=== PATIENT | female | born 1965 | race Caucasian/White ===

== ENCOUNTER 2024-12-29 22:12 | Outpatient (CLI) | payer OTHER, SELFPAY ==
--- OUTSIDE RECORDS SUMMARY | 2024-12-29 22:52 | XMS_ITS | Encounter Summary ---
Author Organization [facility] Address Formerly [facility] [place] [address] Care Team Providers Care Claims Clerk Name Role Phone Bianca Mejia MD Primary Care Provider [phone] Reason for Visit * Reason Comments Cardiac Arrest Encounter Details Date Type Department Care Team (Late st Contact Info) Description 12/29/2024 10:52 PM CDT - 12/30/2024 4:53 AM CDT Emergency [facility] Emergency Dept [address] [place] [id number] [phone] Leland Grullon MD [facility] [address] [place] [address] Cardiac arrest (H); Atrial fibrillation with RVR (H); Hyperkalemia; Lactic acidosis Discharge Disposition: Another Health Care Institution with Planned Hospital IP Readmission Social History Tobacco Use Types Packs/Day Years Used Date Smoking Tobacco: Every Day Cigarettes Smokeless Tobacco: Never Alcohol Use Standard Drinks/Week Comments Yes 0 (1 standard drink = 0.6 oz pur e alcohol) Socially Adolescent Education Answer Date Record ed Getting School Help Needed Not on file 03/27 Food Insecurity Answer Date Recorded Within the past 12 months, d id you worry that your food would run out before you got money to buy more? No 12/31/2024 Within the past 12 months, d id the food you bought just not last and you didn t have money to get more? No 12/31/2024 Housing Stability Answer Date Recorded Do you have housing? (Housin g is defined as stable permanent housing and does not include staying outside in a car, in a tent, in an abandoned building, in an overnight senior living, or couch-surfing.) Yes 12/31/2024 Are you worried about losing your housing? No 12/31/2024 Financial Resource Strain Answer Date R ecorded Within the past 12 months, h ave you or your family members you live with been unable to get utilities (heat, electricity) when it was really needed? No 12/31/2024 Transportation Needs Answer Date Record ed Within the past 12 months, h as lack of transportation kept you from medical appointments, getting your medicines, non-medical meetings or appointments, work, or from getting things that you need? No 12/31/2024 Interpersonal Safety Answer Date Record ed Do you feel physically and e motionally safe where you currently live? Yes 12/30/2024 Within the past 12 months, h ave you been hit, slapped, kicked or otherwise physically hurt by someone? No 12/30/2024 Within the past 12 months, h ave you been humiliated or emotionally abused in other ways by your partner or ex-partner? No 12/30/2024 Comments No Sex and Gender Information Value Date Recorded Sex Assigned at Not on file Legal Sex Female 2:48 PM CDT Gender Identity Not on file Sexual Orientation Not on file documented as of this encounter Last Filed Vital Signs Vital Sign Reading Time Taken Comments Blood Pressure 99/76 12/30/2024 4:15 AM CDT Pulse 72 12/30/2024 4:19 AM CDT Temperature 36.4 C (97.5 F) 12/29/2024 11:06 PM CDT Respiratory Rate 16 12/29/2024 11:0 4 PM CDT Oxygen Saturation 96% 12/30/2024 4:19 AM CDT Inhaled Oxygen Concentration - - Weight 90.6 kg (199 lb 11.8 oz) 025 11:03 PM CDT Height - - Body Mass Index 31.28 02/24/2022 6:29 AM CDT documented in this encounter Medications at Time of Discharge acetaminophen (TYLENOL) 325 MG tabletIndications:S /P lumbar fusion Take 2 tablets (650 mg) by mouth every 4 hours as needed for other (mild pain) 100 tablet 02/25/2022 atorvastatin (LIPITOR) 10 MG tablet Take 10 mg by mouth daily calcium carbonate-vitamin D (OS-SAMMIE WITH D) 500-200 MG-UNIT tabletIndications:S /P lumbar fusion Take 1 tablet by mouth 3 times daily (before meals) 270 tablet 02/26/2022 gabapentin (NEURONTIN) 800 MG tablet Take 800 mg by mouth 2 times daily. metFORMIN (GLUCOPHAGE XR) 500 MG 24 hr tablet Take 1,000 mg by mouth 2 times daily (with meals). nortriptyline (PAMELOR) 25 MG capsule Take 25 mg by mouth At Bedtime rivaroxaban ANTICOAGULANT (XARELTO) 20 MG TABS tabletIndications:A trial fibrillation, unspecified type (H) Take 1 tablet (20 mg) by mouth daily (with dinner) 02/27/2022 Vitamin D3 (CHOLECALCIFEROL) 25 mcg (1000 units) tabletIndications:S /P lumbar fusion Take 1 tablet (25 mcg) by mouth 2 times daily 180 tablet 02/25/2022 documented as of this encounter ED Notes * Leland Grullon MD - 12/29/2024 11:08 PM CDT Emergency Department Note History of Present Illness Chief Complaint Cardiac Arrest HPI Juliet Cox is a 59 year old female, anticoagulated on Xarelto for atrial fibrillation, with history of hypertension and type 2 diabetes who presents via EMS for cardiac arrest. Patient complained of right shoulder pain tonight and later had a sudden collapse in her garage. Daughter felt no pulseand performed CPR until police and fire department arrived. When fire department arrived to the scene, AED placed and 5 shocks were delivered. EMS states when they arrived, ROSC achieved, and pt was waking up. Upon ER arrival, patient is alert and talking. She denies chest pain, but notes mild SOB.She believes she is always in A-Fib. Independent Historian EMS as detailed above. Daughter later arrived and provided hx as well. She states pt had right-sided chest/shoulder pain before syncopal episode. Review of External Notes Reviewed cardiology note from April 2022. Paroxysmal a-fib at that time. Past Medical History Medical History and Problem List Hypertension Type 2 diabetes with polyneuropathy Mixed hyperlipidemia Arthritis Atrial fibrillation Antiplatelet or antithrombotic long-term use Tobacco use disorder Medications Xarelto Metformin Pamelor Gabapentin Jardiance Metoprolol succinate Atorvastatin Ferrous sulfate Levothyroxine Surgical History Cervical discectomy Laparoscopic gastric sleeve Optical tracking system fusion spine posterior lumbar three+ levels Physical Exam Patient Vitals for the past 24 hrs: BP Temp Temp src Pulse Resp SpO2 Weight 12/30/24406 -- -- -- 71 -- 99 % -- 12/30/24405 -- -- -- 71 -- 98 % -- 12/30/24404 -- -- -- 71 -- 99 % -- 12/30/24403 -- -- -- 73 -- 94 % -- 12/30/24402 -- -- -- 70 -- 97 % -- 12/30/24401 -- -- -- 72 -- 96 % -- 12/30/24400 -- -- -- 72 -- 98 % -- 12/30/24399 107/70 -- -- 73 -- 98 % -- 12/30/24335 -- -- -- 72 -- 99 % -- 12/30/24330 96/67 -- -- 73 -- 94 % -- 12/30/24314 111/68 -- -- 73 -- 97 % -- 12/30/240 104/75 -- -- 74 -- 94 % -- 12/30/24247 116/71 -- -- 73 -- 94 % -- 12/30/24246 -- -- -- 71 -- 94 % -- 12/30/24245 -- -- -- 73 -- 96 % -- 12/30/24244 -- -- -- 73 -- 94 % -- 12/30/24242 -- -- -- -- -- 96 % -- 12/30/24241 -- -- -- -- -- 96 % -- 12/30/24240 -- -- -- -- -- 95 % -- 12/30/24231 -- -- -- 76 -- 94 % -- 12/30/24230 -- -- -- 73 -- 95 % -- 12/30/24229 -- -- -- 75 -- 96 % -- 12/30/24228 -- -- -- 69 -- 96 % -- 12/30/24227 -- -- -- 73 -- 95 % -- 12/30/24204 -- -- -- 72 -- 97 % -- 12/30/24203 -- -- -- 69 -- 97 % -- 12/30/24202 -- -- -- 70 -- 96 % -- 12/30/24201 -- -- -- 109 -- 94 % -- 12/30/24199 -- -- -- 107 -- -- -- 12/30/24158 -- -- -- 110 -- 99 % -- 12/30/24157 -- -- -- -- -- 100 % -- 12/30/24156 111/85 -- -- 110 -- -- -- 12/30/24121 (!) 124/93 -- -- 112 -- 100 % -- 12/30/24111 -- -- -- 116 -- 100 % -- 12/30/24110 -- -- -- 113 -- 100 % -- 12/30/24109 (!) 121/103 -- -- 115 -- 100 % -- 12/30/24108 -- -- -- 110 -- 100 % -- 12/30/24107 -- -- -- 113 -- 100 % -- 12/30/24106 -- -- -- 112 -- 100 % -- 12/30/24105 -- -- -- 113 -- 100 % -- 12/30/24104 125/85 -- -- 109 -- 100 % -- 12/30/2457 -- -- -- 113 -- 100 % -- 12/30/2456 -- -- -- 112 -- 100 % -- 12/30/2455 -- -- -- 112 -- 100 % -- 12/30/2454 (!) 115/92 -- -- 115 -- 96 % -- 12/30/2451 -- -- -- 114 -- -- -- 12/30/2450 -- -- -- 112 -- 97 % -- 12/30/2449 (!) 114/96 -- -- 115 -- 99 % -- 12/30/2445 -- -- -- 114 -- -- -- 12/30/2444 110/84 -- -- 113 -- 100 % -- 12/30/2442 -- -- -- 113 -- 100 % -- 12/30/2441 -- -- -- 110 -- 100 % -- 12/30/2440 -- -- -- 107 -- 100 % -- 12/30/2439 108/78 -- -- 114 -- -- -- 12/30/2436 -- -- -- 117 -- 100 % -- 12/30/2435 -- -- -- 113 -- 100 % -- 12/30/2434 107/69 -- -- 114 -- 100 % -- 12/30/2432 -- -- -- 116 -- 100 % -- 12/30/2431 -- -- -- 117 -- 98 % -- 12/30/2430 -- -- -- 113 -- 100 % -- 12/30/2429 109/84 -- -- 118 -- -- -- 12/30/2427 -- -- -- 117 -- -- -- 12/30/2426 -- -- -- 109 -- 100 % -- 12/30/2425 -- -- -- 106 -- 100 % -- 12/30/2424 113/74 -- -- 105 -- 100 % -- 12/30/2423 -- -- -- 107 -- 99 % -- 12/30/2422 -- -- -- 109 -- 100 % -- 12/30/2421 -- -- -- 106 -- 100 % -- 12/30/2420 -- -- -- 105 -- 99 % -- 12/30/2419 101/77 -- -- 105 -- 100 % -- 12/30/2418 -- -- -- 113 -- 99 % -- 12/30/2417 -- -- -- 118 -- 100 % -- 12/30/2416 -- -- -- 111 -- 99 % -- 12/30/2415 -- -- -- 109 -- 99 % -- 12/30/2414 97/86 -- -- 112 -- -- -- 12/30/2413 -- -- -- -- -- 99 % -- 12/30/2412 -- -- -- 102 -- 99 % -- 12/30/2411 -- -- -- 113 -- 99 % -- 12/30/2410 -- -- -- (!) 124 -- 99 % -- 12/30/249 94/80 -- -- 117 -- 99 % -- 12/30/246 -- -- -- 110 -- 99 % -- 12/30/245 -- -- -- 115 -- 99 % -- 12/30/24 0005 118/81 -- -- 111 -- 99 % -- 12/30/24 0003 -- -- -- 113 -- 100 % -- 12/30/24 0002 -- -- -- 120 -- 99 % -- 12/30/24 0001 -- -- -- 113 -- 98 % -- 12/30/24 0000 110/76 -- -- 116 -- 98 % -- 12/29/242346 -- -- -- 113 -- 99 % -- 12/29/242344 91/69 -- -- 115 -- 99 % -- 12/29/242341 -- -- -- 113 -- 100 % -- 12/29/242340 -- -- -- 118 -- 100 % -- 12/29/242339 91/ -- -- 120 -- -- -- 12/29/242338 -- -- -- 117 -- 97 % -- 12/29/242337 -- -- -- 112 -- 100 % -- 12/29/242336 -- -- -- 115 -- 92 % -- 12/29/242335 -- -- -- 117 -- 98 % -- 12/29/242334 (!) -- -- 114 -- 98 % -- 12/29/242331 -- -- -- 114 -- 97 % -- 12/29/242330 -- -- -- 117 -- 97 % -- 12/29/242329 -- -- 115 -- 98 % -- 12/29/242328 -- -- -- 114 -- 98 % -- 12/29/242327 -- -- -- 115 -- 99 % -- 12/29/242325 -- -- -- 117 -- 97 % -- 12/29/242324 -- -- 118 -- 98 % -- 12/29/242322 -- -- -- (!) 121 -- 99 % -- 12/29/242321 -- -- -- 120 -- 99 % -- 12/29/242319 91/ -- -- (!) 121 -- 98 % -- 12/29/242318 -- -- -- 116 -- 99 % -- 12/29/242317 -- -- -- (!) 123 -- 99 % -- 12/29/242316 -- -- -- (!) 125 -- 97 % -- 12/29/242315 -- -- -- (!) 124 -- 97 % -- 12/29/242314 -- -- (!) 128 -- -- -- 12/29/242313 -- -- -- (!) 137 -- 98 % -- 12/29/242312 -- -- -- (!) 130 -- 98 % -- 12/29/242311 -- -- -- (!) 128 -- 97 % -- 12/29/242310 108/58 -- -- (!) 141 -- 98 % -- 12/29/242307 -- -- -- (!) 131 -- 98 % -- 12/29/242306 -- -- -- (!) 125 -- 97 % -- 12/29/242305 -- 97.5 ??F (36.4 ??C) Oral (!) 147 -- 97 % -- 12/29/242304 (!) 81/45 -- -- (!) 144 -- 97 % -- 12/29/242303 (!) 88/54 -- -- (!) 146 16 97 % -- 12/29/242302 (!) 8854 -- -- (!) 128 -- -- 90.6 kg (199 lb 11.8 oz) 12/29/242301 -- -- -- (!) 140 -- -- -- 12/29/242300 -- -- -- (!) 147 -- -- -- 12/29/242299 -- -- -- 120 -- -- -- 12/29/242258 -- -- -- (!) 135 -- -- -- 12/29/242256 -- -- -- 90 -- 98 % -- Physical Exam Nursing note and vitals reviewed. HENT: Mouth/Throat: Moist mucous membranes. Eyes: EOMI, nonicteric sclera Cardiovascular:tachycardic, irregularly irregular rhythm, no murmur Pulmonary/Chest: Effort normal and breath sounds normal. No respiratory distress. No wheezes. No rales. Pain to palpation of chest/sternum. Abdominal: Soft. Nontender, nondistended, no guarding or rigidity. Musculoskeletal: Normal range of motion. Neurological: Alert. Oriented. Equal production material handler strength. Moves all extremities spontaneously. Skin: Skin is warm and dry. No rash noted. IO left tibia. Appears in place. Diagnostics Lab Results Labs Ordered and Resulted from Time of ED Arrival to Time of ED Departure COMPREHENSIVE METABOLIC PANEL - Abnormal Result Value Sodium 138 Potassium 6.0 (*) Carbon Dioxide (CO2) 20 (*) Anion Gap 14 Urea Nitrogen 20.4 Creatinine 0.98 (*) GFR Estimate 66 Calcium 8.5 (*) Chloride 104 Glucose 234 (*) Alkaline Phosphatase 93 AST 396 (*) ALT 399 (*) Protein Total 6.0 (*) Albumin 3.8 Bilirubin Total 0.3 CBC WITH PLATELETS AND DIFFERENTIAL - Abnormal WBC Count 22.0 (*) RBC Count 4.47 Hemoglobin 14.0 Hematocrit 43.3 MCV 97 MCH 31.3 MCHC 32.3 RDW 14.1 Platelet Count 293 % Neutrophils 72 % Lymphocytes 18 % Monocytes 6 % Eosinophils 1 % Basophils 1 % Immature Granulocytes 3 NRBCs per 100 WBC 0 Absolute Neutrophils 15.9 (*) Absolute Lymphocytes 4.0 Absolute Monocytes 1.3 Absolute Eosinophils 0.1 Absolute Basophils 0.2 Absolute Immature Granulocytes 0.6 (*) Absolute NRBCs 0.0 GLUCOSE BY METER - Abnormal GLUCOSE BY METER POCT 67 (*) TROPONIN T, HIGH SENSITIVITY - Abnormal Troponin T, High Sensitivity 71 (*) ISTAT GASES LACTATE VENOUS POCT - Abnormal Lactic Acid POCT 3.6 (*) Bicarbonate Venous POCT 11 (*) O2 Sat, Venous POCT 39 (*) pCO2 Venous POCT 27 (*) pH Venous POCT 7.21 (*) pO2 Venous POCT 27 ISTAT BASIC CHEM ICA HEMATOCRIT POCT - Abnormal Chloride POCT 116 (*) Potassium POCT 3.0 (*) Sodium POCT 147 (*) UREA NITROGEN POCT 12 Calcium, Ionized Whole Blood POCT 3.5 (*) Glucose Whole Blood POCT 161 (*) Anion Gap POCT 21.0 (*) Hemoglobin POCT 9.5 (*) Hematocrit POCT 28 (*) Creatinine POCT 0.5 TOTAL CO2 POCT 14 POTASSIUM - Abnormal Potassium 5.9 (*) LACTIC ACID WHOLE BLOOD - Abnormal Lactic Acid 2.8 (*) TROPONIN T, HIGH SENSITIVITY - Abnormal Troponin T, High Sensitivity 120 (*) GLUCOSE BY METER - Abnormal GLUCOSE BY METER POCT 298 (*) IONIZED CALCIUM - Normal Calcium Ionized Whole Blood 4.5 POTASSIUM - Normal Potassium 4.4 GLUCOSE MONITOR NURSING POCT GLUCOSE MONITOR NURSING POCT Imaging CT Chest Pulmonary Embolism w Contrast Final Result IMPRESSION: 1. No pulmonary embolism or pneumonia. 2. Multiple anterior bilateral rib fractures and midsternal fracture, most certainly related to resuscitative efforts. 3. Trace bilateral pneumothoraces. 4. Diffuse pulmonary edema, likely cardiogenic. 5. Scattered right middle lobe pulmonary nodules measuring up to 5 mm. Per Fleischner Society 2017 guideline, a one-year follow-up chest CT could be considered if patient is at increased risk for lung cancer. Without lung cancer risk factor, no follow-up is necessary. Echocardiogram Limited Final Result EKG ECG results from 12/29/24 EKG 12 lead Value Systolic Blood Pressure Diastolic Blood Pressure Ventricular Rate 113 Atrial Rate 226 CA Interval QRS Duration 94 QT 390 QTc 534 P [place] R AXIS 57 T [place] 83 Interpretation ECG Atrial flutter with 2:1 A-V conduction Nonspecific ST abnormality Prolonged QT Abnormal ECG When compared with ECG of 29-Dec-2024 22:53, (unconfirmed) QRS axis Shifted right ST less depressed in Lateral leads Interpreted by Dr. Grullon at 2253 EKG 12 lead Value Systolic Blood Pressure Diastolic Blood Pressure Ventricular Rate 144 Atrial Rate 315 CA Interval QRS Duration 90 QT 322 QTc 498 P [place] R AXIS -79 T [place] 117 Interpretation ECG Atrial flutter with variable A-V block Left axis deviation Anterior infarct , age undetermined Abnormal ECG No previous ECGs available Interpreted by Dr. Grullon at 2345 Independent Interpretation I independently reviewed the CT chest PE w/ contrast. I see no evidence of pulmonary embolism. Multiple rib fractures noted. ED Course Medications Administered Medications norepinephrine (LEVOPHED) 4 mg in NS 250 mL PERIPHERAL infusion (0 mcg/kg/min ?? 90.6 kg Intravenous Stopped 12/30/24216) amiodarone (NEXTERONE) 1.8 mg/mL in dextrose 5% 200 mL ADULT STANDARD infusion (1 mg/min Intravenous $New Bag 12/29/242323) amiodarone (NEXTERONE) 1.8 mg/mL in dextrose 5% 200 mL ADULT STANDARD infusion (has no administration in time range) glucose gel 15-30 g (has no administration in time range) Or dextrose 50 % injection 25-50 mL (has no administration in time range) Or glucagon injection 1 mg (has no administration in time range) dextrose 10% BOLUS 300 mL (300 mLs Intravenous $New Bag 12/30/24154) amiodarone (NEXTERONE) bolus 150 mg (0 mg Intravenous Stopped 12/29/242328) calcium gluconate 1 g in 50 mL in sodium chloride intermittent infusion (1 g Intravenous $Given 12/30/24104) sodium bicarbonate 8.4 % injection 50 mEq (50 mEq Intravenous $Given 12/30/24107) dextrose 50 % injection 25 g (25 g Intravenous $Given 12/30/24155) insulin regular 1 unit/mL injection 9 Units (9 Units Intravenous $Given 6/28/25 0156) sodium chloride 0.9 % bag for CT scan flush (96 mLs Intravenous $Given 12/30/24 0143) iopamidol (ISOVUE-370) solution 500 mL (78 mLs Intravenous $Given 12/30/24 0136) Procedures Procedures Central Line Placement Procedure: Central Venous Catheter Insertion Indication: Vasopressor administration and Vascular access Consent: Verbal from Patient Risk Discussed: incorrect placement, failure to place and bleeding or infection Cornelius Protocol: Cornelius protocol was followed and time out conducted just prior to starting procedure, confirming patient identity, site/side, procedure, patient position, and availability of correct equipment and implants. Anesthesia/Sedation: Lidocaine - 1% Procedure Detail: Central line bundle elements were complete including preparatory hand leansing, donning full barrier precautions, use of a full body drape and chlorhxidine gluconate skin prep. The Right internal femoral vein was selected as the optimal location for patient???s condition. Ultrasound was utilized for guidance: A finder needle was used to enter the vein, through which a guidewire was inserted. The finder needle was then removed and the tract was dilated. A triple lumen central venous catheter was inserted over the guidewire without difficulty. The guidewire was removed and the catheter was sutured in place and covered with an appropriate dressing. Patient Status: The patient tolerated the procedure well: Yes. There were no complications. Discussion of Management Cardiology - Dr. Mcnamara Pinked Edge Sewing Machine Operator - Dr. Chen ED Course ED Course as of 12/30/24 0411 WedDec 29, 2024 2254 I obtained history and examined the patient as noted above. 9905 I performed central line placement. Sat Dec 30, [address] Chen, [place]'s food and beverage checker, regarding the patient. Additional Documentation None Medical Decision Making / Diagnosis [facility] Diagnoses: Lactic acid elevated due to cardiac arrest. At this time there are no signs of sepsis or septic shock MIPS CT for PE was ordered because the patient is high risk for pulmonary embolism. FRED Cox is a 59 year old female who presents status post cardiac arrest. Patient had witnessed arrest and immediate bystander CPR. Had 5 shocks by AED. When EMS arrived, ROSC and been achieved and rhythm was A-fib with RVR. On arrival, patient denying chest pain or headache. EKG x2 without evidence of ischemia. Patient anticoagulated on Xarelto. troponin mildly elevated as anticipated afteran arrest, but not significantly so. Noted to be hyperkalemic and treated with meds as above. Improved on recheck. CTPE negative for PE, tamponade. Small pneumos noted and multiple rib fractures. No chest tube needed. Pt largely asymptomatic. No ischemia noted on EKGs. Arrest does not appear to be 2/2 NH at this time. Discussed with on-call cardiology, Dr. Mcnamara, who agrees, and does not recommend activating bed laborer. She did recommend obtaining a stat echo and starting amiodarone which was done. Stat echo reassuring without wall motion abnormality or other abnormality reassuring against NH.Suspect primary arrhythmic event. Pt converted back to sinus rhythm while in ED. Will continue amiofor now given concerns for arrhythmia as the cause of cardiac arrest. Considered aspirin and heparin gtt for NSTEMI, but given lower concern for ischemic cause of arrest, will defer. Pt was briefly on norepi following ROSC, but this was weaned off. We had some difficulty with IV access on arrival and obtaining labs, so pt has a right femoral central line placed for access. Discussed with pt/family and answered all questions. Pt transferred in stable condition. All questions answered. Critical care time: 70 minutes excluding procedures. Disposition The patient was transferred to [facility] ICU. Diagnosis ICD-10-CM 1. Cardiac arrest (H) I46.9 2. Atrial fibrillation with RVR (H) I48.91 3. Hyperkalemia E87.5 4. Lactic acidosis E87.20 Scribe Disclosure: Rhea Strauss, dio serving as a scribe at 11:08 PM on 12/29/2024 to document services personally performed by Leland Grullon MD based on my observations and the provider's statements to me. Leland Grullon MD 12/30/24 0419 * Geri Salamanca RN - 12/29/2024 10:53 PM CDT Pt BIBA from home d/t cardiac arrest. Per EMS, pt collapsed in the garage and had witnessed arrest by family. About 20 min CPR and 5 vfib shocks given by fire before EMS arrival. ROSC was obtained upon EMS arrival. Upon arrival to ED, pt awake and talking, A&Ox4. Pt in afib RVR rate between 120-140s. Hx diabetes, afib. VSS except hypotensive and tachy. ABCS intact. Triage Assessment (Adult) Row Name 12/29/24 3743 Triage Assessment Airway WDL WDL Respiratory WDL Respiratory WDL WDL Skin Circulation/Temperature WDL Skin Circulation/Temperature WDL WDL Cardiac WDL Cardiac WDL WDL Peripheral/Neurovascular WDL Peripheral Neurovascular WDL WDL Cognitive/Neuro/Behavioral WDL Cognitive/Neuro/Behavioral WDL WDL documented in this encounter Plan of Treatment Not on file documented as of this encounter Procedures Procedure Name Priority Date/Time Associated Diagnosis Comments GLUCOSE BY METER STAT 12/30/2024 4:12 AM CDT GLUCOSE BY METER STAT 12/30/2024 2:20 AM CDT TROPONIN T, HIGH SENSITIVITY STAT 12/30/2024 2:17 AM CDT POTASSIUM STAT 12/30/2024 2:[address] CHEST PULMONARY EMBOLISM W CONTRAST STAT 12/30/2024 1:58 AM CDT POTASSIUM STAT 12/30/2024 1:16 AM CDT LACTIC ACID WHOLE BLOOD STAT 12/30/2024 1:16 AM CDT IONIZED CALCIUM STAT 12/30/2024 1:16 AM CDT ECHO LIMITED STAT 12/30/2024 12:28 AM CDT TROPONIN T, HIGH SENSITIVITY STAT 12/30/2024 12:19 AM CDT COMPREHENSIVE METABOLIC PANEL STAT 12/30/2024 12:19 AM CDT EKG 12-LEAD, TRACING ONLY STAT 12/29/2024 11:40 PM CDT EXTRA GREEN TOP (LITHIUM HEPARIN) ON ICE STAT 12/29/2024 11:04 PM CDT EXTRA HEPARINIZED SYRINGE STAT 12/29/2024 11:04 PM CDT EXTRA TUBE STAT 12/29/2024 11:04 PM CDT EXTRA RED TOP TUBE STAT 12/29/2024 11 :04 PM CDT EXTRA BLUE TOP TUBE STAT 12/29/2024 1 1:04 PM CDT CBC WITH PLATELETS AND DIFFERENTIAL STAT 12/29/2024 11:04 PM CDT CBC WITH PLATELETS & DIFFERENTIAL STAT 12/29/2024 11:04 PM CDT ISTAT BASIC CHEM ICA HEMATOCRIT POCT STAT 12/29/2024 11:01 PM CDT ISTAT GASES LACTATE VENOUS POCT STAT 12/29/2024 11:01 PM CDT GLUCOSE BY METER STAT 12/29/2024 10:5 7 PM CDT EKG 12-LEAD, TRACING ONLY STAT 12/29/2024 10:53 PM CDT documented in this encounter Results * (ABNORMAL) Glucose by meter (12/30/2024 4:12 AM CDT) [facility] GLUCOSE BY METER POCT 232(H) 70 - 99 mg/dL 12/30/2024 4:18 AM CDT LABORATORY POC Blood, Capillary BLOOD SPECIMEN / Unknown 12/30/2024 4:12 AM CDT 12/30/2024 4:18 AM CDT Leland Grullon MD LAB - BEAKER POCT Final R esult LABORATORY POC [facility] [address] Lab (1st floor, no room number) [address] [place] [address] * (ABNORMAL) Glucose by meter (12/30/2024 2:20 AM CDT) GLUCOSE BY METER POCT 298(H) 70 - 99 mg/dL 12/30/2024 2:27 AM CDT LABORATORY POC Blood, venous BLOOD SPECIMEN / Unknown 12/30/2024 2:20 AM CDT 12/30/2024 2:27 AM CDT Leland Grullon MD LAB - BEAKER POCT Final R esult LABORATORY POC [facility] [address] Lab (1st floor, no room number) [place] [id number] [place] [address] * Potassium (12/30/2024 2:17 AM CDT) Potassium 4.4 3.4 - 5.3 mmol/L 12/30/2024 3:12 AM CDT LABORATORY Blood BLOOD SPECIMEN / Unknown Venipuncture / Unknown 12/30/2024 2:17 AM CDT 12/30/2024 2:27 AM CDT Leland Grullon MD LAB - BLOOD ORDERABLES Fi nal Result LABORATORY [facility] [address] Lab (1st floor, no room number) [address] * (ABNORMAL) Troponin T, High Sensitivity (12/30/2024 2:17 AM CDT) Troponin T, High Sensitivity 120(HH) <=14 ng/L 12/30/2024 3:22 AM CDT LABORATORY Comment: Either a High Sensitivity Troponin T baseline (0 hours) value = 100 ng/L, or an increase in High Sensitivity Troponin T = 7 ng/L at 2 hours compared to 0 hours (2-0 hours), suggests myocardial injury, and urgent clinical attention is required. If the 2-0 hours increase is <7 ng/L, a High Sensitivity Troponin T result above gender-specific reference ranges warrants further evaluation. Recommendations for further evaluation include correlation with clinical decision-making tool (e.g., HEART), a 3rd High Sensitivity Troponin T test 2 hours after the 2nd (a 20% change from baseline would represent concern), admission for observation, close PCC/cardiology follow-up, or urgent outpatient provocative testing. Blood BLOOD SPECIMEN / Unknown Venipuncture / Unknown 12/30/2024 2:17 AM CDT 12/30/2024 2:27 AM CDT us Leland Grullon MD LAB - BLOOD ORDERABLES Fi nal Result [facility] [address] Lab (1st floor, no room number) [place] [address], [facility] * CT Chest Pulmonary Embolism w Contrast (12/30/2024 1:58 AM CDT) Anatomical Region Laterality Modality Chest, SUBRAD CT BODY, UMP CT CHEST Computed Tomography 12/30/2024 1:58 AM CDT Impressions 12/30/2024 2:37 AM CDT IMPRESSION: 1. No pulmonary embolism or pneumonia. 2. Multiple anterior bilateral rib fractures and midsternal fracture, most certainly related to resuscitative efforts. 3. Trace bilateral pneumothoraces. 4. Diffuse pulmonary edema, likely cardiogenic. 5. Scattered right middle lobe pulmonary nodules measuring up to 5 mm. Per Fleischner Society 2017 guideline, a one-year follow-up chest CT could be considered if patient is at increased risk for lung cancer. Without lung cancer risk factor, no follow-up is necessary. Narrative 12/30/2024 2:37 AM CDT EXAM: CT CHEST PULMONARY EMBOLISM W CONTRAST LOCATION: [facility] DATE: 12/30/2024 INDICATION: Cardiac arrest. COMPARISON: None. TECHNIQUE: CT chest pulmonary angiogram during arterial phase injection of IV contrast. Multiplanar reformats and MIP reconstructions were performed. Dose reduction techniques were used. CONTRAST: 78 mL Isovue 370 FINDINGS: ANGIOGRAM CHEST: Pulmonary arteries are normal caliber and negative for pulmonary emboli. Thoracic aorta is negative for aneurysm or dissection. No CT evidence of right heart strain. LUNGS AND PLEURA: Trace bilateral pneumothoraces present. A 5 mm right middle lobe nodule is seen on series 7 image 125. A couple 2 to 5 mm nodules in the right middle lobe on image 109. Extensive septal line thickening with hazy groundglass opacities throughout bilateral lung. Dependent atelectasis in the posterior right upper lobe and lower lobes. No confluent pneumonic consolidation or pleural effusion. MEDIASTINUM/AXILLAE: No lymphadenopathy. Heart size is normal without pericardial effusion. CORONARY ARTERY CALCIFICATION: Mild. UPPER ABDOMEN: No acute findings. 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 Adenomatous hypertrophy of bilateral adrenal glands. MUSCULOSKELETAL: Prominent anterior osteophyte in the lower thoracic spine. No suspicious osseous lesions. Multiple anterior bilateral rib fractures and nondisplaced sternal fracture noted, including right third, fourth, fifth, sixth, and seventh ribs, as well as the left anterior fourth, fifth and sixth ribs. Procedure Note Micha Isidro MD - 12/30/2024 EXAM: CT CHEST PULMONARY EMBOLISM W CONTRAST LOCATION: [facility] DATE: 12/30/2024 INDICATION: Cardiac arrest. COMPARISON: None. TECHNIQUE: CT chest pulmonary angiogram during arterial phase injection ofIV contrast. Multiplanar reformats and MIP reconstructions were performed.Dose reduction techniques were used. CONTRAST: 78 mL Isovue 370 FINDINGS: ANGIOGRAM CHEST: Pulmonary arteries are normal caliber and negative forpulmonary emboli. Thoracic aorta is negative for aneurysm or dissection.No CT evidence of right heart strain. LUNGS AND PLEURA: Trace bilateral pneumothoraces present. A 5 mm rightmiddle lobe nodule is seen on series 7 image 125. A couple 2 to 5 mmnodules in the right middle lobe on image 109. Extensive septal linethickening with hazy groundglass opacities throughout bilateral lung. Dependent atelectasis in the posterior rightupper lobe and lower lobes. No confluent pneumonic consolidation orpleural effusion. MEDIASTINUM/AXILLAE: No lymphadenopathy. Heart size is normal withoutpericardial effusion. CORONARY ARTERY CALCIFICATION: Mild. UPPER ABDOMEN: No acute findings. Postsurgical changes of prior gastricsleeve procedure. Adenomatous hypertrophy of bilateral adrenal glands. MUSCULOSKELETAL: Prominent anterior osteophyte in the lower thoracicspine. No suspicious osseous lesions. Multiple anterior bilateral ribfractures and nondisplaced sternal fracture noted, including right third,fourth, fifth, sixth, and seventh ribs, as well as the left anterior fourth, fifth and sixth ribs. IMPRESSION: 1. No pulmonary embolism or pneumonia. 2. Multiple anterior bilateral rib fractures and midsternal fracture,most certainly related to resuscitative efforts. 3. Trace bilateral pneumothoraces. 4. Diffuse pulmonary edema, likely cardiogenic. 5. Scattered right middle lobe pulmonary nodules measuring up to 5 mm.Per Fleischner Society 2017 guideline, a one-year follow-up chest CT couldbe considered if patient is at increased risk for lung cancer. Withoutlung cancer risk factor, no follow-up is necessary. Leland Grullon MD IMG CT ORDERABLES Final R esult * (ABNORMAL) Potassium (12/30/2024 1:16 AM CDT) [facility] Potassium 5.9(H) 3.4 - 5.3 mmol/L 12/30/2024 1:39 AM CDT LABORATORY Blood BLOOD SPECIMEN / Unknown Venipuncture / Unknown 12/30/2024 1:16 AM CDT 12/30/2024 1:19 AM CDT Leland Grullon MD LAB - BLOOD ORDERABLES Fi nal Result LABORATORY [facility] [address] [facility] Lab (1st floor, no room number) [place] [address], [facility] * Ionized Calcium (12/30/2024 1:16 AM CDT) Calcium Ionized Whole Blood 4.5 4.4 - 5.2 mg/dL 12/30/2024 1:21 AM CDT LABORATORY Blood BLOOD SPECIMEN / Unknown Venipuncture / Unknown 12/30/2024 1:16 AM CDT 12/30/2024 1:19 AM CDT Leland Grullno MD LAB - BLOOD ORDERABLES Fi nal Result Performing Organization Address City/[facility]/ZIP Co de Phone Number [facility] [address] [facility] Lab (1st floor, no room number) [place] [phone] [place] [address] * (ABNORMAL) Lactic acid whole blood (12/30/2024 1:16 AM CDT) Lactic Acid 2.8(H) 0.7 - 2.0 mmol/L 12/30/2024 1:21 AM CDT LABORATORY Blood BLOOD SPECIMEN / Unknown Venipuncture / Unknown 12/30/2024 1:16 AM CDT 12/30/2024 1:19 AM CDT Leland Grullon MD LAB - BLOOD ORDERABLES Fi nal Result Performing Organization Address [facility] Co de Phone Number [facility] Lab [address] [facility] Lab (1st floor, no room number) [place] [phone] * ECHO LIMITED (12/30/2024 12:28 AM CDT) Pathologist [facility] LVEF 60-65% CARDIOLOGY RESULTS Anatomical Region Laterality Modality Echocardiography 12/30/2024 12:1 5 AM CDT Narrative 12/30/2024 12:39 AM CDT [id number]^MAZIN^[place]^[facility] Echocardiography Laboratory [address] [place] [address] Name: JULIET COX : 1965 Study Date: 12/30/2024 12:15 AM Age: 59 yrs Gender: Female Patient Location: [facility] Reason For Study: Cardiac Arrest Ordering Physician: LELAND GRULLON Performed By: Kendra Manzano BSA: 2.0 m2 Height: 67 in Weight: 199 lb HR: 89 BP: 81/45 mmHg Procedure Limited Echocardiogram with two-dimensional, color and spectral Doppler. (Emergent exam, abbreviated study performed). Interpretation Summary No apical window at all Free text field The left ventricle is normal in structure, function and size. The visual ejection fraction is 60-65%. Grossly normal RV size and function. There is no pericardial effusion. The rhythm was sinus tachycardia. Limited views obtained. Limited views obtained. Left Ventricle The left ventricle is normal in structure, function and size. The visual ejection fraction is 60-65%. No regional wall motion abnormalities noted. Right Ventricle Grossly normal RV size and function. Atria Normal left atrial size. Right atrial size is normal. Mitral Valve The mitral valve is normal in structure and function. Tricuspid Valve The tricuspid valve is normal in structure and function. Aortic Valve The aortic valve is normal in structure and function. Pericardium There is no pericardial effusion. Rhythm The rhythm was sinus tachycardia. Report approved by: Ced Moeller MD on 12/30/2024 12:39 AM Procedure Note Ced Moeller MD - 12/30/2024 [id number]^MAZIN^[place]^[facility] Echocardiography Laboratory [address] [place] [id number] Name: JULIET COX : 1965 Study Date: 12/30/2024 12:15 AM Age: 59 yrs Gender: Female Patient Location: [facility] Reason For Study: Cardiac Arrest Ordering Physician: LELAND GRULLON Performed By: Kendra Manzano BSA: 2.0 m2 Height: 67 in Weight: 199 lb HR: 89 BP: 81/45 mmHg Procedure Limited Echocardiogram with two-dimensional, color and spectral Doppler. (Emergent exam, abbreviated study performed). Interpretation Summary No apical window at all Free text field The left ventricle is normal in structure, function and size. The visual ejection fraction is 60-65%. Grossly normal RV size and function. There is no pericardial effusion. The rhythm was sinus tachycardia. Limited views obtained. Limited views obtained. Left Ventricle The left ventricle is normal in structure, function and size. The visual ejection fraction is 60-65%. No regional wall motion abnormalitiesnoted. Right Ventricle Grossly normal RV size and function. Atria Normal left atrial size. Right atrial size is normal. Mitral Valve The mitral valve is normal in structure and function. Tricuspid Valve The tricuspid valve is normal in structure and function. Aortic Valve The aortic valve is normal in structure and function. Pericardium There is no pericardial effusion. Rhythm The rhythm was sinus tachycardia. Report approved by: Ced Moeller MD on 12/30/2024 12:39 AM us Leland Grullon MD CV ECHO ORDERABLES Edited Result - Final * (ABNORMAL) Troponin T, High Sensitivity (12/30/2024 12:19 AM CDT) [facility] Troponin T, High Sensitivity 71(H) <=14 ng/L 12/30/2024 12:42 AM CDT LABORATORY Comment: Either a High Sensitivity Troponin T baseline (0 hours) value = 100 ng/L, or an increase in High Sensitivity Troponin T = 7 ng/L at 2 hours compared to 0 hours (2-0 hours), suggests myocardial injury, and urgent clinical attention is required. If the 2-0 hours increase is <7 ng/L, a High Sensitivity Troponin T result above gender-specific reference ranges warrants further evaluation. Recommendations for further evaluation include correlation with clinical decision-making tool (e.g., HEART), a 3rd High Sensitivity Troponin T test 2 hours after the 2nd (a 20% change from baseline would represent concern), admission for observation, close PCC/cardiology follow-up, or urgent outpatient provocative testing. Blood BLOOD SPECIMEN / Unknown Venipuncture / Unknown 12/30/2024 12:19 AM CDT 12/30/2024 12:21 AM CDT us Leland Grullon MD LAB - BLOOD ORDERABLES Fi nal Result LABORATORY [facility] [address] [facility] Lab (1st floor, no room number) [place] [address], [facility] * (ABNORMAL) Comprehensive metabolic panel (12/30/2024 12:19 AM CDT) Sodium 138 135 - 145 mmol/L 12/30/2024 12:42 AM CDT LABORATORY Potassium 6.0(H) 3.4 - 5.3 mmol/L 12/30/2024 12:42 AM CDT LABORATORY Carbon Dioxide (CO2) 20(L) 22 - 29 mmol/L 12/30/2024 12:42 AM CDT LABORATORY Anion Gap 14 7 - 15 mmol/L 12/30/2024 12:42 AM CDT LABORATORY Urea Nitrogen 20.4 8.0 - 23.0 mg/dL 12/30/2024 12:42 AM CDT LABORATORY Creatinine 0.98(H) 0.51 - 0.95 mg/dL 12/30/2024 12:42 AM CDT LABORATORY GFR Estimate 66 >60 mL/min/1.7 3m2 12/30/2024 12:42 AM CDT [facility] LABORATORY Comment:eGFR calculated usin 2020 CKD-EPI equation. Calcium 8.5(L) 8.8 - 10.4 mg/dL 12/30/2024 12:42 AM CDT [facility] LABORATORY Chloride 104 98 - 107 mmol/L 12/30/2024 12:42 AM CDT [facility] LABORATORY Glucose 234(H) 70 - 99 mg/dL 12/30/2024 12:42 AM CDT [facility] LABORATORY Alkaline Phosphatase 93 40 - 150 U/L 12/30/2024 12:42 AM CDT [facility] LABORATORY AST 396(H) 0 - 45 U/L 12/30/2024 12:42 AM CDT [facility] LABORATORY ALT 399(H) 0 - 50 U/L 12/30/2024 12:42 AM CDT [facility] LABORATORY Protein Total 6.0(L) 6.4 - 8.3 g/dL 12/30/2024 12:42 AM CDT [facility] LABORATORY Albumin 3.8 3.5 - 5.2 g/dL 12/30/2024 12:42 AM CDT [facility] LABORATORY Bilirubin Total 0.3 <=1.2 mg/dL 12/30/2024 12:42 AM CDT RH LABORATORY Blood BLOOD SPECIMEN / Unknown Venipuncture / Unknown 12/30/2024 12:19 AM CDT 12/30/2024 12:21 AM CDT us Leland Grullon MD LAB - BLOOD ORDERABLES Fi nal Result LABORATORY [facility] [address] Lab (1st floor, no room number) [place] [address] * EKG 12 lead (12/29/2024 11:40 PM CDT) Systolic Blood Pressure mmHg RADIOLOGY RESULTS Diastolic Blood Pressure mmHg RADIOLOGY RESULTS Ventricular Rate 113 BPM RAD IOLOGY RESULTS Atrial Rate 226 BPM RADIOLOG Y RESULTS CA Interval ms RADIOLOG Y RESULTS QRS Duration 94 ms RADIOLO GY RESULTS QT 390 ms RADIOLOGY RESULTS QTc 534 ms RADIOLOGY RESULTS P [place] degrees RADIOLOGY RESULTS R AXIS 57 degrees RADIOLOGY RESULTS T [place] 83 degrees RADIOLOGY RESULTS Interpretation ECG Atrial flutter with 2:1 A-V conduction Nonspecific ST abnormality Prolonged QT Abnormal ECG When compared with ECG of 27-Keo-2025 22:53, (unconfirmed) QRS axis Shifted right ST less depressed in Lateral leads Unconfirmed report - interpretation of this ECG is computer generated - see medical record for final interpretation Confirmed by - EMERGENCY ROOM, PHYSICIAN ([id number]), website/blog editor Dennis Billingsley ([id number]) on 01/01/2025 7:47:35 AM RADIOLOGY RESULTS 12/29/2024 11:4 0 PM CDT 01/01/2025 7:47 AM CDT Leland Grullon MD ECG ORDERABLES Edited Re sult - Final RADIOLOGY RESULTS * Extra Green Top ([place] Heparin) ON ICE (12/29/2024 11:04 PM CDT) Hold Specimen [facility] 12/30/2024 1:31 AM CDT [facility] LABORATORY Blood BLOOD SPECIMEN / Unknown Venipuncture / Unknown 12/29/2024 11:04 PM CDT 12/30/2024 12:21 AM CDT Leland Grullon MD LAB - BLOOD ORDERABLES Fi nal Result [facility] Lab [address] Lab (1st floor, no room number) [place] [address] * Extra Heparinized Syringe (12/29/2024 11:04 PM CDT) Hold Specimen [facility] 12/30/2024 1:31 AM CDT [facility] LABORATORY Blood, venous BLOOD SPECIMEN / Unknown Venipuncture / Unknown 12/29/2024 11:04 PM CDT 12/30/2024 12:21 AM CDT us Leland Grullon MD LAB - BLOOD ORDERABLES Fi nal Result [facility] [address] Lab (1st floor, no room number) [place] [phone] [place] [address] * Extra Red Top Tube (12/29/2024 11:04 PM CDT) Hold Specimen [facility] 12/30/2024 1:31 AM CDT RH LABORATORY Blood BLOOD SPECIMEN / Unknown Venipuncture / Unknown 12/29/2024 11:04 PM CDT 12/30/2024 12:21 AM CDT Leland Grullon MD LAB - BLOOD ORDERABLES Fi nal Result LABORATORY [facility] Lab [address] Lab (1st floor, no room number) [place] [phone] [place] [address] * Extra Blue Top Tube (12/29/2024 11:04 PM CDT) Hold Specimen [facility] 12/30/2024 12:31 AM CDT RH LABORATORY Blood BLOOD SPECIMEN / Unknown Venipuncture / Unknown 12/29/2024 11:04 PM CDT 12/29/2024 11:23 PM CDT Leland Grullon MD LAB - BLOOD ORDERABLES Fi nal Result [facility] [address] Lab (1st floor, no room number) [place] [phone] [place] [address] * (ABNORMAL) CBC with platelets and differential (12/29/2024 11:04 PM CDT) WBC Count 22.0(H) 4.0 - 11.0 10e3/uL 12/29/2024 11:26 PM CDT [facility] LABORATORY RBC Count 4.47 3.80 - 5.20 10e6/uL 12/29/2024 11:26 PM CDT [facility] LABORATORY Hemoglobin 14.0 11.7 - 15.7 g/dL 12/29/2024 11:26 PM CDT [facility] LABORATORY Hematocrit 43.3 35.0 - 47.0 % 12/29/2024 11:26 PM CDT [facility] LABORATORY MCV 97 78 - 100 fL 12/29/2024 11:26 PM CDT [facility] LABORATORY MCH 31.3 26.5 - 33.0 pg 12/29/2024 11:26 PM CDT [facility] LABORATORY MCHC 32.3 31.5 - 36.5 g/dL 12/29/2024 11:26 PM CDT RH LABORATORY RDW 14.1 10.0 - 15.0 % 12/29/2024 11:26 PM CDT [facility] LABORATORY Platelet Count 293 150 - 450 10e3/uL 12/29/2024 11:26 PM CDT [facility] LABORATORY % Neutrophils 72 % 12/29/2024 11:26 PM CDT [facility] LABORAT[facility] % Lymphocytes 18 % 12/29/2024 11:26 PM CDT [facility] LABORATORY % Monocytes 6 % 12/29/2024 11:26 PM CDT [facility] LABORATORY % Eosinophils 1 % 12/29/2024 11:26 PM CDT RH LABORATORY % Basophils 1 % 12/29/2024 11:26 PM CDT RH LABORATORY % Immature Granulocytes 3 % 12/29/2024 11:26 PM CDT RH LABORATORY NRBCs per 100 WBC 0 <1 /100 025 11:26 PM CDT RH LABORATORY Absolute Neutrophils 15.9(H) 1.6 - 8.3 10e3/uL 12/29/2024 11:26 PM CDT [facility] LABORATORY Absolute Lymphocytes 4.0 0.8 - 5.3 10e3/uL 12/29/2024 11:26 PM CDT [facility] LABORATORY Absolute Monocytes 1.3 0.0 - 1.3 10e3/uL 12/29/2024 11:26 PM CDT RH LABORATORY Absolute Eosinophils 0.1 0.0 - 0.7 10e3/uL 12/29/2024 11:26 PM CDT RH LABORATORY Absolute Basophils 0.2 0.0 - 0.2 10e3/uL 12/29/2024 11:26 PM CDT RH LABORATORY Absolute Immature Granulocytes 0.6(H) <=0.4 10e3/uL 12/29/2024 11:26 PM CDT RH LABORATORY Absolute NRBCs 0.0 10e3/uL 12/29/2024 11:26 PM CDT RH LABORATORY Blood BLOOD SPECIMEN / Unknown Venipuncture / Unknown 12/29/2024 11:04 PM CDT 12/29/2024 11:23 PM CDT us Leland Grullon MD LAB - BLOOD ORDERABLES Fi nal Result RH LABORATORY [facility] [address] Lab (1st floor, no room number) [place] [address], [facility] * (ABNORMAL) iStat Basic Chem ICA Hematocrit, POCT (12/29/2024 11:01 PM CDT) Chloride POCT 116(H) 98-107 mmol/L mmol/L 12/29/2024 11:08 PM CDT RH LABORATORY POC Potassium POCT 3.0(L) 3.4 - 5.3 mmol/L 12/29/2024 11:08 PM CDT RH LABORATORY POC Sodium POCT 147(H) 135 - 145 mmol/L 12/29/2024 11:08 PM CDT RH LABORATORY POC UREA NITROGEN POCT 12 8 - 23 mg/dL 12/29/2024 11:08 PM CDT RH LABORATORY POC Calcium, Ionized Whole Blood POCT 3.5(L) 4.4 - 5.2 mg/dL 12/29/2024 11:08 PM CDT RH LABORATORY POC Glucose Whole Blood POCT 161(H) 70 - 99 mg/dL 12/29/2024 11:08 PM CDT RH LABORATORY POC Anion Gap POCT 21.0(H) 7.0-15.0 mmol/L mmol/L 12/29/2024 11:08 PM CDT RH LABORATORY POC Hemoglobin POCT 9.5(L) 11.7 - 15.7 g/dL 12/29/2024 11:08 PM CDT RH LABORATORY POC Hematocrit POCT 28(L) 35-47 % % 11:08 PM CDT RH LABORATORY POC Creatinine POCT 0.5 0.5 - 1.0 mg/dL 12/29/2024 11:08 PM CDT RH LABORATORY POC TOTAL CO2 POCT 14 mmol/L 12/29/2024 11:08 PM CDT RH LABORATORY POC Blood, venous BLOOD SPECIMEN / Unknown 12/29/2024 11:01 PM CDT 12/29/2024 11:08 PM CDT Narrative [facility] LABORATORY POC - 12/29/2024 11:08 PM CDT Reference intervals for this test were updated on 09/11/2024 to standardize reference intervals for creatinine measured by different instruments. There may be differences in the flagging of prior results with similar values performed with this method. Those prior results can be interpreted in the context of the updated reference intervals. Leland Grullon MD LAB - BEAKER POCT Final R esult RH LABORATORY [facility] Lab [address] Lab (1st floor, no room number) [place] [address] * (ABNORMAL) iStat Gases (lactate) venous, POCT (12/29/2024 11:01 PM CDT) Lactic Acid POCT 3.6(H) 0.7 - 2.0 mmol/L 12/29/2024 11:07 PM CDT RH LABORATORY POC Bicarbonate Venous POCT 11(L) 21 - 28 mmol/L 12/29/2024 11:07 PM CDT RH LABORATORY POC O2 Sat, Venous POCT 39(L) 70 - 75 % 12/29/2024 11:07 PM CDT RH LABORATORY POC pCO2 Venous POCT 27(L) 40 - 50 mm Hg 12/29/2024 11:07 PM CDT RH LABORATORY POC pH Venous POCT 7.21(L) 7.32 - 7.43 12/29/2024 11:07 PM CDT RH LABORATORY POC pO2 Venous POCT 27 25 - 47 mm Hg 12/29/2024 11:07 PM CDT RH LABORATORY POC Blood, venous BLOOD SPECIMEN / Unknown 12/29/2024 11:01 PM CDT 12/29/2024 11:07 PM CDT Leland Grullon MD LAB - BEAKER POCT Final R esult RH LABORATORY [facility] Lab [address] Lab (1st floor, no room number) [place] [phone] * (ABNORMAL) Glucose by meter (12/29/2024 10:57 PM CDT) GLUCOSE BY METER POCT 67(L) 70 - 99 mg/dL 12/29/2024 11:04 PM CDT LABORATORY POC Blood, Capillary BLOOD SPECIMEN / Unknown 12/29/2024 10:57 PM CDT 12/29/2024 11:04 PM CDT us Provider Unknown LAB - BEAKER POCT Final Result LABORATORY POC [facility] [address] Lab (1st floor, no room number) [place] [phone] * EKG 12 lead (12/29/2024 10:53 PM CDT) Systolic Blood Pressure mmHg RADIOLOGY RESULTS Diastolic Blood Pressure mmHg RADIOLOGY RESULTS Ventricular Rate 144 BPM RAD IOLOGY RESULTS Atrial Rate 315 BPM RADIOLOG Y RESULTS CA Interval ms RADIOLOG Y RESULTS QRS Duration 90 ms RADIOLO GY RESULTS QT 322 ms RADIOLOGY RESULTS QTc 498 ms RADIOLOGY RESULTS P [place] degrees RADIOLOGY RESULTS R AXIS -79 degrees RADIOLOGY RESULTS T [place] 117 degrees RADIOLOGY RESULTS Interpretation ECG Atrial flutter with variable A-V block Left axis deviation Anterior infarct , age undetermined Abnormal ECG No previous ECGs available Unconfirmed report - interpretation of this ECG is computer generated - see medical record for final interpretation Confirmed by - EMERGENCY ROOM, PHYSICIAN ([id number]), website/blog editor Dennis Billingsley ([id number]) on 01/01/2025 7:48:15 AM RADIOLOGY RESULTS 12/29/2024 10:5 3 PM CDT 01/01/2025 7:48 AM CDT us Leland Grullon MD ECG ORDERABLES Edited Re sult - Final RADIOLOGY RESULTS documented in this encounter Visit Diagnoses Diagnosis Cardiac arrest (H) Cardiac arrest Atrial fibrillation with RVR (H) Atrial fibrillation Hyperkalemia Hyperpotassemia Lactic acidosis Acidosis documented in this encounter Administered Medications Inactive Administered Medications - up to 3 most recent administrations Medication Order MAR Action Action Date Dose Rate Site amiodarone (NEXTERONE) 1.8 mg/mL in dextrose 5% 200 mL ADULT STANDARD infusion 1 mg/min (33.3333 mL/hr, rounded to 33.3 mL/hr), Intravenous, CONTINUOUS, Starting on Wed12/29/24 at 2315, After 24 hours of infusion, call provider for further orders (if provider not already contacted). Hold for systolic blood pressure less than 90 or heart rate less than 60 beats per minute. FOR Telemetry patients ONLY. Run for 6 hours. The use of an in-line 0.22 micron filter is required for PERIPHERAL or MIDLINE administration to reduce the incidence of phlebitis. $New Bag 12/30/2024 4:15 AM CDT 1 mg/min 33.3 mL/hr $New Bag 12/29/2024 11:24 PM CDT 1 mg/min 33.3 mL/hr amiodarone (NEXTERONE) 1.8 mg/mL in dextrose 5% 200 mL ADULT STANDARD infusion 0.5 mg/min (16.6667 mL/hr, rounded to 16.7 mL/hr), Intravenous, CONTINUOUS, Starting on Wed12/30/24 at 0515, After 24 hours of infusion, call provider for further orders (if provider not already contacted). Hold for systolic blood pressure less than 90 or heart rate less than 60 beats per minute. FOR Telemetry patients ONLY. The use of an in-line 0.22 micron filter is required for PERIPHERAL or MIDLINE administration to reduce the incidence of phlebitis. amiodarone (NEXTERONE) bolus 150 mg Intravenous, 150 mg, ONCE, Administer over 10 Minutes, On Wed12/29/24 at 2315, For 1 dose, Give over 10 minutes then initiate amiodarone infusion. If patient becomes hypotensive (SBP less than 90), give bolus over 20-30 minutes. FOR Telemetry patients ONLY The use of an in-line 0.22 micron filter is required for PERIPHERAL or MIDLINE administration to reduce the incidence of phlebitis. $New Bag 12/29/2024 11:17 PM CDT 150 mg calcium gluconate 1 g in 50 mL in sodium chloride intermittent infusion 1 g, Intravenous, Administer over 60 Minutes, ONCE, On 12/30/24 at 0105, For 1 dose, Do not infuse in the same IV line as phosphate-containing solutions. $Given 12/30/2024 1:05 AM CDT 1 g dextrose 10% BOLUS 300 mL 300 mL, Intravenous, Administer over 4 Hours, at 75 mL/hr, ONCE, On 12/30/24 at 0105, For 1 dose, For prevention of hypoglycemia due to insulin treatment for hyperkalemia. Infuse over 4 hours. Perform POCT Blood Glucose after 2 hours. Notify provider IF blood glucose is greater than 250 mg/dL or less than 100 mg/dL. Discontinue infusion after 2 hours if Blood Glucose is greater than 250 mg/dL and notify provider. $New Bag 12/30/2024 1:55 AM CDT 300 mLs 75 mL/hr dextrose 50 % injection 25 g 25 g, Intravenous, ONCE, Administer over 1-5 Minutes, On 12/30/24 at 0105, For 1 dose, Give with insulin. DO NOT give dextrose if blood glucose is greater than 250 mg/dL. If blood glucose is greater than 250 mg/dL, monitor BG and give dextrose if level drops below 100 mg/dL. For Moderate Hyperkalemia Monitor POCT glucose Q 30 minutes X4 then Q1 hour X4 then consult with provider. Potassium check 2 hours following treatment. Notify provider if potassium is outside normal range. $Given 12/30/2024 1:56 AM CDT 25 g dextrose 50 % injection 25-50 mL 25-50 mL, Intravenous, EVERY 15 MIN PRN, low blood sugar, Administer over 1-5 Minutes, Starting on 12/30/24 at 0100, Use if have IV access, BG less than 70 mg/dL and meet dose criteria below: Dose if conscious and alert (or disorientated) and NPO = 25 mL Dose if unconscious / not alert = 50 mL Give first dose for initial blood glucose less than 70 mg/dL. If blood glucose at 15 minute recheck is less than or equal to 80 mg/dL continue to administer carbohydrate treatment every 15 minutes, as needed, based on blood glucose and assessment parameters until blood glucose level is above 80 mg/dL x 2 consecutive 15 minute checks. glucagon injection 1 mg 1 mg, Subcutaneous, EVERY 15 MIN PRN, low blood sugar, May repeat x 1 only, Starting on 12/30/24 at 0100, May give SQ or IM. ONLY use glucagon IF patient has NO IV access AND is UNABLE to swallow AND blood glucose is LESS than or EQUAL to 50 mg/dL. glucose gel 15-30 g 15-30 g, Oral, EVERY 15 MIN PRN, low blood sugar, Starting on 12/30/24 at 0100, Give first dose for initial blood glucose less than 70 mg/dL per the dosing instructions below. If blood glucose at 15 minute rechecks is still less than or equal to 80 mg/dL, continue to administer doses per blood glucose parameters every 15 minutes, as needed, until blood glucose level is at or above 80 mg/dL x 2 consecutive 15 minute checks. Dosing Instructions: ~If patient is conscious and able to swallow and NO enteral tube For initial BG 51-69mg/dL OR 15 minute recheck BG 51- 80 mg/dL - give 15 g For BG less than or equal to 50 mg/dL - give 30 g ~ If Enteral tube For initial BG 51-69mg/dL OR 15 minute recheck BG 51- 80 mg/dL - give apple juice 120 mL (4 oz or 15 g of CHO) via enteral tube For BG less than or equal to 50 mg/dL - Give apple juice 240 mL (8 oz or 30 g of CHO) via enteral tube ~Oral gel is preferable for conscious and able to swallow patient. ~IF gel unavailable or patient refuses may provide apple juice per Enteral tube dosing instructions. Document juice on I and O flowsheet. insulin regular 1 unit/mL injection 9 Units 9 Units, Intravenous, ONCE, On 12/30/24 at 0105, For 1 dose, Give with DEXTROSE. For Moderate Hyperkalemia Monitor POCT glucose Q 30 minutes X4 then Q1 hour X4 then consult with provider. Potassium check 2 hours following treatment. Notify provider if potassium is outside normal range. $Given 12/30/2024 1:56 AM CDT 9 Units iopamidol (ISOVUE-370) solution 500 mL 500 mL, Intravenous, ONCE, On 12/30/24 at 0140, For 1 dose $Given 12/30/2024 1:36 AM CDT 78 mLs norepinephrine (LEVOPHED) 4 mg in NS 250 mL PERIPHERAL infusion 0.01-0.2 mcg/kg/min 90.6 kg (3.3975-67.95 mL/hr, rounded to 3.4-68 mL/hr), Intravenous, CONTINUOUS, Starting on Wed12/29/24 at 2310, Starting dose: 0.03 mcg/kg/min Adjustment increase/decrease: 0.01 to 0.05 mcg/kg/min Adjust every: 2 min Goal: MAP greater than 65mmHg Notify prescriber: if higher doses are required to achieve blood pressure goals. Confirm the patient has 2 IV sites, Assess the peripheral IV site, catheter tip, and surrounding tissue, including the venous pathway for signs and symptoms of extravasation every hour using the phlebitis scale and document. For rates higher than 0.2 mcg/kg/min recommend central line placement. Discontinue this PERIPHERAL order once patient has a central line., Initial Set-up verified by: VERENICE Glez RN Rate/Dose Change 12/30/2024 2:03 AM CDT 0.01 mcg/kg/min 3.4 mL/hr Rate/Dose Change 12/30/2024 1:10 AM CDT 0.03 mcg/kg/min 10 .2 mL/hr Rate/Dose Change 12/29/2024 11:23 PM CDT 0.04 mcg/kg/min 1 3.6 mL/hr sodium bicarbonate 8.4 % injection 50 mEq 50 mEq, Intravenous, ONCE, On 12/30/24 at 0105, For 1 dose, Central line recommended. $Given 12/30/2024 1:08 AM CDT 50 mEq sodium chloride 0.9 % bag for CT scan flush Intravenous, 100 mL, ONCE, On 12/30/24 at 0140, For 1 dose, This entry is for use by Radiology to intermittently used as a flush in patients receiving a CT scan. $Given 12/30/2024 1:43 AM CDT 96 mLs documented in this encounter Active and Recently Administered Medications Times are shown in CDT. Scheduled Medication Order 12/28/2024 12/29/2024 12/30/2024 amiodarone (NEXTERONE) bolus 150 mg (COMPLETED) Intravenous, 150 mg, ONCE, Administer over 10 Minutes, On Wed12/29/24 at 2315, For 1 dose, Give over 10 minutes then initiate amiodarone infusion. If patient becomes hypotensive (SBP less than 90), give bolus over 20-30 minutes. FOR Telemetry patients ONLY The use of an in-line 0.22 micron filter is required for PERIPHERAL or MIDLINE administration to reduce the incidence of phlebitis. 2317 ($New Bag - Provider: Geri Salamanca RN)2329 (Stopped - Provider: Geri Salamanca RN) calcium gluconate 1 g in 50 mL in sodium chloride intermittent infusion (COMPLETED) 1 g, Intravenous, Administer over 60 Minutes, ONCE, On 12/30/24 at 0105, For 1 dose, Do not infuse in the same IV line as phosphate-containing solutions. 0105 ($Given - Provider: Geri Salamanca, RN) dextrose 10% BOLUS 300 mL (COMPLETED) 300 mL, Intravenous, Administer over 4 Hours, at 75 mL/hr, ONCE, On 12/30/24 at 0105, For 1 dose, For prevention of hypoglycemia due to insulin treatment for hyperkalemia. Infuse over 4 hours. Perform POCT Blood Glucose after 2 hours. Notify provider IF blood glucose is greater than 250 mg/dL or less than 100 mg/dL. Discontinue infusion after 2 hours if Blood Glucose is greater than 250 mg/dL and notify provider. 0155 ($New Bag - Provider: Geri Salamanca RN)0417 (ED/Periop/Clinic Infusing on Admission/transfer - Provider: Geri Salamanca RN) dextrose 50 % injection 25 g (COMPLETED) 25 g, Intravenous, ONCE, Administer over 1-5 Minutes, On 12/30/24 at 0105, For 1 dose, Give with insulin. DO NOT give dextrose if blood glucose is greater than 250 mg/dL. If blood glucose is greater than 250 mg/dL, monitor BG and give dextrose if level drops below 100 mg/dL. For Moderate Hyperkalemia Monitor POCT glucose Q 30 minutes X4 then Q1 hour X4 then consult with provider. Potassium check 2 hours following treatment. Notify provider if potassium is outside normal range. 0156 ($Given - Provider: Geri Salamanca RN) insulin regular 1 unit/mL injection 9 Units (COMPLETED) 9 Units, Intravenous, ONCE, On 12/30/24 at 0105, For 1 dose, Give with DEXTROSE. For Moderate Hyperkalemia Monitor POCT glucose Q 30 minutes X4 then Q1 hour X4 then consult with provider. Potassium check 2 hours following treatment. Notify provider if potassium is outside normal range. 0156 ($Given - Provider: Geri Salamanca RN) iopamidol (ISOVUE-370) solution 500 mL (COMPLETED) 500 mL, Intravenous, ONCE, On 12/30/24 at 0140, For 1 dose 0136 ($Given - Provider: TAYE Kaufman) sodium bicarbonate 8.4 % injection 50 mEq (COMPLETED) 50 mEq, Intravenous, ONCE, On 12/30/24 at 0105, For 1 dose, Central line recommended. 0108 ($Given - Provider: Geri Salamanca RN) sodium chloride 0.9 % bag for CT scan flush (COMPLETED) Intravenous, 100 mL, ONCE, On 12/30/24 at 0140, For 1 dose, This entry is for use by Radiology to intermittently used as a flush in patients receiving a CT scan. 0143 ($Given - Provider: TAYE Kaufman) Continuous Medication Order 12/28/2024 12/29/2024 12/30/2024 amiodarone (NEXTERONE) 1.8 mg/mL in dextrose 5% 200 mL ADULT STANDARD infusion 1 mg/min (33.3333 mL/hr, rounded to 33.3 mL/hr), Intravenous, CONTINUOUS, Starting on Wed12/29/24 at 2315, After 24 hours of infusion, call provider for further orders (if provider not already contacted). Hold for systolic blood pressure less than 90 or heart rate less than 60 beats per minute. FOR Telemetry patients ONLY. Run for 6 hours. The use of an in-line 0.22 micron filter is required for PERIPHERAL or MIDLINE administration to reduce the incidence of phlebitis. 2324 ($New Bag - Provider: Geri Salamanca RN) 0414 (Stopped - Provider: Geri Salamanca RN)0415 ($New Bag - Provider: Geri Salamanca RN)0417 (ED/Periop/Clinic Infusing on Admission/transfer - Provider: Geri Salamanca RN) amiodarone (NEXTERONE) 1.8 mg/mL in dextrose 5% 200 mL ADULT STANDARD infusion 0.5 mg/min (16.6667 mL/hr, rounded to 16.7 mL/hr), Intravenous, CONTINUOUS, Starting on 12/30/24 at 0515, After 24 hours of infusion, call provider for further orders (if provider not already contacted). Hold for systolic blood pressure less than 90 or heart rate less than 60 beats per minute. FOR Telemetry patients ONLY. The use of an in-line 0.22 micron filter is required for PERIPHERAL or MIDLINE administration to reduce the incidence of phlebitis. 0413 (Canceled Entry - Provider: Orders Generic Provider - Comment: Automatically canceled at discontinue of medication order)0515 (Canceled Entry - Provider: Orders Generic Provider - Comment: Automatically canceled at discontinue of medication order) norepinephrine (LEVOPHED) 4 mg in NS 250 mL PERIPHERAL infusion 0.01-0.2 mcg/kg/min 90.6 kg (3.3975-67.95 mL/hr, rounded to 3.4-68 mL/hr), Intravenous, CONTINUOUS, Starting on Wed12/29/24 at 2310, Starting dose: 0.03 mcg/kg/min Adjustment increase/decrease: 0.01 to 0.05 mcg/kg/min Adjust every: 2 min Goal: MAP greater than 65mmHg Notify prescriber: if higher doses are required to achieve blood pressure goals. Confirm the patient has 2 IV sites, Assess the peripheral IV site, catheter tip, and surrounding tissue, including the venous pathway for signs and symptoms of extravasation every hour using the phlebitis scale and document. For rates higher than 0.2 mcg/kg/min recommend central line placement. Discontinue this PERIPHERAL order once patient has a central line., Initial Set-up verified by: VERENICE Glez RN 1613 ($New Bag - Provider: Geri Salamanca RN)2309 (Rate/Dose Change - Provider: Geri Salamanca RN)2323 (Rate/Dose Change - Provider: Geri Salamanca RN) 0110 (Rate/Dose Change - Provider: Geri Salamanca RN)0203 (Rate/Dose Change - Provider: Geri Salamanca RN)0217 (Stopped - Provider: Geri Salamanca RN) PRN Medication Order 12/28/2024 12/29/2024 12/30/2024 dextrose 50 % injection 25-50 mL(Linked Group 1) 25-50 mL, Intravenous, EVERY 15 MIN PRN, low blood sugar, Administer over 1-5 Minutes, Starting on 12/30/25 at 0100, Use if have IV access, BG less than 70 mg/dL and meet dose criteria below: Dose if conscious and alert (or disorientated) and NPO = 25 mL Dose if unconscious / not alert = 50 mL Give first dose for initial blood glucose less than 70 mg/dL. If blood glucose at 15 minute recheck is less than or equal to 80 mg/dL continue to administer carbohydrate treatment every 15 minutes, as needed, based on blood glucose and assessment parameters until blood glucose level is above 80 mg/dL x 2 consecutive 15 minute checks. glucagon injection 1 mg(Linked Group 1) 1 mg, Subcutaneous, EVERY 15 MIN PRN, low blood sugar, May repeat x 1 only, Starting on 12/30/24 at 0100, May give SQ or IM. ONLY use glucagon IF patient has NO IV access AND is UNABLE to swallow AND blood glucose is LESS than or EQUAL to 50 mg/dL. glucose gel 15-30 g(Linked Group 1) 15-30 g, Oral, EVERY 15 MIN PRN, low blood sugar, Starting on 12/30/24 at 0100, Give first dose for initial blood glucose less than 70 mg/dL per the dosing instructions below. If blood glucose at 15 minute rechecks is still less than or equal to 80 mg/dL, continue to administer doses per blood glucose parameters every 15 minutes, as needed, until blood glucose level is at or above 80 mg/dL x 2 consecutive 15 minute checks. Dosing Instructions: ~If patient is conscious and able to swallow and NO enteral tube For initial BG 51-69mg/dL OR 15 minute recheck BG 51- 80 mg/dL - give 15 g For BG less than or equal to 50 mg/dL - give 30 g ~ If Enteral tube For initial BG 51-69mg/dL OR 15 minute recheck BG 51- 80 mg/dL - give apple juice 120 mL (4 oz or 15 g of CHO) via enteral tube For BG less than or equal to 50 mg/dL - Give apple juice 240 mL (8 oz or 30 g of CHO) via enteral tube ~Oral gel is preferable for conscious and able to swallow patient. ~IF gel unavailable or patient refuses may provide apple juice per Enteral tube dosing instructions. Document juice on I and O flowsheet. Linked Groups Order Group 1: glucose gel 15-30 gJump to med 15-30 g, Oral, EVERY 15 MIN PRN, low blood sugar, Starting on 12/30/24 at 0100, Give first dose for initial blood glucose less than 70 mg/dL per the dosing instructions below. If blood glucose at 15 minute rechecks is still less than or equal to 80 mg/dL, continue to administer doses per blood glucose parameters every 15 minutes, as needed, until blood glucose level is at or above 80 mg/dL x 2 consecutive 15 minute checks. Dosing Instructions: ~If patient is conscious and able to swallow and NO enteral tube For initial BG 51-69mg/dL OR 15 minute recheck BG 51- 80 mg/dL - give 15 g For BG less than or equal to 50 mg/dL - give 30 g ~ If Enteral tube For initial BG 51-69mg/dL OR 15 minute recheck BG 51- 80 mg/dL - give apple juice 120 mL (4 oz or 15 g of CHO) via enteral tube For BG less than or equal to 50 mg/dL - Give apple juice 240 mL (8 oz or 30 g of CHO) via enteral tube ~Oral gel is preferable for conscious and able to swallow patient. ~IF gel unavailable or patient refuses may provide apple juice per Enteral tube dosing instructions. Document juice on I and O flowsheet. Or dextrose 50 % injection 25-50 mLJump to med 25-50 mL, Intravenous, EVERY 15 MIN PRN, low blood sugar, Administer over 1-5 Minutes, Starting on 12/30/24 at 0100, Use if have IV access, BG less than 70 mg/dL and meet dose criteria below: Dose if conscious and alert (or disorientated) and NPO = 25 mL Dose if unconscious / not alert = 50 mL Give first dose for initial blood glucose less than 70 mg/dL. If blood glucose at 15 minute recheck is less than or equal to 80 mg/dL continue to administer carbohydrate treatment every 15 minutes, as needed, based on blood glucose and assessment parameters until blood glucose level is above 80 mg/dL x 2 consecutive 15 minute checks. Or glucagon injection 1 mgJump to med 1 mg, Subcutaneous, EVERY 15 MIN PRN, low blood sugar, May repeat x 1 only, Starting on 12/30/24 at 0100, May give SQ or IM. ONLY use glucagon IF patient has NO IV access AND is UNABLE to swallow AND blood glucose is LESS than or EQUAL to 50 mg/dL. documented in this encounter Care Teams Claims Clerk Relationship Specialty Start [place] [id number] [place] [address] PCP - General Family Medicine 02/18/22 documented as of this encounter
--- OUTSIDE RECORDS SUMMARY | 2024-12-30 05:29 | XMS_ITS | Encounter Summary ---
Author Organization [place] Address [facility] [place] [address] Care Team Providers Care Audit Associate Name Role Phone Bianca Mejia MD Primary Care Provider [phone] Reason for Visit * Auth/Cert Specialty Diagnoses / Procedures Referred By Sukh t Referred To Contact Intensive Care Diagnoses Post-cardiac arrest Ashly Chen MD [address] [address] Phone: tel: fax: [facility] ICU West [address] [place] [phone] Phone: tel: fax: Referral ID Status Reason Start Date Expiration Date Visits Re quested Visits Authorized [id number] 1 1 Encounter Details Date Type Department Care Team (Late st Contact Info) Description 12/30/2024 5:29 AM CDT - Present Hospital Encounter [facility] ICU West [address] [place] [phone] Ashly Chen MD [address] [address] Heri Baugh MD [address] [place] [address] Bhavik VILLEGAS MD [address] [place] [address] Elias Denis MD [address] [facility] [place] [address] Cardiac arrest (H) (Primary Dx); NSTEMI (non-ST elevated myocardial infarction) (H) Social History Tobacco Use Types Packs/Day Years [...] Answer Date Recorded Do you have housing? (Arturo g is defined as stable permanent housing and does not include staying outside in a car, in a tent, in an abandoned building, in an overnight fci, or couch-surfing.) Yes 12/31/2024 Are you worried [...] Sign Reading Time Taken Comments Blood Pressure 144/66 01/02/2025 12:50 AM CDT Pulse 61 01/02/2025 12:50 AM CDT Temperature 37.1 C (98.7 F) 01/02/2025 12:00 AM CDT Respiratory Rate 13 01/02/2025 12:50 AM CDT Oxygen Saturation 94% 01/02/2025 12:50 AM CDT Inhaled Oxygen Concentration - - Weight 92.8 kg (204 lb 8 oz) 12/31/2024 6:57 AM CDT Height 170.2 cm (5' 7) 12/31/2024 4:00 AM CDT Body Mass Index 32.03 12/31/2024 4:00 AM CDT documented in this encounter Progress Notes * Amaya Layton RT - 01/01/2025 6:16 PM CDT RT progress note 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 Will complete this evening. RT Chevy * Elias Denis MD - 01/01/2025 2:44 PM CDT [facility] Medicine Progress Note - Hospitalist Service Date of Admission: 12/30/2024 Assessment & Plan 59-year-old female with a history of tobacco use, atrial fibrillation on long- term anticoagulation,type 2 diabetes with peripheral neuropathy admitted to ICU earlier this morning following N000H cardiac arrest with bystander CPR and ROSC after defibrillation x 5. Was brought to the hospital admitted to the ICU for post arrest shock which has resolved. VT/VF arrest with non-STEMI: Status post bystander CPR and defibrillation x 5. Neurologically intact post ROSC. Plan for coronary angiogram tomorrow. Appreciate cardiology input. Non-ST elevation DE in the setting of cardiac arrest; echo reported EF 50 to 55%, no significant valvular heart disease. Currently on heparin drip. Continue aspirin, statin, metoprolol. Cardiology planning for angiogram tomorrow. PAF with RVR: Overnight required amiodarone drip, transition to oral this morning by cardiology. Also on beta-nikki and titrating. Monitor vitals closely. PROGRESS DEVELOPER DOAC on hold as patient on heparin drip for above medical issues. Type 2 diabetes with neuropathy: Holding home metformin. A1c 6.08 July 2024. Insulin sliding scale and hypoglycemia protocol. Leukocytosis, transaminitis: Likely stress demargination and shock liver respectively. Both trending down. Monitor closely Hypothyroidism: TSH normal. PROGRESS DEVELOPER Synthroid History of lumbar fusion. PROGRESS DEVELOPER Neurontin History of laparoscopic sleeve gastrectomy History of marijuana use: U tox ordered. Update: cor angios today showing CAD. LAD; recommendations pending further review with cards/EP cards Reviewed with pt dtr and friend of family CONCLUSIONS: COR ANGIO Single-vessel obstructive coronary artery disease involving diffuse disease of the proximal to mid LAD (chronic). Moderate nonobstructive disease elsewhere. Mildly elevated left-sided filling pressures. No aortic valve stenosis Diet: Advance Diet as Tolerated: Clear Liquid Diet DVT Prophylaxis: Garg Catheter: PRESENT, indication: Surgical procedure Lines: None Cardiac Monitoring: ACTIVE order. Indication: Post- PCI/Angiogram (24 hours) Code Status: Full Code Clinically Significant Risk Factors # Hypomagnesemia: Lowest Mg = 1.5 mg/dL in last 2 days, will replace as needed # Hypoalbuminemia: Lowest albumin = 3.2 g/dL at 01/01/2025 4:24 AM, will monitor as appropriate # Coagulation Defect: INR = 1.22 (Ref range: 0.85 - 1.15) and/or PTT = 179 Seconds (Ref range: 22 -38 Seconds), will monitor for bleeding # Obesity: Estimated body mass index is 32.03 kg/m?? as calculated from the following: Height as of this encounter: 1.702 m (5' 7). Weight as of this encounter: 92.8 kg (204 lb 8 oz)., PRESENT ON ADMISSION Social Drivers of Health Tobacco Use: High Risk (11/08/2024) Received from [employer] [facility] Patient History Smoking Tobacco Use: Every Day Smokeless Tobacco Use: Never Disposition Plan Medically Ready for Discharge: Anticipated in 2-4 Days Elias Denis MD Hospitalist Service [facility] Securely message with Rek[employer] (more info) Text page via [employer] Paging/Directory Interval History {Pertinent overnight events no new issues angios earlier today dtr and family friend here Physical Exam Vital Signs: Temp: 98.1 ??F (36.7 ??C) Temp src: Oral BP: 115/65 Pulse: 61 Resp: 21 SpO2: 93 % O2 Device: Nasal cannula Oxygen Delivery: 2 LPM Weight: 204 lbs 8 oz Speech fluent comfortable Medical Decision Making 25 MINUTES SPENT BY ME on the date of service doing chart review, history, exam, documentation & further activities per the note. Data * Tuan Bustillo PA-C - 01/01/2025 8:50 AM CDT Images from the original note were not included. [facility] [address] [place] [address] [address] [place] [address] [email or web address] OFFICE: [phone] CARDIOLOGY FOLLOW-UP NOTE Impression and Plan ASSESSMENT Cardiac arrest, NSTEMI Syncopal episode requiring CPR with shockable rhythm AF with RVR on admission converted to NSR briefly on amiodarone, now reverted and rate controlled Echo with EF 50 to 55%, ECG with no significant ischemic changes, Angiogram today with LAD lesion positive by FFR but unlikely cause of cardiac arrest, no intervention performed Paroxysmal atrial fibrillation/atrial flutter On Xarelto as an outpatient Initially in A-fib on arrival converted briefly with amiodarone, now rate controlled in A-fib and asymptomatic Dyslipidemia LDL 68 on atorvastatin 10 Other active problems: Tobacco abuse Marijuana abuse DM2 PLAN Cardiac MRI for further evaluation of cardiac arrest, EP consult for ICD given shockable rhythm Can resume xarelto instead of heparin ggt Continue amiodarone 200 mg daily and metoprolol 25 mg every 8 hours Follow up: TBD Primary Radio Repair Teacher: None Subjective 59-year-old female with history of tobacco use, atrial fibrillation on anticoagulation, DM2, peripheral neuropathy who was admitted for cardiac arrest with bystander CPR and ROSC after defibrillationx 5, admitted to the ICU for postarrest shock. Feeling well today without any cardiac complaints. Does not report feeling any symptoms while in A-fib and historically has not felt atrial fibrillation. Currently denies any chest pain, shortness ofbreath, palpitations, lightheadedness, dizziness, edema. Cardiac Diagnostics Telemetry (personally reviewed): Atrial fibrillation, ventricular rates 60s to 70s ECG, 12/30/2024: Sinus rhythm with first-degree AV block, left axis deviation, PACs Echocardiogram (results reviewed): TTE, 12/30/2024 1. Normal left ventricular size and systolic performance. The visually estimated ejection fraction is 50-55%. 2. No significant valvular heart disease is identified on this study. 3. Normal right ventricular size with low normal right ventricular systolic performance. Cardiac Cath (results reviewed): 01/01/2025 CONCLUSIONS: Single-vessel obstructive coronary artery disease involving diffuse disease of the proximal to mid LAD (chronic). Moderate nonobstructive disease elsewhere. Mildly elevated left-sided filling pressures. No aortic valve stenosis. RECOMMENDATIONS: Usual postprocedure cares, please see orders. Etiology of cardiopulmonary arrest is unclear, unlikely to be related to chronic coronary artery disease. PCI of the LAD is an option if symptomatic. Aggressive risk factor modification for secondary prevention. Physical Examination BP 118/65 (BP Location: Left arm) Pulse 72 Temp 98.1 ??F (36.7 ??C) (Oral) Resp 20 Ht 1.702m (5' 7) Wt 92.8 kg (204 lb 8 oz) SpO2 93% BMI 32.03 kg/m?? Intake/Output Summary (Last 24 hours) at 01/01/2025 0851 Last data filed at 01/01/2025 0835 Gross per 24 hour Intake 1271.5 ml Output 1200 ml Net 71.5 ml General: Well appearing, in no acute distress. Resting comfortably in hospital bed Skin: No clubbing, no cyanosis. Eyes: Extra ocular movements intact Neck: No JVD Lungs: Clear to auscultation bilaterally Heart: Irregular rhythm, regular rate, PMI not displaced, S1, S2 normal, no S3, no S4, no heaves, no rub and no murmur. Abdomen: Soft, nontender, bowel sounds normal. Extremities: No pitting edema. Grade 2/4 distal pulses bilaterally. Neuro: Oriented to person, place and time, alert, cooperative, gait coordinated. Imaging CT PE, 12/29/2024 IMPRESSION: 1. No pulmonary embolism or pneumonia. [...] cancer risk factor, no follow-up is necessary. Lab Results Lab Results Component Value Date BUN 17.4 12/31/2024 NA 139 12/31/2024 CO2 26 12/31/2024 Lab Results Component Value Date WBC 12.5 (H) 12/31/2024 HGB 10.7 (L) 12/31/2024 HCT 32.9 (L) 12/31/2024 MCV 95 12/31/2024 PLT 199 12/31/2024 Lab Results Component Value Date TSH 2.44 12/30/2024 INR 1.22 (H) 12/30/2024 Current Inpatient Scheduled Medications Scheduled Meds: Current Facility-Administered Medications Medication Dose Route Frequency Provider Last Rate Last Admin amiodarone (PACERONE) tablet 200 mg 200 mg Oral BID Laura Brian MD 200 mg at 01/01/25 0822 aspirin (ASA) tablet 325 mg 325 mg Oral Once Laura Brian MD Or aspirin (ASA) chewable tablet 243 mg 243 mg Oral Once Laura Brian MD aspirin EC tablet 81 mg 81 mg Oral Daily Bhavik VILLEGAS MD 81 mg at 01/01/25 08 atorvastatin (LIPITOR) tablet 10 mg 10 mg Oral Daily Ashly Chen MD 10 mg at 01/01/25 0830 gabapentin (NEURONTIN) capsule 800 mg 800 mg Oral BID Ashly Chen MD 800 mg at 01/01/25 0822 insulin aspart (NovoLOG) injection (RAPID ACTING) 1-7 Units Subcutaneous TID AC Bhavik VILLEGAS MD 1 Units at 12/31/241643 insulin aspart (NovoLOG) injection (RAPID ACTING) 1-5 Units Subcutaneous At Bedtime Bhavik VILLEGAS MD 1Units at 12/31/242024 levothyroxine (SYNTHROID/LEVOTHROID) tablet 50 mcg 50 mcg Oral QAM AC Heri Baugh MD 50 mcg at 01/01/25 08 magnesium sulfate 2 g in 50 mL sterile water intermittent infusion 2 g Intravenous Once Bhavik VILLEGAS MD 50 mL/hr at 01/01/25 08 2 g at 01/01/25 08 metoprolol tartrate (LOPRESSOR) tablet 25 mg 25 mg Oral Q8H Laura Brian MD 25 mg at 01/01/25 08 nortriptyline (PAMELOR) capsule 25 mg 25 mg Oral At Bedtime Ashly Chen MD 25 mg at 12/31/242026 sodium phosphate 9 mmol in sodium chloride 0.9 % 250 mL intermittent infusion 9 mmol Intravenous Once Bhavik VILLEGAS MD Continuous Infusions: Current Facility-Administered Medications Medication Dose Route Frequency Provider Last Rate Last Admin heparin 25,000 units in 0.45% NaCl 250 mL ANTICOAGULANT infusion 0-5,000 Units/hr Intravenous Continuous Ashly Chen MD 13 mL/hr at 01/01/25 0800 1,300 Units/hr at 01/01/25 0800 Patient is already receiving anticoagulation with heparin, enoxaparin (LOVENOX), warfarin (COUMADIN) or other anticoagulant medication Does not apply Continuous PRAshly Stiles MD Medications Prior to Admission Prior to Admission medications Medication Sig Start Date End Date Taking? Authorizing Provider acetaminophen (TYLENOL) 325 MG tablet Take 2 tablets (650 mg) by mouth every 4 hours as needed for other (mild pain) 02/25/22 Yes Joaquin Padilla PA-C atorvastatin (LIPITOR) 10 MG tablet Take 10 mg by mouth daily Yes Reported, Patient calcium carbonate-vitamin D (OS-SAMMIE WITH D) 500-200 MG-UNIT tablet Take 1 tablet by mouth 3 times daily (before meals) 02/26/22 Yes Joaquin Padilla PA-C gabapentin (NEURONTIN) 800 MG tablet Take 800 mg by mouth 2 times daily. Yes Reported, Patient levothyroxine (SYNTHROID/LEVOTHROID) 50 MCG tablet Take 50 mcg by mouth every morning (before breakfast). Yes Unknown, Entered By History metFORMIN (GLUCOPHAGE XR) 500 MG 24 hr tablet Take 1,000 mg by mouth 2 times daily (with meals). Yes Reported, Patient metoprolol succinate ER (TOPROL XL) 50 MG 24 hr tablet Take 50 mg by mouth daily. Yes Unknown, Entered By History nortriptyline (PAMELOR) 25 MG capsule Take 25 mg by mouth At Bedtime Yes Reported, Patient rivaroxaban ANTICOAGULANT (XARELTO) 20 MG TABS tablet Take 1 tablet (20 mg) by mouth daily (with dinner) 02/27/22 Yes Tuan Jackson MD triamcinolone (KENALOG) 0.1 % external cream Apply topically 2 times daily as needed. Yes Unknown, Entered By History Vitamin D3 (CHOLECALCIFEROL) 25 mcg (1000 units) tablet Take 1 tablet (25 mcg) by mouth 2 times daily 02/25/22 Yes Joaquin Padilla PA-C Daniel L. KARAN Bustillo Cosigned by Brandon Jacques MD at 01/01/2025 3:21 PM CDT Associated attestation - Brandon Jacques MD - 01/01/2025 3:21 PM CDT Physician Attestation I evaluated Juliet Cox as part of a shared ACETYLENE GAS COMPRESSOR/PA visit. I personally reviewed the vital signs, medications, labs, and imaging. I personally provided a substantive portion of care for this patient and I approve the care plan aswritten by the BERENICE. I was involved with Medical Decision Making including: Please see A&P for additional details of medical decision making. Angiogram today revealed 70% stenosis of the LAD that was positive by FFR analysis. Not likely cause of cardiac arrest so will treat medically for now. Will consult EP for consideration of secondary prevention ICD Cardiac MRI to evaluate for other causes of dysrhythmia. Discussed with Dr. Madison Jacques MD Date of Service: 01/01/25 * Laura Brian MD - 12/31/2024 11:57 AM CDT Images from the original note were not included. HEART CARE CONSULTATON NOTE Assessment/Recommendations Assessment: 1. Cardiac arrest: Rhythm strips from events were not available for review. Per reports she suffered a sudden syncopal event requiring CPR and then did have a shockable rhythm. [facility] neurologic and respiratory status stable. Started on amiodarone with eventual conversion to sinus rhythm. Discussed case with interventional. Recommend proceeding with coronary angiogram. Due to stability plan is to proceed with the angiogram on Wednesday. 2. Non-STEMI: Elevated troponin in the setting of cardiac arrest overnight with no significant findings on echocardiogram or EKG. Troponins mildly elevated and stable. Currently downtrending. Will recommend proceeding with coronary angiogram for further evaluation. 3. Atrial fibrillation/atrial flutter: Paroxysmal on Xarelto as outpatient for anticoagulation. Patient reports she does not usually feel the atrial fibrillation episodes. Presented with AF with RVR converted with amiodarone. Overnight went back into atrial flutter with mildly elevated ventricular r esponse. 4. Tobacco abuse 5. Marijuana abuse 6. Dyslipidemia on statin therapy 7. Diabetes mellitus type 2 8. Family history of heart disease Plan: 1. N.p.o. past midnight tonight for coronary angiography with possible intervention tomorrow 2. Continue heparin drip. Post angiogram can stop heparin drip and resume Xarelto 3. Stop amiodarone drip and start on amiodarone 200 mg twice daily 4. Increase metoprolol dosing to 25 mg every 8 hours and can uptitrate for better heart rate control Clinically Significant Risk Factors # Hypokalemia: Lowest K = 3 mmol/L in last 2 days, will replace as needed # Hyperkalemia: Highest K = 6 mmol/L in last 2 days, will monitor as appropriate # Hypernatremia: Highest Na = 147 mmol/L in last 2 days, will monitor as appropriate # Hyperchloremia: Highest Cl = 116 mmol/L in last 2 days, will monitor as appropriate # Hypocalcemia: Lowest Ca = 8.5 mg/dL in last 2 days, will monitor and replace as appropriate # Hypomagnesemia: Lowest Mg = 1.5 mg/dL in last 2 days, will replace as needed # Hypoalbuminemia: Lowest albumin = 3.4 g/dL at 12/31/2024 3:56 AM, will monitor as appropriate # Coagulation Defect: INR = 1.22 (Ref range: 0.85 - 1.15) and/or PTT = 47 Seconds (Ref range: 22 - 38 Seconds), will monitor for bleeding # Obesity: Estimated body mass index is 32.03 kg/m?? as calculated from the following: Height as of this encounter: 1.702 m (5' 7). Weight as of this encounter: 92.8 kg (204 lb 8 oz). , PRESENT ON ADMISSION History of Present Illness/Subjective Patient converted back into atrial flutter with mildly elevated ventricular response overnight. Otherwise patient feeling well. She denies palpitation, breathing difficulty or chest discomfort today. Echocardiogram 12/30/2024 1. Normal left ventricular size and systolic performance. The visually estimated ejection fraction is 50-55%. 2. No significant valvular heart disease is identified on this study. 3. Normal right ventricular size with low normal right ventricular systolic performance. Physical Examination Review of Systems VITALS: BP 124/89 Pulse (!) 122 Temp 98.5 ??F (36.9 ??C) (Oral) Resp 20 Ht 1.702 m (5' 7) Wt 92.8 kg (204 lb 8 oz) SpO2 99% BMI 32.03 kg/m?? BMI: Body mass index is 32.03 kg/m??. Wt Readings from Last 3 Encounters: 12/31/24 92.8 kg (204 lb 8 oz) 12/29/24 90.6 kg (199 lb 11.8 oz) 02/24/22 91.2 kg (201 lb) Intake/Output Summary (Last 24 hours) at 12/31/2024 1158 Last data filed at 12/31/2024 0934 Gross per 24 hour Intake 978.88 ml Output 1275 ml Net -296.12 ml General Appearance: no distress, normal body habitus ENT/Mouth: membranes moist, no oral lesions or bleeding gums. EYES: no scleral icterus, normal conjunctivae Neck: no carotid bruits or thyromegaly Chest/Lungs: lungs are clear to auscultation Cardiovascular: Regular. Normal first and second heart sounds with no murmur no edema bilaterally Extremities: no cyanosis or clubbing Skin: no xanthelasma, warm. Neurologic: normal manager training bilateral, no tremors Psychiatric: alert and oriented x3, calm Review Of Systems Skin: negative Eyes: negative Ears/Nose/Throat: negative Respiratory: No shortness of breath, dyspnea on exertion, cough, or hemoptysis Cardiovascular: negative Gastrointestinal: negative Genitourinary: negative Musculoskeletal: negative Neurologic: negative Psychiatric: negative Hematologic/Lymphatic/Immunologic: negative Endocrine: negative Lab Results Chemistry/lipid CBC Cardiac Enzymes/BNP/TSH/INR No results for input(s): CHOL, HDL, LDL, TRIG, CHOLHDLRATIO in the last 01893 hours. No results for input(s): LDL in the last 96289 hours. Recent Labs Lab Test 12/31/24 0819 12/31/248 12/31/24355 NA -- -- 139 POTASSIUM -- -- 4.0 CHLORIDE -- -- 101 CO2 -- -- 26 GLC 142* < > 149* BUN -- -- 17.4 CR -- -- 0.65 GFRESTIMATED -- -- >90 SAMMIE -- -- 8.8 < > = values in this interval not displayed. Recent Labs Lab Test 12/31/24 0356 12/30/2415 12/30/24 0019 CR 0.65 0.80 0.98* No results for input(s): A1C in the last 77436 hours. Recent Labs Lab Test 12/31/24355 WBC 12.5* HGB 10.7* HCT 32.9* MCV 95 PLT 199 Recent Labs Lab Test 12/31/24 0356 12/30/24 0833 12/30/24614 HGB 10.7* 10.9* 11.5* No results for input(s): TROPONINI in the last 52537 hours. No results for input(s): BNP, NTBNPI, NTBNP in the last 97064 hours. Recent Labs Lab Test 12/30/24614 TSH 2.44 Recent Labs Lab Test 12/30/24614 INR 1.22* Medical History Surgical History Family History Social History Past Medical History: Diagnosis Date Antiplatelet or antithrombotic long-term use xarelto Arrhythmia Hx of A fib Arthritis Diabetes (H) Hypertension Past Surgical History: Procedure Laterality Date BACK SURGERY 2007 Cervical discectomy LAPAROSCOPIC GASTRIC SLEEVE OPTICAL TRACKING SYSTEM FUSION SPINE POSTERIOR LUMBAR THREE+ LEVELS N/A 02/24/2022 Procedure: L2-L5 transforaminal lumbar interbody fusion. Posterior fusion L2 to L5. Application of intervertebral biomechanical device for interbody fusion L2- L5. Posterior instrumentation using a bilateral pedicle screw and jose construct spanning from L2 through L5. Central laminectomy L2-L5. Local autograft and bone graft preschool assistant principal with Magnifuse and demineralized bone fiber.; Surgeon: Siva Wilson No family history on file. Social History Socioeconomic History Marital status: Single Spouse name: Not on file Number of children: Not on file Years of education: Not on file Highest education level: Not on file Occupational History Not on file Tobacco Use Smoking status: Every Day Current packs/day: 0.25 Types: Cigarettes Smokeless tobacco: Never Substance and Sexual Activity Alcohol use: Yes Comment: Socially Drug use: Not Currently Sexual activity: Not on file Other Topics Concern Not on file Social History Narrative Not on file Social Drivers of Health Financial Resource Strain: Low Risk (07/28/2024) Received from [facility] Financial Resource Strain Difficulty of Paying Living Expenses: 3 Difficulty of Paying Living Expenses: Not on file Food Insecurity: No Food Insecurity (07/28/2024) Received from [employer] [facility] Food Insecurity Do you worry your food will run out before you are able to buy more?: 1 Transportation Needs: No Transportation Needs (07/28/2024) Received from [facility] Transportation Needs Does lack of transportation keep you from medical appointments?: 1 Does lack of transportation keep you from work, meetings or getting things that you need?: 1 Physical Activity: Not on file Stress: Not on file Social Connections: Socially Integrated (07/28/2024) Received from [facility] Social Connections Do you often feel lonely or isolated from those around you?: 0 Interpersonal Safety: Low Risk (12/30/2024) Interpersonal Safety Do you feel physically and emotionally safe where you currently live?: Yes Within the past 12 months, have you been hit, slapped, kicked or otherwise physically hurt by someone?: No Within the past 12 months, have you been humiliated or emotionally abused in other ways by your partner or ex-partner?: No Housing Stability: Low Risk (07/28/2024) Received from [employer] [facility] Housing Stability What is your housing situation today?: 1 Medications Allergies No current outpatient medications on file. No Known Allergies Laura Brian MD * Bhavik VILLEGAS MD - 12/31/2024 10:53 AM CDT [facility] Medicine Progress Note - Hospitalist Service Date of Admission: 12/30/2024 Assessment & Plan 59-year-old female with a history of tobacco use, atrial fibrillation on long- term anticoagulation,type 2 diabetes with peripheral neuropathy admitted to ICU earlier this morning following N000H cardiac arrest with bystander CPR and ROSC after defibrillation x 5. Was brought to the hospital admitted to the ICU for post arrest shock which has resolved. VT/VF arrest with non-STEMI: Status post bystander CPR and defibrillation x 5. Neurologically intact post ROSC. Plan for coronary angiogram tomorrow. Appreciate cardiology input. Non-ST elevation DE in the setting of cardiac arrest; echo reported EF 50 to 55%, no significant valvular heart disease. Currently on heparin drip. Continue aspirin, statin, metoprolol. Cardiology planning for angiogram tomorrow. PAF with RVR: Overnight required amiodarone drip, transition to oral this morning by cardiology. Also on beta-nikki and titrating. Monitor vitals closely. PROGRESS DEVELOPER DOAC on hold as patient on heparin drip for above medical issues. Type 2 diabetes with neuropathy: Holding home metformin. A1c 6.08 July 2024. Insulin sliding scale and hypoglycemia protocol. Leukocytosis, transaminitis: Likely stress demargination and shock liver respectively. Both trending down. Monitor closely Hypothyroidism: TSH normal. PROGRESS DEVELOPER Synthroid History of lumbar fusion. PROGRESS DEVELOPER Neurontin History of laparoscopic sleeve gastrectomy History of marijuana use: U tox ordered. Diet: Moderate Consistent Carb (60 g CHO per Meal) Diet DVT Prophylaxis: On heparin drip for other medical reason Garg Catheter: PRESENT, indication: ICU only: hourly urine output needed for patient care Lines: PRESENT CVC Triple Lumen Right Femoral-Site Assessment: WDL Cardiac Monitoring: ACTIVE order. Indication: Tachyarrhythmias, acute (48 hours) Code Status: Full Code Clinically Significant Risk Factors # Hypokalemia: Lowest K = 3 mmol/L in last 2 days, will replace as needed # Hyperkalemia: Highest K = 6 mmol/L in last 2 days, will monitor as appropriate # Hypernatremia: Highest Na = 147 mmol/L in last 2 days, will monitor as appropriate # Hyperchloremia: Highest Cl = 116 mmol/L in last 2 days, will monitor as appropriate # Hypocalcemia: Lowest Ca = 8.5 mg/dL in last 2 days, will monitor and replace as appropriate # Hypomagnesemia: Lowest Mg = 1.5 mg/dL in last 2 days, will replace as needed # Hypoalbuminemia: Lowest albumin = 3.4 g/dL at 12/31/2024 3:56 AM, will monitor as appropriate # Coagulation Defect: INR = 1.22 (Ref range: 0.85 - 1.15) and/or PTT = 64 Seconds (Ref range: 22 - 38 Seconds), will monitor for bleeding # Obesity: Estimated body mass index is 32.03 kg/m?? as calculated from the following: Height as of this encounter: 1.702 m (5' 7). Weight as of this encounter: 92.8 kg (204 lb 8 oz)., PRESENT ON ADMISSION Social Drivers of Health Tobacco Use: High Risk (11/08/2024) Received from [employer] [facility] Patient History Smoking Tobacco Use: Every Day Smokeless Tobacco Use: Never Disposition Plan Medically Ready for Discharge: Anticipated in 2-4 Days Bhavik VILLEGAS MD Hospitalist Service [facility] Securely message with [employer] (more info) Text page via [employer] Paging/Directory Interval History Patient is new to me. Patient seen and examined. Notes, labs, imaging report personally reviewed. Patient lying in the bed, looks comfortable. Patient denied feeling dizzy, lightheaded, short of breath or chest pain. Denied abdomen pain, nausea, vomiting. Patient declined me to call any family members. Discussed with nursing staffs. Physical Exam Vital Signs: Temp: 98.5 ??F (36.9 ??C) Temp src: Oral BP: 124/89 Pulse: (!) 122 Resp: 20 SpO2: 99 %O2 Device: Nasal cannula Oxygen Delivery: 1 LPM Weight: 204 lbs 8 oz General: Not in obvious distress. HEENT: Normocephalic, supple neck Chest: Clear to auscultation bilateral anteriorly, no wheezing Heart: S1S2 normal, irregular Abdomen: Soft. Nontender Extremities: + BLE swelling Neuro: alert and awake, follows simple commands appropriately, moves all extremity Medical Decision Making Data I have personally reviewed the following data over the past 24 hrs: 12.5 (H) \ 10.7 (L) / 199 139 101 17.4 / 142 (H) 4.0 26 0.65 \ ALT: 188 (H) AST: 110 (H) AP: 73 TBILI: 0.3 ALB: 3.4 (L) TOT PROTEIN: 5.8 (L) LIPASE: N/A Trop: 105 (HH) BNP: N/A TSH: N/A T4: N/A A1C: N/A Procal: N/A CRP: N/A Lactic Acid: 1.4 INR: N/A PTT: 47 (H) D-dimer: N/A Fibrinogen: N/A Imaging results reviewed over the past 24 hrs: Recent Results (from the past 24 hours) Echocardiogram Complete Narrative [id number]^YOGI^LAURA^ [place] [address] Name: JULIET COX : 1965 Study Date: 12/30/2024 11:29 AM Age: 59 yrs Gender: Female Patient Location: [facility] Reason For Study: Abn EKG Ordering Physician: Laura Brian MD Referring Physician: LAYLA RETANA Performed By: MADISON^^^^ BSA: 2.0 m2 Height: 66 in Weight: 197 lb HR: 76 Procedure Echocardiogram with two-dimensional, color and spectral Doppler. Definity ([facility] [place] #[id number]) given intravenously. Interpretation Summary 1. Normal left ventricular size and systolic performance. The visually estimated ejection fraction is 50-55%. 2. No significant valvular heart disease is identified on this study. 3. Normal right ventricular size with low normal right ventricular systolic performance. Left ventricle: Normal left ventricular size and systolic performance. The visually estimated ejection fraction is 50-55%. There is normal regional wall motion. Left ventricular wall thickness is normal. Assessment of LV Diastolic Function: The cumulative findings suggest normal diastolic filling [The septal e' velocity is < 7 cm/s & lateral e' velocity is < 10 cm/s. The average E/e' is < 14. The TR velocity cannot be determined due to insufficient tricuspid insufficiency signal. Left atrial volume index is less than 34 mL/m?]. Right ventricle: Normal right ventricular size with low normal right ventricular systolic performance. Left atrium: The left atrium is of normal size. Right atrium: The right atrium is of normal size. IVC: The IVC is borderline dilated. Aortic valve: The aortic valve is comprised of three cusps. No significant aortic stenosis or aortic insufficiency is detected on this study. Mitral valve: The mitral valve appears morphologically normal. There is trace mitral insufficiency. Tricuspid valve: The tricuspid valve is grossly morphologically normal. There is trace tricuspid insufficiency. Pulmonic valve: The pulmonic valve is grossly morphologically normal. Thoracic aorta: The aortic root and proximal ascending aorta are of normal dimension. Pericardium: There is no significant pericardial effusion. MMode/2D Measurements & Calculations IVSd: 1.1 cm LVIDd: 4.4 cm LVIDs: 2.5 cm LVPWd: 1.1 cm FS: 43.6 % LV mass(C)d: 166.3 grams LV mass(C)dI: 83.7 grams/m2 Ao root diam: 2.3 cm LA dimension: 3.2 cm asc Aorta Diam: 2.9 cm LA/Ao: 1.4 LVOT diam: 1.9 cm LVOT area: 2.9 cm2 Ao root diam index Ht(cm/m): 1.3 Ao root diam index BSA (cm/m2): 1.1 Asc Ao diam index BSA (cm/m2): 1.5 Asc Ao diam index Ht(cm/m): 1.7 EF Biplane: 51.3 % LA Volume Indexed (AL/bp): 29.8 ml/m2 RV Base: 4.5 cm RWT: 0.50 TAPSE: 1.7 cm Time Measurements MM HR: 70.0 BPM Doppler Measurements & Calculations MV E max edd: 59.1 cm/sec MV A max edd: 84.4 cm/sec MV E/A: 0.70 MV max P.8 mmHg MV mean P.7 mmHg MV V2 VTI: 21.4 cm MVA(VTI): 3.2 cm2 MV dec slope: 322.9 cm/sec2 MV dec time: 0.18 sec Ao V2 max: 141.4 cm/sec Ao max P.0 mmHg Ao V2 mean: 100.7 cm/sec Ao mean P.6 mmHg Ao V2 VTI: 28.7 cm MARIFER(I,D): 2.4 cm2 MARIFER(V,D): 2.6 cm2 LV V1 max P.6 mmHg LV V1 max: 128.1 cm/sec LV V1 VTI: 23.5 cm SV(LVOT): 68.1 ml SI(LVOT): 34.2 ml/m2 PA acc time: 0.06 sec AV Edd Ratio (DI): 0.91 MARIFER Index (cm2/m2): 1.2 E/E': 8.6 E/E' av.5 Lateral E/e': 6.3 Medial E/e': 8.6 Peak E' Edd: 6.9 cm/sec RV S Edd: 9.7 cm/sec Report approved by: Epi Pickett MD on 12/30/2024 12:[address] Head w/o Contrast Narrative EXAM: CT HEAD W/O CONTRAST LOCATION: [facility] DATE: 12/30/2024 INDICATION: post cardiac arrest, syncope, neuro changes COMPARISON: None. TECHNIQUE: Routine CT Head without IV contrast. Multiplanar reformats. Dose reduction techniques were used. FINDINGS: INTRACRANIAL CONTENTS: No intracranial hemorrhage, extraaxial collection, or mass effect. No CT evidence of acute infarct. Normal parenchymal attenuation. Normal ventricles and sulci. There is intracranial atherosclerosis. VISUALIZED ORBITS/SINUSES/MASTOIDS: No intraorbital abnormality. No paranasal sinus mucosal disease. No middle ear or mastoid effusion. BONES/SOFT TISSUES: No acute abnormality. Impression IMPRESSION: No acute intracranial process. MR Brain w/o Contrast Narrative EXAM: MR BRAIN W/O CONTRAST LOCATION: [facility] DATE: 12/30/2024 INDICATION: poor recall after cardiac arrest, eval for stroke COMPARISON: 12/30/2024. TECHNIQUE: Routine multiplanar multisequence head MRI without intravenous contrast. FINDINGS: INTRACRANIAL CONTENTS: No acute or subacute infarct. No mass, acute hemorrhage, or extra-axial fluid collections. Scattered nonspecific T2/FLAIR hyperintensities within the cerebral white matter mostconsistent with minimal chronic microvascular ischemic change. Normal ventricles and sulci for age. Normal position of the cerebellar tonsils. SELLA: No abnormality accounting for technique. OSSEOUS STRUCTURES/SOFT TISSUES: Normal marrow signal. The major intracranial vascular flow voids are maintained. ORBITS: No abnormality accounting for technique. SINUSES/MASTOIDS: No paranasal sinus mucosal disease. Scattered fluid/membrane thickening in the left mastoid air cells. No apparent mass in the posterior nasopharynx or skull base. Impression IMPRESSION: 1. No acute intracranial abnormality. * Mitchel Hollins MD - 12/31/2024 10:36 AM CDT [facility] Neurology [place] Juliet Cox Age: [age] year old Date of : 1965 Assessment and Plan: Memory loss after cardiac arrest, improving Notes indicate the patient fell on the garage floor, if there was some head trauma she likely has some amnesia just from that. She is showing significant improvement today compared to yesterday on myexam. MRI shows no evidence of stroke or any brain contusion, and that is reassuring. I expect her to recover fully. If she continues to have memory issues after discharge she can be referred for formal neuropsych testing. Okay to continue anticoagulation A-fib from my perspective. No further workup to recommend here in the hospital, I will sign off. Chief Complaint/HPI: This patient is a 59-year-old woman seen for neurologic evaluation today. Medical history significant for tobacco/marijuana use, paroxysmal atrial fibrillation on Xarelto for anticoagulation, diabetes mellitus type 2, hypothyroidism, family history of premature coronary artery disease in the late evening of December 29 she was in her garage, talking to her daughter when she suddenly collapsed. Her daughter felt no pulse and performed CPR until medics could take over. AED was placed on the patient and she received 5 shocks in total. Perfusing rhythm was restored and she was waking up when the paramedics were there. She was alert and talking in the emergency room ([facility]). She was transferred here to [facility] for further management. Here, some short- term memory issues were noted and neurology consultation was requested. I did see the patient yesterday and noted some short-term recall difficulties (1 out of 3). Today she is doing significantly better but perhaps not quite back to [facility]. She denies having any memory problems prior to this recent cardiac event. Past Medical History: has a past medical history of Antiplatelet or antithrombotic long-term use, Arrhythmia, Arthritis, Diabetes (H), and Hypertension. Past Surgical History: has a past surgical history that includes back surgery (2006); Laparoscopic gastric sleeve; and Optical tracking system fusion spine posterior lumbar three+ levels (N/A, 02/24/2022). Social History: Social History Tobacco Use Smoking status: Every Day Current packs/day: 0.25 Types: Cigarettes Smokeless tobacco: Never Substance Use Topics Alcohol use: Yes Comment: Socially Family History: No family history on file. Allergies: No Known Allergies Medications: Current Facility-Administered Medications: acetaminophen (TYLENOL) tablet 650 mg, 650 mg, Oral, Q4H PRN, Ashly Chen MD amiodarone (PACERONE) tablet 200 mg, 200 mg, Oral, BID, Laura Brian MD, 200 mg at 12/31/24 0841 atorvastatin (LIPITOR) tablet 10 mg, 10 mg, Oral, Daily, Ashly Chen MD, 10 mg at 12/31/24 0840 bisacodyl (DULCOLAX) suppository 10 mg, 10 mg, Rectal, Daily PRN, Ashly Chen MD glucose gel 15-30 g, 15-30 g, Oral, Q15 Min PRN OR dextrose 50 % injection 25-50 mL, 25-50 mL, Intravenous, Q15 Min PRN OR glucagon injection 1 mg, 1 mg, Subcutaneous, Q15 Min PRN, Bhavik VILLEGAS MD glucose gel 15-30 g, 15-30 g, Oral, Q15 Min PRN OR dextrose 50 % injection 25-50 mL, 25-50 mL, Intravenous, Q15 Min PRN OR glucagon injection 1 mg, 1 mg, Subcutaneous, Q15 Min PRN, Ashly Chen MD gabapentin (NEURONTIN) capsule 800 mg, 800 mg, Oral, BID, Ashly Chen MD, 800 mg at 12/31/24 0840 heparin 25,000 units in 0.45% NaCl 250 mL ANTICOAGULANT infusion, 0-5,000 Units/hr, Intravenous, Continuous, Ashly Chen MD, Last Rate: 7 mL/hr at 12/31/24 0658, 700 Units/hr at 12/31/24 0658 HYDROmorphone (DILAUDID) half-tab 1 mg, 1 mg, Oral, Q4H PRN, 1 mg at 12/31/24 0841 OR HYDROmorphone (DILAUDID) tablet 2 mg, 2 mg, Oral, Q4H PRN, Ashly Chen MD HYDROmorphone (PF) (DILAUDID) injection 0.3 mg, 0.3 mg, Intravenous, Q3H PRN, Ashly Chen MD insulin aspart (NovoLOG) injection (RAPID ACTING), 1-7 Units, Subcutaneous, TID AC, Bhavik VILLEGAS MD, 1 Units at 12/31/24 0840 insulin aspart (NovoLOG) injection (RAPID ACTING), 1-5 Units, Subcutaneous, At Bedtime, Bhavik VILLEGAS MD levothyroxine (SYNTHROID/LEVOTHROID) tablet 50 mcg, 50 mcg, Oral, QAM , Heri Baugh MD, 50 mcg at 12/31/24 0655 methocarbamol (ROBAXIN) tablet 750 mg, 750 mg, Oral, Q6H PRN, Ashly Chen MD, 750 mg at 12/31/24 0401 metoprolol tartrate (LOPRESSOR) tablet 25 mg, 25 mg, Oral, Q8H, Laura Brian MD naloxone (NARCAN) injection 0.2 mg, 0.2 mg, Intravenous, Q2 Min PRN OR naloxone (NARCAN) injection 0.4 mg, 0.4 mg, Intravenous, Q2 Min PRN OR naloxone (NARCAN) injection 0.2 mg, 0.2 mg, Intramuscular, Q2 Min PRN OR naloxone (NARCAN) injection 0.4 mg, 0.4 mg, Intramuscular, Q2 Min PRN, Ashly Chen MD nortriptyline (PAMELOR) capsule 25 mg, 25 mg, Oral, At Bedtime, Ashly Chen MD, 25 mg at 12/30/24 2220 ondansetron (ZOFRAN ODT) ODT tab 4 mg, 4 mg, Oral, Q6H PRN OR ondansetron (ZOFRAN) injection 4 mg, 4 mg, Intravenous, Q6H PRN, Ashly Chen MD Patient is already receiving anticoagulation with heparin, enoxaparin (LOVENOX), warfarin (COUMADIN) or other anticoagulant medication, , Does not apply, Continuous PRN, Ashly Chen MD polyethylene glycol (MIRALAX) Packet 17 g, 17 g, Oral, Daily PRN, Ashly Chen MD prochlorperazine (COMPAZINE) injection 10 mg, 10 mg, Intravenous, Q6H PRN OR prochlorperazine (COMPAZINE) tablet 10 mg, 10 mg, Oral, Q6H PRN, Ashly Chen MD senna-docusate (SENOKOT-S/PERICOLACE) 8.6-50 MG per tablet 1 tablet, 1 tablet, Oral, BID PRN ORsenna-docusate (SENOKOT-S/PERICOLACE) 8.6-50 MG per tablet 2 tablet, 2 tablet, Oral, BID PRN, Ashly Chen MD triamcinolone (KENALOG) 0.1 % cream, , Topical, BID PRN, Heri Baugh MD Physical Exam: Vitals: BP 124/89 Pulse (!) 122 Temp 98.5 ??F (36.9 ??C) (Oral) Resp 20 Ht 1.702 m (5' 7) Wt 92.8 kg (204 lb 8 oz) SpO2 99% BMI 32.03 kg/m?? BMI= Body mass index is 32.03 kg/m??. Patient is alert and in no acute distress. Neck was supple, no carotid bruits, thyromegaly, lymphadenopathy or JVD noted. Neurological Exam: Mental status: Patient is awake and alert. Speech is clear and fluent She could not name the hospital but knows we are in [place] She can calculate quarters in $1.75 She can name the restaurant kitchen and service manager She does fine on simple and complex naming She can spell world backwards with a little extra time and effort Recall is 3 out of 3 at about 4 minutes today. CN II: PERRLA. CN III, IV, : EOMI. CN VII: Face is symmetric. CN VII: Hearing is normal to conversation CN IX, X: Phonation is normal. CN XI: Head turning and shoulder shrug are intact CN XII: Tongue is midline Motor: Muscle bulk and tone are normal. No pronator drift. Strength is 5/5 bilaterally. No fasciculations noted. Sensory: Light touch, pinprick, and vibration sense are intact bilaterally. Coordination: Rapid alternating movements and fine finger movements are intact. There is no dysmetria on kasoin-gt-lpxg testing. Gait: gait testing is deferred for safety due to ongoing medical issues Mitchel Hollins MD More than 60 minutes spent reviewing records and results, evaluating patient, discussing with pt and on documentation * Mitchel Hollins MD - 12/30/2024 2:24 PM CDT Neurology: Consult requested for memory loss after cardiac arrest yesterday She is quite awake and alert, conversing normally. Has trouble remembering [facility], but she lives in [place] and may not be familiar with the area. She knows we are in [place] Does fine on naming and repeating Can name Trump but not Falcon Can calculate nickels in $1 Spells world backwards without difficulty Recall 1/3 at about 4 minutes With cues she gets the other 2 items. Still couldn't remember [facility] Dol[facility]. CT head reviewed, looks good to me. Will try to get MRI of brain to see if any ischemia. She has some hardware in right eyebrow but shebelieves she has had an MRI with that in place. Full consult to follow. * Juana You RT - 12/30/2024 11:06 AM CDT [facility] Treatment Plan Patient Score: 7 Patient Acuity: 4 Clinical Indication for Therapy: atelectasis and unable to deep breath Therapy Ordered: EZPAP QID Assessment Summary: Pt admitted post cardiac arrest, shock x5. PE study negative. CXR shows trace bilateral pneumotharaces present, lung nodules, and RUL and RLL atelectasis with pleural effusion. Ptevals to BID per [facility] protocol, but due to current atelectasis diagnosis, pt will begin on QID treatments until resolved. BS are clear diminished. Shallow RR. Removed from O2 and placed on RA. RT will continue to manage. Juana You RRT 12/30/2024 * Heri Baugh MD - 12/30/2024 9:06 AM CDT Daily Progress Note Assessment/Plan: 59-year-old female with a history of tobacco use, atrial fibrillation on long- term anticoagulation,type 2 diabetes with peripheral neuropathy admitted to ICU earlier this morning following N000H cardiac arrest with bystander CPR and ROSC after defibrillation x 5. Was brought to the hospital admitted to the ICU for post arrest shock which has resolved. VT/VF arrest with non-STEMI: Status post bystander CPR and defibrillation x 5. Neurologically intact post ROSC. Cardiology following, coronary angiogram likely later today or tomorrow. Hypotension resolved, has not been on pressors. Is on amiodarone drip. Troponins mildly elevated and stable. Paroxysmal atrial fibrillation: Has been in normal sinus rhythm, was started on heparin, holding home DOAC. Also holding metoprolol for now. Type 2 diabetes with neuropathy: Holding home metformin, diabetic protocol ordered. A1c 6.4 July2024 Leukocytosis, transaminitis: Likely stress demargination and shock liver respectively. Will trend. Hypothyroidism: Continue home Synthroid, check TSH History of lumbar fusion History of laparoscopic sleeve gastrectomy History of marijuana use: U tox ordered. Short-term memory loss: This was reported today, likely secondary to last night's event. Neurology consulted and head CT ordered. Clinically Significant Risk Factors Present on Admission # Hypokalemia: Lowest K = 3 mmol/L in last 2 days, will replace as needed # Hyperkalemia: Highest K = 6 mmol/L in last 2 days, will monitor as appropriate # Hypernatremia: Highest Na = 147 mmol/L in last 2 days, will monitor as appropriate # Hyperchloremia: Highest Cl = 116 mmol/L in last 2 days, will monitor as appropriate # Hypocalcemia: Lowest Ca = 8.5 mg/dL in last 2 days, will monitor and replace as appropriate # Hypomagnesemia: Lowest Mg = 1.6 mg/dL in last 2 days, will replace as needed # Drug Induced Coagulation Defect: home medication list includes an anticoagulant medication # Anemia: based on hgb <11 Code status:Full Code Barriers to Discharge: VT/VF arrest, further cardiac workup Disposition: Anticipate discharge in 2 to 3 days Subjective: Chart extensively reviewed. Juliet reports she feels tired this morning but no other new complaints.Has some short-term memory issues which appear new. No further chest pain or shortness of breath. She apparently had chest pain preceding this episode and the episode was witnessed by another person who performed the CPR. Current Medications Reviewed via EHR List Objective: Vital signs in last 24 hours: @VSRANGESHE@ .prog Weight: @THISENCWEIGHTS(1)@ Weight change: Body mass index is 30.92 kg/m??. Intake/Output last 3 shifts: I/O last 3 completed shifts: In: 9.74 [I.V.:9.74] Out: - Intake/Output this shift: I/O this shift: In: 1050 [P.O.:50; IV Piggyback:1000] Out: - Physical Exam: General: No apparent distress, pleasant conversant, tired. CV: Regular rhythm Lungs: Clear to auscultation Abdomen: Soft, nontender Imaging: Personally Reviewed. CT Chest Pulmonary Embolism w Contrast Result Date: 12/30/2024 EXAM: CT CHEST PULMONARY EMBOLISM W CONTRAST LOCATION: [facility] DATE: 12/30/2024 INDICATION: Cardiac arrest. [...] 125. A couple 2 to 5 mm no dules in the right middle lobe on image 109. Extensive septal line thickening with hazy groundglassopacities throughout bilateral lung. Dependent atelectasis in the posterior right upper lobe and lower lobes. No confluent pneumonic consolidation or pleural effusion. MEDIASTINUM/AXILLAE: No lymphadenopathy. Heart size is normal without pericardial effusion. CORONARY ARTERY CALCIFICATION: Mild. UPPER ABDOMEN: No acute findings. 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 Adenomatous hypertrophy of bilateral adrenal glands. MUSCULOSKELETAL: Prominent anterior osteophyte in the lowerthoracic spine. No suspicious osseous lesions. Multiple anterior bilateral rib fractures and nondisplaced sternal fracture noted, including right third, fourth, fifth, sixth, and seventh ribs, as well as the left anterior fourth, fifth and sixth ribs. IMPRESSION: 1. No pulmonary embolism or pneumonia. 2. Multiple anterior bilateral rib fractures andmidsternal fracture, most certainly related to resuscitative efforts. 3. Trace bilateral pneumothoraces. 4. Diffuse pulmonary edema, likely cardiogenic. 5. Scattered right middle lobe pulmonary nodules measuring up to 5 mm. Per Fleischner Society 2017 guideline, a one-year follow- up chest CT could be considered if patient is at increased risk for lung cancer. Without lung cancer risk factor, no follow-up is necessary. Echocardiogram Limited Result Date: 12/30/2024 [id number]^HAAPAPURO^LAYLA^RAY [facility] Echocardiography Laboratory [address] [place] [address] Name: JULIET COX : 1965 Study Date: 12/30/2024 12:15 AM Age: 59 yrs Gender: Female Patient Location: [facility] Reason For Study: Cardiac Arrest Ordering Physician: LAYLA RETANA Performed By: Kendra Manzano BSA: 2.0 m2 [...] Ced Moeller MD on 12/30/2024 12:39 AM Lab Results: Personally Reviewed. Fingerstick Blood Glucose: @FWNRANG21CVT(POCGLUFGR:10)@ Last Hbg A1C: No results found for: HGBA1C Lab Results Component Value Date INR 1.22 (H) 12/30/2024 PROTIME 15.6 (H) 12/30/2024 Recent Results (from the past 24 hours) EKG 12 lead Collection Time: 12/29/24 10:53 PM Result Value Ref Range Systolic Blood Pressure mmHg Diastolic Blood Pressure mmHg Ventricular Rate 144 BPM Atrial Rate 315 BPM [place] Interval ms QRS Duration 90 ms QT 322 ms QTc 498 ms P Tyler degrees R AXIS -79 degrees T Tyler 117 degrees Interpretation ECG Atrial flutter with variable A-V block Left axis deviation Anterior infarct , age undetermined Abnormal ECG No previous ECGs available Glucose by meter Collection Time: 12/29/24 10:57 PM Result Value Ref Range GLUCOSE BY METER POCT 67 (L) 70 - 99 mg/dL iStat Gases (lactate) venous, POCT Collection Time: 12/29/24 11:01 PM Result Value Ref Range Lactic Acid POCT 3.6 (H) 0.7 - 2.0 mmol/L Bicarbonate Venous POCT 11 (L) 21 - 28 mmol/L O2 Sat, Venous POCT 39 (L) 70 - 75 % pCO2 Venous POCT 27 (L) 40 - 50 mm Hg pH Venous POCT 7.21 (L) 7.32 - 7.43 pO2 Venous POCT 27 25 - 47 mm Hg iStat Basic Chem ICA Hematocrit, POCT Collection Time: 12/29/24 11:01 PM Result Value Ref Range Chloride POCT 116 (H) 98-107 mmol/L mmol/L Potassium POCT 3.0 (L) 3.4 - 5.3 mmol/L Sodium POCT 147 (H) 135 - 145 mmol/L UREA NITROGEN POCT 12 8 - 23 mg/dL Calcium, Ionized Whole Blood POCT 3.5 (L) 4.4 - 5.2 mg/dL Glucose Whole Blood POCT 161 (H) 70 - 99 mg/dL Anion Gap POCT 21.0 (H) 7.0-15.0 mmol/L mmol/L Hemoglobin POCT 9.5 (L) 11.7 - 15.7 g/dL Hematocrit POCT 28 (L) 35-47 % % Creatinine POCT 0.5 0.5 - 1.0 mg/dL TOTAL CO2 POCT 14 mmol/L CBC with platelets and differential Collection Time: 12/29/24 11:04 PM Result Value Ref Range WBC Count 22.0 (H) 4.0 - 11.0 10e3/uL RBC Count 4.47 3.80 - 5.20 10e6/uL Hemoglobin 14.0 11.7 - 15.7 g/dL Hematocrit 43.3 35.0 - 47.0 % MCV 97 78 - 100 fL MCH 31.3 26.5 - 33.0 pg MCHC 32.3 31.5 - 36.5 g/dL RDW 14.1 10.0 - 15.0 % Platelet Count 293 150 - 450 10e3/uL % Neutrophils 72 % % Lymphocytes 18 % % Monocytes 6 % % Eosinophils 1 % % Basophils 1 % % Immature Granulocytes 3 % NRBCs per 100 WBC 0 <1 /100 Absolute Neutrophils 15.9 (H) 1.6 - 8.3 10e3/uL Absolute Lymphocytes 4.0 0.8 - 5.3 10e3/uL Absolute Monocytes 1.3 0.0 - 1.3 10e3/uL Absolute Eosinophils 0.1 0.0 - 0.7 10e3/uL Absolute Basophils 0.2 0.0 - 0.2 10e3/uL Absolute Immature Granulocytes 0.6 (H) <=0.4 10e3/uL Absolute NRBCs 0.0 10e3/uL Extra Blue Top Tube Collection Time: 12/29/24 11:04 PM Result Value Ref Range Hold Specimen JIC Extra Red Top Tube Collection Time: 12/29/24 11:04 PM Result Value Ref Range Hold Specimen JIC Extra Heparinized Syringe Collection Time: 12/29/24 11:04 PM Result Value Ref Range Hold Specimen JIC Extra Green Top (Bertram Heparin) ON ICE Collection Time: 12/29/24 11:04 PM Result Value Ref Range Hold Specimen JIC EKG 12 lead Collection Time: 12/29/24 11:40 PM Result Value Ref Range Systolic Blood Pressure mmHg Diastolic Blood Pressure mmHg Ventricular Rate 113 BPM Atrial Rate 226 BPM [place] Interval ms QRS Duration 94 ms QT 390 ms QTc 534 ms P Tyler degrees R AXIS 57 degrees T Tyler 83 degrees Interpretation ECG Atrial flutter with 2:1 A-V conduction Nonspecific ST abnormality Prolonged QT Abnormal ECG When compared with ECG of 29-Dec-2024 22:53, (unconfirmed) QRS axis Shifted right ST less depressed in Lateral leads Comprehensive metabolic panel Collection Time: 12/30/24 12:19 AM Result Value Ref Range Sodium 138 135 - 145 mmol/L Potassium 6.0 (H) 3.4 - 5.3 mmol/L Carbon Dioxide (CO2) 20 (L) 22 - 29 mmol/L Anion Gap 14 7 - 15 mmol/L Urea Nitrogen 20.4 8.0 - 23.0 mg/dL Creatinine 0.98 (H) 0.51 - 0.95 mg/dL GFR Estimate 66 >60 mL/min/1.73m2 Calcium 8.5 (L) 8.8 - 10.4 mg/dL Chloride 104 98 - 107 mmol/L Glucose 234 (H) 70 - 99 mg/dL Alkaline Phosphatase 93 40 - 150 U/L AST 396 (H) 0 - 45 U/L ALT 399 (H) 0 - 50 U/L Protein Total 6.0 (L) 6.4 - 8.3 g/dL Albumin 3.8 3.5 - 5.2 g/dL Bilirubin Total 0.3 <=1.2 mg/dL Troponin T, High Sensitivity Collection Time: 12/30/24 12:19 AM Result Value Ref Range Troponin T, High Sensitivity 71 (H) <=14 ng/L Echocardiogram Limited Collection Time: 12/30/24 12:28 AM Result Value Ref Range LVEF 60-65% Ionized Calcium Collection Time: 12/30/24 1:16 AM Result Value Ref Range Calcium Ionized Whole Blood 4.5 4.4 - 5.2 mg/dL Potassium Collection Time: 12/30/24 1:16 AM Result Value Ref Range Potassium 5.9 (H) 3.4 - 5.3 mmol/L Lactic acid whole blood Collection Time: 12/30/24 1:16 AM Result Value Ref Range Lactic Acid 2.8 (H) 0.7 - 2.0 mmol/L Potassium Collection Time: 12/30/24 2:17 AM Result Value Ref Range Potassium 4.4 3.4 - 5.3 mmol/L Troponin T, High Sensitivity Collection Time: 12/30/24 2:17 AM Result Value Ref Range Troponin T, High Sensitivity 120 (HH) <=14 ng/L Glucose by meter Collection Time: 12/30/24 2:20 AM Result Value Ref Range GLUCOSE BY METER POCT 298 (H) 70 - 99 mg/dL Glucose by meter Collection Time: 12/30/24 4:12 AM Result Value Ref Range GLUCOSE BY METER POCT 232 (H) 70 - 99 mg/dL ECG 12-Lead with MUSE - [facility] Collection Time: 12/30/24 6:00 AM Result Value Ref Range Systolic Blood Pressure mmHg Diastolic Blood Pressure mmHg Ventricular Rate 76 BPM Atrial Rate 76 BPM [place] Interval 224 ms QRS Duration 102 ms QT 422 ms QTc 474 ms P Tyler 58 degrees R AXIS -45 degrees T Tyler 25 degrees Interpretation ECG Sinus rhythm with 1st degree A-V block with Premature supraventricular complexes Possible Left atrial enlargement Left axis deviation Cannot rule out Anterior infarct , age undetermined Abnormal ECG When compared with ECG of 29-Dec-2024 23:40, Significant changes have occurred CBC with platelets Collection Time: 12/30/24 6:15 AM Result Value Ref Range WBC Count 16.9 (H) 4.0 - 11.0 10e3/uL RBC Count 3.67 (L) 3.80 - 5.20 10e6/uL Hemoglobin 11.5 (L) 11.7 - 15.7 g/dL Hematocrit 34.7 (L) 35.0 - 47.0 % MCV 95 78 - 100 fL MCH 31.3 26.5 - 33.0 pg MCHC 33.1 31.5 - 36.5 g/dL RDW 14.3 10.0 - 15.0 % Platelet Count 245 150 - 450 10e3/uL Blood gas venous Collection Time: 12/30/24 6:15 AM Result Value Ref Range pH Venous 7.37 7.32 - 7.43 pCO2 Venous 50 40 - 50 mm Hg pO2 Venous 32 25 - 47 mm Hg Bicarbonate Venous 29 (H) 21 - 28 mmol/L Base Excess/Deficit Venous 2.5 -3.0 - 3.0 mmol/L FIO2 37 Oxyhemoglobin Venous 56 (L) 70 - 75 % O2 Sat, Venous 57.8 (L) 70.0 - 75.0 % Comprehensive metabolic panel Collection Time: 12/30/24 6:15 AM Result Value Ref Range Sodium 140 135 - 145 mmol/L Potassium 4.6 3.4 - 5.3 mmol/L Carbon Dioxide (CO2) 26 22 - 29 mmol/L Anion Gap 11 7 - 15 mmol/L Urea Nitrogen 23.2 (H) 8.0 - 23.0 mg/dL Creatinine 0.80 0.51 - 0.95 mg/dL GFR Estimate 84 >60 mL/min/1.73m2 Calcium 8.8 8.8 - 10.4 mg/dL Chloride 103 98 - 107 mmol/L Glucose 215 (H) 70 - 99 mg/dL Alkaline Phosphatase 83 40 - 150 U/L AST 361 (H) 0 - 45 U/L ALT 322 (H) 0 - 50 U/L Protein Total 5.9 (L) 6.4 - 8.3 g/dL Albumin 3.5 3.5 - 5.2 g/dL Bilirubin Total 0.2 <=1.2 mg/dL Magnesium Collection Time: 12/30/24 6:15 AM Result Value Ref Range Magnesium 1.6 (L) 1.7 - 2.3 mg/dL Phosphorus Collection Time: 12/30/24 6:15 AM Result Value Ref Range Phosphorus 3.9 2.5 - 4.5 mg/dL Ionized Calcium Collection Time: 12/30/24 6:15 AM Result Value Ref Range Calcium Ionized Whole Blood 4.5 4.4 - 5.2 mg/dL Lactic acid whole blood Collection Time: 12/30/24 6:15 AM Result Value Ref Range Lactic Acid 2.2 (H) 0.7 - 2.0 mmol/L INR Collection Time: 12/30/24 6:15 AM Result Value Ref Range INR 1.22 (H) 0.85 - 1.15 PT 15.6 (H) 11.8 - 14.8 Seconds Troponin T, High Sensitivity Collection Time: 12/30/24 6:15 AM Result Value Ref Range Troponin T, High Sensitivity 143 (HH) <=14 ng/L Glucose by meter Collection Time: 12/30/24 6:16 AM Result Value Ref Range GLUCOSE BY METER POCT 210 (H) 70 - 99 mg/dL Influenza A/B, RSV and SARS-CoV2 PCR (COVID-19) Nasopharyngeal Collection Time: 12/30/24 6:35 AM Specimen: Nasopharyngeal; Swab Result Value Ref Range Influenza A PCR Negative Negative Influenza B PCR Negative Negative RSV PCR Negative Negative SARS CoV2 PCR Negative Negative CBC with platelets Collection Time: 12/30/24 8:33 AM Result Value Ref Range WBC Count 15.3 (H) 4.0 - 11.0 10e3/uL RBC Count 3.46 (L) 3.80 - 5.20 10e6/uL Hemoglobin 10.9 (L) 11.7 - 15.7 g/dL Hematocrit 32.9 (L) 35.0 - 47.0 % MCV 95 78 - 100 fL MCH 31.5 26.5 - 33.0 pg MCHC 33.1 31.5 - 36.5 g/dL RDW 14.5 10.0 - 15.0 % Platelet Count 228 150 - 450 10e3/uL Medically Ready for Discharge: Anticipated in 2-4 Days Advanced Care Planning Medical Decision Making 50 MINUTES SPENT BY ME on the date of service doing chart review, history, exam, documentation & further activities per the note. Juvencio Baugh MD Date: 12/30/2024 Time: 9:06 AM [facility] Family Medicine * Edna Isaacs RN - 12/30/2024 7:55 AM CDT Pt arrived from [facility] at approx 0530 in stable condition. Amio gtt continued and decreased to 0.5 mg/min. Pt has remained in SR with occas PAC's, HR 70's. BP soft, given 1 L LR with improvement. Pt denies chest pressure or SOB but c/o lower sternal pain likely from CPR as pt has multiple rib fractures and sternal fx. Med w/ dilaudid 1mg po. Pt arrived on O2 at 6L per mask, changed to NC and down to 2.5 LPM with stable O2 sats. LS clear diminished but has few crackles in R base. documented in this encounter H&P Notes * Ashly Chen MD - 12/30/2024 5:58 AM CDT Critical Care Medicine Consult 12/30/2024 Name: Juliet Cox : 1965 PCP: Bianca Mejia ASSESSMENT/PLAN: 59 year old woman with history of tobacco use disorder, atrial fibrillation on long-term anticoagulation, T2DM w/ peripheral neuropathy, admitted on 12/30/2024 following an OOH cardiac arrest w/ bystander CPR & ROSC after discontinue defibrillation x5. Initial indication for ICU was post-arrest shock, which has since resolved. Neuro/Psych: #. Acute pain post-arrest. #. Peripheral neuropathy. #. Possible cervicalgia based on the description of her RUE symptoms. Continue nortriptyline and gabapentin As needed Tylenol, PO and IV Dilaudid available Pulmonary: #. Acute hypoxic respiratory insufficiency in setting of cardiac arrest, resolved (supplemental oxygen turned off in the ICU). #. Tobacco use disorder, ongoing. Discussed importance of cessation in light of her cardiac arrest. Goal SpO2 >/= 90%, wean down supplemental oxygen & avoid hyperoxia Will need education on tobacco cessation & available resources prior to discharge; declined nicotine replacement for now Cardiovascular: #. OOH VT/VF arrest w/ bystander CPR & shock x5, neurologically intact post-ROSC. #. Shock, possibly stunned myocardium post arrest, resolved. #. Atrial fibrillation, chronic -- in NSR on arrival to [facility]. #. HLD, continued on PROGRESS DEVELOPER atorvastatin. Goal MAP >/= 65 and SBP >/= 90 No indications for vasopressors at this time No clinical e/o decompensated HF, reassuring TTE from [facility] -- bolus PRN for hypotension/JARON/LA elevation Will finish off the amiodarone drip, continue digoxin Hold PROGRESS DEVELOPER metoprolol for now Hold PROGRESS DEVELOPER Xarelto & start heparin gtt Discussed w/ on-call master fisher -- patient will be seen today for an angiogram Infectious: no acute issues or suspicion of an untreated infectious process. Low threshold for empiric CAP coverage if she develops clinically suggestive symptoms. Renal: baseline Cr ~0.7. #. JARON, presumably pre-renal process in setting of her cardiac arrest. #. Hyperkalemia at [place], resolved w/ shifting protocols. #. Elevated lactic acid, likely result of her cardiac arrest & associated tissue hypoperfusion,possibly decreased clearance d/t shock liver. Strict I/O monitoring, avoid toxins as able Electrolyte replacement protocols in place Trend lactic acid GI: #. Elevated transaminases, nonobstructive pattern. Most consistent with shock liver. Will need to trend. Heme: #. Leukocytosis, presumably reactive. No recent symptoms to suggest any infectious process. #. Mild normocytic anemia. Endo: well-controlled T2DM. Will hold PROGRESS DEVELOPER metformin while IP, started low- intensity aspart ISS. Access/Lines/Tubes: femoral CVC, garg Prophylaxis: #. Stress ulcer: not indicated #. Diet: NPO at this time #. VTE: on rivaroxaban at baseline CODE: FULL Billing: This patient is critically ill: No. Total dedicated care time today 80 min, excluding procedures. Patient will be followed by the Hospitalist group as she no longer requires vasopressors -- discussed w/ Dr. Granados. Patient will be seen today by a hospitalist. Ashly Chen MD Pulmonary and Critical Care Clinically Significant Risk Factors Present on Admission # Hypokalemia: Lowest K = 3 mmol/L in last 2 days, will replace as needed # Hyperkalemia: Highest K = 6 mmol/L in last 2 days, will monitor as appropriate # Hypernatremia: Highest Na = 147 mmol/L in last 2 days, will monitor as appropriate # Hyperchloremia: Highest Cl = 116 mmol/L in last 2 days, will monitor as appropriate # Hypocalcemia: Lowest Ca = 8.5 mg/dL in last 2 days, will monitor and replace as appropriate # Drug Induced Coagulation Defect: home medication list includes an anticoagulant medication HISTORY OF PRESENTING ILLNESS: Juliet Cox is a 59 year old woman with history of tobacco use disorder, T2DM, peripheral neuropathy, atrial fibrillation on long-term anticoagulation, admitted on 12/30/2024 following an [id number] VT/VF cardiac arrest with neurologically intact ROSC. Patient has been in her usual state of health when she suddenly fell in her garage in front of her friend. When she did not get up, her friend turned her over and noticed the patient was not breathing -- friend started CPR and called 911. Reportedly, this person did CPR for approximately 20 minutes prior to arrival of the firefighters whoto call resuscitation. Patient received 5 shocks and the team was able to achieve ROSC as EMS arrived on the scene. She was taken to [facility] ED where she was found to be completely neurologically intact but hypotensive and in A-fib with RVR. Patient was started on norepinephrine and amiodarone drips, had a CTA of the chest that ruled out PE, and her hyperkalemia was corrected. Per ED conversation with on-call master fisher, there was not felt to be an indication for an emergent angiogram. Patient had a delayed transfer to [facility] ICU due to transport and availability. On arrival to the ICU patient is on amiodarone and no longer on norepinephrine (drip was stopped around 2 AM). She reports the following concerns: movement- provoked pain across her upper abdomen attributed to CPR & pain in her right shoulder associated with numbness and tingling in the forearm and first 3 digits of her hand. This pain has been present for several weeks, and she describes it as intermittently sharp, not burning, present at rest and with activity. It was initially confined only to the shoulder, primarily posterior, with more recent progression to include numbness and tingling along the posterior of her forearm and in the palm and first 3 digits of her right hand (radial nerve distribution). She denies any chest pain (outside upper abdominal/lower chest pain that she associates with her CPR), chest pressure or tightness, shortness of breath, nausea, abdominal pain, or headache. She is a current every day smoker (0.3-0.5 PPD) and has been smoking for at least 40 years. Her family history is notable for DE in her father in his 50s; he from complications ofheart failure. She takes atorvastatin & is on metformin for her T2DM, which is well-controlled w/ an A1c of 6.4% at the end of Jul 2024. REVIEW OF SYSTEMS: 12-point ROS was negative with exceptions as detailed in the HPI. MEDICAL HISTORY: has a past medical history of Antiplatelet or antithrombotic long-term use, Arrhythmia, Arthritis, Diabetes (H), and Hypertension. She has no past medical history of Chronic infection, Complication of anesthesia, History of blood transfusion, Malignant hyperthermia, or Sleep apnea. SURGICAL HISTORY: has a past surgical history that includes back surgery (2006); Laparoscopic gastric sleeve; and Optical tracking system fusion spine posterior lumbar three+ levels (N/A, 02/24/2022). SOCIAL HISTORY: reports that she has been smoking cigarettes. She has never used smokeless tobacco.She reports current alcohol use. She reports that she does not currently use drugs. FAMILY HISTORY: family history is not on file. MEDICATIONS: personally reviewed, including EMR/Care Everywhere. Pertinent information noted & updated. ALLERGIES: No Known Allergies PHYSICAL EXAM: Temp: [97.5 ??F (36.4 ??C)-98.2 ??F (36.8 ??C)] 98.2 ??F (36.8 ??C) Pulse: [69-147] 74 Resp: [16-21] 21 BP: (81-125)/(45-103) 97/49 SpO2: [92 %-100 %] 100 % Resp: 21 Physical Exam: General: older woman lying in bed, NAD HEENT: PERRL, MMM CV: RRR, no M/R/G; extremities well perfused Pulm: equal b/l breath sounds, no wheezing, no rhonchi, no crackles, no cough Abd: soft, ND, NT, quiet bowel sounds Msk: warm to touch, no peripheral edema Derm: no acute lesions/rashes on limited exam Neuro: AOx3; moves extremities w/o gross focal deficit Psych: calm & pleasant LABS: I personally reviewed all available & pertinent laboratory studies w/in the EMR. IMAGING/STUDIES: I personally reviewed all available & pertinent imaging studies w/in the EMR. This report was prepared using speech recognition software. Any typographical errors are unintentional. Please, contact me directly for any clarifications of my report. documented in this encounter Consult Notes * Laura Brian MD - 12/30/2024 12:28 PM CDTAssociated Order(s): CARDIOLOGY IP CONSULT Images from the original note were not included. HEART CARE CONSULTATON NOTE Assessment/Recommendations Assessment: 1. Cardiac arrest: Rhythm strips from events were not available for review. Per reports she suffered a sudden syncopal event requiring CPR and then did have a shockable rhythm. [facility] stable. Started on amiodarone with eventual conversion to sinus rhythm. Discussed case with interventional. Recommend proceeding with coronary angiogram. Atthis time given stability will plan on potentially doing this tomorrow. 2. Non-STEMI: Elevated troponin in the setting of cardiac arrest overnight with no significant findings on echocardiogram or EKG. Troponins mildly elevated and stable. Currently downtrending. Will recommend proceeding with coronary angiogram for further evaluation. 3. Atrial fibrillation: Paroxysmal on Xarelto as outpatient for anticoagulation. Patient reports she does not usually feel the atrial fibrillation episodes. 4. Memory issues: Likely secondary to cardiac arrest overnight. Noted to have some short-term memory loss today. Cannot find any head imaging and will proceed with a CT head as well as neurologic evaluation. 5. Tobacco abuse 6. Marijuana abuse 7. Dyslipidemia on statin therapy 8. Diabetes mellitus type 2 9. Family history of heart disease Plan: 1. Evidence of neurologic deficit with memory issues postarrest. Recommend CT head and neurology evaluation 2. Start on p.o. amiodarone and will stop the amiodarone drip 3. Aspirin 81 mg daily and statin therapy 4. Will start on low-dose beta-nkiki 5. Smoking cessation counseling 6. Discussed case with interventional this morning. Given stability we will continue with medical management at this time and potentially plan on angiogram tomorrow. 7. Continue holding Xarelto, heparin drip Clinically Significant Risk Factors Present on Admission # Hypokalemia: Lowest K = 3 mmol/L in last 2 days, will replace as needed # Hyperkalemia: Highest K = 6 mmol/L in last 2 days, will monitor as appropriate # Hypernatremia: Highest Na = 147 mmol/L in last 2 days, will monitor as appropriate # Hyperchloremia: Highest Cl = 116 mmol/L in last 2 days, will monitor as appropriate # Hypocalcemia: Lowest Ca = 8.5 mg/dL in last 2 days, will monitor and replace as appropriate # Hypomagnesemia: Lowest Mg = 1.6 mg/dL in last 2 days, will replace as needed # Drug Induced Coagulation Defect: home medication list includes an anticoagulant medication # Anemia: based on hgb <11 History of Present Illness/Subjective HPI: Juliet Cox is a 59 year old female with tobacco/marijuana use, paroxysmal atrial fibrillation on Xarelto for anticoagulation, diabetes mellitus type 2, hypothyroidism, family history of premature coronary artery disease who was brought into [facility] after [id number] cardiac arrest. Strips are not available to me for review. Per the chart she suddenly fell in her garage in front of her friend. Her friend turned her over and found her not to be breathing so started CPR andcalled 911. When EMS arrived she received 5 shocks. She was brought to the ED where she was neurologically intact but hypotensive in atrial fibrillation with rapid ventricular response. No respiratory distress and did not require intubation. No complaints of chest discomfort. She was started on amiodarone drip and converted to sinus rhythm overnight. Currently reports feeling well without breathing difficulty or chest pain. She is having some issues with short-term memory. Currently smokes halfa pack a day for 40 years. Father had DE in his 50s. EKG shows sinus rhythm with first-degree AV block and APCs at 76 bpm with possible anterior infarct. Limited outside echocardiogram indicated no significant wall motion abnormalities and preserved LVEF without pericardial effusion. Physical Examination Review of Systems VITALS: BP 106/59 Pulse 71 Temp 98.4 ??F (36.9 ??C) (Oral) Resp (!) 38 Wt 89.5 kg (197 lb 6.4 oz) SpO2 96% BMI 30.92 kg/m?? BMI: Body mass index is 30.92 kg/m??. Wt Readings from Last 3 Encounters: 12/30/24 89.5 kg (197 lb 6.4 oz) 12/29/24 90.6 kg (199 lb 11.8 oz) 02/24/22 91.2 kg (201 lb) Intake/Output Summary (Last 24 hours) at 12/30/2024 1228 Last data filed at 12/30/2024 1000 Gross per 24 hour Intake 1140.59 ml Output 70 ml Net 1070.59 ml General Appearance: no distress, normal body habitus ENT/Mouth: membranes moist, no oral lesions or bleeding gums. EYES: no scleral icterus, normal conjunctivae Neck: no carotid bruits or thyromegaly Chest/Lungs: lungs are clear to auscultation Cardiovascular: Regular. Normal first and second heart sounds with no murmur no edema bilaterally Extremities: no cyanosis or clubbing Skin: no xanthelasma, warm. Neurologic: normal manager training bilateral, no tremors Psychiatric: alert and oriented x3, calm Review Of Systems Skin: negative Eyes: negative Ears/Nose/Throat: negative Respiratory: No shortness of breath, dyspnea on exertion, cough, or hemoptysis Cardiovascular: negative Gastrointestinal: negative Genitourinary: negative Musculoskeletal: negative Neurologic: negative Psychiatric: negative Hematologic/Lymphatic/Immunologic: negative Endocrine: negative Lab Results Chemistry/lipid CBC Cardiac Enzymes/BNP/TSH/INR No results for input(s): CHOL, HDL, LDL, TRIG, CHOLHDLRATIO in the last 68069 hours. No results for input(s): LDL in the last 24470 hours. Recent Labs Lab Test 12/30/24 0947 12/30/24 0616 12/30/24 0615 NA -- -- 140 POTASSIUM -- -- 4.6 CHLORIDE -- -- 103 CO2 -- -- 26 GLC 150* < > 215* BUN -- -- 23.2* CR -- -- 0.80 GFRESTIMATED -- -- 84 SAMMIE -- -- 8.8 < > = values in this interval not displayed. Recent Labs Lab Test 12/30/24 0615 12/30/24 0019 12/29/24 2301 CR 0.80 0.98* 0.5 No results for input(s): A1C in the last 82225 hours. Recent Labs Lab Test 12/30/24 0833 WBC 15.3* HGB 10.9* HCT 32.9* MCV 95 PLT 228 Recent Labs Lab Test 12/30/24 0833 12/30/24 0615 12/29/24 2304 HGB 10.9* 11.5* 14.0 No results for input(s): TROPONINI in the last 16519 hours. No results for input(s): BNP, NTBNPI, NTBNP in the last 42788 hours. Recent Labs Lab Test 12/30/24 0615 TSH 2.44 Recent Labs Lab Test 12/30/24 0615 INR 1.22* Medical History Surgical History Family History Social History Past Medical History: Diagnosis Date Antiplatelet or antithrombotic long-term use xarelto Arrhythmia Hx of A fib Arthritis Diabetes (H) Hypertension Past Surgical History: Procedure Laterality Date BACK SURGERY 2007 Cervical discectomy LAPAROSCOPIC GASTRIC SLEEVE OPTICAL TRACKING SYSTEM FUSION SPINE POSTERIOR LUMBAR THREE+ LEVELS N/A 02/24/2022 Procedure: L2-L5 transforaminal lumbar interbody fusion. Posterior fusion L2 to L5. Application of intervertebral biomechanical device for interbody fusion L2- L5. Posterior instrumentation using a bilateral pedicle screw and jose construct spanning from L2 through L5. Central laminectomy L2-L5. Local autograft and bone graft preschool assistant principal with Magnifuse and demineralized bone fiber.; Surgeon: Siva Wilson No family history on file. Social History Socioeconomic History Marital status: Single Spouse name: Not on file Number of children: Not on file Years of education: Not on file Highest education level: Not on file Occupational History Not on file Tobacco Use Smoking status: Every Day Current packs/day: 0.25 Types: Cigarettes Smokeless tobacco: Never Substance and Sexual Activity Alcohol use: Yes Comment: Socially Drug use: Not Currently Sexual activity: Not on file Other Topics Concern Not on file Social History Narrative Not on file Social Drivers of Health Financial Resource Strain: Low Risk (07/28/2024) Received from [employer] [facility] Financial Resource Strain Difficulty of Paying Living Expenses: 3 Difficulty of Paying Living Expenses: Not on file Food Insecurity: No Food Insecurity (07/28/2024) Received from [employer] [facility] Food Insecurity Do you worry your food will run out before you are able to buy more?: 1 Transportation Needs: No Transportation Needs (07/28/2024) Received from [employer] [facility] Transportation Needs Does lack of transportation keep you from medical appointments?: 1 Does lack of transportation keep you from work, meetings or getting things that you need?: 1 Physical Activity: Not on file Stress: Not on file Social Connections: Socially Integrated (07/28/2024) Received from [employer] [facility] Social Connections Do you often feel lonely or isolated from those around you?: 0 Interpersonal Safety: Not on file Housing Stability: Low Risk (07/28/2024) [facility] Housing Stability What is your housing situation today?: 1 Medications Allergies No current outpatient medications on file. 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 On room air with SpO2 94%+. Cardiology consulted EP cards. MRI checklist completed, patient to have Cardiac MRI tomorrow, 01/02. Heparin gtt discontinued after hoisting laborer. TR band removed, no hematoma felt. Up in chair for dinner. Patient continues to have intermittent chest pain r/t ribs. Telemetry reads Sinus Rhythm with First Degree AV Block, PAC's. [place] Events - This Shift: 0944 heparin gtt held, then discontinued after hoisting laborer. Cardiac MRI to be done tomorrow, 01/02. (Checklist completed and sent) RN Managed Protocols Ordered: Yes Protocols:Potassium, Magnesium, and Phosphorus PRN'S: Protocols Status: Reviewed with Oncoming RN Barriers to Discharge / Downgrade: EP master fisher consulted for ICD placement. Per EP Card note, Dual chamber ICD this admission, tentatively Wednesday 01/03 pending hoisting laborer availability Point of Contact Update: YES-OR-NO: Yes If No, reason: Name: Phone Number: Summary of Conversation: Problem: Adult Inpatient Plan of Care Goal: Optimal Comfort and Wellbeing Outcome: Progressing Intervention: Monitor Pain and Promote Comfort Recent Flowsheet Documentation Taken 01/01/2025 0800 by Angelica Robert RN Pain Management Interventions: declines Intervention: Provide Person-Centered Care Recent Flowsheet Documentation Taken 01/01/2025 1600 by Angelica Robert RN Trust Relationship/Rapport: care explained choices provided questions answered reassurance provided questions encouraged thoughts/feelings acknowledged Taken 01/01/2025 1200 by Angelica Robert RN Trust Relationship/Rapport: care explained choices provided questions answered reassurance provided questions encouraged thoughts/feelings acknowledged Taken 01/01/2025 0800 by Angelica Robert RN Trust Relationship/Rapport: care explained choices provided questions answered reassurance provided questions encouraged thoughts/feelings acknowledged * Pre-Procedure - Shady Wallace MD - 01/01/2025 8:36 AM CDT GENERAL PRE-PROCEDURE: Procedure: Coronary angiogram with possible PCI Date/Time: 01/01/2025 8:36 AM Written consent obtained?: Yes Risks and benefits: Risks, benefits and alternatives were discussed Consent given by: Patient Patient states understanding of procedure being performed: Yes Patient's understanding of procedure matches consent: Yes Procedure consent matches procedure scheduled: Yes Expected level of sedation: Moderate Appropriately NPO: Yes ASA Class: 4 (recent cardiac arrest, NSTEMI, dyslipidemia, family hx of CAD, PAF; on NOAC, DM Type II, Class I obesity; BMI 32.03kg/m2, tobacco use disorder, marijuana use) Mallampati : Grade 2- soft palate, base of uvula, tonsillar pillars, and portion of posterior pharyngeal wall visible Lungs: Lungs clear with good breath sounds bilaterally Heart: Normal heart sounds and rate History & Physical reviewed: History and physical reviewed and updates made (see comment) H&P Comments: Clinically Significant Risk Factors Present on Admission Cardiovascular : recent cardiac arrest, NSTEMI, dyslipidemia, family hx of CAD, PAF; on NOAC, DM Type II, Class I obesity; BMI 32.03kg/m2, tobacco use disorder, marijuana use Fluid & Electrolyte Disorders : Not present on admission Gastroenterology : Not present on admission Hematology/Oncology : Not present on admission Nephrology : Not present on admission Neurology : Not present on admission Pulmonology : Tobacco use disorder Systemic : Hx of marijuana use, Class I obesity; BMI 32.03kg/m2 Statement of review: I have reviewed the lab findings, diagnostic data, medications, and the plan for sedation * Plan of Care - Lucrecia Whelan RN - 01/01/2025 6:39 AM CDT Goal Outcome Evaluation: Plan of Care Reviewed With: patient Overall Patient Progress: improvingOverall Patient Progress: improving Outcome Evaluation: Awaiting cardiac catheterization, slept well. [facility] RN Progress Note: [id number] [place]er Events - This Shift: Continues on Heparin drip, aPTT subtherapeutic at 0300, bolus and rate increased to 1300 units/hr. Called SWAT for second IV to be started. Unable to place with US, awaiting call back from Vascular Access Nurse. RN Managed Protocols Ordered: Yes Protocols:Potassium, Magnesium, and Phosphorus Protocols Status: Endorsed to Oncoming RN Needs phosphorus and magnesium replacements, pending IV placement. Barriers to Discharge / Downgrade: Awaiting cardiac catheterization. * Plan of Care - Alida Nieto RN - 12/31/2024 10:37 PM CDT Goal Outcome Evaluation: Plan of Care Reviewed With: patient Overall Patient Progress: improvingOverall Patient Progress: improving Outcome Evaluation: Alert and oriented x 4, internittent sternal pain improved with Tylenol. Patient was in Atrial Flutter all shift with improved rate on Metoprolol and Amiodarone. Converted to Sinus Rhythm with a 1st degree AVB and PAC's at the end of the shift. Blood pressure within normal limits. Needing O2 per nasal cannula when sleeping. Wrists and bilateral groin clipped, CHG bath given, linens, slippers and gown changed and new monitor patches applied. Patient watched Angiography/Angioplasty video and received Angio/DE folder. Informed patient of NPO status planned for after midnight. * Plan of Care - Mague Grimaldo RN - 12/31/2024 1:40 PM CDT Goal Outcome Evaluation: Plan of Care Reviewed With: patient, child Overall Patient Progress: improvingOverall Patient Progress: improving Outcome Evaluation: Better control heart rate with scheduled amio and metorpolol. [facility] - [employer] Progress Note: Al[place]er Events - This Shift: Patient downgraded to tele this morning. Femoral venous line out. A flutter 90s- 110s, PO amio and metoprolol. NPO tonight for angios tomorrow. PRN po dilaudid for sternal pain from compressions. Forgetful and difficulty with new learning recall, intermittent mild confusion. Garg with adequate urine output. RN Managed Protocols Ordered: Yes Protocols:Potassium, Magnesium, and Phosphorus PRN'S:iCal Protocols Status: Reviewed with Oncoming RN Point of Contact Update: YES-OR-NO: Yes If No, reason: Name:Mallory, at bedside Phone Number: Summary of Conversation: As above. * Plan of Care - Latasha Castaneda RN - 12/31/2024 5:42 AM CDT Goal Outcome Evaluation: Plan of Care Reviewed With: patient, child Overall Patient Progress: no changeOverall Patient Progress: no change Outcome Evaluation: Flipped into AFib/AF around 2145 with rates 100-110s. Around 0330 HR in the 120s. notified and extra dose of PO metoprolol ordered. [facility] - [employer] Progress Note: Pertinent Assessments: Please refer to flowsheet rows for full assessment VSS. Afebrile. Maintained O2 sats on 1L NC. LS clear. Endorsed chest pain from compressions. PRN PODilaudid and Robaxin given. A&O x3. Patient knew that she was in the hospital, but could not state the name of the hospital or the city. [place], moved all extremities. Adequate UO. Al[place]er Events - This Shift: Flipped into AFib/AF around 2145 with rates 100-110s. Around 0330 HR in the 120s. notified and extra dose of PO metoprolol ordered. HR improved to 100s-110s. RN Managed Protocols Ordered: Yes Protocols:Potassium, Magnesium, Phosphorus, and Heparin Protocols Status: Reviewed with Oncoming RN Barriers to Discharge / Downgrade: Femoral CVC * Plan of Care - Dat Castaneda RN - 12/30/2024 5:04 PM CDTSummary: SHIFT [id number] Goal Outcome Evaluation: Plan of Care Reviewed With: patient, parent, child, family Overall Patient Progress: improvingOverall Patient Progress: improving Outcome Evaluation: Pt is alert and oriented x4 and can be forgetful. Denies CP or any kind of painduring this shift. [facility] - [employer] Progress Note: Pertinent Assessments: Please refer to flowsheet rows for full assessment Pt is alert and oriented x3, forgetful. Denies CP, and calls appropriately. Following commands. Garg intact, with minimal UOP, pt has been NPO which might have contributed to the low UOP. Assist of 1 to chair. [place] Events - This Shift: -Seen by Cardiology; new order received for Echo and CT of head. EF 50-55% and CT unremarkable. -Seen by Neuro; MRI order. -Per card note, possible angiogram tomorrow. -Heparin gtt at 550 units; PTT recheck at 2029. -Amio gtt at 0.5mg RN Managed Protocols Ordered: Yes Protocols:Potassium, Magnesium, Phosphorus, and Heparin PRN'S:N/A Protocols Status: Reviewed with Oncoming RN Barriers to Discharge / Downgrade: Close monitoring s/p cardiac arrest. Requiring heparin gtt and amio gtt Point of Contact Update: YES-OR-NO: Yes If No, reason: Name:Juliet/Antonia Phone Number: Summary of Conversation: POC Problem: Adult Inpatient Plan of Care Goal: Patient-Specific Goal (Individualized) Description: You can add care plan individualizations to a care plan. Examples of Individualizationmight be: Parent requests to be called daily at 9am for status, I have a hard time hearing out of my right ear, or Do not touch me to wake me up as it startles me. Outcome: Progressing Problem: Adult Inpatient Plan of Care Goal: Absence of Hospital-Acquired Illness or Injury Intervention: Prevent Skin Injury Recent Flowsheet Documentation Taken 12/30/2024 1200 by Dat Castaneda RN Body Position: position changed independently Taken 12/30/2024 0800 by Dat Castaneda RN Body Position: position changed independently Problem: Adult Inpatient Plan of Care Goal: Optimal Comfort and Wellbeing Outcome: Progressing Intervention: Provide Person-Centered Care Recent Flowsheet Documentation Taken 12/30/2024 1600 by Dat Castaneda RN Trust Relationship/Rapport: care explained choices provided questions answered reassurance provided Taken 12/30/2024 1200 by Dat Castaneda RN Trust Relationship/Rapport: care explained choices provided questions answered reassurance provided Taken 12/30/2024 0800 by Dat Castaneda RN Trust Relationship/Rapport: care explained choices provided questions answered reassurance provided * Pharmacy-Admission Medication History - Aaron Miller RPH - 12/30/2024 8:13 AM CDT Pharmacist Admission Medication History Admission medication history is complete. The information provided in this note is only as accurateas the sources available at the time of the update. Information Source(s): Patient via in-person Pertinent Information: Patient was unsure of metoprolol's strength and thought it was 25 mg. However, fill history from the past year suggest she has been taking 50 mg daily. Changes made to PROGRESS DEVELOPER medication list: Added: levothyroxine, triamcinolone cream Deleted: digoxin, empagliflozin, gabapentin 400 mg HS, methocarbamol, oxycodone, senna-docusate Changed: metformin 500 mg daily to 1000 mg BID w/ meals, metoprolol 25 mg to 50 mg daily Allergies reviewed with patient and updates made in EHR: yes Medication History Completed By: Aaron Miller RPH 12/30/2024 8:13 AM PROGRESS DEVELOPER Med List Medication Sig Last Dose/Taking acetaminophen (TYLENOL) 325 MG tablet Take 2 tablets (650 mg) by mouth every 4 hours as needed for other (mild pain) 12/29/2024 Morning atorvastatin (LIPITOR) 10 MG tablet Take 10 mg by mouth daily 12/29/2024 Morning calcium carbonate-vitamin D (OS-SAMMIE WITH D) 500-200 MG-UNIT tablet Take 1 tablet by mouth 3 times daily (before meals) 12/29/2024 Morning gabapentin (NEURONTIN) 800 MG tablet Take 800 mg by mouth 2 times daily. 12/29/2024 Morning levothyroxine (SYNTHROID/LEVOTHROID) 50 MCG tablet Take 50 mcg by mouth every morning (before breakfast). 12/29/2024 Morning metFORMIN (GLUCOPHAGE XR) 500 MG 24 hr tablet Take 1,000 mg by mouth 2 times daily (with meals). 12/29/2024 Morning metoprolol succinate ER (TOPROL XL) 50 MG 24 hr tablet Take 50 mg by mouth daily. 12/29/2024 Morning nortriptyline (PAMELOR) 25 MG capsule Take 25 mg by mouth At Bedtime 12/28/2024 Evening rivaroxaban ANTICOAGULANT (XARELTO) 20 MG TABS tablet Take 1 tablet (20 mg) by mouth daily (with dinner) 12/28/2024 Evening triamcinolone (KENALOG) 0.1 % external cream Apply topically 2 times daily as needed. 12/29/2024 Morning Vitamin D3 (CHOLECALCIFEROL) 25 mcg (1000 units) tablet Take 1 tablet (25 mcg) by mouth 2 times daily 12/29/2024 Morning documented in this encounter Plan of Treatment Pending Results Name Type Priority Associated Diagnoses Date /Time THC Confirmation Quantitative Urine Lab Routine 12/30/2024 10 :35 AM CDT Scheduled Orders Name Type Priority Associated Diagnoses Order Schedule EzPAP Respiratory Care Routine 4X Daily until discontinued starting 12/30/2024 THC Confirmation Quantitative Urine Lab Routine Routine for 1 Occurrences starting 12/30/2024 until 12/30/2024 RCAT re-assessment (for RT use only) Respiratory Care Routine Weekly until discontinued starting 01/06/2025 Phosphorus Lab Routine AM Draw for 1 Occurrences starting 01/02/2025 until 01/02/2025 Magnesium Lab Routine AM Draw for 1 Occurrences starting 01/02/2025 until 01/02/2025 Oxygen: Nasal cannula Respiratory Care Routine Continuous RT until discontinued starting 01/01/2025 Oxygen: Nasal cannula Respiratory Care Routine Continuous RT until discontinued starting 01/01/2025 MR Cardiac WO & W Contrast Imaging Routine One time imaging for 1 Occurrences starting 01/01/2025 until 01/01/2025 Basic metabolic panel Lab Routine AM Draw for 3 Occurrences starting 01/02/2025 until 01/04/2025 CBC with platelets Lab Routine AM Ana w for 3 Occurrences starting 01/02/2025 until 01/04/2025 documented as of this encounter Procedures * The patient is currently admitted. The information in this section might not be complete until the patient is discharged. Procedure Name Priority Date/Time Associated Diagnosis Comments GLUCOSE BY METER Routine 01/01/2025 8:42 PM CDT GLUCOSE BY METER Routine 01/01/2025 5:34 PM CDT GLUCOSE BY METER Routine 01/01/2025 12:0 0 PM CDT CV LEFT HEART CATH Routine 01/01/2025 11 :19 AM CDT Cardiac arrest (H) NSTEMI (non-ST elevated myocardial infarction) (H) CV INSTANTANEOUS WAVE-FREE RATIO Routine 01/01/2025 11:19 AM CDT Cardiac arrest (H) NSTEMI (non-ST elevated myocardial infarction) (H) CV CORONARY ANGIOGRAM Routine 01/01/2025 11:19 AM CDT Cardiac arrest (H) NSTEMI (non-ST elevated myocardial infarction) (H) TYPE AND SCREEN, ADULT STAT 9:15 AM CDT PARTIAL THROMBOPLASTIN TIME Timed 01/01/2025 9:15 AM CDT ABO/RH TYPE AND SCREEN STAT 9:15 AM CDT GLUCOSE BY METER Routine 01/01/2025 8:02 AM CDT POTASSIUM Routine 01/01/2025 4:24 AM CDT PHOSPHORUS Routine 01/01/2025 4:24 AM CDT MAGNESIUM Add-On 01/01/2025 4:24 AM CDT HEPATIC FUNCTION PANEL Routine 4:24 AM CDT EXTRA TUBE Routine 01/01/2025 1:56 AM CDT EXTRA GREEN TOP (LITHIUM HEPARIN) TUBE Routine 01/01/2025 1:56 AM CDT PARTIAL THROMBOPLASTIN TIME Timed 01/01/2025 1:36 AM CDT GLUCOSE BY METER Routine 12/31/2024 8:24 PM CDT PARTIAL THROMBOPLASTIN TIME Timed 12/31/2024 5:59 PM CDT GLUCOSE BY METER Routine 12/31/2024 4:43 PM CDT GLUCOSE BY METER Routine 12/31/2024 11:5 4 AM CDT PARTIAL THROMBOPLASTIN TIME Timed 12/31/2024 10:39 AM CDT MAGNESIUM Timed 12/31/2024 10:39 AM CDT GLUCOSE BY METER Routine 12/31/2024 8:19 AM CDT GLUCOSE BY METER Routine 12/31/2024 3:58 AM CDT PHOSPHORUS Add-On 12/31/2024 3:56 AM CDT PARTIAL THROMBOPLASTIN TIME Timed 12/31/2024 3:56 AM CDT MAGNESIUM Routine 12/31/2024 3:56 AM CDT COMPREHENSIVE METABOLIC PANEL Routine 12/31/2024 3:56 AM CDT CBC WITH PLATELETS Routine 12/31/2024 3: 56 AM CDT GLUCOSE BY METER Routine 12/31/2024 12:1 1 AM CDT LACTIC ACID WHOLE BLOOD Timed 12/31/19 9:48 PM CDT PARTIAL THROMBOPLASTIN TIME Timed 12/30/2024 9:36 PM CDT GLUCOSE BY METER Routine 12/30/2024 9:28 PM CDT MR BRAIN W/O CONTRAST Routine 12/30/2024 9:05 PM CDT LACTIC ACID WHOLE BLOOD Timed 12/31/19 6:55 PM CDT GLUCOSE BY METER Routine 12/30/2024 4:15 PM CDT LACTIC ACID WHOLE BLOOD Timed 12/31/19 2:26 PM CDT GLUCOSE BY METER Routine 12/30/2024 1:[address] HEAD W/O CONTRAST Routine 12/30/2024 12:18 PM CDT TROPONIN T, HIGH SENSITIVITY Timed 12/30/2024 12:06 PM CDT PARTIAL THROMBOPLASTIN TIME Timed 12/30/2024 12:06 PM CDT ECHO COMPLETE WITH CONTRAST Routine 12/30/2024 12:04 PM CDT URINE CREATININE FOR DRUG SCREEN PANEL Routine 12/30/2024 10:35 AM CDT URINE DRUG SCREEN Routine 12/30/2024 10: 35 AM CDT TROPONIN T, HIGH SENSITIVITY Routine 12/30/2024 10:35 AM CDT URINE DRUG SCREEN PANEL Routine 12/31/19 10:35 AM CDT LACTIC ACID WHOLE BLOOD Timed 12/31/19 9:59 AM CDT GLUCOSE BY METER Routine 12/30/2024 9:47 AM CDT CBC WITH PLATELETS STAT 12/30/2024 8: 33 AM CDT INFLUENZA A/B, RSV AND SARS-COV2 PCR Routine 12/30/2024 6:35 AM CDT GLUCOSE BY METER Routine 12/30/2024 6:16 AM CDT TROPONIN T, HIGH SENSITIVITY STAT 12/30/2024 6:15 AM CDT TSH WITH FREE T4 REFLEX Add-On 12/31/19 6:15 AM CDT INR STAT 12/30/2024 6:15 AM CDT PHOSPHORUS STAT 12/30/2024 6:15 AM CDT MAGNESIUM STAT 12/30/2024 6:15 AM CDT LACTIC ACID WHOLE BLOOD STAT 12/31/19 6:15 AM CDT COMPREHENSIVE METABOLIC PANEL STAT 12/30/2024 6:15 AM CDT IONIZED CALCIUM STAT 12/30/2024 6:15 AM CDT BLOOD GAS VENOUS STAT 12/30/2024 6:15 AM CDT CBC WITH PLATELETS STAT 12/30/2024 6: 15 AM CDT ECG 12-LEAD WITH MUSE SJN,SJO,WWH STAT 12/30/2024 6:00 AM CDT documented in this encounter Results * (ABNORMAL) Glucose by meter (01/01/2025 8:42 PM CDT) GLUCOSE BY METER POCT 134(H) 70 - 99 mg/dL 01/01/2025 8:[address] [facility] POCT RESULTS Blood, Capillary BLOOD SPECIMEN / Unknown 01/01/2025 8:42 PM CDT 01/01/2025 8:48 PM CDT Elias DOTSON - BEAKER POCT Final Result Performing Organization Address City/[facility]/ZIP Co de Phone Number [facility] POCT RESULTS [address] [place] [address] * Glucose by meter (01/01/2025 5:34 PM CDT) GLUCOSE BY METER POCT 87 70 - 99 mg/dL 01/01/2025 5:[address] [facility] POCT RESULTS Blood, Capillary BLOOD SPECIMEN / Unknown 01/01/2025 5:34 PM CDT 01/01/2025 5:40 PM CDT Elias DOTSON - JOYCE POCT Final Result Performing Organization Address [facility] Co de Phone Number [facility] POCT RESULTS [address] [place] [address] * (ABNORMAL) Glucose by meter (01/01/2025 12:00 PM CDT) GLUCOSE BY METER POCT 108(H) 70 - 99 mg/dL 01/01/2025 12:[address] [facility] POCT RESULTS Blood, Capillary BLOOD SPECIMEN / Unknown 01/01/2025 12:00 PM CDT 01/01/2025 12:07 PM CDT us [facility]as [facility] PO[facility] Final Result Performing Organization Address City/[facility]/ZIP Co de Phone Number [facility] POCT RESULTS [address] [place] [address] * CV CORONARY ANGIOGRAM, CV INSTANTANEOUS WAVE-FREE RATIO, CV LEFT HEART CATH (01/01/2025 11:19 AM CDT) Anatomical Region Laterality Modality Other Narrative 01/01/2025 2:36 PM CDT CARDIAC CATHETERIZATION AND INTERVENTION REPORT PATIENT NAME: Juliet Cox : 1965 PROCEDURE DATE: January 01, 2025 CONCLUSIONS: Single-vessel obstructive coronary artery disease involving diffuse disease of the proximal to mid LAD (chronic). Moderate nonobstructive disease elsewhere. Mildly elevated left-sided filling pressures. No aortic valve stenosis. RECOMMENDATIONS: Usual postprocedure cares, please see orders. Etiology of cardiopulmonary arrest is unclear, unlikely to be related to chronic coronary artery disease. PCI of the LAD is an option if symptomatic. Aggressive risk factor modification for secondary prevention. PROCEDURE PERFORMED: Selective right and left coronary angiography Left heart catheterization iFR of the left anterior descending artery, left circumflex, and right coronary artery PRE-OP DIAGNOSIS: Cardiopulmonary arrest POST-OP DIAGNOSIS: Cardiopulmonary arrest PROCEDURALISTS: Shady Wallace MD DIAGNOSTIC PROCEDURAL DETAILS: Signed, informed consent was obtained. The patient was placed on the table and prepped and draped in the usual fashion. Time out and site verification performed. Access: Right radial artery Catheters: JL 3.5, JR4 Hemostasis: TR band PROCEDURAL MEDICATIONS: Conscious sedation - midazolam and fentanyl, please see procedure log for dosing. Local anesthesia - 1% lidocaine Procedural anticoagulation - 75 units/kg of heparin CONTRAST VOLUME: 85 mL Visipaque BLOOD LOSS: minimal FLUIDS: None SPECIMENS: None COMPLICATIONS: None FINDINGS: Left Heart Catheterization LVEDP 21 mmHg No significant gradient across the aortic valve Coronary Angiography: LEFT MAIN: Normal caliber vessel that bifurcates into left anterior descending and left circumflex arteries. The left main has mild luminal irregularities. LEFT ANTERIOR DESCENDING: Normal caliber vessel that gives rise to a medium size diagonal branch and multiple septal perforators. The LAD wraps around the apex distally. The proximal to mid LAD has diffuse 60-70% stenosis followed by mild disease distally. iFR of the LAD was 0.84. LEFT CIRCUMFLEX: Nondominant vessel that gives rise to a large OM1 branch, a medium OM 2 branch, terminates into a small vessel distally. The proximal to mid left circumflex has 60% calcific stenosis followed by mild disease of the left circumflex and its branches distally. iFR of the left circumflex was 0.99. RIGHT CORONARY ARTERY: Vessel that gives rise to the right posterior descending artery and posterolateral system. The proximal right coronary artery has mild disease followed by diffuse 60% stenosis in the midportion. Distally the right coronary artery and its branches have mild disease. iFR of the right coronary artery was 0.96. INTERVENTIONAL DETAILS: Lesion # 1 : 60 to 70% diffuse stenosis of the proximal to mid LAD Lesion # 2 : 60% stenosis of the proximal Lcx Left coronary artery was engaged using a JL 3.5 diagnostic catheter that provide adequate coaptation and support. The LAD and left circumflex lesions were traversed with an Omni wire and iFR was performed per standard protocol. Lesion # 3 : 60% stenosis of the mid right coronary artery The right coronary was engaged using a JR4 diagnostic catheter that provide adequate coaptation support. The right coronary artery lesion was traversed with a Omni wire and iFR was performed per standard protocol. Please do not hesitate to contact me if you have any questions or concerns. I was present for the procedure in its entirety. Moderate conscious sedation at level 3-4 with fentanyl and midazolam was administered, and I spent continuous face to face time with the patient which encompassed the duration of the procedure. Please refer to the sedation flow sheet for additional information. I have reviewed and agree with the documentation provided in the RN sedation flow sheet as outlined. I concluded sedation and recovery was monitored by the trained independent observer. I attest that I have ordered all medications administered, equipment used, and tests performed during the procedure. Shady Wallace MD Interventional Cardiology Cath Procedure details No Complications - Patient tolerated procedure well The attending technical trainer was present and supervised all critical aspects the procedure. Kimberley Douglass [facility] CV CARDIAC CATH ORDER [place] Final Result * Adult Type and Screen (01/01/2025 9:15 AM CDT) ABO/RH(D) O POS 01/01/2025 7:25 AM CDT [facility] BLOOD BANK Antibody Screen Negative Negative 01/01/2025 7:25 AM CDT [facility] BLOOD BANK SPECIMEN EXPIRATION DATE 01/04/2025 11:59:00 PM CDT 01/01/2025 7:25 AM CDT [facility] BLOOD B[facility] Blood BLOOD SPECIMEN / Unknown Venipuncture / Unknown 01/01/2025 9:15 AM CDT 01/01/2025 9:20 AM CDT us Laura Brian MD LAB - BLOOD BANK TEST ORDER F inal Result Performing Organization Address [facility]/ZIP Co de Phone Number [facility] BLOOD BANK [address] [place], [place] [address] * (ABNORMAL) Partial thromboplastin time (01/01/2025 9:15 AM CDT) aPTT 179(HH) 22 - 38 Seconds 01/01/2025 9:41 AM CDT [facility] Blood BLOOD SPECIMEN / Unknown Venipuncture / Unknown 01/01/2025 9:15 AM CDT 01/01/2025 9:20 AM CDT us Bhavik VILLEGAS MD LAB - BLOOD ORDERABLES Final Res ult Performing Organization Address [facility] Co de Phone Number [facility] [address] [place] [address], [facility] * (ABNORMAL) Glucose by meter (01/01/2025 8:02 AM CDT) GLUCOSE BY METER POCT 110(H) 70 - 99 mg/dL 01/01/2025 8:[address] [facility] POCT RESULTS Blood, Capillary BLOOD SPECIMEN / Unknown 01/01/2025 8:02 AM CDT 01/01/2025 8:11 AM CDT us Elias Denis MD LAB - BEAKER POCT Final Result Performing Organization Address City/[facility]/ZIP Co de Phone Number [facility] POCT RESULTS [address] [place] [address] * Magnesium (01/01/2025 4:24 AM CDT) Magnesium 1.8 1.7 - 2.3 mg/dL 01/01/2025 5:53 AM CDT [facility] Blood STRUCTURE OF LEFT UPPER LIMB / Unknown Venipuncture / Unknown 01/01/2025 4:24 AM CDT 01/01/2025 4:42 AM CDT Bhavik VILLEGAS MD LAB - BLOOD ORDERABLES Final Res ult Performing Organization Address [facility] Co de Phone Number N LABORATORY [facility] [address] [place] [address], [facility] * (ABNORMAL) Hepatic panel (01/01/2025 4:24 AM CDT) Protein Total 5.9(L) 6.4 - 8.3 g/dL 01/01/2025 5:04 AM CDT [facility] Albumin 3.2(L) 3.5 - 5.2 g/dL 01/01/2025 5:04 AM CDT [facility] Bilirubin Total 0.5 <=1.2 mg/dL 01/01/2025 5:04 AM CDT [facility] Alkaline Phosphatase 65 40 - 150 U/L 01/01/2025 5:04 AM CDT [facility] AST 46(H) 0 - 45 U/L 01/01/2025 5:04 AM CDT [facility] ALT 118(H) 0 - 50 U/L 01/01/2025 5:04 AM CDT [facility] Bilirubin Direct 0.17 0.00 - 0.30 mg/dL 01/01/2025 5:04 AM CDT N [facility]ORY Comment:As of 24, refer ence ranges and trending lines may vary depending on the testing location. Blood STRUCTURE OF LEFT UPPER LIMB / Unknown Venipuncture / Unknown 01/01/2025 4:24 AM CDT 01/01/2025 4:42 AM CDT us Bhavik VILLEGAS MD LAB - BLOOD ORDERABLES Final Res ult Performing Organization Address City/[facility]/ZIP Co de Phone Number N LABORATORY [facility] [address] [place] [address], [facility] * Phosphorus (01/01/2025 4:24 AM CDT) Phosphorus 2.6 2.5 - 4.5 mg/dL 01/01/2025 5:04 AM CDT [facility] Blood STRUCTURE OF LEFT UPPER LIMB / Unknown Venipuncture / Unknown 01/01/2025 4:24 AM CDT 01/01/2025 4:42 AM CDT Heri Baugh MD LAB - BLOOD ORDERABLES F inal Result Performing Organization Address [facility] Co de Phone Number [facility] [address] [place] [address], [facility] * Potassium (01/01/2025 4:24 AM CDT) Potassium 4.3 3.4 - 5.3 mmol/L 01/01/2025 5:04 AM CDT [facility] Blood STRUCTURE OF LEFT UPPER LIMB / Unknown Venipuncture / Unknown 01/01/2025 4:24 AM CDT 01/01/2025 4:42 AM CDT Heri Baugh MD LAB - BLOOD ORDERABLES F inal Result Performing Organization Address [facility] de Phone Number [facility] [address] [place] [address], [facility] * Extra Green Top (Bertram Heparin) Tube (01/01/2025 1:56 AM CDT) Hold Specimen JIC 01/01/2025 3:03 AM CDT [facility] Blood STRUCTURE OF LEFT UPPER LIMB / Unknown Venipuncture / Unknown 01/01/2025 1:56 AM CDT 01/01/2025 1:56 AM CDT Bhavik VILLEGAS MD LAB - BLOOD ORDERABLES Final Res ult Performing Organization Address [facility] de Phone Number [facility] [address] [place] [address], [facility] * (ABNORMAL) Partial thromboplastin time (01/01/2025 1:36 AM CDT) aPTT 39(H) 22 - 38 Seconds 01/01/2025 2:09 AM CDT [facility] Blood STRUCTURE OF LEFT UPPER LIMB / Unknown Venipuncture / Unknown 01/01/2025 1:36 AM CDT 01/01/2025 1:53 AM CDT us Bhavik VILLEGAS MD LAB - BLOOD ORDERABLES Final Res ult Performing Organization Address City/[facility]/ZIP Co de Phone Number [facility] [address] [place] [address], [facility] * (ABNORMAL) Glucose by meter (12/31/2024 8:24 PM CDT) GLUCOSE BY METER POCT 210(H) 70 - 99 mg/dL 12/31/2024 8:[address] [facility] POCT RESULTS Blood, Capillary BLOOD SPECIMEN / Unknown 12/31/2024 8:24 PM CDT 12/31/2024 8:32 PM CDT us Bhavik VILLEGAS MD LAB - BEAKER POCT Final Result Performing Organization Address [facility] de Phone Number [facility] POCT RESULTS [address] [place] [address] * (ABNORMAL) Partial thromboplastin time (12/31/2024 5:59 PM CDT) aPTT 50(H) 22 - 38 Seconds 12/31/2024 6:38 PM CDT [facility] Blood STRUCTURE OF LEFT UPPER LIMB / Unknown Venipuncture / Unknown 12/31/2024 5:59 PM CDT 12/31/2024 6:25 PM CDT us Bhavik VILLEGAS MD LAB - BLOOD ORDERABLES Final Res ult Performing Organization Address [facility]/ZIP Co de Phone Number [facility] [address] [place] [address], [facility] * (ABNORMAL) Glucose by meter (12/31/2024 4:43 PM CDT) GLUCOSE BY METER POCT 151(H) 70 - 99 mg/dL 12/31/2024 4:[address] [facility] POCT RESULTS Blood, Capillary BLOOD SPECIMEN / Unknown 12/31/2024 4:43 PM CDT 12/31/2024 4:51 PM CDT Bhavik BENÍTEZ POCT Final Result Performing Organization Address City/[facility]/ZIP Co de Phone Number [facility] POCT RESULTS [address] [place] [address] * (ABNORMAL) Glucose by meter (12/31/2024 11:54 AM CDT) GLUCOSE BY METER POCT 127(H) 70 - 99 mg/dL 12/31/2024 12:[address] [facility] POCT RESULTS Blood, Capillary BLOOD SPECIMEN / Unknown 12/31/2024 11:54 AM CDT 12/31/2024 12:01 PM CDT Bhavik BENÍTEZ POCT Final Result Performing Organization Address [facility] Co de Phone Number [facility] POCT RESULTS [address] [place] [address] * (ABNORMAL) Magnesium (12/31/2024 10:39 AM CDT) Magnesium 2.5(H) 1.7 - 2.3 mg/dL 12/31/2024 10:55 AM CDT [facility] Blood VENOUS LINE / Unknown Venipuncture / Unknown 12/31/2024 10:39 AM CDT 12/31/2024 10:43 AM CDT Heri Baugh MD LAB - BLOOD ORDERABLES F inal Result Performing Organization Address City/[facility]/ZIP Co de Phone Number [facility] [address] [place] [address], [facility] * (ABNORMAL) Partial thromboplastin time (12/31/2024 10:39 AM CDT) aPTT 47(H) 22 - 38 Seconds 12/31/2024 10:57 AM CDT [facility] Blood VENOUS LINE / Unknown Venipuncture / Unknown 12/31/2024 10:39 AM CDT 12/31/2024 10:43 AM CDT Heri Baugh MD LAB - BLOOD ORDERABLES F inal Result [facility] [address] [place] [address], [place] * (ABNORMAL) Glucose by meter (12/31/2024 8:19 AM CDT) GLUCOSE BY METER POCT 142(H) 70 - 99 mg/dL 12/31/2024 8:[address] [facility] POCT RESULTS Blood, Capillary BLOOD SPECIMEN / Unknown 12/31/2024 8:19 AM CDT 12/31/2024 8:27 AM CDT Bhavik VILLEGAS MD LAB - BEAKER POCT Final Result Performing Organization Address [facility] Co de Phone Number [facility] POCT RESULTS [address] [place] [address] * (ABNORMAL) Glucose by meter (12/31/2024 3:58 AM CDT) GLUCOSE BY METER POCT 142(H) 70 - 99 mg/dL 12/31/2024 4:[address] [facility] POCT RESULTS Blood, venous BLOOD SPECIMEN / Unknown 12/31/2024 3:58 AM CDT 12/31/2024 4:05 AM CDT us Heri Baugh MD LAB - BEAKER POCT Final Result Performing Organization Address City/[facility]/ZIP Co de Phone Number [facility] POCT RESULTS [address] [place] [address] * Phosphorus (12/31/2024 3:56 AM CDT) Phosphorus 2.8 2.5 - 4.5 mg/dL 12/31/2024 5:03 AM CDT N LABORATORY Blood VENOUS LINE / Unknown Venipuncture / Unknown 12/31/2024 3:56 AM CDT 12/31/2024 4:02 AM CDT Heri Baugh MD LAB - BLOOD ORDERABLES F inal Result Performing Organization Address [facility] Co de Phone Number [facility] [address] [place] [address], [facility] * (ABNORMAL) Magnesium (12/31/2024 3:56 AM CDT) Pathologist [facility] Magnesium 1.5(L) 1.7 - 2.3 mg/dL 12/31/2024 4:25 AM CDT [facility] Blood VENOUS LINE / Unknown Venipuncture / Unknown 12/31/2024 3:56 AM CDT 12/31/2024 4:02 AM CDT Ashly Chen MD LAB - BLOOD ORDERABLES Fi nal Result Performing Organization Address [facility] de Phone Number [facility] [address] * (ABNORMAL) CBC with platelets (12/31/2024 3:56 AM CDT) Pathologist [facility] WBC Count 12.5(H) 4.0 - 11.0 10e3/uL 12/31/2024 4:11 AM CDT N LABORATORY RBC Count 3.47(L) 3.80 - 5.20 10e6/uL 12/31/2024 4:11 AM CDT N LABORATORY Hemoglobin 10.7(L) 11.7 - 15.7 g/dL 12/31/2024 4:11 AM CDT N LAB[facility]ORY Hematocrit 32.9(L) 35.0 - 47.0 % 12/31/2024 4:11 AM CDT N [facility] MCV 95 78 - 100 fL 12/31/2024 4:11 AM CDT [facility] MCH 30.8 26.5 - 33.0 pg 12/31/2024 4:11 AM CDT [facility] MCHC 32.5 31.5 - 36.5 g/dL 12/31/2024 4:11 AM CDT [facility] RDW 14.5 10.0 - 15.0 % 12/31/2024 4:11 AM CDT [facility] Platelet Count 199 150 - 450 10e3/uL 12/31/2024 4:11 AM CDT [facility] Blood VENOUS LINE / Unknown Venipuncture / Unknown 12/31/2024 3:56 AM CDT 12/31/2024 4:02 AM CDT Ashly Chen MD LAB - BLOOD ORDERABLES Fi nal Result Performing Organization Address [facility] Co de Phone Number [facility] [address] * (ABNORMAL) Partial thromboplastin time (12/31/2024 3:56 AM CDT) aPTT 64(H) 22 - 38 Seconds 12/31/2024 4:17 AM CDT [facility] Blood VENOUS LINE / Unknown Venipuncture / Unknown 12/31/2024 3:56 AM CDT 12/31/2024 4:02 AM CDT Heri Baugh MD LAB - BLOOD ORDERABLES F inal Result [facility] [address] * (ABNORMAL) Comprehensive metabolic panel (12/31/2024 3:56 AM CDT) Sodium 139 135 - 145 mmol/L 12/31/2024 4:25 AM CDT [facility] Potassium 4.0 3.4 - 5.3 mmol/L 12/31/2024 4:25 AM CDT [facility] Carbon Dioxide (CO2) 26 22 - 29 mmol/L 12/31/2024 4:25 AM T [facility] Anion Gap 12 7 - 15 mmol/L 12/31/2024 4:25 AM T [facility] Urea Nitrogen 17.4 8.0 - 23.0 mg/dL 12/31/2024 4:25 AM T [facility] Creatinine 0.65 0.51 - 0.95 mg/dL 12/31/2024 4:25 AM CDT [facility] GFR Estimate >90 >60 mL/min/1.7 3m2 12/31/2024 4:25 AM T [facility] Comment:eGFR calculated us2020 CKD-EPI equation. Calcium 8.8 8.8 - 10.4 mg/dL 12/31/2024 4:25 AM T [facility] Chloride 101 98 - 107 mmol/L 12/31/2024 4:25 AM T [facility] Glucose 149(H) 70 - 99 mg/dL 12/31/2024 4:25 AM [facility] Alkaline Phosphatase 73 40 - 150 U/L 12/31/2024 4:25 AM T [facility] AST 110(H) 0 - 45 U/L 12/31/2024 4:25 AM T [facility] ALT 188(H) 0 - 50 U/L 12/31/2024 4:25 AM [facility] Protein Total 5.8(L) 6.4 - 8.3 g/dL 12/31/2024 4:25 AM [facility] Albumin 3.4(L) 3.5 - 5.2 g/dL 12/31/2024 4:25 AM T [facility] Bilirubin Total 0.3 <=1.2 mg/dL 12/31/2024 4:25 AM [facility] Blood VENOUS LINE / Unknown Venipuncture / Unknown 12/31/2024 3:56 AM CDT 12/31/2024 4:02 AM T us Heri Baugh MD LAB - BLOOD ORDERABLES F inal Result [facility] [address] [place] [address], [facility] * (ABNORMAL) Glucose by meter (12/31/2024 12:11 AM CDT) GLUCOSE BY METER POCT 126(H) 70 - 99 mg/dL 12/31/2024 12:[address] [facility] POCT RESULTS Blood, Capillary BLOOD SPECIMEN / Unknown 12/31/2024 12:11 AM CDT 12/31/2024 12:19 AM CDT us Heri Baugh MD LAB - BEAKER POCT Final Result Performing Organization Address City/[facility]/ZIP Co de Phone Number [facility] POCT RESULTS [address] [place] [address] * Lactic acid whole blood (12/30/2024 9:48 PM CDT) Lactic Acid 1.4 0.7 - 2.0 mmol/L 12/30/2024 9:58 PM CDT [facility] Blood VENOUS LINE / Unknown Venipuncture / Unknown 12/30/2024 9:48 PM CDT 12/30/2024 9:52 PM CDT Ashly Chen MD LAB - BLOOD ORDERABLES Fi nal Result Performing Organization Address City/[facility] Co de Phone Number [facility] [address] [place] [address], [facility] * (ABNORMAL) Partial thromboplastin time (12/30/2024 9:36 PM CDT) aPTT 41(H) 22 - 38 Seconds 12/30/2024 9:55 PM CDT [facility] Blood VENOUS LINE / Unknown Venipuncture / Unknown 12/30/2024 9:36 PM CDT 12/30/2024 9:39 PM CDT Heri Baugh MD LAB - BLOOD ORDERABLES F inal Result Performing Organization Address City/[facility]/ZIP Co de Phone Number [facility] [address] [place] [address], [facility] * (ABNORMAL) Glucose by meter (12/30/2024 9:28 PM CDT) GLUCOSE BY METER POCT 135(H) 70 - 99 mg/dL 12/30/2024 9:[address] [facility] POCT RESULTS Blood, Capillary BLOOD SPECIMEN / Unknown 12/30/2024 9:28 PM CDT 12/30/2024 9:35 PM CDT Heri Baugh MD LAB - BEAKER POCT Final Result [facility] POCT RESULTS [address] [place] [address] * MR Brain w/o Contrast (12/30/2024 9:05 PM CDT) Anatomical Region Laterality Modality Head, SUBRAD MR NEURO, UMP MR NEURO, RAD MR Magnetic Resonance 12/30/2024 9:05 PM CDT Impressions 12/30/2024 9:17 PM CDT IMPRESSION: 1. No acute intracranial abnormality. Narrative 12/30/2024 9:17 PM CDT EXAM: MR BRAIN W/O CONTRAST LOCATION: [facility] DATE: 12/30/2024 INDICATION: poor recall after cardiac arrest, eval for stroke COMPARISON: 12/30/2024. TECHNIQUE: Routine multiplanar multisequence head MRI without intravenous contrast. FINDINGS: INTRACRANIAL CONTENTS: No acute or subacute infarct. No mass, acute hemorrhage, or extra-axial fluid collections. Scattered nonspecific T2/FLAIR hyperintensities within the cerebral white matter most consistent with minimal chronic microvascular ischemic change. Normal ventricles and sulci for age. Normal position of the cerebellar tonsils. SELLA: No abnormality accounting for technique. OSSEOUS STRUCTURES/SOFT TISSUES: Normal marrow signal. The major intracranial vascular flow voids are maintained. ORBITS: No abnormality accounting for technique. SINUSES/MASTOIDS: No paranasal sinus mucosal disease. Scattered fluid/membrane thickening in the left mastoid air cells. No apparent mass in the posterior nasopharynx or skull base. Procedure Note Tara Lr MD - 12/30/2024 EXAM: MR BRAIN W/O CONTRAST LOCATION: [facility] DATE: 12/30/2024 INDICATION: poor recall after cardiac arrest, eval for stroke COMPARISON: 12/30/2024. TECHNIQUE: Routine multiplanar multisequence head MRI without intravenouscontrast. FINDINGS: INTRACRANIAL CONTENTS: No acute or subacute infarct. No mass, acutehemorrhage, or extra-axial fluid collections. Scattered nonspecificT2/FLAIR hyperintensities within the cerebral white matter most consistentwith minimal chronic microvascular ischemic change. Normal ventricles and sulci for age. Normal position of thecerebellar tonsils. SELLA: No abnormality accounting for technique. OSSEOUS STRUCTURES/SOFT TISSUES: Normal marrow signal. The majorintracranial vascular flow voids are maintained. ORBITS: No abnormality accounting for technique. SINUSES/MASTOIDS: No paranasal sinus mucosal disease. Scatteredfluid/membrane thickening in the left mastoid air cells. No apparent massin the posterior nasopharynx or skull base. IMPRESSION: 1. No acute intracranial abnormality. Mitchel Hollins MD IMG MRI ORDERABLES Final Resul t * (ABNORMAL) Lactic acid whole blood (12/30/2024 6:55 PM CDT) Lactic Acid 2.5(H) 0.7 - 2.0 mmol/L 12/30/2024 7:01 PM CDT [facility] Blood CATHETER / Unknown VAD(CVC, PICC ) / Unknown 12/30/2024 6:55 PM CDT 12/30/2024 7:00 PM CDT Ashly Chen MD LAB - BLOOD ORDERABLES Fi nal Result [facility] [address] [place] [address], [facility] * (ABNORMAL) Glucose by meter (12/30/2024 4:15 PM CDT) GLUCOSE BY METER POCT 105(H) 70 - 99 mg/dL 12/30/2024 4:[address] [facility] POCT RESULTS Blood, Capillary BLOOD SPECIMEN / Unknown 12/30/2024 4:15 PM CDT 12/30/2024 4:22 PM CDT Heri Baugh MD LAB - BEAKER POCT Final Result Performing Organization Address City/[facility]/ZIP Co de Phone Number [facility] POCT RESULTS [address] [place] [address] * Lactic acid whole blood (12/30/2024 2:26 PM CDT) Lactic Acid 1.2 0.7 - 2.0 mmol/L 12/30/2024 2:33 PM CDT [facility] Blood CATHETER / Unknown VAD(CVC, PICC ) / Unknown 12/30/2024 2:26 PM CDT 12/30/2024 2:29 PM CDT Ashly Chen MD LAB - BLOOD ORDERABLES Fi nal Result Performing Organization Address [facility]/ZIP Co de Phone Number [facility] [address] [place] [address], [facility] * (ABNORMAL) Glucose by meter (12/30/2024 1:03 PM CDT) GLUCOSE BY METER POCT 103(H) 70 - 99 mg/dL 12/30/2024 1:[address] [facility] POCT RESULTS Blood, Capillary BLOOD SPECIMEN / Unknown 12/30/2024 1:03 PM CDT 12/30/2024 1:10 PM CDT Heri Baugh MD LAB - BEAKER POCT Final Result Performing Organization Address City/[facility]/ZIP Co de Phone Number [facility] POCT RESULTS [address] [place] [address] * CT Head w/o Contrast (12/30/2024 12:18 PM CDT) Anatomical Region Laterality Modality Head, SUBRAD CT NEURO, SUBRA D CT NEURO, UMP CT NEURO, RAD CT Computed Tomography 12/30/2024 12:1 8 PM CDT Impressions 12/30/2024 4:46 PM CDT IMPRESSION: No acute intracranial process. Narrative 12/30/2024 4:46 PM CDT EXAM: CT HEAD W/O CONTRAST LOCATION: [facility] DATE: 12/30/2024 INDICATION: post cardiac arrest, syncope, neuro changes COMPARISON: None. TECHNIQUE: Routine CT Head without IV contrast. Multiplanar reformats. Dose reduction techniques were used. FINDINGS: INTRACRANIAL CONTENTS: No intracranial hemorrhage, extraaxial collection, or mass effect. No CT evidence of acute infarct. Normal parenchymal attenuation. Normal ventricles and sulci. There is intracranial atherosclerosis. VISUALIZED ORBITS/SINUSES/MASTOIDS: No intraorbital abnormality. No paranasal sinus mucosal disease. No middle ear or mastoid effusion. BONES/SOFT TISSUES: No acute abnormality. Procedure Note Pasquale Suárez MD - 12/30/2024 EXAM: CT HEAD W/O CONTRAST LOCATION: [facility] DATE: 12/30/2024 INDICATION: post cardiac arrest, syncope, neuro changes COMPARISON: None. TECHNIQUE: Routine CT Head without IV contrast. Multiplanar reformats.Dose reduction techniques were used. FINDINGS: INTRACRANIAL CONTENTS: No intracranial hemorrhage, extraaxial collection,or mass effect. No CT evidence of acute infarct. Normal parenchymalattenuation. Normal ventricles and sulci. There is intracranialatherosclerosis. VISUALIZED ORBITS/SINUSES/MASTOIDS: No intraorbital abnormality. Noparanasal sinus mucosal disease. No middle ear or mastoid effusion. BONES/SOFT TISSUES: No acute abnormality. IMPRESSION: No acute intracranial process. Laura Brian MD IM CT ORDERABLES Final Resul t * (ABNORMAL) Troponin T, High Sensitivity (12/30/2024 12:06 PM CDT) Troponin T, High Sensitivity 105(HH) <=14 ng/L 12/30/2024 12:35 PM CDT N [facility] Comment: Either a High Sensitivity Troponin [...] follow-up, or urgent outpatient provocative testing. Blood CATHETER / Unknown VAD(CVC, PICC ) / Unknown 12/30/2024 12:06 PM CDT 12/30/2024 12:11 PM CDT Laura Brian MD LAB - BLOOD ORDERABLES Final Result Performing Organization Address [facility] Co de Phone Number [facility] [address] [place] [address] * (ABNORMAL) Partial thromboplastin time (12/30/2024 12:06 PM CDT) aPTT >240(HH) 22 - 38 Seconds 12/30/2024 1:23 PM CDT [facility] Blood CATHETER / Unknown VAD(CVC, PICC ) / Unknown 12/30/2024 12:06 PM CDT 12/30/2024 12:11 PM CDT Ashly Chen MD LAB - BLOOD ORDERABLES Fi nal Result Performing Organization Address [facility] Co de Phone Number [facility] [address] [place] [address] * ECHO COMPLETE WITH CONTRAST (12/30/2024 12:04 PM CDT) Anatomical Region Laterality Modality Ultrasound 12/30/2024 11:2 9 AM CDT Narrative 12/30/2024 12:39 PM CDT [id number]^YOGI^LAURA^ [place] [address] Name: JULIET COX : 1965 Study Date: 12/30/2024 11:29 AM Age: 59 yrs Gender: Female Patient Location: [facility] Reason For Study: Abn EKG Ordering Physician: Laura Brian MD Referring Physician: LAYLA RETANA Performed By: AD^^^^ BSA: 2.0 m2 Height: 66 in Weight: 197 lb HR: 76 Procedure Echocardiogram with two-dimensional, color and spectral Doppler. Definity ([facility] #[id number]) given intravenously. Interpretation Summary 1. Normal left ventricular size and systolic performance. The visually estimated ejection fraction is 50-55%. 2. No significant valvular heart disease is identified on this study. 3. Normal right ventricular size with low normal right ventricular systolic performance. Left ventricle: Normal left ventricular size and systolic performance. The visually estimated ejection fraction is 50-55%. There is normal regional wall motion. Left ventricular wall thickness is normal. Assessment of LV Diastolic Function: The cumulative findings suggest normal diastolic filling [The septal e' velocity is < 7 cm/s & lateral e' velocity is < 10 cm/s. The average E/e' is < 14. The TR velocity cannot be determined due to insufficient tricuspid insufficiency signal. Left atrial volume index is less than 34 mL/m ]. Right ventricle: Normal right ventricular size with low normal right ventricular systolic performance. Left atrium: The left atrium is of normal size. Right atrium: The right atrium is of normal size. IVC: The IVC is borderline dilated. Aortic valve: The aortic valve is comprised of three cusps. No significant aortic stenosis or aortic insufficiency is detected on this study. Mitral valve: The mitral valve appears morphologically normal. There is trace mitral insufficiency. Tricuspid valve: The tricuspid valve is grossly morphologically normal. There is trace tricuspid insufficiency. Pulmonic valve: The pulmonic valve is grossly morphologically normal. Thoracic aorta: The aortic root and proximal ascending aorta are of normal dimension. Pericardium: There is no significant pericardial effusion. MMode/2D Measurements & Calculations IVSd: 1.1 cm LVIDd: 4.4 cm LVIDs: 2.5 cm LVPWd: 1.1 cm FS: 43.6 % LV mass(C)d: 166.3 grams LV mass(C)dI: 83.7 grams/m2 Ao root diam: 2.3 cm LA dimension: 3.2 cm asc Aorta Diam: 2.9 cm LA/Ao: 1.4 LVOT diam: 1.9 cm LVOT area: 2.9 cm2 Ao root diam index Ht(cm/m): 1.3 Ao root diam index BSA (cm/m2): 1.1 Asc Ao diam index BSA (cm/m2): 1.5 Asc Ao diam index Ht(cm/m): 1.7 EF Biplane: 51.3 % LA Volume Indexed (AL/bp): 29.8 ml/m2 RV Base: 4.5 cm RWT: 0.50 TAPSE: 1.7 cm Time Measurements MM HR: 70.0 BPM Doppler Measurements & Calculations MV E max edd: 59.1 cm/sec MV A max edd: 84.4 cm/sec MV E/A: 0.70 MV max P.8 mmHg MV mean P.7 mmHg MV V2 VTI: 21.4 cm MVA(VTI): 3.2 cm2 MV dec slope: 322.9 cm/sec2 MV dec time: 0.18 sec Ao V2 max: 141.4 cm/sec Ao max P.0 mmHg Ao V2 mean: 100.7 cm/sec Ao mean P.6 mmHg Ao V2 VTI: 28.7 cm MARIFER(I,D): 2.4 cm2 MARIFER(V,D): 2.6 cm2 LV V1 max P.6 mmHg LV V1 max: 128.1 cm/sec LV V1 VTI: 23.5 cm SV(LVOT): 68.1 ml SI(LVOT): 34.2 ml/m2 PA acc time: 0.06 sec AV Edd Ratio (DI): 0.91 MARIFER Index (cm2/m2): 1.2 E/E': 8.6 E/E' av.5 Lateral E/e': 6.3 Medial E/e': 8.6 Peak E' Edd: 6.9 cm/sec RV S Edd: 9.7 cm/sec Report approved by: Epi Pickett MD on 12/30/2024 12:39 PM Procedure Note Reed Pickett MD - 12/30/2024 [id number]^YOGI^LAURA^ [place] [address] Name: JULIET COX : 1965 Study Date: 12/30/2024 11:29 AM Age: 59 yrs Gender: Female Patient Location: [facility] Reason For Study: Abn EKG Ordering Physician: Laura Brian MD Referring Physician: LAYLA RETANA Performed By: AD^^^^ BSA: 2.0 m2 Height: 66 in Weight: 197 lb HR: 76 Procedure Echocardiogram with two-dimensional, color and spectral Doppler. [facility] #[id number]) given intravenously. Interpretation Summary 1. Normal left ventricular size and systolic performance. The visually estimated ejection fraction is 50-55%. 2. No significant valvular heart disease is identified on this study. 3. Normal right ventricular size with low normal right ventricularsystolic performance. Left ventricle: Normal left ventricular size and systolic performance. The visuallyestimated ejection fraction is 50-55%. There is normal regional wall motion. Left ventricular wall thickness is normal. Assessment of LV Diastolic Function: The cumulative findings suggestnormal diastolic filling [The septal e' velocity is < 7 cm/s & lateral e'velocity is < 10 cm/s. The average E/e' is < 14. The TR velocity cannot be determineddue to insufficient tricuspid insufficiency signal. Left atrial volume indexis less than 34 mL/m ]. Right ventricle: Normal right ventricular size with low normal right ventricular systolic performance. Left atrium: The left atrium is of normal size. Right atrium: The right atrium is of normal size. IVC: The IVC is borderline dilated. Aortic valve: The aortic valve is comprised of three cusps. No significant aorticstenosis or aortic insufficiency is detected on this study. Mitral valve: The mitral valve appears morphologically normal. There is trace mitral insufficiency. Tricuspid valve: The tricuspid valve is grossly morphologically normal. There is trace tricuspid insufficiency. Pulmonic valve: The pulmonic valve is grossly morphologically normal. Thoracic aorta: The aortic root and proximal ascending aorta are of normal dimension. Pericardium: There is no significant pericardial effusion. MMode/2D Measurements & Calculations IVSd: 1.1 cm LVIDd: 4.4 cm LVIDs: 2.5 cm LVPWd: 1.1 cm FS: 43.6 % LV mass(C)d: 166.3 grams LV mass(C)dI: 83.7 grams/m2 Ao root diam: 2.3 cm LA dimension: 3.2 cm asc Aorta Diam: 2.9 cm LA/Ao: 1.4 LVOT diam: 1.9 cm LVOT area: 2.9 cm2 Ao root diam index Ht(cm/m): 1.3 Ao root diam index BSA (cm/m2): 1.1 Asc Ao diam index BSA (cm/m2): 1.5 Asc Ao diam index Ht(cm/m): 1.7 EF Biplane: 51.3 % LA Volume Indexed (AL/bp): 29.8 ml/m2 RV Base: 4.5 cm RWT: 0.50 TAPSE: 1.7 cm Time Measurements MM HR: 70.0 BPM Doppler Measurements & Calculations MV E max edd: 59.1 cm/sec MV A max edd: 84.4 cm/sec MV E/A: 0.70 MV max P.8 mmHg MV mean P.7 mmHg MV V2 VTI: 21.4 cm MVA(VTI): 3.2 cm2 MV dec slope: 322.9 cm/sec2 MV dec time: 0.18 sec Ao V2 max: 141.4 cm/sec Ao max P.0 mmHg Ao V2 mean: 100.7 cm/sec Ao mean P.6 mmHg Ao V2 VTI: 28.7 cm MARIFER(I,D): 2.4 cm2 MARIFER(V,D): 2.6 cm2 LV V1 max P.6 mmHg LV V1 max: 128.1 cm/sec LV V1 VTI: 23.5 cm SV(LVOT): 68.1 ml SI(LVOT): 34.2 ml/m2 PA acc time: 0.06 sec AV Edd Ratio (DI): 0.91 MARIFER Index (cm2/m2): 1.2 E/E': 8.6 E/E' av.5 Lateral E/e': 6.3 Medial E/e': 8.6 Peak E' Edd: 6.9 cm/sec RV S Edd: 9.7 cm/sec Report approved by: Epi Pickett MD on 12/30/2024 12:39 PM us Laura Brian MD CV ECHO ORDERABLES Edited Res ult - Final * Urine Creatinine for Drug Screen Panel (12/30/2024 10:35 AM CDT) Creatinine Urine for Drug Screen 138 mg/dL 12/30/2024 12:33 PM [facility] Comment:The reference range has not been established for creatinine in random urines. The results should be integrated into the clinical context for interpretation. Urine URINE SPECIMEN OBTAINED VIA INDWELLING URINARY CATHETER / Unknown Non-blood Collection / Unknown 12/30/2024 10:35 AM CDT 12/30/2024 11:05 AM CDT Laura Brian MD LAB - URINE ORDERABLES Final Result [facility] [address] * (ABNORMAL) Urine Drug Screen Panel (12/30/2024 10:35 AM CDT) Amphetamines Urine Screen Negative Screen Negative 12/30/2024 11:05 AM [facility] Comment:Cutoff for a negativ e amphetamine is less than 500 ng/mL. Barbituates Urine Screen Negative Screen Negative 12/30/2024 11:05 AM [facility] Comment:Cutoff for a negativ e barbiturate is less than 200 ng/mL. Benzodiazepine Urine Screen Negative Screen Negative 12/30/2024 11:05 AM [facility] Comment:Cutoff for a negativ e benzodiazepine is less than 100 ng/mL. Cannabinoids Urine Screen Positive(A) Screen Negative 12/30/2024 11:05 AM [facility] Comment: Cutoff for a positive cannabinoid is 50 ng/mL or greater. This is an unconfirmed screening result to be used for medical purposes only. Cocaine Urine Screen Negative Screen Negative 12/30/2024 11:05 AM [facility] Comment:Cutoff for a negativ e cocaine is less than 300 ng/mL. Fentanyl Qual Urine Screen Negative Screen Negative 12/30/2024 11:05 AM [facility] Comment:Cutoff for negative fentanyl is less than 5 ng/mL. Opiates Urine Screen Negative Screen Negative 12/30/2024 11:05 AM [facility] Comment:Cutoff for a negativ e opiate is less than 300 ng/mL. PCP Urine Screen Negative Screen Negative 12/30/2024 11:05 AM CDT [facility] Comment:Cutoff for a negativ e PCP is less than 25 ng/mL. Urine URINE SPECIMEN OBTAINED VIA INDWELLING URINARY CATHETER / Unknown Non-blood Collection / Unknown 12/30/2024 10:35 AM CDT 12/30/2024 10:41 AM CDT us Laura Brian MD LAB - URINE ORDERABLES Final Result Performing Organization Address [facility] Co de Phone Number [facility] [address] [place] [address], [facility] * (ABNORMAL) Troponin T, High Sensitivity (12/30/2024 10:35 AM CDT) [facility] Troponin T, High Sensitivity 110(HH) <=14 ng/L 12/30/2024 11:00 AM CDT [facility] Comment: Either a High Sensitivity Troponin [...] follow-up, or urgent outpatient provocative testing. Blood CATHETER / Unknown VAD(CVC, PICC ) / Unknown 12/30/2024 10:35 AM CDT 12/30/2024 10:41 AM CDT us Laura Brian MD LAB - BLOOD ORDERABLES Final Result Performing Organization Address City/[facility]/ZIP Co de Phone Number [facility] [address] [place] [address], [place] * Lactic acid whole blood (12/30/2024 9:59 AM CDT) Lactic Acid 1.3 0.7 - 2.0 mmol/L 12/30/2024 10:04 AM CDT N LABORATORY Blood CATHETER / Unknown VAD(CVC, PICC ) / Unknown 12/30/2024 9:59 AM CDT 12/30/2024 10:02 AM CDT Ashly Chen MD LAB - BLOOD ORDERABLES Fi nal Result Performing Organization Address City/[facility]/ZIP Co de Phone Number [facility] [address] [place] [address], [facility] * (ABNORMAL) Glucose by meter (12/30/2024 9:47 AM CDT) [facility] GLUCOSE BY METER POCT 150(H) 70 - 99 mg/dL 12/30/2024 9:[address] [facility] POCT RESULTS Blood, Capillary BLOOD SPECIMEN / Unknown 12/30/2024 9:47 AM CDT 12/30/2024 9:56 AM CDT us Heri Baugh MD LAB - BEAKER POCT Final Result Performing Organization Address [facility] Co de Phone Number [facility] POCT RESULTS [address] [place] [address] * (ABNORMAL) CBC with platelets (12/30/2024 8:33 AM CDT) WBC Count 15.3(H) 4.0 - 11.0 10e3/uL 12/30/2024 8:53 AM CDT [facility] RBC Count 3.46(L) 3.80 - 5.20 10e6/uL 12/30/2024 8:53 AM CDT N [facility] Hemoglobin 10.9(L) 11.7 - 15.7 g/dL 12/30/2024 8:53 AM CDT [facility] Hematocrit 32.9(L) 35.0 - 47.0 % 12/30/2024 8:53 AM CDT N [facility] MCV 95 78 - 100 fL 12/30/2024 8:53 AM CDT [facility] MCH 31.5 26.5 - 33.0 pg 12/30/2024 8:53 AM CDT [facility] MCHC 33.1 31.5 - 36.5 g/dL 12/30/2024 8:53 AM CDT [facility] RDW 14.5 10.0 - 15.0 % 12/30/2024 8:53 AM CDT [facility] Platelet Count 228 150 - 450 10e3/uL 12/30/2024 8:53 AM CDT [facility] Blood BLOOD SPECIMEN / Unknown Venipuncture / Unknown 12/30/2024 8:33 AM CDT 12/30/2024 8:39 AM CDT Ashly Chen MD LAB - BLOOD ORDERABLES nal Result [facility] [address] * Influenza A/B, RSV and SARS-CoV2 PCR (COVID-19) Nasopharyngeal (12/30/2024 6:35 AM CDT) [facility] Influenza A PCR Negative Negative 12/30/2024 7:27 AM CDT [facility] Influenza B PCR Negative Negative 12/30/2024 7:27 AM CDT [facility] RSV PCR Negative Negative 12/30/2024 7:27 AM CDT [facility] SARS CoV2 PCR Negative Negative 12/30/2024 7:27 AM CDT [facility] Comment:NEGATIVE: SARS-CoV-2 (COVID-19) RNA not detected, presumed negative. Swab NASOPHARYNGEAL STRUCTURE / Unknown Non-blood Collection / Unknown 12/30/2024 6:35 AM CDT 12/30/2024 6:40 AM CDT Narrative [facility] - 12/30/2024 7:27 AM CDT Testing was performed using the Xpert Xpress CoV2/Flu/RSV Assay on the [employer] GeneXpert Instrument. This test should be ordered for the detection of SARS- CoV2, influenza, and RSV viruses in individuals with signs and symptoms of respiratory tract infection. This test is for in vitro diagnostic use under the [place] FDA for laboratories certified under CLIA to perform high or moderate complexity testing. This test has been [place] FDA cleared. A negative result does not rule out the presence of PCR inhibitors in the specimen or target RNA in concentration below the limit of detection for the assay. If only one viral target is positive but coinfection with multiple targets is suspected, the sample should be re-tested with another FDA cleared, approved, or authorized test, if coninfection would change clinical management. This test was validated by the [facility]. These laboratories are certified under the Clinical Laboratory Improvement Amendments of 1988 (CLIA-88) as qualified to perfom high complexity laboratory testing. Ashly Chen MD LAB - MICRO GENERAL ORDER ESTEPHANIA Final Result Performing Organization Address City/[facility] Co de Phone Number [facility] [address] * (ABNORMAL) Glucose by meter (12/30/2024 6:16 AM CDT) GLUCOSE BY METER POCT 210(H) 70 - 99 mg/dL 12/30/2024 6:[address] [facility] POCT RESULTS Blood, venous BLOOD SPECIMEN / Unknown 12/30/2024 6:16 AM CDT 12/30/2024 6:33 AM CDT Ashly Chen MD LAB - BEAKER POCT Final R esult Performing Organization Address City/[facility] Co de Phone Number [facility] POCT RESULTS [address] [place] [address] * TSH with free T4 reflex (12/30/2024 6:15 AM CDT) TSH 2.44 0.30 - 4.20 uIU/mL 12/30/2024 12:26 PM CDT [facility] Blood VENOUS LINE / Unknown Venipuncture / Unknown 12/30/2024 6:15 AM CDT 12/30/2024 6:21 AM CDT Heri Baugh MD LAB - BLOOD ORDERABLES F inal Result Performing Organization Address [facility]/ZIP Co de Phone Number [facility] [address] * (ABNORMAL) Troponin T, High Sensitivity (12/30/2024 6:15 AM CDT) Troponin T, High Sensitivity 143(HH) <=14 ng/L 12/30/2024 6:48 AM CDT [facility] Comment: Either a High Sensitivity Troponin [...] follow-up, or urgent outpatient provocative testing. Blood VENOUS LINE / Unknown Venipuncture / Unknown 12/30/2024 6:15 AM CDT 12/30/2024 6:21 AM CDT Ashly Chen MD LAB - BLOOD ORDERABLES Fi nal Result Performing Organization Address [facility]/ZIP Co de Phone Number [facility] [address] * (ABNORMAL) INR (12/30/2024 6:15 AM CDT) INR 1.22(H) 0.85 - 1.15 12/30/2024 7:14 AM CDT [facility] PT 15.6(H) 11.8 - 14.8 Seconds 12/30/2024 7:14 AM CDT [facility] Blood VENOUS LINE / Unknown Venipuncture / Unknown 12/30/2024 6:15 AM CDT 12/30/2024 6:21 AM CDT Ashly Chen MD LAB - BLOOD ORDERABLES Fi nal Result Performing Organization Address City/[facility] Co de Phone Number [facility] [address] * (ABNORMAL) Lactic acid whole blood (12/30/2024 6:15 AM CDT) Lactic Acid 2.2(H) 0.7 - 2.0 mmol/L 12/30/2024 6:23 AM CDT [facility] Blood, venous VENOUS LINE / Unknown Venipuncture / Unknown 12/30/2024 6:15 AM CDT 12/30/2024 6:21 AM CDT Ashly Chen MD LAB - BLOOD ORDERABLES Fi nal Result Performing Organization Address [facility] Co de Phone Number [facility] [address] * Ionized Calcium (12/30/2024 6:15 AM CDT) Calcium Ionized Whole Blood 4.5 4.4 - 5.2 mg/dL 12/30/2024 6:23 AM CDT [facility] Blood, venous VENOUS LINE / Unknown Venipuncture / Unknown 12/30/2024 6:15 AM CDT 12/30/2024 6:21 AM CDT Ashly Chen MD LAB - BLOOD ORDERABLES Fi nal Result Performing Organization Address City/[facility] Co de Phone Number [facility] [address] * Phosphorus (12/30/2024 6:15 AM CDT) Phosphorus 3.9 2.5 - 4.5 mg/dL 12/30/2024 6:47 AM CDT [facility] Blood VENOUS LINE / Unknown Venipuncture / Unknown 12/30/2024 6:15 AM CDT 12/30/2024 6:21 AM CDT Ashly Chen MD LAB - BLOOD ORDERABLES Fi nal Result Performing Organization Address [facility] Co de Phone Number [facility] [address] * (ABNORMAL) Magnesium (12/30/2024 6:15 AM CDT) Magnesium 1.6(L) 1.7 - 2.3 mg/dL 12/30/2024 6:47 AM CDT N [facility] Blood VENOUS LINE / Unknown Venipuncture / Unknown 12/30/2024 6:15 AM CDT 12/30/2024 6:21 AM CDT Ashly Chen MD LAB - BLOOD ORDERABLES Fi nal Result Performing Organization Address [facility] de Phone Number [facility] [address] * (ABNORMAL) Comprehensive metabolic panel (12/30/2024 6:15 AM CDT) Sodium 140 135 - 145 mmol/L 12/30/2024 6:47 AM CDT [facility] Potassium 4.6 3.4 - 5.3 mmol/L 12/30/2024 6:47 AM CDT [facility] Carbon Dioxide (CO2) 26 22 - 29 mmol/L 12/30/2024 6:47 AM CDT [facility] Anion Gap 11 7 - 15 mmol/L 12/30/2024 6:47 AM CDT [facility] Urea Nitrogen 23.2(H) 8.0 - 23.0 mg/dL 12/30/2024 6:47 AM CDT [facility] Creatinine 0.80 0.51 - 0.95 mg/dL 12/30/2024 6:47 AM CDT [facility] GFR Estimate 84 >60 mL/min/1.7 3m2 12/30/2024 6:47 AM CDT [facility] Comment:eGFR calculated usin g 1 CKD-EPI equation. Calcium 8.8 8.8 - 10.4 mg/dL 12/30/2024 6:47 AM CDT [facility] Chloride 103 98 - 107 mmol/L 12/30/2024 6:47 AM CDT [facility] Glucose 215(H) 70 - 99 mg/dL 12/30/2024 6:47 AM CDT [facility] Alkaline Phosphatase 83 40 - 150 U/L 12/30/2024 6:47 AM CDT [facility] AST 361(H) 0 - 45 U/L 12/30/2024 6:47 AM CDT [facility] ALT 322(H) 0 - 50 U/L 12/30/2024 6:47 AM CDT [facility] Protein Total 5.9(L) 6.4 - 8.3 g/dL 12/30/2024 6:47 AM CDT [facility] Albumin 3.5 3.5 - 5.2 g/dL 12/30/2024 6:47 AM CDT [facility] Bilirubin Total 0.2 <=1.2 mg/dL 12/30/2024 6:47 AM CDT [facility] Blood VENOUS LINE / Unknown Venipuncture / Unknown 12/30/2024 6:15 AM CDT 12/30/2024 6:21 AM CDT Ashly Chen MD LAB - BLOOD ORDERABLES Fi nal Result N LABOR[facility] [address] [place] [id number], [facility] * (ABNORMAL) Blood gas venous (12/30/2024 6:15 AM CDT) pH Venous 7.37 7.32 - 7.43 12/30/2024 6:26 AM CDT N [facility] pCO2 Venous 50 40 - 50 mm Hg 12/30/2024 6:26 AM CDT N [facility] pO2 Venous 32 25 - 47 mm Hg 12/30/2024 6:26 AM CDT N [facility] Bicarbonate Venous 29(H) 21 - 28 mmol/L 12/30/2024 6:26 AM CDT [facility] Base Excess/Deficit Venous 2.5 -3.0 - 3.0 mmol/L 12/30/2024 6:26 AM CDT [facility] FIO2 37 OLMAN 12/30/2024 6:26 AM CDT N LAB[facility]ORY Comment:4 L per NC Oxyhemoglobin Venous 56(L) 70 - 75 % 12/30/2024 6:26 AM CDT N [facility] O2 Sat, Venous 57.8(L) 70.0 - 75.0 % 12/30/2024 6:26 AM CDT N [facility] Blood, venous VENOUS LINE / Unknown Venipuncture / Unknown 12/30/2024 6:15 AM CDT 12/30/2024 6:21 [facility] 12/30/[facility]24 6:26 AM CDT In healthy individuals, oxyhemoglobin (O2Hb) and oxygen saturation (SO2) are approximately equal. In the presence of dyshemoglobins, oxyhemoglobin can be considerably lower than oxygen saturation. Ashly Chen MD LAB - BLOOD ORDERABLES [facility] Result N LABORATORY [facility] [address] [place] [address], [facility] * (ABNORMAL) CBC with platelets (12/30/2024 6:15 AM CDT) WBC Count 16.9(H) 4.0 - 11.0 10e3/uL 12/30/2024 6:36 AM CDT N [facility] RBC Count 3.67(L) 3.80 - 5.20 10e6/uL 12/30/2024 6:36 AM CDT N [facility] Hemoglobin 11.5(L) 11.7 - 15.7 g/dL 12/30/2024 6:36 AM CDT N [facility] Hematocrit 34.7(L) 35.0 - 47.0 % 12/30/2024 6:36 AM CDT N [facility] MCV 95 78 - 100 fL 12/30/2024 6:36 AM CDT N [facility] MCH 31.3 26.5 - 33.0 pg 12/30/2024 6:36 AM CDT [facility] MCHC 33.1 31.5 - 36.5 g/dL 12/30/2024 6:36 AM CDT [facility] RDW 14.3 10.0 - 15.0 % 12/30/2024 6:36 AM CDT [facility] Platelet Count 245 150 - 450 10e3/uL 12/30/2024 6:36 AM CDT [facility] Blood VENOUS LINE / Unknown Venipuncture / Unknown 12/30/2024 6:15 AM CDT 12/30/2024 6:21 AM CDT Ashly Chen MD LAB - BLOOD ORDERABLES Fi nal Result [facility] [address] * ECG 12-Lead with MUSE ??? [facility] (12/30/2024 6:00 AM CDT) Systolic Blood Pressure mmHg RADIOLOGY RESULTS Diastolic Blood Pressure mmHg RADIOLOGY RESULTS Ventricular Rate 76 BPM RAD IOLOGY RESULTS Atrial Rate 76 BPM RADIOLOG Y RESULTS [place] Interval 224 ms RADIOLOG Y RESULTS QRS Duration 102 ms RADIOLO GY RESULTS QT 422 ms RADIOLOGY RESULTS QTc 474 ms RADIOLOGY RESULTS P [place] 58 degrees RADIOLOGY RESULTS R AXIS -45 degrees RADIOLOGY RESULTS T [place] 25 degrees RADIOLOGY RESULTS Interpretation ECG Sinus rhythm with 1st degree A-V block with Premature supraventricular complexes Possible Left atrial enlargement Left axis deviation Cannot rule out Anterior infarct , age undetermined Abnormal ECG When compared with ECG of 29-Dec-2024 23:40, Significant changes have occurred Confirmed by DUDLEY PARKER, EPI LOC:[id number] ([id number]) on 12/30/2024 12:43:23 PM RADIOLOGY RESULTS 12/30/2024 6:00 AM CDT 12/30/2024 12:43 PM CDT Ashly Chen MD ECG ORDERABLES Edited Re tim - Final RADIOLOGY RESULTS documented in this encounter Visit Diagnoses Diagnosis Cardiac arrest (H)- Primary Cardiac arrest Cardiac arrest (H) Cardiac arrest NSTEMI (non-ST elevated myocardial infarction) (H) Acute myocardial infarction, subendocardial infarction, episode of care unspecified Cardiac arrest (H) Cardiac arrest NSTEMI (non-ST elevated myocardial infarction) (H) Acute myocardial infarction, subendocardial infarction, episode of care unspecified documented in this encounter Admitting Diagnoses Diagnosis Cardiac arrest (H) Cardiac arrest documented in this encounter Administered Medications Active Administered Medications - up to 3 most recent administrations Medication Order MAR Action Action Date Dose Rate Site acetaminophen (TYLENOL) tablet 650 mg 650 mg, Oral, EVERY 4 HOURS PRN, mild pain, headaches, Starting on 01/01/25 at 1152, May give first dose 4 hours after last scheduled dose of acetaminophen. Maximum acetaminophen dose from all sources = 75 mg/kg/day not to exceed 4 grams/day. amiodarone (PACERONE) tablet 200 mg 200 mg, Oral, 2 TIMES DAILY, First dose on 12/31/24 at 0900, Tablets can be crushed and given via enteral route. Avoid grapefruit juice during oral amiodarone treatment. $Given 01/01/2025 8:44 PM CDT 200 mg $Given 01/01/2025 8:22 AM CDT 200 mg $Given 12/31/2024 8:27 PM CDT 200 mg aspirin EC tablet 81 mg 81 mg, Oral, DAILY, First dose on 12/31/24 at 1130, DO NOT CRUSH. $Given 01/01/2025 8:22 AM CDT 81 mg $Given 12/31/2024 11:48 AM CDT 81 mg atorvastatin (LIPITOR) tablet 10 mg 10 mg, Oral, DAILY, First dose on 12/30/24 at 1000 $Given 01/01/2025 8:30 AM CDT 10 mg $Given 12/31/2024 8:40 AM CDT 10 mg $Given 12/30/2024 9:52 AM CDT 10 mg dextrose 50 % injection 25-50 mL 25-50 mL, Intravenous, EVERY 15 MIN PRN, low blood sugar, Administer over 1-5 Minutes, Starting on 12/30/24 at 0533, Use if have IV access, BG less [...] mg/dL x 2 consecutive 15 minute checks. dextrose 50 % injection 25-50 mL 25-50 mL, Intravenous, EVERY 15 MIN PRN, low blood sugar, Administer over 1-5 Minutes, Starting on 12/31/24 at 0708, Use if have IV access, BG less [...] mg/dL x 2 consecutive 15 minute checks. gabapentin (NEURONTIN) capsule 800 mg 800 mg, Oral, 2 TIMES DAILY, First dose on 12/30/24 at 1000 $Given 01/01/2025 8:43 PM CDT 800 mg $Given 01/01/2025 8:22 AM CDT 800 mg $Given 12/31/2024 8:27 PM CDT 800 mg glucagon injection 1 mg 1 mg, Subcutaneous, EVERY 15 MIN PRN, low blood sugar, May repeat x 1 only, Starting on 12/30/24 at 0533, May give SQ or IM. ONLY use glucagon IF patient has NO IV access AND is UNABLE to swallow AND blood glucose is LESS than or EQUAL to 50 mg/dL. glucagon injection 1 mg 1 mg, Subcutaneous, EVERY 15 MIN PRN, low blood sugar, May repeat x 1 only, Starting on 12/31/24 at 0708, May give SQ or IM. ONLY use glucagon IF patient has NO IV access AND is UNABLE to swallow AND blood glucose is LESS than or EQUAL to 50 mg/dL. glucose gel 15-30 g 15-30 g, Oral, EVERY 15 MIN PRN, low blood sugar, Starting on 12/30/24 at 0533, Give first dose for initial blood glucose [...] Document juice on I and O flowsheet. glucose gel 15-30 g 15-30 g, Oral, EVERY 15 MIN PRN, low blood sugar, Starting on 12/31/24 at 0708, Give first dose for initial blood glucose [...] Document juice on I and O flowsheet. HOLD: Metformin and metformin containing medications if patient received IV contrast with acute kidney injury or severe chronic kidney disease (stage IV or stage V; i.e., eGFR less than 30) Medication(s) to hold: Hold metformin and metformin containing medications: for patients with acute kidney injury or severe chronic kidney disease (stage IV or stage V; i.e., eGFR less than 30), Parameter for hold (doses,days,conditions) : Other (see admin instructions), Hours or days to hold med before/after procedure/surgery: Day of the procedure and for 48 hours after IV contrast given, HOLD, Starting on Wed01/01/25 at 1152, Until Discontinued, Hold metformin (GLUCOPHAGE, GLUMETZA, FORTAMET, RIOMET) and metformin containing medications: alogliptin/metformin (KAZANO), glipizide/metformin (METAGLIP), glyburide/metformin (GLUCOVANCE), rosiglitazone/metformin (AVANDAMET), dapagliflozin/metformin (XIGDUO XR), sitagliptin/metformin (JANUMET, JANUMET XR), linagliptin/metformin (JENTADUETO), repaglinide/metformin (PRANDIMET), saxagliptin/metformin (KOMBIGLYZE XR), canagliflozin/metformin (INVOKAMET), and pioglitazone/metformin (ACTOPLUS MET, ACTOPLUS MET XR) on day of the procedure and for 48 hours after IV contrast given. If patient was on one of these medications pre-procedure, continue to HOLD for 48 hours post-procedure. Hold: metformin and metformin containing medications on day of the procedure and for 48 hours after IV contrast given- Patients with acute kidney injury or severe chronic kidney disease (stage IV or stage V; i.e., eGFR less than 30) Medication(s) to hold: Hold metformin (GLUCOPHAGE, GLUMETZA, FORTAMET, RIOMET) and metformin containing medications: (KAZANO, METAGLIP, GLUCOVANCE, AVANDAMET, XIGDUO XR, JANUMET, JANUMET XR, JENTADUETO, PRANDIMET, KOMBIGLYZE XR, INVOKAMET, ACTOPLUS MET, ACTOPLUS MET XR), Parameter for hold (doses,days,conditions) : Other (see admin instructions), Hours or days to hold med before/after procedure/surgery: OTHER (for 48 hours post procedure), Surgery or Procedure Date: 01/01/2025, HOLD, Starting on Wed01/01/25 at 1152, Until Discontinued, Hold metformin (GLUCOPHAGE, GLUMETZA, FORTAMET, RIOMET) and metformin containing medications: alogliptin/metformin (KAZANO), glipizide/metformin (METAGLIP), glyburide/metformin (GLUCOVANCE), rosiglitazone/metformin (AVANDAMET), dapagliflozin/metformin (XIGDUO XR), sitagliptin/metformin (JANUMET, JANUMET XR), linagliptin/metformin (JENTADUETO), repaglinide/metformin (PRANDIMET), saxagliptin/metformin (KOMBIGLYZE XR), canagliflozin/metformin (INVOKAMET), and pioglitazone/metformin (ACTOPLUS MET, ACTOPLUS MET XR). For patients with acute kidney injury or severe chronic kidney disease (stage IV or stage V; i.e., eGFR less than 30) If patient was on one of these medications pre-procedure, continue to HOLD for 48 hours post-procedure if patient received IV contrast. hydrALAZINE (APRESOLINE) injection 10 mg 10 mg, Intravenous, ONCE PRN, high blood pressure, for 1 minute, Administer over 1 Minutes, Starting on 01/01/25 at 1152, For 1 dose, Give if systolic blood pressure is greater than 160 mmHg prior to sheath pull or within 3 hours after sheath pull. Discontinue after sheath pull. Hold for heart rate greater than 100 beats per minutes. HYDROmorphone (DILAUDID) half-tab 1 mg 1 mg, Oral, EVERY 4 HOURS PRN, moderate pain, Starting on 12/30/24 at 0542, Separate opioids 1 hour apart from any other sedative. Hold for RASS-2. Hold for confusion/somnolence. $Given 12/31/2024 8:41 AM CDT 1 mg $Given 12/30/2024 9:38 PM CDT 1 mg $Given 12/30/2024 7:13 AM CDT 1 mg HYDROmorphone (DILAUDID) tablet 2 mg 2 mg, Oral, EVERY 4 HOURS PRN, severe pain, Starting on 12/30/24 at 0542, Separate opioids 1 hour apart from any other sedative. Hold for RASS-2. Hold for confusion/somnolence. HYDROmorphone (PF) (DILAUDID) injection 0.3 mg 0.3 mg, Intravenous, EVERY 3 HOURS PRN, severe pain, For pain that is not controlled with oral medications., Starting on 12/30/24 at 0542, Try oral first. insulin aspart (NovoLOG) injection (RAPID ACTING) 1-7 Units, Subcutaneous, 3 TIMES DAILY BEFORE MEALS, First dose on 12/31/24 at 0730, Correction Scale - MEDIUM INSULIN RESISTANCE DOSING Do Not give Correction Insulin if Pre-Meal BG less than 140. For Pre-Meal BG 140 - 189 give 1 unit. For Pre-Meal BG 190 - 239 give 2 units. For Pre-Meal BG 240 - 289 give 3 units. For Pre-Meal BG 290 - 339 give 4 units. For Pre-Meal BG 340- 389 give 5 units. For Pre-Meal BG 390-439 give 6 units For Pre-Meal BG greater than or equal to 440 give 7 units. If patient is NOT eating a meal: Blood glucose should still be checked and correction (sliding scale) insulin to be administered within 30 minutes if order parameters are met. If patient is eating a meal: To be given with prandial insulin if ordered, and based on pre-meal blood glucose. Administering insulin within 5 minutes of the start of the meal is ideal. Administer insulin no more than 30 minutes after the start of the meal, unless directed otherwise by provider. Notify provider if glucose greater than or equal to 350 mg/dL after administration of correction dose. $Given 12/31/2024 4:44 PM CDT 1 Units $Given 12/31/2024 8:40 AM CDT 1 Units insulin aspart (NovoLOG) injection (RAPID ACTING) 1-5 Units, Subcutaneous, AT BEDTIME, First dose on 12/31/24 at 2100, MEDIUM INSULIN RESISTANCE DOSING Do Not give Bedtime Correction Insulin if BG less than 200. For BG 200 - 249 give 1 units. For BG 250 - 299 give 2 units. For BG 300 - 349 give 3 units. For BG 350 -399 give 4 units. For BG greater than or equal to 400 give 5 units. Notify provider if glucose greater than or equal to 350 mg/dL after administration of correction dose. $Given 12/31/2024 8:25 PM CDT 1 Units levothyroxine (SYNTHROID/LEVOTHROID) tablet 50 mcg 50 mcg, Oral, EVERY MORNING BEFORE BREAKFAST, First dose on 12/30/24 at 1000, Separate oral administration of iron- or calcium-containing products and levothyroxine by at least 4 hours. $Given 01/01/2025 8:22 AM CDT 50 mcg $Given 12/31/2024 6:55 AM CDT 50 mcg $Given 12/30/2024 9:52 AM CDT 50 mcg lidocaine (LMX4) cream Topical, EVERY 1 HOUR PRN, other, with VAD insertion PRN, Starting on Wed01/01/25 at 1152, Apply at least 30 minutes prior to VAD insertion. In divided doses as needed for size of site for insertion. MAX Dose: 2.5g (1/2 of 5g tube) Reason: Pain Do NOT give if patient has a history of allergy to any local anesthetic or any cassandra product., Cardiac Pre-procedure lidocaine (LMX4) cream Topical, EVERY 1 HOUR PRN, pain, with VAD insertion, Starting on Wed01/01/25 at 1152, Apply at least 30 minutes prior to VAD insertion in divided doses as needed for size of site for insertion. MAX Dose: 2.5 g ( of 5 g tube) Do NOT give if patient has a history of allergy to any local anesthetic or any cassandra product. Do NOT use both lidocaine intradermal/subcutaneous injection and the lidocaine cream on the same site. lidocaine 1 % 0.1-1 mL 0.1-1 mL, Other, EVERY 1 HOUR PRN, mild pain with VAD insertion, Starting on Wed01/01/25 at 1152, MAX dose 1 mL subcutaneous OR intradermal along the side of the vein in divided doses as needed for VAD insertion. Do NOT give if patient has a history of allergy to any local anesthetic or any cassandra product. MAX dose 1 mL., Cardiac Pre-procedure lidocaine 1 % 0.1-1 mL 0.1-1 mL, Other, EVERY 1 HOUR PRN, mild pain with VAD insertion, Starting on Wed01/01/25 at 1152, MAX dose 1 mL subcutaneous OR intradermal along the side of the vein in divided doses as needed for VAD insertion. Do NOT give if patient has a history of allergy to any local anesthetic or any cassandra product. Do NOT use both lidocaine intradermal/subcutaneous injection and the lidocaine cream on the same site. methocarbamol (ROBAXIN) tablet 750 mg 750 mg, Oral, EVERY 6 HOURS PRN, muscle spasms, Starting on 12/30/24 at 0532 $Given 12/31/2024 4:01 AM CDT 750 mg metoprolol tartrate (LOPRESSOR) tablet 25 mg 25 mg, Oral, EVERY 8 HOURS, First dose (after last modification) on 12/31/24 at 1700, Tablets can be crushed and given via enteral route. Hold for SBP < 100 and or HR < 60 $Given 01/02/2025 12:50 AM CDT 25 mg $Given 01/01/2025 5:49 PM CDT 25 mg $Given 01/01/2025 8:22 AM CDT 25 mg midazolam (VERSED) injection 0.5 mg 0.5 mg, Intravenous, Administer over 2 Minutes, EVERY 5 MIN PRN, anxiety, or patient comfort with sheath removal., Starting on 01/01/25 at 1152, For 2 doses, May repeat once after 5 minutes if needed for anxiety or patient comfort with the FEMORAL sheath removal. Max total dose is 1 mg. This drug may cause significant respiratory depression. Monitor respiratory status and vital signs carefully for 1 hour after each dose. naloxone (NARCAN) injection 0.2 mg 0.2 mg, Intravenous, EVERY 2 MIN PRN, opioid reversal, Starting on 12/30/24 at 0552, Administer intravenous route when available and notify provider when administered. For unintended sedation or respiratory depression if all of the below criteria are met: ~ respiratory rate LESS than or EQUAL to 8. ~SaO2 less than 92% and or/end-tidal CO2 is greater than 50. ~ the patient is receiving an opioid, has unintended sedations assessed as RASS (-3), and is currently not on mechanical ventilation. RASS scale moderate (-3) is movement or eye opening to voice but no eye contact. Patient Monitoring Once the patient has demonstrated a response to the naloxone, continue to monitor respiratory rate, depth, oxygen saturation and end-tidal CO2 (if available) every 15 minutes x 2, then every 30 minutes x 2, then every 1 hour x 1 after each naloxone dose. Consider transfer to ICU if patient respiratory parameters have not improved after 4 naloxone doses. naloxone (NARCAN) injection 0.2 mg 0.2 mg, Intramuscular, EVERY 2 MIN PRN, opioid reversal, Starting on 12/30/24 at 0552, Administer intramuscular if an intravenous route is not available and notify provider when administered. For unintended sedation or respiratory depression if all of the below criteria are met: ~ respiratory rate LESS than or EQUAL to 8. ~SaO2 less than 92% and or/end-tidal CO2 is greater than 50. ~ the patient is receiving an opioid, has unintended sedations assessed as RASS (-3), and is currently not on mechanical ventilation. RASS scale moderate (-3) is movement or eye opening to voice but no eye contact. Patient Monitoring Once the patient has demonstrated a response to the naloxone, continue to monitor respiratory rate, depth, oxygen saturation and end-tidal CO2 (if available) every 15 minutes x 2, then every 30 minutes x 2, then every 1 hour x 1 after each naloxone dose. Consider transfer to ICU if patient respiratory parameters have not improved after 4 naloxone doses. naloxone (NARCAN) injection 0.4 mg 0.4 mg, Intravenous, EVERY 2 MIN PRN, opioid reversal, Starting on 12/30/24 at 0552, Administer intravenous route when available and notify provider when administered. For unintended sedation or respiratory depression if all of the below criteria are met: ~ respiratory rate LESS than or EQUAL to 8. ~ SaO2 less than 92% and or/end-tidal CO2 is greater than 50. ~ the patient is receiving an opioid, has unintended sedation assessed as RASS (-4) or (-5) and patient is currently not on mechanical ventilation. RASS scale (-4) is deep sedation with no response to voice but movement or eye opening to physical stimulation. RASS scale (-5) is unarousable. Patient Monitoring Once the patient has demonstrated a response to the naloxone, continue to monitor respiratory rate, depth, oxygen saturation and end-tidal CO2 (if available) every 15 minutes x 2, then every 30 minutes x 2, then every 1 hour x 1 after each naloxone dose. Consider transfer to ICU if patient respiratory parameters have not improved after 4 naloxone doses. naloxone (NARCAN) injection 0.4 mg 0.4 mg, Intramuscular, EVERY 2 MIN PRN, opioid reversal, Starting on 12/30/24 at 0552, Administer intramuscular if an intravenous route is not available and notify provider when administered. For unintended sedation or respiratory depression if all of the below criteria are met: ~ respiratory rate LESS than or EQUAL to 8. ~ SaO2 less than 92% and or/end-tidal CO2 is greater than 50. ~ the patient is receiving an opioid, has unintended sedation assessed as RASS (-4) or (-5) and patient is currently not on mechanical ventilation. RASS scale (-4) is deep sedation with no response to voice but movement or eye opening to physical stimulation. RASS scale (-5) is unarousable. Patient Monitoring Once the patient has demonstrated a response to the naloxone, continue to monitor respiratory rate, depth, oxygen saturation and end-tidal CO2 (if available) every 15 minutes x 2, then every 30 minutes x 2, then every 1 hour x 1 after each naloxone dose. Consider transfer to ICU if patient respiratory parameters have not improved after 4 naloxone doses. nortriptyline (PAMELOR) capsule 25 mg 25 mg, Oral, AT BEDTIME, First dose on 12/30/24 at 2100 $Given 01/01/2025 8:44 PM CDT 25 mg $Given 12/31/2024 8:27 PM CDT 25 mg $Given 12/30/2024 9:38 PM CDT 25 mg ondansetron (ZOFRAN ODT) ODT tab 4 mg 4 mg, Oral, EVERY 6 HOURS PRN, nausea/vomiting - 1st line, Starting on 12/30/24 at 0535, This is Step 1 of nausea and vomiting management. If nausea not resolved in 15 minutes, go to Step 2 prochlorperazine (COMPAZINE). With dry hands, peel back foil backing and gently remove tablet. Do not push oral disintegrating tablet through foil backing. Administer immediately on tongue and oral disintegrating tablet dissolves in seconds, then swallow with saliva. Liquid not required. ondansetron (ZOFRAN) injection 4 mg 4 mg, Intravenous, EVERY 6 HOURS PRN, nausea/vomiting - 1st line, Administer over 2-5 Minutes, Starting on 12/30/24 at 0535, Give IF patient unable to tolerate oral medication. This is Step 1 of nausea and vomiting management. If nausea not resolved in 15 minutes, go to Step 2 prochlorperazine (COMPAZINE). prochlorperazine (COMPAZINE) injection 10 mg 10 mg, Intravenous, EVERY 6 HOURS PRN, nausea/vomiting - 2nd line, Administer over 1-2 Minutes, Starting on 12/30/24 at 0535, IF patient unable to tolerate oral medication. This is Step 2 of nausea and vomiting management. Give if nausea not resolved 15 minutes after giving ondansetron (ZOFRAN). prochlorperazine (COMPAZINE) tablet 10 mg 10 mg, Oral, EVERY 6 HOURS PRN, nausea/vomiting - 2nd line, Starting on 12/30/24 at 0535, This is Step 2 of nausea and vomiting management. Give if nausea not resolved 15 minutes after giving ondansetron (ZOFRAN). rivaroxaban ANTICOAGULANT (XARELTO) tablet 20 mg 20 mg, Oral, DAILY WITH SUPPER, First dose on Wed01/01/25 at 1800, Indications: Afib-non valvularIndications:Afib-non valvular $Given 01/01/2025 6:19 PM CDT 20 mg senna-docusate (SENOKOT-S/PERICOLACE) 8.6-50 MG per tablet 1 tablet 1 tablet, Oral, 2 TIMES DAILY PRN, constipation, Starting on 12/30/24 at 0535, If no bowel movement in 24 hours, increase to 2 tablets PO. Hold for loose stools. This is the first step of a three step constipation treatment. Hold for loose stools. senna-docusate (SENOKOT-S/PERICOLACE) 8.6-50 MG per tablet 2 tablet 2 tablet, Oral, 2 TIMES DAILY PRN, constipation, Starting on 12/30/24 at 0535, Hold for loose stools. This is the first step of a three step constipation treatment. Hold for loose stools. sodium chloride (PF) 0.9% PF flush 3 mL 3 mL, Intracatheter, EVERY 8 HOURS, First dose on Wed01/01/25 at 1200, to lock peripheral IV dormant line., Cardiac Pre-procedure $Given 01/01/2025 8:43 PM CDT 3 mLs sodium chloride (PF) 0.9% PF flush 3 mL 3 mL, Intracatheter, EVERY 1 HOUR PRN, other, to lock peripheral IV dormant line, Starting on Wed01/01/25 at 1152, Cardiac Pre-procedure sodium chloride (PF) 0.9% PF flush 3 mL 3 mL, Intracatheter, EVERY 1 MIN PRN, line flush, Starting on Wed01/01/25 at 1152, for peripheral IV flush post IV meds, or to ensure patency, Cardiac Pre-procedure sodium chloride (PF) 0.9% PF flush 3 mL 3 mL, Intracatheter, EVERY 8 HOURS, First dose on Wed01/01/25 at 1200, to lock peripheral IV dormant line $Given 01/01/2025 8:43 PM CDT 3 mLs $Given 01/01/2025 1:31 PM CDT 3 mLs sodium chloride (PF) 0.9% PF flush 3 mL 3 mL, Intracatheter, EVERY 1 MIN PRN, line flush, other, to ensure patency or to lock dormant line, Starting on Wed01/01/25 at 1152 sodium chloride 0.9 % infusion at 150 mL/hr, Intravenous, CONTINUOUS, 150 mL/hr IV for 2 hours prior to cardiac hoisting laborer procedure, then decrease to 75 mL/hr to run throughout the procedure. Start at 0700 for inpatients. IF PATIENT IS RECEIVING RENAL DIALYSIS, RN to reduce rate of 0.9 % sodium chloride IV solution to 10 mL /hour (TKO) IV infusion to prevent fluid overload., Cardiac Pre-procedure, Starting on Wed01/01/25 at 1200, Until Discontinued sodium chloride 0.9 % infusion at 75 mL/hr, Intravenous, CONTINUOUS, Administer over 4 Hours, or until patient is ambulating. IF PATIENT WAS ADMITTED WITH HEART FAILURE, the RN should discuss primary cardiology team whether it is appropriate to reduce rate to10 mL/hour (TKO) in order to prevent fluid overload IF PATIENT IS RECEIVING RENAL DIALYSIS, RN to reduce rate of 0.9% sodium chloride IV solution to 10 mL /hour (TKO) to prevent fluid overload, Starting on Wed01/01/25 at 1200, Until Discontinued Inactive Administered Medications - up to 3 most recent administrations Medication Order MAR Action Action Date Dose Rate Site acetaminophen (TYLENOL) tablet 650 mg 650 mg, Oral, EVERY 6 HOURS PRN, other, headaches, fever, pain, Starting on Wed12/31/24 at 1103, Maximum acetaminophen dose from all sources = 75 mg/kg/day not to exceed 4 grams/day. $Given 12/31/2024 4:57 PM CDT 650 mg amiodarone (NEXTERONE) 1.8 mg/mL in dextrose 5% 200 mL ADULT STANDARD infusion 0.5 mg/min (16.6667 mL/hr, rounded to 16.7 mL/hr), Intravenous, CONTINUOUS, Starting on 12/30/24 at 0600, After 24 hours of infusion, call provider for further orders (if provider not already contacted). Hold for systolic blood pressure less than 90 or heart rate less than 60 beats per minute. FOR Telemetry patients ONLY. The use of an in-line 0.22 micron filter is required for PERIPHERAL or MIDLINE administration to reduce the incidence of phlebitis. Rate/Dose Verify 12/31/2024 6:58 AM CDT 0.5 mg/min 16.7 mL/hr Rate/Dose Verify 12/31/2024 4:06 AM CDT 0.5 mg/min 16.7 mL /hr Rate/Dose Verify 12/31/2024 2:35 AM CDT 0.5 mg/min 16.7 mL /hr aspirin (ASA) chewable tablet 243 mg 243 mg, Oral, ONCE, On 01/01/25 at 0900, For 1 dose, If patient received aspirin on the day of the procedure, give 3 81 mg tablets on the morning of the procedure to TOTAL 324 dose. Exceptions: IF patient is allergic to aspirin OR IF patient already received aspirin 325 mg today, Cardiac Pre-procedure $Given 01/01/2025 9:30 AM CDT 243 mg heparin - BOLUS DOSE from infusion 2,700 Units (rounded from 2,685 Units = 30 Units/kg 89.5 kg), Intravenous, ONCE, On 12/30/24 at 2230, For 1 dose, IV PUMP PROGRAMMING: Program continuous infusion first, then program bolus dose. Infuse over 5 minutes. For PTT value 41-54 Low Intensity Heparin Treatment- PTT monitoring Nurse to administer dose from existing infusion. If no infusion bag or syringe for this order is available, contact pharmacist to re-enter medication order. $Given 12/30/2024 10:13 PM CDT 2,700 Units heparin - BOLUS DOSE from infusion 2,800 Units (rounded from 2,784 Units = 30 Units/kg 92.8 kg), Intravenous, ONCE, On 12/31/24 at 1200, For 1 dose, IV PUMP PROGRAMMING: Program continuous infusion first, then program bolus dose. Infuse over 5 minutes. For PTT value 41-54 Low Intensity Heparin Treatment- PTT monitoring Nurse to administer dose from existing infusion. If no infusion bag or syringe for this order is available, contact pharmacist to re-enter medication order. $Given 12/31/2024 11:49 AM CDT 2,800 Units heparin - BOLUS DOSE from infusion 2,800 Units (rounded from 2,784 Units = 30 Units/kg 92.8 kg), Intravenous, ONCE, On 12/31/24 at 1930, For 1 dose, IV PUMP PROGRAMMING: Program continuous infusion first, then program bolus dose. Infuse over 5 minutes. For PTT value 41-54 Low Intensity Heparin Treatment- PTT monitoring Nurse to administer dose from existing infusion. If no infusion bag or syringe for this order is available, contact pharmacist to re-enter medication order. $Given 12/31/2024 7:25 PM CDT 2,800 Units heparin - BOLUS DOSE from infusion 5,550 Units (rounded from 5,568 Units = 60 Units/kg 92.8 kg), Intravenous, ONCE, On 01/01/25 at 0330, For 1 dose, IV PUMP PROGRAMMING: Program continuous infusion first, then program bolus dose. Infuse over 5 minutes. For PTT value LESS than 41 Low Intensity Heparin Treatment- PTT monitoring Nurse to administer dose from existing infusion. If no infusion bag or syringe for this order is available, contact pharmacist to re-enter medication order. $Given 01/01/2025 3:21 AM CDT 5,550 Units heparin 25,000 units in 0.45% NaCl 250 mL ANTICOAGULANT infusion 0-5,000 Units/hr (0-50 mL/hr), Intravenous, CONTINUOUS, Starting on 12/30/24 at 0700, --Nurse to use Heparin Infusion ADULT Dose Adjustments by RN order set after EVERY PTT result to place further orders (for bolus if needed, infusion adjustment if needed, and ordering next lab)- Starting Infusion Rate = 1,050 Units/hr (12 units/kg/hr). (Ordered: 12/30/2024) Low Intensity Heparin Treatment- PTT monitoring WITH Boluses GOAL: PTT = 55-80 seconds, IF HEPARIN INFUSION HELD FOR PROCEDURE: Restart heparin infusion at previous rate (no bolus needed). Nurse to place a one-time PTT lab order timed for 6 hours after heparin infusion was restarted., Heparin Therapy Type: Low Intensity Heparin Infusion - With Initial Bolus (aPTT 55-80), Initial Set-up verified by: VERENICE Daugherty Rate/Dose Verify 01/01/2025 8:00 AM CDT 1,300 Units/hr 13 mL/hr Rate/Dose Verify 01/01/2025 5:15 AM CDT 1,300 Units/hr 13 mL/hr Rate/Dose Change 01/01/2025 3:21 AM CDT 1,300 Units/hr 13 mL/hr heparin ANTICOAGULANT loading dose for LOW INTENSITY TREATMENT * Give BEFORE starting heparin infusion 5,350 Units (rounded from 5,370 Units = 60 Units/kg 89.5 kg), Intravenous, ONCE, On 12/30/24 at 0700, For 1 dose, Infuse over 5 minutes. Low Intensity Heparin Treatment. Nurse to administer dose from existing infusion. If no infusion bag or syringe for this order is available, contact pharmacist to re-enter medication order. $Given 12/30/2024 7:59 AM CDT 5,350 Units insulin aspart (NovoLOG) injection (RAPID ACTING) 1-4 Units, Subcutaneous, EVERY 4 HOURS, First dose on 12/30/24 at 0600, Correction Scale - LOW INSULIN RESISTANCE DOSING Do Not give Correction Insulin if BG less than 140. For BG 140 - 239 give 1 unit. For BG 240 - 339 give 2 units. For BG 340 - 439 give 3 units For BG greater than or equal to 440 give 4 units Check blood glucose Q4H and administer based on blood glucose. Notify provider if glucose greater than or equal to 350 mg/dL after administration of correction dose. $Given 12/31/2024 4:01 AM CDT 1 Units $Given 12/30/2024 9:48 AM CDT 1 Units $Given 12/30/2024 6:23 AM CDT 1 Units lactated ringers BOLUS 1,000 mL Intravenous, 1,000 mL, ONCE, at 1,000 mL/hr, Administer over 1 Hours, On 12/30/24 at 0630, For 1 dose $New Bag 12/30/2024 6:32 AM CDT 1,000 mLs 1000 mL/hr magnesium sulfate 2 g in 50 mL sterile water intermittent infusion 2 g, Intravenous, Administer over 60 Minutes, at 50 mL/hr, ONCE, On 01/01/25 at 0630, For 1 dose, Magnesium level 1.6-2 mg/dL Administer 2 gm magnesium IV x 1 doses and recheck magnesium level the next AM. Ordered from the Magnesium replacement order set. $New Bag 01/01/2025 8:23 AM CDT 2 g 50 mL/hr magnesium sulfate 4 g in 50 mL sterile water intermittent infusion 4 g, Intravenous, Administer over 120 Minutes, at 25 mL/hr, ONCE, On 12/31/24 at 0430, For 1 dose, Magnesium level 1.1-1.5 mg/dL. Administer 4 gm magnesium IV x 1 dose and recheck magnesium level 2-4 hours AFTER the last dose is infused. Ordered from the Magnesium replacement order set. $New Bag 12/31/2024 5:45 AM CDT 4 g 25 mL/hr metoprolol succinate ER (TOPROL XL) 24 hr tablet 25 mg 25 mg, Oral, DAILY, First dose (after last modification) on 12/31/24 at 0900, DO NOT CRUSH. Tablet may be split in half along score line. $Given 12/31/2024 8:41 AM CDT 25 mg metoprolol tartrate (LOPRESSOR) half-tab 12.5 mg 12.5 mg, Oral, 2 TIMES DAILY, First dose on 12/30/24 at 1300, Tablets can be crushed and given via enteral route. $Given 12/31/2024 9:40 AM CDT 12.5 mg $Given 12/30/2024 9:33 PM CDT 12.5 mg $Given 12/30/2024 1:08 PM CDT 12.5 mg metoprolol tartrate (LOPRESSOR) tablet 25 mg 25 mg, Oral, ONCE, On 12/31/24 at 0400, For 1 dose, Tablets can be crushed and given via enteral route. $Given 12/31/2024 3:47 AM CDT 25 mg perflutren lipid microsphere (DEFINITY) injection SUSP 2 mL 2 mL, Intravenous, ONCE, On 12/30/24 at 1200, For 1 dose $Given 12/30/2024 11:50 AM CDT 2 mLs sodium chloride 0.9 % infusion at 75 mL/hr, Intravenous, CONTINUOUS, Infuse for 4 hours or until patient is ambulating. IF PATIENT WAS ADMITTED WITH HEART FAILURE, the RN should discuss primary cardiology team whether it is appropriate to reduce rate to10 mL/hour (TKO) in order to prevent fluid overload IF PATIENT IS RECEIVING RENAL DIALYSIS, RN to reduce rate of 0.9% sodium chloride IV solution to 10 mL /hour (TKO) to prevent fluid overload, Starting on Wed01/01/25 at 1200, Until Wed01/01/25 at 1559 Rate/Dose Verify 01/01/2025 2:00 PM CDT 75 mL/hr 75 mL/hr Rate/Dose Verify 01/01/2025 12:00 PM CDT 75 mL/hr 75 mL/ hr Rate/Dose Verify 01/01/2025 11:45 AM CDT 75 mL/hr 75 mL/ hr sodium phosphate 9 mmol in sodium chloride 0.9 % 250 mL intermittent infusion 9 mmol, Intravenous, ONCE, Administer over 4 Hours, On Wed01/01/25 at 0800, For 1 dose, Phosphorus level 2.5-2.7 mg/dL Recheck phosphorus level the morning after the infusion is completed. Ordered from the Phosphorus replacement order set. Each mmol of phosphate provides 1.33 mEq of Sodium. Multiply the patient's phosphate dose by 1.33 to determine the amount of sodium in this dose., Phosphorus Replacement: Phosphorus level 2.5-2.7 mg/dL, Recheck: Phosphorus level next AM $Given 01/01/2025 9:30 AM CDT 9 mmol documented in this encounter Active and Recently Administered Medications Times are shown in CDT. Scheduled Medication Order 12/31/2024 01/01/2025 01/02/2025 amiodarone (PACERONE) tablet 200 mg 200 mg, Oral, 2 TIMES DAILY, First dose on Wed12/31/24 at 0900, Tablets can be crushed and given via enteral route. Avoid grapefruit juice during oral amiodarone treatment. 0841 ($Given - Provider: Mague Grimaldo RN)2026 ($Given - Provider: Дмитрий Noel RN) 08 ($Given - Provider: Angelica Robert RN)2043 ($Given - Provider: Mark Junior RN) 0900 (Due)2100 (Due) aspirin (ASA) chewable tablet 243 mg (COMPLETED)(Linked Group 1) 243 mg, Oral, ONCE, On Wed01/01/25 at 0900, For 1 dose, If patient received aspirin on the day of the procedure, give 3 81 mg tablets on the morning of the procedure to TOTAL 324 dose. Exceptions: IF patient is allergic to aspirin OR IF patient already received aspirin 325 mg today, Cardiac Pre-procedure 0930 ($Given - Provider: Gail Bangura, VERENICE) aspirin EC tablet 81 mg 81 mg, Oral, DAILY, First dose on 12/31/24 at 1130, DO NOT CRUSH. 1148 ($Given - Provider: Mague Grimaldo, VERENICE) 0822 ($Given - Provider: Angelica Robert, VERENICE) 0900 (Due) atorvastatin (LIPITOR) tablet 10 mg 10 mg, Oral, DAILY, First dose on 12/30/24 at 1000 0840 ($Given - Provider: Mague Grimaldo, VERENICE) 0830 ($Given - Provider: Angelica Robert, VERENICE) 0900 (Due) gabapentin (NEURONTIN) capsule 800 mg 800 mg, Oral, 2 TIMES DAILY, First dose on 12/30/24 at 1000 0840 ($Given - Provider: Mague Grimaldo, VERENICE)2026 ($Given - Provider: Дмитрий Noel, VERENICE) 0822 ($Given - Provider: Angelica Robert, VERENICE)2042 ($Given - Provider: Mark Junior RN) 0900 (Due)2100 (Due) heparin - BOLUS DOSE from infusion (COMPLETED) 2,800 Units (rounded from 2,784 Units = 30 Units/kg 92.8 kg), Intravenous, ONCE, On 12/31/24 at 1200, For 1 dose, IV PUMP PROGRAMMING: Program continuous infusion first, then program bolus dose. Infuse over 5 minutes. For PTT value 41-54 Low Intensity Heparin Treatment- PTT monitoring Nurse to administer dose from existing infusion. If no infusion bag or syringe for this order is available, contact pharmacist to re-enter medication order. 1149 ($Given - Provider: Mague Grimaldo RN) heparin - BOLUS DOSE from infusion (COMPLETED) 2,800 Units (rounded from 2,784 Units = 30 Units/kg 92.8 kg), Intravenous, ONCE, On 12/31/24 at 1930, For 1 dose, IV PUMP PROGRAMMING: Program continuous infusion first, then program bolus dose. Infuse over 5 minutes. For PTT value 41-54 Low Intensity Heparin Treatment- PTT monitoring Nurse to administer dose from existing infusion. If no infusion bag or syringe for this order is available, contact pharmacist to re-enter medication order. 1925 ($Given - Provider: Alida Nieto, RN) heparin - BOLUS DOSE from infusion (COMPLETED) 5,550 Units (rounded from 5,568 Units = 60 Units/kg 92.8 kg), Intravenous, ONCE, On 01/01/25 at 0330, For 1 dose, IV PUMP PROGRAMMING: Program continuous infusion first, then program bolus dose. Infuse over 5 minutes. For PTT value LESS than 41 Low Intensity Heparin Treatment- PTT monitoring Nurse to administer dose from existing infusion. If no infusion bag or syringe for this order is available, contact pharmacist to re-enter medication order. 0321 ($Given - Provider: Lucrecia Whelan, VERENICE) insulin aspart (NovoLOG) injection (RAPID ACTING) (CANCELED) 1-4 Units, Subcutaneous, EVERY 4 HOURS, First dose on 12/30/24 at 0600, Correction Scale - LOW INSULIN RESISTANCE DOSING Do Not give Correction Insulin if BG less than 140. For BG 140 - 239 give 1 unit. For BG 240 - 339 give 2 units. For BG 340 - 439 give 3 units For BG greater than or equal to 440 give 4 units Check blood glucose Q4H and administer based on blood glucose. Notify provider if glucose greater than or equal to 350 mg/dL after administration of correction dose. 0022 (Not Given - Provider: Latasha Castaneda RN - Reason: Order parameters not met)0401 ($Given - Provider: Latasha Castaneda RN) insulin aspart (NovoLOG) injection (RAPID ACTING) 1-7 Units, Subcutaneous, 3 TIMES DAILY BEFORE MEALS, First dose on 12/31/24 at 0730, Correction Scale - MEDIUM INSULIN RESISTANCE DOSING Do Not give Correction Insulin if Pre-Meal BG less than 140. For Pre-Meal BG 140 - 189 give 1 unit. For Pre-Meal BG 190 - 239 give 2 units. For Pre-Meal BG 240 - 289 give 3 units. For Pre-Meal BG 290 - 339 give 4 units. For Pre-Meal BG 340- 389 give 5 units. For Pre-Meal BG 390-439 give 6 units For Pre-Meal BG greater than or equal to 440 give 7 units. If patient is NOT eating a meal: Blood glucose should still be checked and correction (sliding scale) insulin to be administered within 30 minutes if order parameters are met. If patient is eating a meal: To be given with prandial insulin if ordered, and based on pre-meal blood glucose. Administering insulin within 5 minutes of the start of the meal is ideal. Administer insulin no more than 30 minutes after the start of the meal, unless directed otherwise by provider. Notify provider if glucose greater than or equal to 350 mg/dL after administration of correction dose. 0840 ($Given - Provider: Mague Grimaldo RN)1156 (Not Given - Provider: Mague Grimaldo RN - Reason: Order parameters not met)1644 ($Given - Provider: Alida Nieto RN - Comment: BG 151) 0824 (Not Given - Provider: Angelica Robert RN - Reason: Order parameters not met - Comment: [phone] (Not Given - Provider: Angelica Robert RN - Reason: Order parameters not met - Comment: [phone] (Not Given - Provider: Angelica Robert RN - Reason: Order parameters not met - Comment: [phone] 0730 (Due)1130 (Due)1630 (Due) insulin aspart (NovoLOG) injection (RAPID ACTING) 1-5 Units, Subcutaneous, AT BEDTIME, First dose on 12/31/24 at 2100, MEDIUM INSULIN RESISTANCE DOSING Do Not give Bedtime Correction Insulin if BG less than 200. For BG 200 - 249 give 1 units. For BG 250 - 299 give 2 units. For BG 300 - 349 give 3 units. For BG 350 -399 give 4 units. For BG greater than or equal to 400 give 5 units. Notify provider if glucose greater than or equal to 350 mg/dL after administration of correction dose. 2024 ($Given - Provider: Дмитрий Noel RN) 2041 (Not Given - Provider: Mark Junior RN - Reason: Order parameters not met - Comment: BG 134) 2100 (Due) levothyroxine (SYNTHROID/LEVOTHROID) tablet 50 mcg 50 mcg, Oral, EVERY MORNING BEFORE BREAKFAST, First dose on 12/30/24 at 1000, Separate oral administration of iron- or calcium-containing products and levothyroxine by at least 4 hours. 0655 ($Given - Provider: Latasha Castaneda RN) 0822 ($Given - Provider: Angelica Robert RN) 0730 (Due) magnesium sulfate 2 g in 50 mL sterile water intermittent infusion (COMPLETED) 2 g, Intravenous, Administer over 60 Minutes, at 50 mL/hr, ONCE, On 01/01/25 at 0630, For 1 dose, Magnesium level 1.6-2 mg/dL Administer 2 gm magnesium IV x 1 doses and recheck magnesium level the next AM. Ordered from the Magnesium replacement order set. 0823 ($New Bag - Provider: Angelica Robret RN) magnesium sulfate 4 g in 50 mL sterile water intermittent infusion (COMPLETED) 4 g, Intravenous, Administer over 120 Minutes, at 25 mL/hr, ONCE, On 12/31/24 at 0430, For 1 dose, Magnesium level 1.1-1.5 mg/dL. Administer 4 gm magnesium IV x 1 dose and recheck magnesium level 2-4 hours AFTER the last dose is infused. Ordered from the Magnesium replacement order set. 0545 ($New Bag - Provider: Latasha Castaneda RN) metoprolol succinate ER (TOPROL XL) 24 hr tablet 25 mg (CANCELED) 25 mg, Oral, DAILY, First dose (after last modification) on 12/31/24 at 0900, DO NOT CRUSH. Tablet may be split in half along score line. 0756 (Unheld by provider - Provider: Laura Brian MD)0841 ($Given - Provider: Mague Grimaldo RN) metoprolol tartrate (LOPRESSOR) half-tab 12.5 mg (CANCELED) 12.5 mg, Oral, 2 TIMES DAILY, First dose on 12/30/24 at 1300, Tablets can be crushed and given via enteral route. 0940 ($Given - Provider: Mague Grimaldo, VERENICE) metoprolol tartrate (LOPRESSOR) tablet 25 mg (COMPLETED) 25 mg, Oral, ONCE, On 12/31/24 at 0400, For 1 dose, Tablets can be crushed and given via enteral route. 0347 ($Given - Provider: Latasha R Leonel, RN) metoprolol tartrate (LOPRESSOR) tablet 25 mg 25 mg, Oral, EVERY 8 HOURS, First dose (after last modification) on Wed12/31/24 at 1700, Tablets can be crushed and given via enteral route. Hold for SBP < 100 and or HR < 60 1650 ($Given - Provider: Alida Nieto, VERENICE) 0038 ($Given - Provider: Lucrecia Whelan, RN)0822 ($Given - Provider: Angelica Robert RN)1749 ($Given - Provider: Angelica Robert RN) 0050 ($Given - Provider: Mark Junior, VERENICE)0900 (Due)1700 (Due) nortriptyline (PAMELOR) capsule 25 mg 25 mg, Oral, AT BEDTIME, First dose on Wed12/30/24 at 2100 202 ($Given - Provider: Дмитрий Noel RN) 204 ($Given - Provider: Mark Junior, VERENICE) 2100 (Due) rivaroxaban ANTICOAGULANT (XARELTO) tablet 20 mg 20 mg, Oral, DAILY WITH SUPPER, First dose on Wed01/01/25 at 1800, Indications: Afib-non valvular 1819 ($Given - Provider: Angelica Robert RN) 1700 (Due) sodium chloride (PF) 0.9% PF flush 3 mL 3 mL, Intracatheter, EVERY 8 HOURS, First dose on Wed01/01/25 at 1200, to lock peripheral IV dormant line., Cardiac Pre-procedure 1154 (Not Given - Provider: Angelica Robert RN - Reason: IV Infusing)2042 ($Given - Provider: Mark Junior RN) 0400 (Due)1200 (Due)2000 (Due) sodium chloride (PF) 0.9% PF flush 3 mL 3 mL, Intracatheter, EVERY 8 HOURS, First dose on Wed01/01/25 at 1200, to lock peripheral IV dormant line 1331 ($Given - Provider: Angelica Robert RN)2042 ($Given - Provider: Mark Junior RN) 0400 (Due)1200 (Due)2000 (Due) sodium phosphate 9 mmol in sodium chloride 0.9 % 250 mL intermittent infusion (COMPLETED) 9 mmol, Intravenous, ONCE, Administer over 4 Hours, On 01/01/25 at 0800, For 1 dose, Phosphorus level 2.5-2.7 mg/dL Recheck phosphorus level the morning after the infusion is completed. Ordered from the Phosphorus replacement order set. Each mmol of phosphate provides 1.33 mEq of Sodium. Multiply the patient's phosphate dose by 1.33 to determine the amount of sodium in this dose., Phosphorus Replacement: Phosphorus level 2.5-2.7 mg/dL, Recheck: Phosphorus level next AM 0930 ($Given - Provider: Gail Bangura RN)1027 (Hold - Provider: Angelica Robert RN - Reason: Patient not available - Comment: went to hoisting laborer)1330 (Handoff - Provider: Angelica Robert RN - Comment: restarted) Continuous Medication Order 12/31/2024 01/01/2025 01/02/2025 amiodarone (NEXTERONE) 1.8 mg/mL in dextrose 5% 200 mL ADULT STANDARD infusion (CANCELED) 0.5 mg/min (16.6667 mL/hr, rounded to 16.7 mL/hr), Intravenous, CONTINUOUS, Starting on 12/30/24 at 0600, After 24 hours of infusion, call provider for further orders (if provider not already contacted). Hold for systolic blood pressure less than 90 or heart rate less than 60 beats per minute. FOR Telemetry patients ONLY. The use of an in-line 0.22 micron filter is required for PERIPHERAL or MIDLINE administration to reduce the incidence of phlebitis. 0028 (Rate/Dose Verify - Provider: Latasha Castaneda RN)0137 ($New Bag - Provider: Edna Krishnamurthy RN)0235 (Rate/Dose Verify - Provider: Latasha Castaneda RN)0406 (Rate/Dose Verify - Provider: Latasha Castaneda RN)0658 (Rate/Dose Verify - Provider: Latasha Castaneda RN)0842 (Infusion stopped per MD order - Provider: Mague Grimaldo RN) heparin 25,000 units in 0.45% NaCl 250 mL ANTICOAGULANT infusion (CANCELED) 0-5,000 Units/hr (0-50 mL/hr), Intravenous, CONTINUOUS, Starting on 12/30/24 at 0700, --Nurse to use Heparin Infusion ADULT Dose Adjustments by RN order set after EVERY PTT result to place further orders (for bolus if needed, infusion adjustment if needed, and ordering next lab)- Starting Infusion Rate = 1,050 Units/hr (12 units/kg/hr). (Ordered: 12/30/2024) Low Intensity Heparin Treatment- PTT monitoring WITH Boluses GOAL: PTT = 55-80 seconds, IF HEPARIN INFUSION HELD FOR PROCEDURE: Restart heparin infusion at previous rate (no bolus needed). Nurse to place a one-time PTT lab order timed for 6 hours after heparin infusion was restarted., Heparin Therapy Type: Low Intensity Heparin Infusion - With Initial Bolus (aPTT 55-80), Initial Set-up verified by: VERENICE Daugherty 0028 (Rate/Dose Verify - Provider: Latasha Castaneda RN)0235 (Rate/Dose Verify - Provider: Latasha Castaneda RN)0401 ($New Bag - Provider: Latasha Castaneda RN)0658 (Rate/Dose Verify - Provider: Latasha Castaneda RN)1155 (Rate/Dose Change - Provider: Mague Grimaldo RN - Comment: Per protocol increase by 150units/hr.)1723 (Rate/Dose Verify - Provider: Alida Nieto RN)1922 (Rate/Dose Change - Provider: Alida Nieto RN) 0032 ($New Bag - Provider: Lucrecia Whelan RN)0321 (Rate/Dose Change - Provider: Lucrecia Whelan, VERENICE)0515 (Rate/Dose Verify - Provider: Lucrecia Whelan RN)0800 (Rate/Dose Verify - Provider: Angelica Robert RN)0944 (Paused - Provider: Angelica Robert RN - Comment: txtpg Dr Denis about critical PTT of 179, ordered to hold until her cardiac procedure.) sodium chloride 0.9 % infusion at 150 mL/hr, Intravenous, CONTINUOUS, 150 mL/hr IV for 2 hours prior to cardiac hoisting laborer procedure, then decrease to 75 mL/hr to run throughout the procedure. Start at 0700 for inpatients. IF PATIENT IS RECEIVING RENAL DIALYSIS, RN to reduce rate of 0.9 % sodium chloride IV solution to 10 mL /hour (TKO) IV infusion to prevent fluid overload., Cardiac Pre-procedure, Starting on Wed01/01/25 at 1200, Until Discontinued 1154 (Canceled Entry - Provider: Angelica Robert RN) sodium chloride 0.9 % infusion () at 75 mL/hr, Intravenous, CONTINUOUS, Infuse for 4 hours or until patient is ambulating. IF PATIENT WAS ADMITTED WITH HEART FAILURE, the RN should discuss primary cardiology team whether it is appropriate to reduce rate to10 mL/hour (TKO) in order to prevent fluid overload IF PATIENT IS RECEIVING RENAL DIALYSIS, RN to reduce rate of 0.9% sodium chloride IV solution to 10 mL /hour (TKO) to prevent fluid overload, Starting on Wed01/01/25 at 1200, Until Wed01/01/25 at 1559 1145 (Rate/Dose Verify - Provider: Angelica Robert RN)1200 (Rate/Dose Verify - Provider: Angelica Robert RN)1400 (Rate/Dose Verify - Provider: Angelica Robert RN)1530 (Stopped - Provider: Angelica Robert RN) sodium chloride 0.9 % infusion at 75 mL/hr, Intravenous, CONTINUOUS, Administer over 4 Hours, or until patient is ambulating. IF PATIENT WAS ADMITTED WITH HEART FAILURE, the RN should discuss primary cardiology team whether it is appropriate to reduce rate to10 mL/hour (TKO) in order to prevent fluid overload IF PATIENT IS RECEIVING RENAL DIALYSIS, RN to reduce rate of 0.9% sodium chloride IV solution to 10 mL /hour (TKO) to prevent fluid overload, Starting on Wed01/01/25 at 1200, Until Discontinued 1242 (Not Given - Provider: Angelica Robert RN - Reason: Other - Comment: duplicate) PRN Medication Order 12/31/2024 01/01/2025 01/02/2025 acetaminophen (TYLENOL) tablet 650 mg (CANCELED) 650 mg, Oral, EVERY 6 HOURS PRN, other, headaches, fever, pain, Starting on Wed12/31/24 at 1103, Maximum acetaminophen dose from all sources = 75 mg/kg/day not to exceed 4 grams/day. 1657 ($Given - Provider: Alida Nieto RN) acetaminophen (TYLENOL) tablet 650 mg 650 mg, Oral, EVERY 4 HOURS PRN, mild pain, headaches, Starting on 01/01/25 at 1152, May give first dose 4 hours after last scheduled dose of acetaminophen. Maximum acetaminophen dose from all sources = 75 mg/kg/day not to exceed 4 grams/day. bisacodyl (DULCOLAX) suppository 10 mg 10 mg, Rectal, DAILY PRN, constipation, Starting on 12/30/24 at 0535, Hold for loose stools. This is the third step of a three step constipation treatment. Hold for loose stools. dextrose 50 % injection 25-50 mL(Linked Group 2) 25-50 mL, Intravenous, EVERY 15 MIN PRN, low blood sugar, Administer over 1-5 Minutes, Starting on 12/30/24 at 0533, Use if have IV access, BG less [...] mg/dL x 2 consecutive 15 minute checks. dextrose 50 % injection 25-50 mL(Linked Group 3) 25-50 mL, Intravenous, EVERY 15 MIN PRN, low blood sugar, Administer over 1-5 Minutes, Starting on 12/31/24 at 0708, Use if have IV access, BG less [...] mg/dL x 2 consecutive 15 minute checks. fentaNYL (PF) (SUBLIMAZE) injection (CANCELED) ONCE PRN, Administer over 3-5 Minutes, Starting on 01/01/25 at 1042, Cardiac Intra-procedure 1042 ($Given - Provider: Dinora Cardona RN)1057 ($Given - Provider: Dinora Cardona RN) glucagon injection 1 mg(Linked Group 2) 1 mg, Subcutaneous, EVERY 15 MIN PRN, low blood sugar, May repeat x 1 only, Starting on 12/30/24 at 0533, May give SQ or IM. ONLY use glucagon IF patient has NO IV access AND is UNABLE to swallow AND blood glucose is LESS than or EQUAL to 50 mg/dL. glucagon injection 1 mg(Linked Group 3) 1 mg, Subcutaneous, EVERY 15 MIN PRN, low blood sugar, May repeat x 1 only, Starting on 12/31/24 at 0708, May give SQ or IM. ONLY use glucagon IF patient has NO IV access AND is UNABLE to swallow AND blood glucose is LESS than or EQUAL to 50 mg/dL. glucose gel 15-30 g(Linked Group 2) 15-30 g, Oral, EVERY 15 MIN PRN, low blood sugar, Starting on 12/30/24 at 0533, Give first dose for initial blood glucose [...] Document juice on I and O flowsheet. glucose gel 15-30 g(Linked Group 3) 15-30 g, Oral, EVERY 15 MIN PRN, low blood sugar, Starting on 12/31/24 at 0708, Give first dose for initial blood glucose [...] Document juice on I and O flowsheet. heparin (porcine) injection (CANCELED) ONCE PRN, Starting on Wed01/01/25 at 1052, Cardiac Intra-procedure 1052 ($Given - Provider: Dinora Cardona RN)1056 ($Given - Provider: Dinora Cardona, VERENICE) HOLD: Metformin and metformin containing medications if patient received IV contrast with acute kidney injury or severe chronic kidney disease (stage IV or stage V; i.e., eGFR less than 30) Medication(s) to hold: Hold metformin and metformin containing medications: for patients with acute kidney injury or severe chronic kidney disease (stage IV or stage V; i.e., eGFR less than 30), Parameter for hold (doses,days,conditions) : Other (see admin instructions), Hours or days to hold med before/after procedure/surgery: Day of the procedure and for 48 hours after IV contrast given, HOLD, Starting on Wed01/01/25 at 1152, Until Discontinued, Hold metformin (GLUCOPHAGE, GLUMETZA, FORTAMET, RIOMET) and metformin containing medications: alogliptin/metformin (KAZANO), glipizide/metformin (METAGLIP), glyburide/metformin (GLUCOVANCE), rosiglitazone/metformin (AVANDAMET), dapagliflozin/metformin (XIGDUO XR), sitagliptin/metformin (JANUMET, JANUMET XR), linagliptin/metformin (JENTADUETO), repaglinide/metformin (PRANDIMET), saxagliptin/metformin (KOMBIGLYZE XR), canagliflozin/metformin (INVOKAMET), and pioglitazone/metformin (ACTOPLUS MET, ACTOPLUS MET XR) on day of the procedure and for 48 hours after IV contrast given. If patient was on one of these medications pre-procedure, continue to HOLD for 48 hours post-procedure. Hold: metformin and metformin containing medications on day of the procedure and for 48 hours after IV contrast given- Patients with acute kidney injury or severe chronic kidney disease (stage IV or stage V; i.e., eGFR less than 30) Medication(s) to hold: Hold metformin (GLUCOPHAGE, GLUMETZA, FORTAMET, RIOMET) and metformin containing medications: (KAZANO, METAGLIP, GLUCOVANCE, AVANDAMET, XIGDUO XR, JANUMET, JANUMET XR, JENTADUETO, PRANDIMET, KOMBIGLYZE XR, INVOKAMET, ACTOPLUS MET, ACTOPLUS MET XR), Parameter for hold (doses,days,conditions) : Other (see admin instructions), Hours or days to hold med before/after procedure/surgery: OTHER (for 48 hours post procedure), Surgery or Procedure Date: 01/01/2025, HOLD, Starting on Wed01/01/25 at 1152, Until Discontinued, Hold metformin (GLUCOPHAGE, GLUMETZA, FORTAMET, RIOMET) and metformin containing medications: alogliptin/metformin (KAZANO), glipizide/metformin (METAGLIP), glyburide/metformin (GLUCOVANCE), rosiglitazone/metformin (AVANDAMET), dapagliflozin/metformin (XIGDUO XR), sitagliptin/metformin (JANUMET, JANUMET XR), linagliptin/metformin (JENTADUETO), repaglinide/metformin (PRANDIMET), saxagliptin/metformin (KOMBIGLYZE XR), canagliflozin/metformin (INVOKAMET), and pioglitazone/metformin (ACTOPLUS MET, ACTOPLUS MET XR). For patients with acute kidney injury or severe chronic kidney disease (stage IV or stage V; i.e., eGFR less than 30) If patient was on one of these medications pre-procedure, continue to HOLD for 48 hours post-procedure if patient received IV contrast. hydrALAZINE (APRESOLINE) injection 10 mg 10 mg, Intravenous, ONCE PRN, high blood pressure, for 1 minute, Administer over 1 Minutes, Starting on 01/01/25 at 1152, For 1 dose, Give if systolic blood pressure is greater than 160 mmHg prior to sheath pull or within 3 hours after sheath pull. Discontinue after sheath pull. Hold for heart rate greater than 100 beats per minutes. HYDROmorphone (DILAUDID) half-tab 1 mg(Linked Group 4) 1 mg, Oral, EVERY 4 HOURS PRN, moderate pain, Starting on 12/30/24 at 0542, Separate opioids 1 hour apart from any other sedative. Hold for RASS-2. Hold for confusion/somnolence. 0841 ($Given - Provider: Mague Grimaldo RN) HYDROmorphone (DILAUDID) tablet 2 mg(Linked Group 4) 2 mg, Oral, EVERY 4 HOURS PRN, severe pain, Starting on 12/30/24 at 0542, Separate opioids 1 hour apart from any other sedative. Hold for RASS-2. Hold for confusion/somnolence. 0841 (See Alternative - Provider: Mague Grimaldo RN) HYDROmorphone (PF) (DILAUDID) injection 0.3 mg 0.3 mg, Intravenous, EVERY 3 HOURS PRN, severe pain, For pain that is not controlled with oral medications., Starting on 12/30/24 at 0542, Try oral first. iodixanol (VISIPAQUE 320) injection (CANCELED) ONCE PRN, Starting on Wed01/01/25 at 1119, Cardiac Intra-procedure 1119 ($Given - Provider: Shady Wallace MD) lidocaine (LMX4) cream Topical, EVERY 1 HOUR PRN, other, with VAD insertion PRN, Starting on Wed01/01/25 at 1152, Apply at least 30 minutes prior to VAD insertion. In divided doses as needed for size of site for insertion. MAX Dose: 2.5g (1/2 of 5g tube) Reason: Pain Do NOT give if patient has a history of allergy to any local anesthetic or any cassandra product., Cardiac Pre-procedure lidocaine (LMX4) cream Topical, EVERY 1 HOUR PRN, pain, with VAD insertion, Starting on Wed01/01/25 at 1152, Apply at least 30 minutes prior to VAD insertion in divided doses as needed for size of site for insertion. MAX Dose: 2.5 g ( of 5 g tube) Do NOT give if patient has a history of allergy to any local anesthetic or any cassandra product. Do NOT use both lidocaine intradermal/subcutaneous injection and the lidocaine cream on the same site. lidocaine 1 % 0.1-1 mL 0.1-1 mL, Other, EVERY 1 HOUR PRN, mild pain with VAD insertion, Starting on Wed01/01/25 at 1152, MAX dose 1 mL subcutaneous OR intradermal along the side of the vein in divided doses as needed for VAD insertion. Do NOT give if patient has a history of allergy to any local anesthetic or any cassandra product. MAX dose 1 mL., Cardiac Pre-procedure lidocaine 1 % 0.1-1 mL 0.1-1 mL, Other, EVERY 1 HOUR PRN, mild pain with VAD insertion, Starting on Wed01/01/25 at 1152, MAX dose 1 mL subcutaneous OR intradermal along the side of the vein in divided doses as needed for VAD insertion. Do NOT give if patient has a history of allergy to any local anesthetic or any cassandra product. Do NOT use both lidocaine intradermal/subcutaneous injection and the lidocaine cream on the same site. lidocaine 1 % (CANCELED) ONCE PRN, Starting on Wed01/01/25 at 1050, Cardiac Intra-procedure 1050 ($Given - Provider: Shady Wallace MD) methocarbamol (ROBAXIN) tablet 750 mg 750 mg, Oral, EVERY 6 HOURS PRN, muscle spasms, Starting on Wed12/30/24 at 0532 0401 ($Given - Provider: Latasha Castaneda RN) midazolam (VERSED) injection 0.5 mg 0.5 mg, Intravenous, Administer over 2 Minutes, EVERY 5 MIN PRN, anxiety, or patient comfort with sheath removal., Starting on Wed01/01/25 at 1152, For 2 doses, May repeat once after 5 minutes if needed for anxiety or patient comfort with the FEMORAL sheath removal. Max total dose is 1 mg. This drug may cause significant respiratory depression. Monitor respiratory status and vital signs carefully for 1 hour after each dose. midazolam (VERSED) injection (CANCELED) Administer over 2 Minutes, ONCE PRN, Starting on 01/01/25 at 1042, Cardiac Intra-procedure 1042 ($Given - Provider: Dinora Cardona RN)1058 ($Given - Provider: Dinora Cardona RN) naloxone (NARCAN) injection 0.2 mg(Linked Group 5) 0.2 mg, Intravenous, EVERY 2 MIN PRN, opioid reversal, Starting on 12/30/24 at 0552, Administer intravenous route when available and notify provider when administered. For unintended sedation or respiratory depression if all of the below criteria are met: ~ respiratory rate LESS than or EQUAL to 8. ~SaO2 less than 92% and or/end-tidal CO2 is greater than 50. ~ the patient is receiving an opioid, has unintended sedations assessed as RASS (-3), and is currently not on mechanical ventilation. RASS scale moderate (-3) is movement or eye opening to voice but no eye contact. Patient Monitoring Once the patient has demonstrated a response to the naloxone, continue to monitor respiratory rate, depth, oxygen saturation and end-tidal CO2 (if available) every 15 minutes x 2, then every 30 minutes x 2, then every 1 hour x 1 after each naloxone dose. Consider transfer to ICU if patient respiratory parameters have not improved after 4 naloxone doses. naloxone (NARCAN) injection 0.2 mg(Linked Group 5) 0.2 mg, Intramuscular, EVERY 2 MIN PRN, opioid reversal, Starting on 12/30/24 at 0552, Administer intramuscular if an intravenous route is not available and notify provider when administered. For unintended sedation or respiratory depression if all of the below criteria are met: ~ respiratory rate LESS than or EQUAL to 8. ~SaO2 less than 92% and or/end-tidal CO2 is greater than 50. ~ the patient is receiving an opioid, has unintended sedations assessed as RASS (-3), and is currently not on mechanical ventilation. RASS scale moderate (-3) is movement or eye opening to voice but no eye contact. Patient Monitoring Once the patient has demonstrated a response to the naloxone, continue to monitor respiratory rate, depth, oxygen saturation and end-tidal CO2 (if available) every 15 minutes x 2, then every 30 minutes x 2, then every 1 hour x 1 after each naloxone dose. Consider transfer to ICU if patient respiratory parameters have not improved after 4 naloxone doses. naloxone (NARCAN) injection 0.4 mg(Linked Group 5) 0.4 mg, Intravenous, EVERY 2 MIN PRN, opioid reversal, Starting on 12/30/24 at 0552, Administer intravenous route when available and notify provider when administered. For unintended sedation or respiratory depression if all of the below criteria are met: ~ respiratory rate LESS than or EQUAL to 8. ~ SaO2 less than 92% and or/end-tidal CO2 is greater than 50. ~ the patient is receiving an opioid, has unintended sedation assessed as RASS (-4) or (-5) and patient is currently not on mechanical ventilation. RASS scale (-4) is deep sedation with no response to voice but movement or eye opening to physical stimulation. RASS scale (-5) is unarousable. Patient Monitoring Once the patient has demonstrated a response to the naloxone, continue to monitor respiratory rate, depth, oxygen saturation and end-tidal CO2 (if available) every 15 minutes x 2, then every 30 minutes x 2, then every 1 hour x 1 after each naloxone dose. Consider transfer to ICU if patient respiratory parameters have not improved after 4 naloxone doses. naloxone (NARCAN) injection 0.4 mg(Linked Group 5) 0.4 mg, Intramuscular, EVERY 2 MIN PRN, opioid reversal, Starting on 12/30/24 at 0552, Administer intramuscular if an intravenous route is not available and notify provider when administered. For unintended sedation or respiratory depression if all of the below criteria are met: ~ respiratory rate LESS than or EQUAL to 8. ~ SaO2 less than 92% and or/end-tidal CO2 is greater than 50. ~ the patient is receiving an opioid, has unintended sedation assessed as RASS (-4) or (-5) and patient is currently not on mechanical ventilation. RASS scale (-4) is deep sedation with no response to voice but movement or eye opening to physical stimulation. RASS scale (-5) is unarousable. Patient Monitoring Once the patient has demonstrated a response to the naloxone, continue to monitor respiratory rate, depth, oxygen saturation and end-tidal CO2 (if available) every 15 minutes x 2, then every 30 minutes x 2, then every 1 hour x 1 after each naloxone dose. Consider transfer to ICU if patient respiratory parameters have not improved after 4 naloxone doses. nitroGLYcerin in D5W injection (CANCELED) ONCE PRN, Starting on 01/01/25 at 1052, Cardiac Intra-procedure 1052 ($Given - Provider: Shady Wallace MD) ondansetron (ZOFRAN ODT) ODT tab 4 mg(Linked Group 6) 4 mg, Oral, EVERY 6 HOURS PRN, nausea/vomiting - 1st line, Starting on 12/30/24 at 0535, This is Step 1 of nausea and vomiting management. If nausea not resolved in 15 minutes, go to Step 2 prochlorperazine (COMPAZINE). With dry hands, peel back foil backing and gently remove tablet. Do not push oral disintegrating tablet through foil backing. Administer immediately on tongue and oral disintegrating tablet dissolves in seconds, then swallow with saliva. Liquid not required. ondansetron (ZOFRAN) injection 4 mg(Linked Group 6) 4 mg, Intravenous, EVERY 6 HOURS PRN, nausea/vomiting - 1st line, Administer over 2-5 Minutes, Starting on 12/30/24 at 0535, Give IF patient unable to tolerate oral medication. This is Step 1 of nausea and vomiting management. If nausea not resolved in 15 minutes, go to Step 2 prochlorperazine (COMPAZINE). Patient is already receiving anticoagulation with heparin, enoxaparin (LOVENOX), warfarin (COUMADIN) or other anticoagulant medication CONTINUOUS PRN, Starting on 12/30/24 at 0535, Until Discontinued polyethylene glycol (MIRALAX) Packet 17 g 17 g, Oral, DAILY PRN, constipation, Starting on 12/30/24 at 0535, Give in 8oz of water, juice, or soda. Hold for loose stools. This is the second step of a three step constipation treatment. 1 Packet = 17 grams. Mix each gram with at least 1/2 ounce (15 mL) of water - 8 ounces for 17 g dose, 4 ounces for 8.5 g dose, 2 ounces for 4 g dose. Follow with the same volume of water. Hold for loose stools unless being administered as part of a bowel prep regimen or bowel clean out. prochlorperazine (COMPAZINE) injection 10 mg(Linked Group 7) 10 mg, Intravenous, EVERY 6 HOURS PRN, nausea/vomiting - 2nd line, Administer over 1-2 Minutes, Starting on 12/30/24 at 0535, IF patient unable to tolerate oral medication. This is Step 2 of nausea and vomiting management. Give if nausea not resolved 15 minutes after giving ondansetron (ZOFRAN). prochlorperazine (COMPAZINE) tablet 10 mg(Linked Group 7) 10 mg, Oral, EVERY 6 HOURS PRN, nausea/vomiting - 2nd line, Starting on 12/30/24 at 0535, This is Step 2 of nausea and vomiting management. Give if nausea not resolved 15 minutes after giving ondansetron (ZOFRAN). senna-docusate (SENOKOT-S/PERICOLACE) 8.6-50 MG per tablet 1 tablet(Linked Group 8) 1 tablet, Oral, 2 TIMES DAILY PRN, constipation, Starting on 12/30/24 at 0535, If no bowel movement in 24 hours, increase to 2 tablets PO. Hold for loose stools. This is the first step of a three step constipation treatment. Hold for loose stools. senna-docusate (SENOKOT-S/PERICOLACE) 8.6-50 MG per tablet 2 tablet(Linked Group 8) 2 tablet, Oral, 2 TIMES DAILY PRN, constipation, Starting on 12/30/24 at 0535, Hold for loose stools. This is the first step of a three step constipation treatment. Hold for loose stools. sodium chloride (PF) 0.9% PF flush 3 mL 3 mL, Intracatheter, EVERY 1 HOUR PRN, other, to lock peripheral IV dormant line, Starting on Wed01/01/25 at 1152, Cardiac Pre-procedure sodium chloride (PF) 0.9% PF flush 3 mL 3 mL, Intracatheter, EVERY 1 MIN PRN, line flush, Starting on 01/01/25 at 1152, for peripheral IV flush post IV meds, or to ensure patency, Cardiac Pre-procedure sodium chloride (PF) 0.9% PF flush 3 mL 3 mL, Intracatheter, EVERY 1 MIN PRN, line flush, other, to ensure patency or to lock dormant line, Starting on 01/01/25 at 1152 triamcinolone (KENALOG) 0.1 % cream Topical, 2 TIMES DAILY PRN, irritation, Starting on 12/30/24 at 0828, Apply to affected area Linked Groups Order Group 1: aspirin (ASA) tablet 325 mg (COMPLETED) 325 mg, Oral, ONCE, On Wed01/01/25 at 0900, For 1 dose, Give if patient did not already receive aspirin on the same day of the procedure. Exceptions IF patient is allergic to aspirin, Cardiac Pre-procedure Or aspirin (ASA) chewable tablet 243 mg (COMPLETED)Jump to med 243 mg, Oral, ONCE, On Wed01/01/25 at 0900, For 1 dose, If patient received aspirin on the day of the procedure, give 3 81 mg tablets on the morning of the procedure to TOTAL 324 dose. Exceptions: IF patient is allergic to aspirin OR IF patient already received aspirin 325 mg today, Cardiac Pre-procedure Group 2: glucose gel 15-30 gJump to med 15-30 g, Oral, EVERY 15 MIN PRN, low blood sugar, Starting on 12/30/24 at 0533, Give first dose for initial blood glucose [...] over 1-5 Minutes, Starting on 12/30/24 at 0533, Use if have IV access, BG less [...] x 1 only, Starting on 12/30/24 at 0533, May give SQ or IM. ONLY use glucagon IF patient has NO IV access AND is UNABLE to swallow AND blood glucose is LESS than or EQUAL to 50 mg/dL. Group 3: glucose gel 15-30 gJump to med 15-30 g, Oral, EVERY 15 MIN PRN, low blood sugar, Starting on 12/31/24 at 0708, Give first dose for initial blood glucose [...] sugar, Administer over 1-5 Minutes, Starting on 12/31/24 at 0708, Use if have IV access, BG less [...] May repeat x 1 only, Starting on 12/31/24 at 0708, May give SQ or IM. ONLY use glucagon IF patient has NO IV access AND is UNABLE to swallow AND blood glucose is LESS than or EQUAL to 50 mg/dL. Group 4: HYDROmorphone (DILAUDID) half-tab 1 mgJump to med 1 mg, Oral, EVERY 4 HOURS PRN, moderate pain, Starting on 12/30/24 at 0542, Separate opioids 1 hour apart from any other sedative. Hold for RASS-2. Hold for confusion/somnolence. Or HYDROmorphone (DILAUDID) tablet 2 mgJump to med 2 mg, Oral, EVERY 4 HOURS PRN, severe pain, Starting on 12/30/24 at 0542, Separate opioids 1 hour apart from any other sedative. Hold for RASS-2. Hold for confusion/somnolence. Group 5: naloxone (NARCAN) injection 0.2 mgJump to med 0.2 mg, Intravenous, EVERY 2 MIN PRN, opioid reversal, Starting on 12/30/24 at 0552, Administer intravenous route when available and notify provider when administered. For unintended sedation or respiratory depression if all of the below criteria are met: ~ respiratory rate LESS than or EQUAL to 8. ~SaO2 less than 92% and or/end-tidal CO2 is greater than 50. ~ the patient is receiving an opioid, has unintended sedations assessed as RASS (-3), and is currently not on mechanical ventilation. RASS scale moderate (-3) is movement or eye opening to voice but no eye contact. Patient Monitoring Once the patient has demonstrated a response to the naloxone, continue to monitor respiratory rate, depth, oxygen saturation and end-tidal CO2 (if available) every 15 minutes x 2, then every 30 minutes x 2, then every 1 hour x 1 after each naloxone dose. Consider transfer to ICU if patient respiratory parameters have not improved after 4 naloxone doses. Or naloxone (NARCAN) injection 0.4 mgJump to med 0.4 mg, Intravenous, EVERY 2 MIN PRN, opioid reversal, Starting on 12/30/24 at 0552, Administer intravenous route when available and notify provider when administered. For unintended sedation or respiratory depression if all of the below criteria are met: ~ respiratory rate LESS than or EQUAL to 8. ~ SaO2 less than 92% and or/end-tidal CO2 is greater than 50. ~ the patient is receiving an opioid, has unintended sedation assessed as RASS (-4) or (-5) and patient is currently not on mechanical ventilation. RASS scale (-4) is deep sedation with no response to voice but movement or eye opening to physical stimulation. RASS scale (-5) is unarousable. Patient Monitoring Once the patient has demonstrated a response to the naloxone, continue to monitor respiratory rate, depth, oxygen saturation and end-tidal CO2 (if available) every 15 minutes x 2, then every 30 minutes x 2, then every 1 hour x 1 after each naloxone dose. Consider transfer to ICU if patient respiratory parameters have not improved after 4 naloxone doses. Or naloxone (NARCAN) injection 0.2 mgJump to med 0.2 mg, Intramuscular, EVERY 2 MIN PRN, opioid reversal, Starting on 12/30/24 at 0552, Administer intramuscular if an intravenous route is not available and notify provider when administered. For unintended sedation or respiratory depression if all of the below criteria are met: ~ respiratory rate LESS than or EQUAL to 8. ~SaO2 less than 92% and or/end-tidal CO2 is greater than 50. ~ the patient is receiving an opioid, has unintended sedations assessed as RASS (-3), and is currently not on mechanical ventilation. RASS scale moderate (-3) is movement or eye opening to voice but no eye contact. Patient Monitoring Once the patient has demonstrated a response to the naloxone, continue to monitor respiratory rate, depth, oxygen saturation and end-tidal CO2 (if available) every 15 minutes x 2, then every 30 minutes x 2, then every 1 hour x 1 after each naloxone dose. Consider transfer to ICU if patient respiratory parameters have not improved after 4 naloxone doses. Or naloxone (NARCAN) injection 0.4 mgJump to med 0.4 mg, Intramuscular, EVERY 2 MIN PRN, opioid reversal, Starting on 12/30/24 at 0552, Administer intramuscular if an intravenous route is not available and notify provider when administered. For unintended sedation or respiratory depression if all of the below criteria are met: ~ respiratory rate LESS than or EQUAL to 8. ~ SaO2 less than 92% and or/end-tidal CO2 is greater than 50. ~ the patient is receiving an opioid, has unintended sedation assessed as RASS (-4) or (-5) and patient is currently not on mechanical ventilation. RASS scale (-4) is deep sedation with no response to voice but movement or eye opening to physical stimulation. RASS scale (-5) is unarousable. Patient Monitoring Once the patient has demonstrated a response to the naloxone, continue to monitor respiratory rate, depth, oxygen saturation and end-tidal CO2 (if available) every 15 minutes x 2, then every 30 minutes x 2, then every 1 hour x 1 after each naloxone dose. Consider transfer to ICU if patient respiratory parameters have not improved after 4 naloxone doses. Group 6: ondansetron (ZOFRAN ODT) ODT tab 4 mgJump to med 4 mg, Oral, EVERY 6 HOURS PRN, nausea/vomiting - 1st line, Starting on 12/30/24 at 0535, This is Step 1 of nausea and vomiting management. If nausea not resolved in 15 minutes, go to Step 2 prochlorperazine (COMPAZINE). With dry hands, peel back foil backing and gently remove tablet. Do not push oral disintegrating tablet through foil backing. Administer immediately on tongue and oral disintegrating tablet dissolves in seconds, then swallow with saliva. Liquid not required. Or ondansetron (ZOFRAN) injection 4 mgJump to med 4 mg, Intravenous, EVERY 6 HOURS PRN, nausea/vomiting - 1st line, Administer over 2-5 Minutes, Starting on 12/30/24 at 0535, Give IF patient unable to tolerate oral medication. This is Step 1 of nausea and vomiting management. If nausea not resolved in 15 minutes, go to Step 2 prochlorperazine (COMPAZINE). Group 7: prochlorperazine (COMPAZINE) injection 10 mgJump to med 10 mg, Intravenous, EVERY 6 HOURS PRN, nausea/vomiting - 2nd line, Administer over 1-2 Minutes, Starting on 12/30/24 at 0535, IF patient unable to tolerate oral medication. This is Step 2 of nausea and vomiting management. Give if nausea not resolved 15 minutes after giving ondansetron (ZOFRAN). Or prochlorperazine (COMPAZINE) tablet 10 mgJump to med 10 mg, Oral, EVERY 6 HOURS PRN, nausea/vomiting - 2nd line, Starting on 12/30/24 at 0535, This is Step 2 of nausea and vomiting management. Give if nausea not resolved 15 minutes after giving ondansetron (ZOFRAN). Group 8: senna-docusate (SENOKOT-S/PERICOLACE) 8.6-50 MG per tablet 1 tabletJump to med 1 tablet, Oral, 2 TIMES DAILY PRN, constipation, Starting on 12/30/24 at 0535, If no bowel movement in 24 hours, increase to 2 tablets PO. Hold for loose stools. This is the first step of a three step constipation treatment. Hold for loose stools. Or senna-docusate (SENOKOT-S/PERICOLACE) 8.6-50 MG per tablet 2 tabletJump to med 2 tablet, Oral, 2 TIMES DAILY PRN, constipation, Starting on 12/30/24 at 0535, Hold for loose stools. This is the first step of a three step constipation treatment. Hold for loose stools. documented in this encounter Additional Health Concerns Infection Onset Date Last Indicated Resolved Time Rule Out COVID-19 12/30/2024 12/30/2024 12/30/2024 7:27 AM CDT documented as of this encounter Care Teams Audit Associate Relationship Specialty Start Date End Date [place], [place] [address] [place] [address] PCP - General Family Medicine 02/18/22 documented as of this encounter
--- OUTSIDE RECORDS SUMMARY | 2025-01-01 10:30 | XMS_ITS | Encounter Summary ---
Author Organization [place] [facility] [place] [address] Care Team Providers Care Line Analyst Name Role Phone Bianca Mejia MD Primary Care Provider [phone] Reason for Visit * Auth/Cert Specialty Diagnoses / Procedures Referred By Sukh t Referred To Contact Intensive Care Diagnoses Post-cardiac arrest Ashly Chen MD [address] [address] Phone: tel: fax: [facility] [address] [place] [address] Phone: tel: fax: Referral ID Status Reason Start Date Expiration Date Visits Re quested Visits Authorized [id number] 1 1 Encounter Details Date Type Department Care Team (Late st Contact Info) Description 01/01/2025 10:30 AM CDT - 01/01/2025 12:30 PM CDT Surgery [facility] [address] [place] [id number] Shady Wallace MD [address] [id number] Coronary Angiogram Social History Tobacco Use Types Packs/Day Years [...] Date Recorded Do you have housing? (Arturo farias is defined as stable permanent housing and does not include staying outside in a car, in a tent, in an abandoned building, in an overnight correction, or couch-surfing.) Yes 12/31/2024 Are you worried [...] Sign Reading Time Taken Comments Blood Pressure 114/62 01/01/2025 12:30 PM CDT Pulse 61 01/01/2025 12:30 PM CDT Temperature 36.8 C (98.3 F) 01/01/2025 12:00 PM CDT Respiratory Rate 13 01/01/2025 12:30 PM CDT Oxygen Saturation 95% 01/01/2025 12:30 PM CDT Inhaled Oxygen Concentration - - Weight 92.8 kg (204 lb 8 oz) 12/31/2024 6:57 AM CDT Height 170.2 cm (5' 7) 12/31/2024 4:00 AM CDT Body Mass Index 32.03 12/31/2024 4:00 AM CDT documented in this encounter Progress Notes * Amaya Layton RT - 01/01/2025 6:16 PM CDT RT progress note Ezpap note completed earlier today due to patient being in labor utilization superintendent. Will complete this evening. Amaya Lopez. RT Kinjal * Elias Denis MD - 01/01/2025 2:44 PM CDT [facility] Medicine Progress Note - Hospitalist [...] angiogram tomorrow. Appreciate cardiology input. Non-ST elevation ME in the setting of cardiac arrest; echo reported EF 50 to 55%, no significant valvular heart disease. Currently on heparin drip. Continue aspirin, statin, metoprolol. Cardiology planning for angiogram tomorrow. PAF with RVR: Overnight required amiodarone drip, transition to oral this morning by cardiology. Also on beta-nikki and titrating. Monitor vitals closely. CERTIFIED PHYSICAL THERAPIST ASSISTANT DOAC on hold as patient on heparin drip for above medical issues. Type 2 diabetes with neuropathy: Holding home metformin. A1c 6.08 July 2024. Insulin sliding scale and hypoglycemia protocol. Leukocytosis, transaminitis: Likely stress demargination and shock liver respectively. Both trending down. Monitor closely Hypothyroidism: TSH normal. CERTIFIED PHYSICAL THERAPIST ASSISTANT Synthroid History of lumbar fusion. CERTIFIED PHYSICAL THERAPIST ASSISTANT Neurontin History of laparoscopic sleeve gastrectomy History [...] Tobacco Use: High Risk (11/08/2024) Received from [facility] [facility] Patient History Smoking Tobacco Use: Every Day Smokeless Tobacco Use: Never Disposition Plan Medically Ready for Discharge: Anticipated in 2-4 Days Elias Denis MD Hospitalist Service [facility] Securely message with Secure64 (more info) Text page via [employer] Paging/Directory Interval History {Pertinent overnight events no [...] from the original note were not included. [address] [place] [address] [email or web address] OFFICE: [phone] CARDIOLOGY FOLLOW-UP NOTE Impression and Plan ASSESSMENT [...] every 8 hours Follow up: TBD Primary Twister Operator: None Subjective 59-year-old female with history of tobacco use, atrial fibrillation on anticoagulation, DM2, peripheral neuropathy who was admitted for cardiac arrest with bystander CPR and ROSC after defibrillationx 5, admitted to the ICU for postarrest shock. Feeling well today without any cardiac complaints. Does not report feeling any symptoms while in [facility] and historically has not felt atrial fibrillation. [...] BID Laura Brian MD 200 mg at 01/01/25821 aspirin (ASA) tablet 325 mg 325 mg Oral Once Laura Brian MD Or aspirin (ASA) chewable tablet 243 mg 243 mg Oral Once Laura Brian MD aspirin EC tablet 81 mg 81 mg Oral Daily Bhavik VILLEGAS MD 81 mg at 01/01/25821 atorvastatin (LIPITOR) tablet 10 mg 10 mg Oral Daily Ashly Chen MD 10 mg at 01/01/25829 gabapentin (NEURONTIN) capsule 800 mg 800 mg Oral BID Ashly Chen MD 800 mg at 01/01/25821 insulin aspart (NovoLOG) injection (RAPID ACTING) 1-7 Units Subcutaneous TID AC Bhavik VILLEGAS MD 1 Units at 12/31/241643 insulin aspart (NovoLOG) injection (RAPID ACTING) 1-5 Units Subcutaneous At Bedtime Bhavik VILLEGAS MD 1Units at 12/31/242024 levothyroxine (SYNTHROID/LEVOTHROID) tablet 50 mcg 50 mcg Oral QAM AC Heri Baugh MD 50 mcg at 01/01/25821 magnesium sulfate 2 g in 50 mL sterile water intermittent infusion 2 g Intravenous Once Bhavik VILLEGAS MD 50 mL/hr at 01/01/25 0823 2 g at 01/01/25 0823 metoprolol tartrate (LOPRESSOR) tablet 25 mg 25 [...] other anticoagulant medication Does not apply Continuous PRN Ashly Chen MD Medications Prior to Admission Prior to [...] Juliet Cox as part of a shared DIGITAL COMPUTER SYSTEMS ANALYST/PA visit. I personally reviewed the vital signs, [...] have a shockable rhythm. On presentation to thehospital neurologic and respiratory status stable. Started on [...] clubbing Skin: no xanthelasma, warm. Neurologic: normal newspaper managing editor bilateral, no tremors Psychiatric: alert and oriented x3, calm Review Of Systems Skin: negative Eyes: negative Ears/Nose/Throat: negative Respiratory: No shortness of breath, dyspnea on exertion, cough, or hemoptysis Cardiovascular: negative Gastrointestinal: negative Genitourinary: negative Musculoskeletal: negative Neurologic: negative Psychiatric: negative Hematologic/Lymphatic/Immunologic: negative Endocrine: negative Lab Results Chemistry/lipid CBC Cardiac Enzymes/BNP/TSH/INR No results for input(s): CHOL, HDL, LDL, TRIG, CHOLHDLRATIO in the last 44700 hours. No results for input(s): LDL in the last 10217 hours. Recent Labs Lab Test 12/31/24 0819 12/31/24 0358 12/31/24355 NA -- -- 139 POTASSIUM -- -- 4.0 CHLORIDE -- -- 101 CO2 -- -- 26 GLC 142* < > 149* BUN -- -- 17.4 CR -- -- 0.65 GFRESTIMATED -- -- >90 SAMMIE -- -- 8.8 < > = values in this interval not displayed. Recent Labs Lab Test 12/31/24 0356 12/30/24 0615 12/30/24 0019 CR 0.65 0.80 0.98* No results for input(s): A1C in the last 24908 hours. Recent Labs Lab Test 12/31/24355 WBC 12.5* HGB 10.7* HCT 32.9* MCV 95 PLT 199 Recent Labs Lab Test 12/31/24 0356 12/30/24 0833 12/30/24614 HGB 10.7* 10.9* 11.5* No results for input(s): TROPONINI in the last 65604 hours. No results for input(s): BNP, NTBNPI, NTBNP in the last 94892 hours. Recent Labs Lab Test 12/30/24614 TSH [...] laminectomy L2-L5. Local autograft and bone graft credit reporting clerk with Magnifuse and demineralized bone fiber.; Surgeon: [...] Resource Strain: Low Risk (07/28/2024) Received from [facility] Financial Resource Strain Difficulty of Paying Living Expenses: 3 Difficulty of Paying Living Expenses: Not on file Food Insecurity: No Food Insecurity (07/28/2024) Received from [facility] Food Insecurity Do you worry your food will run out before you are able to buy more?: 1 Transportation Needs: No Transportation Needs (07/28/2024) Received from [facility] Transportation Needs Does lack of transportation keep you from medical appointments?: 1 Does lack of transportation keep you from work, meetings or getting things that you need?: 1 Physical Activity: Not on file Stress: Not on file Social Connections: Socially Integrated (07/28/2024) Received from [facility] Social Connections Do you often feel lonely [...] Housing Stability: Low Risk (07/28/2024) Received from [facility] Housing Stability What is your housing situation today?: 1 Medications Allergies No current outpatient medications on file. No Known Allergies Laura Brian MD * Bhavik VILLEGAS MD - 12/31/2024 10:53 AM CDT [facility] Medicine Progress Note - Hospitalist [...] angiogram tomorrow. Appreciate cardiology input. Non-ST elevation ME in the setting of cardiac arrest; echo reported EF 50 to 55%, no significant valvular heart disease. Currently on heparin drip. Continue aspirin, statin, metoprolol. Cardiology planning for angiogram tomorrow. PAF with RVR: Overnight required amiodarone drip, transition to oral this morning by cardiology. Also on beta-nikki and titrating. Monitor vitals closely. CERTIFIED PHYSICAL THERAPIST ASSISTANT DOAC on hold as patient on heparin drip for above medical issues. Type 2 diabetes with neuropathy: Holding home metformin. A1c 6.08 July 2024. Insulin sliding scale and hypoglycemia protocol. Leukocytosis, transaminitis: Likely stress demargination and shock liver respectively. Both trending down. Monitor closely Hypothyroidism: TSH normal. CERTIFIED PHYSICAL THERAPIST ASSISTANT Synthroid History of lumbar fusion. CERTIFIED PHYSICAL THERAPIST ASSISTANT Neurontin History of laparoscopic sleeve gastrectomy History [...] Tobacco Use: High Risk (11/08/2024) Received from [employer] [facility] Patient History Smoking Tobacco Use: Every Day Smokeless Tobacco Use: Never Disposition Plan Medically Ready for Discharge: Anticipated in 2-4 Days Bhavik VILLEGAS MD Hospitalist Service [facility] Securely message with Secure64 (more info) Text page via [facility] Paging/Directory Interval History Patient is new to [...] the past 24 hours) Echocardiogram Complete Narrative [id number]^YOGI^[place]URA^ [place] [address] Name: JULIET COX : 1965 Study Date: 12/30/2024 11:29 AM Age: 59 yrs Gender: Female Patient Location: [facility] Reason For Study: Abn EKG Ordering Physician: Laura Brian MD Referring Physician: LAYLA RETANA Performed By: AD^^^^ BSA: 2.0 m2 Height: 66 in Weight: 197 lb HR: 76 Procedure Echocardiogram with two-dimensional, color and spectral Doppler. Definity ([facility] #[id number]) given intravenously. Interpretation Summary 1. Normal left [...] Narrative EXAM: CT HEAD W/O CONTRAST LOCATION: [facility] DATE: 12/30/2024 INDICATION: post cardiac arrest, syncope, [...] Narrative EXAM: MR BRAIN W/O CONTRAST LOCATION: [facility] DATE: 12/30/2024 INDICATION: poor recall after cardiac [...] Hollins MD - 12/31/2024 10:36 AM CDT [facility] Neurology [place] Juliet Cox Age: [age] year old Date [...] alert and talking in the emergency room ([facility]). She was transferred here to [facility] for further management. Here, some short- term memory issues were noted and neurology consultation was requested. I did see the patient yesterday and noted some short-term recall difficulties (1 out of 3). Today she is doing significantly better but perhaps not quite back to b aseline. She denies having any memory problems prior [...] 50 mcg, 50 mcg, Oral, QAM , AmauriHeri MD, 50 mcg at 12/31/24 0655 methocarbamol [...] Bedtime, Ashly Chen MD, 25 mg at 12/30/242137 ondansetron (ZOFRAN ODT) ODT tab 4 mg, [...] the hospital but knows we are in [place] She can calculate quarters in $1.75 She can name the food service worker She does fine on simple and complex [...] are intact. There is no dysmetria on [id number]-ki-zlfl testing. Gait: gait testing is deferred for [...] remembering Maria Dolores's, but she lives in [place] and may not be familiar with the area. She knows we are in [place] Does fine on naming and repeating Can [...] CT CHEST PULMONARY EMBOLISM W CONTRAST LOCATION: [facility] DATE: 12/30/2024 INDICATION: Cardiac arrest. [...] is necessary. Echocardiogram Limited Result Date: 12/30/2024 [id number]^MAZIN^LAYLA^CYNTHIA [facility] Echocardiography Laboratory [address] [place] [id number] Name: JULIET COX : 1965 Study Date: 12/30/2024 12:15 AM Age: 59 yrs Gender: Female [facility] Reason For Study: Cardiac Arrest Ordering Physician: [...] Lab Results: Personally Reviewed. Fingerstick Blood Glucose: @[id number](POCGLUFGR:10)@ Last Hbg A1C: No results found for: HGBA1C Lab Results Component Value Date INR 1.22 (H) 12/30/2024 PROTIME 15.6 (H) 12/30/2024 Recent Results (from the past 24 hours) EKG 12 lead Collection Time: 12/29/24 10:53 PM Result Value Ref Range Systolic Blood Pressure mmHg Diastolic Blood Pressure mmHg Ventricular Rate 144 BPM Atrial Rate 315 BPM MS Interval ms QRS Duration 90 ms QT 322 ms QTc 498 ms P [place] degrees R AXIS -79 degrees T [place] 117 degrees Interpretation ECG Atrial flutter with [...] Range Hold Specimen JIC Extra Green Top ([place] Heparin) ON ICE Collection Time: 12/29/24 11:04 PM Result Value Ref Range Hold Specimen JIC EKG 12 lead Collection Time: 12/29/24 11:40 PM Result Value Ref Range Systolic Blood Pressure mmHg Diastolic Blood Pressure mmHg Ventricular Rate 113 BPM Atrial Rate 226 BPM MS Interval ms QRS Duration 94 ms QT 390 ms QTc 534 ms P [place] degrees R AXIS 57 degrees T [place] 83 degrees Interpretation ECG Atrial flutter with [...] Rate 76 BPM Atrial Rate 76 BPM MS Interval 224 ms QRS Duration 102 ms QT 422 ms QTc 474 ms P [place] 58 degrees R AXIS -45 degrees T [place] 25 degrees Interpretation ECG Sinus rhythm with [...] Baugh MD Date: 12/30/2024 Time: 9:06 AM [facility] * Edna Isaacs RN - 12/30/2024 7:55 AM CDT Pt arrived from [facility] at approx 0530 in stable condition. [...] Care Medicine Consult 12/30/2024 Name: Juliet Cox DOB: 1965 PCP: Bianca Mejia ASSESSMENT/PLAN: 59 year [...] chronic -- in NSR on arrival to [facility]. #. HLD, continued on CERTIFIED PHYSICAL THERAPIST ASSISTANT atorvastatin. Goal MAP >/= 65 and SBP >/= 90 No indications for vasopressors at this time No clinical e/o decompensated HF, reassuring TTE from [facility] -- bolus PRN for hypotension/JARON/LA elevation Will finish off the amiodarone drip, continue digoxin Hold CERTIFIED PHYSICAL THERAPIST ASSISTANT metoprolol for now Hold CERTIFIED PHYSICAL THERAPIST ASSISTANT Xarelto & start heparin gtt Discussed w/ on-call color control supervisor -- patient will be seen today for an angiogram Infectious: no acute issues or suspicion of an untreated infectious process. Low threshold for empiric CAP coverage if she develops clinically suggestive symptoms. Renal: baseline Cr ~0.7. #. JARON, presumably pre-renal process in setting of her cardiac arrest. #. Hyperkalemia at [facility], resolved w/ shifting protocols. #. Elevated lactic [...] normocytic anemia. Endo: well-controlled T2DM. Will hold CERTIFIED PHYSICAL THERAPIST ASSISTANT metformin while IP, started low- intensity aspart [...] long-term anticoagulation, admitted on 12/30/2024 following an [id number] VT/VF cardiac arrest with neurologically intact ROSC. [...] on the scene. She was taken to [facility] ED where she was found to be completely neurologically intact but hypotensive and in A-fib with RVR. Patient was started on norepinephrine and amiodarone drips, had a CTA of the chest that ruled out PE, and her hyperkalemia was corrected. Per ED conversation with on-call color control supervisor, there was not felt to be an indication for an emergent angiogram. Patient had a delayed transfer to [facility] ICU due to transport and availability. On [...] years. Her family history is notable for ME in her father in his 50s; he [...] have a shockable rhythm. [facility]. Started on [...] statin therapy 4. Will start on low-dose beta-nikki 5. Smoking cessation counseling 6. Discussed case [...] coronary artery disease who was brought into [facility] after [id number] cardiac arrest. Strips are not available to [...] a day for 40 years. Father had ME in his 50s. EKG shows sinus rhythm [...] clubbing Skin: no xanthelasma, warm. Neurologic: normal newspaper managing editor bilateral, no tremors Psychiatric: alert and oriented x3, calm Review Of Systems Skin: negative Eyes: negative Ears/Nose/Throat: negative Respiratory: No shortness of breath, dyspnea on exertion, cough, or hemoptysis Cardiovascular: negative Gastrointestinal: negative Genitourinary: negative Musculoskeletal: negative Neurologic: negative Psychiatric: negative Hematologic/Lymphatic/Immunologic: negative Endocrine: negative Lab Results Chemistry/lipid CBC Cardiac Enzymes/BNP/TSH/INR No results for input(s): CHOL, HDL, LDL, TRIG, CHOLHDLRATIO in the last 93680 hours. No results for input(s): LDL in the last 04319 hours. Recent Labs Lab Test 12/30/24 0947 [...] results for input(s): A1C in the last 91221 hours. Recent Labs Lab Test 12/30/24 0833 WBC 15.3* HGB 10.9* HCT 32.9* MCV 95 PLT 228 Recent Labs Lab Test 12/30/24 0833 12/30/24 0615 12/29/24 2304 HGB 10.9* 11.5* 14.0 No results for input(s): TROPONINI in the last 82112 hours. No results for input(s): BNP, NTBNPI, NTBNP in the last 77868 hours. Recent Labs Lab Test 12/30/24 0615 [...] laminectomy L2-L5. Local autograft and bone graft credit reporting clerk with Magnifuse and demineralized bone fiber.; Surgeon: [...] Resource Strain: Low Risk (07/28/2024) [facility] Resource Strain Difficulty of Paying Living Expenses: 3 Difficulty of Paying Living Expenses: Not on file Food Insecurity: No Food Insecurity (07/28/2024) [facility] Food Insecurity Do you worry your food will run out before you are able to buy more?: 1 Transportation Needs: No Transportation Needs (07/28/2024) Received from [facility] Transportation Needs Does lack of transportation keep you from medical appointments?: 1 Does lack of transportation keep you from work, meetings or getting things that you need?: 1 Physical Activity: Not on file Stress: Not on file Social Connections: Socially Integrated (07/28/2024) [facility] Social Connections Do you often feel lonely or isolated from those around you?: 0 Interpersonal Safety: Not on file Housing Stability: Low Risk (07/28/2024) Received from [facility] Housing Stability What is your housing situation today?: 1 Medications Allergies No current outpatient medications on file. No Known Allergies Laura Brian MD documented in this encounter Miscellaneous Notes * Plan of Care - Angelica Robert RN - 01/01/2025 6:55 PM CDT [facility] - MARINE PIPEFITTER Progress Note: Pertinent Assessments: Please refer to flowsheet rows for full assessment Patient went to labor utilization superintendent, and back on unit about 1135, no intervention done. On room air with SpO2 94%+. Cardiology consulted EP cards. MRI checklist completed, patient to have Cardiac MRI tomorrow, 01/02. Heparin gtt discontinued after labor utilization superintendent. TR band removed, no hematoma felt. Up in chair for dinner. Patient continues to have intermittent chest pain r/t ribs. Telemetry reads Sinus Rhythm with First Degree AV Block, PAC's. [place] Events - This Shift: 0944 heparin gtt held, then discontinued after labor utilization superintendent. Cardiac MRI to be done tomorrow, 01/02. (Checklist completed and sent) RN Managed Protocols Ordered: Yes Protocols:Potassium, Magnesium, and Phosphorus PRN'S: Protocols Status: Reviewed with Oncoming RN Barriers to Discharge / Downgrade: EP color control supervisor consulted for ICD placement. Per EP Card note, Dual chamber ICD this admission, tentatively Wednesday 01/03 pending labor utilization superintendent availability Point of Contact Update: YES-OR-NO: Yes [...] Outcome Evaluation: Awaiting cardiac catheterization, slept well. [facility] RN Progress Note: [id number] [place] Events - This Shift: Continues on [...] applied. Patient watched Angiography/Angioplasty video and received Angio/ME folder. Informed patient of NPO status planned for after midnight. * Plan of Care - Mague Grimaldo RN - 12/31/2024 1:40 PM CDT Goal Outcome Evaluation: Plan of Care Reviewed With: patient, child Overall Patient Progress: improvingOverall Patient Progress: improving Outcome Evaluation: Better control heart rate with scheduled amio and metorpolol. [facility] - MARINE PIPEFITTER Progress Note: [place] Events - This Shift: [...] change Outcome Evaluation: Flipped into AFib/AF around 2144 with rates 100-110s. Around 0330 HR in the 120s. notified and extra dose of PO metoprolol ordered. [facility] - MARINE PIPEFITTER Progress Note: Pertinent Assessments: Please refer to [...] - This Shift: Flipped into AFib/AF around 5 with rates 100-110s. Around 0330 HR in the 120s. MD notified and extra dose of PO metoprolol ordered. HR improved to 100s-110s. RN Managed Protocols Ordered: Yes Protocols:Potassium, Magnesium, Phosphorus, and Heparin Protocols Status: Reviewed with Oncoming RN Barriers to Discharge / Downgrade: Femoral CVC * Plan of Care - Dat Castaneda RN - 12/30/2024 5:04 PM CDTSummary: SHIFT [id number] Goal Outcome Evaluation: Plan of Care Reviewed With: patient, parent, child, family Overall Patient Progress: improvingOverall Patient Progress: improving Outcome Evaluation: Pt is alert and oriented x4 and can be forgetful. Denies CP or any kind of painduring this shift. [facility] - MARINE PIPEFITTER Progress Note: Pertinent Assessments: Please refer to [...] Flowsheet Documentation Taken 12/30/2024 1200 by Dat Castaneda, RN Body Position: position changed independently Taken 12/30/2024 0800 by Dat Castaneda, RN Body Position: position changed independently Problem: Adult Inpatient Plan of Care Goal: Optimal Comfort and Wellbeing Outcome: Progressing Intervention: Provide Person-Centered Care Recent Flowsheet Documentation Taken 12/30/2024 1600 by Dat Castaneda, RN Trust Relationship/Rapport: care explained choices provided [...] taking 50 mg daily. Changes made to CERTIFIED PHYSICAL THERAPIST ASSISTANT medication list: Added: levothyroxine, triamcinolone cream Deleted: digoxin, empagliflozin, gabapentin 400 mg HS, methocarbamol, oxycodone, senna-docusate Changed: metformin 500 mg daily to 1000 mg BID w/ meals, metoprolol 25 mg to 50 mg daily Allergies reviewed with patient and updates made in EHR: yes Medication History Completed By: Aaron Miller RPH 12/30/2024 8:13 AM CERTIFIED PHYSICAL THERAPIST ASSISTANT Med List Medication Sig Last Dose/Taking acetaminophen [...] - 99 mg/dL 01/01/2025 8:48 PM CDT [facility] POCT RESULTS Blood, Capillary BLOOD SPECIMEN / Unknown 01/01/2025 8:42 PM CDT 01/01/2025 8:48 PM CDT us Elias P [place] MD LAB - [facility] POCT Final Result Performing Organization Address [facility] Co de Phone Number [facility] POCT RESULTS [address] [place] [address] * Glucose by meter (01/01/2025 5:34 PM CDT) GLUCOSE BY METER POCT 87 70 - 99 mg/dL 01/01/2025 5:40 PM CDT [facility] POCT RESULTS Blood, Capillary BLOOD SPECIMEN / Unknown 01/01/2025 5:34 PM CDT 01/01/2025 5:40 PM CDT Elias Denis MD LAB - [facility] POCT Final Result Performing Organization Address [facility] de Phone Number [facility] POCT RESULTS [address] [place] [address] * (ABNORMAL) Glucose by meter (01/01/2025 12:00 PM CDT) GLUCOSE BY METER POCT 108(H) 70 - 99 mg/dL 01/01/2025 12:07 PM CDT [facility] POCT RESULTS Blood, Capillary BLOOD SPECIMEN / Unknown 01/01/2025 12:00 PM CDT 01/01/2025 12:07 PM CDT us Elias Denis MD LAB - [facility] POCT Final Result Performing Organization Address [facility] de Phone Number [facility] POCT RESULTS [address] [place] [address] * CV CORONARY ANGIOGRAM, CV INSTANTANEOUS WAVE-FREE [...] - Patient tolerated procedure well The attending welding machine operator electroslag was present and supervised all critical aspects the procedure. Kimberley Douglass [facility] CV CARDIAC CATH ORDER [place] Final Result * Adult Type and Screen (01/01/2025 9:15 AM CDT) ABO/RH(D) O POS 01/01/2025 7:25 AM CDT [facility] BLOOD BANK Antibody Screen Negative Negative 01/01/2025 7:25 AM CDT [facility] BLOOD BANK SPECIMEN EXPIRATION DATE 01/04/2025 11:59:00 PM CDT 01/01/2025 7:25 AM CDT [facility] BLOOD BANK Blood BLOOD SPECIMEN / Unknown Venipuncture / Unknown 01/01/2025 9:15 AM CDT 01/01/2025 9:20 AM CDT Laura Brian MD LAB - BLOOD BANK TEST ORDER F inal Result [facility] BLOOD BANK [address] [place] [address], [facility] * (ABNORMAL) Partial thromboplastin time (01/01/2025 9:15 AM CDT) aPTT 179(HH) 22 - 38 Seconds 01/01/2025 9:41 AM CDT [facility] LABORATORY Blood BLOOD SPECIMEN / Unknown Venipuncture / Unknown 01/01/2025 9:15 AM CDT 01/01/2025 9:20 AM CDT us Bhavik VILLEGAS MD LAB - BLOOD ORDERABLES Final Res ult Performing Organization Address City/[facility]/ZIP Co de Phone Number [facility] LABORATORY [facility] [address] [place] [address], [facility] * (ABNORMAL) Glucose by meter (01/01/2025 8:02 AM CDT) Pathologist [facility] GLUCOSE BY METER POCT 110(H) 70 - 99 mg/dL 01/01/2025 8:11 AM CDT [facility] POCT RESULTS Blood, Capillary BLOOD SPECIMEN / Unknown 01/01/2025 8:02 AM CDT 01/01/2025 8:11 AM CDT Elias Denis MD LAB - [facility] POCT Final Result Performing Organization Address [facility] Co de Phone Number [facility] POCT RESULTS [address] [place] [address] * Magnesium (01/01/2025 4:24 AM CDT) Pathologist [facility] Magnesium 1.8 1.7 - 2.3 mg/dL 01/01/2025 5:53 AM CDT [facility] LABORATORY Blood STRUCTURE OF LEFT UPPER LIMB / Unknown Venipuncture / Unknown 01/01/2025 4:24 AM CDT 01/01/2025 4:42 AM CDT us Bhavik VILLEGAS MD LAB - BLOOD ORDERABLES Final Res ult Performing Organization Address [facility] Co de Phone Number [facility] LABORATORY [facility] [address] [place] [address], [facility] * (ABNORMAL) Hepatic panel (01/01/2025 4:24 AM [...] - 0.30 mg/dL 01/01/2025 5:04 AM CDT [facility] Comment:As of 24, refer ence ranges and trending lines may vary depending on the testing location. Blood STRUCTURE OF LEFT UPPER LIMB / Unknown Venipuncture / Unknown 01/01/2025 4:24 AM CDT 01/01/2025 4:42 AM CDT Bhavik VILLEGAS MD LAB - BLOOD ORDERABLES Final Res ult Performing Organization Address [facility]/ZIP Co de Phone Number [facility] LABORATORY [facility] [address] [place] [address], [facility] * Phosphorus (01/01/2025 4:24 AM CDT) Phosphorus 2.6 2.5 - 4.5 mg/dL 01/01/2025 5:04 AM CDT N LABORATORY Blood STRUCTURE OF LEFT UPPER LIMB / Unknown Venipuncture / Unknown 01/01/2025 4:24 AM CDT 01/01/2025 4:42 AM CDT Heri Baugh MD LAB - BLOOD ORDERABLES F inal Result [facility] LABORATORY [facility] [address] [place], [place] [id number] [place] [address] * Potassium (01/01/2025 4:24 AM CDT) Potassium 4.3 3.4 - 5.3 mmol/L 01/01/2025 5:04 AM CDT [facility] LABOR[facility] Blood STRUCTURE OF LEFT UPPER LIMB / Unknown Venipuncture / Unknown 01/01/2025 4:24 AM CDT 01/01/2025 4:42 AM CDT us Heri Baugh MD LAB - BLOOD ORDERABLES F inal Result Performing Organization Address [facility] de Phone Number [facility] LABOR[facility] [address] * Extra Green Top ([place] Heparin) Tube (01/01/2025 1:56 AM CDT) Hold Specimen JIC 01/01/2025 3:03 AM CDT [facility] Blood STRUCTURE OF LEFT UPPER LIMB / Unknown Venipuncture / Unknown 01/01/2025 1:56 AM CDT 01/01/2025 1:56 AM CDT us Bhavik VILLEGAS MD LAB - BLOOD ORDERABLES Final Res ult Performing Organization Address [facility] de Phone Number [facility] LABOR[facility]ORY [facility] [address] * (ABNORMAL) Partial thromboplastin time (01/01/2025 1:36 AM CDT) aPTT 39(H) 22 - 38 Seconds 01/01/2025 2:09 AM CDT [facility] Blood STRUCTURE OF LEFT UPPER LIMB / Unknown Venipuncture / Unknown 01/01/2025 1:36 AM CDT 01/01/2025 1:53 AM CDT us Bhavik VILLEGAS MD LAB - BLOOD ORDERABLES Final Res ult Performing Organization Address [facility] Co de Phone Number [facility] LAB[facility] [address] [place] [address], [facility] * (ABNORMAL) Glucose by meter (12/31/2024 8:24 PM CDT) GLUCOSE BY METER POCT 210(H) 70 - 99 mg/dL 12/31/2024 8:32 PM CDT [facility] POCT RESULTS Blood, Capillary BLOOD SPECIMEN / Unknown 12/31/2024 8:24 PM CDT 12/31/2024 8:32 PM CDT us Bhavik BENÍTEZ POCT Final Result Performing Organization Address [facility] Co de Phone Number [facility] POCT RESULTS [address] [place] [address] * (ABNORMAL) Partial thromboplastin time (12/31/2024 5:59 PM CDT) aPTT 50(H) 22 - 38 Seconds 12/31/2024 6:38 PM CDT [facility] Blood STRUCTURE OF LEFT UPPER LIMB / Unknown Venipuncture / Unknown 12/31/2024 5:59 PM CDT 12/31/2024 6:25 PM CDT us Bhavik VILLEGAS MD LAB - BLOOD ORDERABLES Final Res ult Performing Organization Address [facility] Co de Phone Number [facility] LABORATORY [facility] [address] [place] [address], [facility] * (ABNORMAL) Glucose by meter (12/31/2024 4:43 PM CDT) GLUCOSE BY METER POCT 151(H) 70 - 99 mg/dL 12/31/2024 4:51 PM CDT [facility] POCT RESULTS Blood, Capillary BLOOD SPECIMEN / Unknown 12/31/2024 4:43 PM CDT 12/31/2024 4:51 PM CDT us Bhavik BENÍTEZ POCT Final Result Performing Organization Address [facility] Co de Phone Number [facility] POCT RESULTS [address] [place] [address] * (ABNORMAL) Glucose by meter (12/31/2024 11:54 AM CDT) GLUCOSE BY METER POCT 127(H) 70 - 99 mg/dL 12/31/2024 12:01 PM CDT [facility] POCT RESULTS Blood, Capillary BLOOD SPECIMEN / Unknown 12/31/2024 11:54 AM CDT 12/31/2024 12:01 PM CDT Bhavik VILLEGAS MD LAB - [facility] POCT Final Result Performing Organization Address [facility] de Phone Number [facility] POCT RESULTS [address] [place] [address] * (ABNORMAL) Magnesium (12/31/2024 10:39 AM CDT) Magnesium 2.5(H) 1.7 - 2.3 mg/dL 12/31/2024 10:55 AM CDT [facility] LAB[facility] Blood VENOUS LINE / Unknown Venipuncture / Unknown 12/31/2024 10:39 AM CDT 12/31/2024 10:43 AM CDT Heri Baugh MD LAB - BLOOD ORDERABLES F inal Result Performing Organization Address [facility] Co de Phone Number [facility] LABOR[facility] [address] [place] [address], [facility] * (ABNORMAL) Partial thromboplastin time (12/31/2024 10:39 AM CDT) aPTT 47(H) 22 - 38 Seconds 12/31/2024 10:57 AM CDT [facility] Blood VENOUS LINE / Unknown Venipuncture / Unknown 12/31/2024 10:39 AM CDT 12/31/2024 10:43 AM CDT Heri Baugh MD LAB - BLOOD ORDERABLES F inal Result [facility] [address] [place] [address], [facility] * (ABNORMAL) Glucose by meter (12/31/2024 8:19 AM CDT) GLUCOSE BY METER POCT 142(H) 70 - 99 mg/dL 12/31/2024 8:27 AM CDT [facility] POCT RESULTS Blood, Capillary BLOOD SPECIMEN / Unknown 12/31/2024 8:19 AM CDT 12/31/2024 8:27 AM CDT Bhavik VILLEGAS MD LAB - [facility] POCT Final Result Performing Organization Address [facility] Co de Phone Number [facility] POCT RESULTS [address] [place] [address] * (ABNORMAL) Glucose by meter (12/31/2024 3:58 AM CDT) GLUCOSE BY METER POCT 142(H) 70 - 99 mg/dL 12/31/2024 4:05 AM CDT [facility] POCT RESULTS Blood, venous BLOOD SPECIMEN / Unknown 12/31/2024 3:58 AM CDT 12/31/2024 4:05 AM CDT us Heri Baugh MD LAB - [facility] POCT Final Result Performing Organization Address [facility] de Phone Number [facility] POCT RESULTS [address] [place] [address] * Phosphorus (12/31/2024 3:56 AM CDT) Phosphorus 2.8 2.5 - 4.5 mg/dL 12/31/2024 5:03 AM CDT [facility] Blood VENOUS LINE / Unknown Venipuncture / Unknown 12/31/2024 3:56 AM CDT 12/31/2024 4:02 AM CDT us Heri Baugh MD LAB - BLOOD ORDERABLES F inal Result Performing Organization Address City/[facility]/ZIP Co de Phone Number N LABORATORY [facility] [address] [place] [address], [facility] * (ABNORMAL) Magnesium (12/31/2024 3:56 AM CDT) [facility] Magnesium 1.5(L) 1.7 - 2.3 mg/dL 12/31/2024 4:25 AM CDT [facility] Blood VENOUS LINE / Unknown Venipuncture / Unknown 12/31/2024 3:56 AM CDT 12/31/2024 4:02 AM CDT Ashly Chen MD LAB - BLOOD ORDERABLES nal Result N LABORATORY [facility] [address] * (ABNORMAL) CBC with platelets (12/31/2024 3:56 AM CDT) [facility] WBC Count 12.5(H) 4.0 - 11.0 10e3/uL 12/31/2024 4:11 AM CDT [facility] RBC Count 3.47(L) 3.80 - 5.20 10e6/uL 12/31/2024 4:11 AM CDT [facility] Hemoglobin 10.7(L) 11.7 - 15.7 g/dL 12/31/2024 4:11 AM CDT [facility] Hematocrit 32.9(L) 35.0 - 47.0 % 12/31/2024 4:11 AM CDT [facility] MCV 95 78 - 100 fL 12/31/2024 4:11 AM CDT [facility] MCH 30.8 26.5 - 33.0 pg 12/31/2024 4:11 AM CDT [facility] MCHC 32.5 31.5 - 36.5 g/dL 12/31/2024 4:11 AM CDT [facility] RDW 14.5 10.0 - 15.0 % 12/31/2024 4:11 AM CDT [facility] Platelet Count 199 150 - 450 10e3/uL 12/31/2024 4:11 AM CDT [facility] Blood VENOUS LINE / Unknown Venipuncture / Unknown 12/31/2024 3:56 AM CDT 12/31/2024 4:02 AM CDT Ashly Chen MD LAB - BLOOD ORDERABLES Fi nal Result Performing Organization Address [facility]/ZIP Co de Phone Number [facility] [address] [place] [address], [facility] * (ABNORMAL) Partial thromboplastin time (12/31/2024 3:56 AM CDT) aPTT 64(H) 22 - 38 Seconds 12/31/2024 4:17 AM CDT [facility] Blood VENOUS LINE / Unknown Venipuncture / Unknown 12/31/2024 3:56 AM CDT 12/31/2024 4:02 AM CDT Heri Baugh MD LAB - BLOOD ORDERABLES F inal Result Performing Organization Address [facility] Co de Phone Number [facility] [address] [place] [address], [facility] * (ABNORMAL) Comprehensive metabolic panel (12/31/2024 3:56 AM CDT) Sodium 139 135 - 145 mmol/L 12/31/2024 4:25 AM CDT [facility] Potassium 4.0 3.4 - 5.3 mmol/L 12/31/2024 4:25 AM CDT [facility] Carbon Dioxide (CO2) 26 22 - 29 mmol/L 12/31/2024 4:25 AM CDT [facility] Anion Gap 12 7 - 15 mmol/L 12/31/2024 4:25 AM CDT [facility] Urea Nitrogen 17.4 8.0 - 23.0 mg/dL 12/31/2024 4:25 AM CDT [facility] Creatinine 0.65 0.51 - 0.95 mg/dL 12/31/2024 4:25 AM CDT [facility] GFR Estimate >90 >60 mL/min/1.7 3m2 12/31/2024 4:25 AM CDT [facility] Comment:eGFR calculated us2020 CKD-EPI equation. Calcium 8.8 8.8 - 10.4 mg/dL 12/31/2024 4:25 AM CDT N LABORATORY Chloride 101 98 - 107 mmol/L 12/31/2024 4:25 AM CDT N LABORATORY Glucose 149(H) 70 - 99 mg/dL 12/31/2024 4:25 AM CDT N LABORATORY Alkaline Phosphatase 73 40 - 150 U/L 12/31/2024 4:25 AM CDT N LAB[facility] AST 110(H) 0 - 45 U/L 12/31/2024 4:25 AM CDT N LABOR[facility]ORY ALT 188(H) 0 - 50 U/L 12/31/2024 4:25 AM CDT N LABORATORY Protein Total 5.8(L) 6.4 - 8.3 g/dL 12/31/2024 4:25 AM CDT N LABORATORY Albumin 3.4(L) 3.5 - 5.2 g/dL 12/31/2024 4:25 AM CDT N LABOR[facility]ORY Bilirubin Total 0.3 <=1.2 mg/dL 12/31/2024 4:25 AM CDT N LABORATORY Blood VENOUS LINE / Unknown Venipuncture / Unknown 12/31/2024 3:56 AM CDT 12/31/2024 4:02 AM CDT Heri Baugh MD LAB - BLOOD ORDERABLES F inal Result N LABORATORY [facility] [address] [place] [address], [facility] * (ABNORMAL) Glucose by meter (12/31/2024 12:11 AM CDT) [facility] GLUCOSE BY METER POCT 126(H) 70 - 99 mg/dL 12/31/2024 12:19 AM CDT [facility] POCT RESULTS Blood, Capillary BLOOD SPECIMEN / Unknown 12/31/2024 12:11 AM CDT 12/31/2024 12:19 AM CDT Heri Baugh MD LAB - [facility] POCT Final Result Performing Organization Address [facility]/ZIP Co de Phone Number [facility] POCT RESULTS [address] [place] [address] * Lactic acid whole blood (12/30/2024 9:48 PM CDT) Lactic Acid 1.4 0.7 - 2.0 mmol/L 12/30/2024 9:58 PM CDT [facility] Blood VENOUS LINE / Unknown Venipuncture / Unknown 12/30/2024 9:48 PM CDT 12/30/2024 9:52 PM CDT Ashly Chen MD LAB - BLOOD ORDERABLES Fi nal Result Performing Organization Address [facility]/ZIP Co de Phone Number [facility]OR[facility] [address] [place], [place] [address] * (ABNORMAL) Partial thromboplastin time (12/30/2024 9:36 PM CDT) aPTT 41(H) 22 - 38 Seconds 12/30/2024 9:55 PM CDT [facility] Blood VENOUS LINE / Unknown Venipuncture / Unknown 12/30/2024 9:36 PM CDT 12/30/2024 9:39 PM CDT Heri Baugh MD LAB - BLOOD ORDERABLES F inal Result Performing Organization Address [facility]/ZIP Co de Phone Number [facility]OR[facility] [address] [place], [place] [address] * (ABNORMAL) Glucose by meter (12/30/2024 9:28 PM CDT) GLUCOSE BY METER POCT 135(H) 70 - 99 mg/dL 12/30/2024 9:35 PM CDT [facility] POCT RESULTS Blood, Capillary BLOOD SPECIMEN / Unknown 12/30/2024 9:28 PM CDT 12/30/2024 9:35 PM CDT Heri Baugh MD LAB - [facility] POCT Final Result [facility] POCT RESULTS [address] [place] [address] * MR Brain w/o Contrast (12/30/2024 9:05 PM CDT) Anatomical Region Laterality Modality Head, SUBRAD MR NEURO, UMP MR NEURO, RAD MR Magnetic Resonance 12/30/2024 9:05 PM CDT Impressions 12/30/2024 9:17 PM CDT IMPRESSION: 1. No acute intracranial abnormality. Narrative 12/30/2024 9:17 PM CDT EXAM: MR BRAIN W/O CONTRAST LOCATION: [facility] DATE: 12/30/2024 INDICATION: poor recall after cardiac [...] 12/30/2024 EXAM: MR BRAIN W/O CONTRAST LOCATION: [facility] DATE: 12/30/2024 INDICATION: poor recall after cardiac [...] - 2.0 mmol/L 12/30/2024 7:01 PM CDT [facility] Blood CATHETER / Unknown VAD(CVC, PICC ) / Unknown 12/30/2024 6:55 PM CDT 12/30/2024 7:00 PM CDT Ashly Chen MD LAB - BLOOD ORDERABLES Fi nal Result [facility] [address] [place] [address], [facility] * (ABNORMAL) Glucose by meter (12/30/2024 4:15 PM CDT) GLUCOSE BY METER POCT 105(H) 70 - 99 mg/dL 12/30/2024 4:22 PM CDT [facility] POCT RESULTS Blood, Capillary BLOOD SPECIMEN / Unknown 12/30/2024 4:15 PM CDT 12/30/2024 4:22 PM CDT Heri Baugh MD LAB - [facility] POCT Final Result [facility] POCT RESULTS [address] [place] [address] * Lactic acid whole blood (12/30/2024 2:26 PM CDT) Lactic Acid 1.2 0.7 - 2.0 mmol/L 12/30/2024 2:33 PM CDT [facility] Blood CATHETER / Unknown VAD(CVC, PICC ) / Unknown 12/30/2024 2:26 PM CDT 12/30/2024 2:29 PM CDT Ashly Chen MD LAB - BLOOD ORDERABLES Fi nal Result Performing Organization Address [facility] Co de Phone Number [facility] [address] [place], [place] [id number] [place] [address] * (ABNORMAL) Glucose by meter (12/30/2024 1:03 PM CDT) [facility] GLUCOSE BY METER POCT 103(H) 70 - 99 mg/dL 12/30/2024 1:10 PM CDT [facility] POCT RESULTS Blood, Capillary BLOOD SPECIMEN / Unknown 12/30/2024 1:03 PM CDT 12/30/2024 1:10 PM CDT Heri Baugh MD LAB - [facility] POCT Final Result Performing Organization Address [facility] de Phone Number [facility] POCT RESULTS [address] [place] [address] * CT Head w/o Contrast (12/30/2024 12:18 PM CDT) Anatomical Region Laterality Modality Head, SUBRAD CT NEURO, SUBRA D CT NEURO, UMP CT NEURO, RAD CT Computed Tomography 12/30/2024 12:1 8 PM CDT Impressions 12/30/2024 4:46 PM CDT IMPRESSION: No acute intracranial process. Narrative 12/30/2024 4:46 PM CDT EXAM: CT HEAD W/O CONTRAST LOCATION: [facility] DATE: 12/30/2024 INDICATION: post cardiac arrest, syncope, [...] 12/30/2024 EXAM: CT HEAD W/O CONTRAST LOCATION: [facility] DATE: 12/30/2024 INDICATION: post cardiac arrest, syncope, [...] BLOOD ORDERABLES Final Result Performing Organization Address [facility] de Phone Number [facility] [address] [place] [address] * (ABNORMAL) Partial thromboplastin time (12/30/2024 12:06 PM CDT) aPTT >240(HH) 22 - 38 Seconds 12/30/2024 1:23 PM CDT [facility] Blood CATHETER / Unknown VAD(CVC, PICC ) / Unknown 12/30/2024 12:06 PM CDT 12/30/2024 12:11 PM CDT Ashly Chen MD LAB - BLOOD ORDERABLES Fi nal Result Performing Organization Address [facility] de Phone Number [facility] [address] [place] [address] * ECHO COMPLETE WITH CONTRAST (12/30/2024 12:04 PM CDT) Anatomical Region Laterality Modality Ultrasound 12/30/2024 11:2 9 AM CDT Narrative 12/30/2024 12:39 PM CDT [id number]^YOGI^[place]UR[place]^ [place] [address] Name: JULIET COX : 1965 Study Date: 12/30/2024 11:29 AM Age: 59 yrs Gender: Female Patient Location: [facility] Reason For Study: Abn EKG Ordering Physician: Laura Brian MD Referring Physician: LAYLA RETANA Performed By: MADISON^^^^ BSA: 2.0 m2 Height: 66 in Weight: 197 lb HR: 76 Procedure Echocardiogram with two-dimensional, color and spectral Doppler. Definity ([facility] #[id number]) given intravenously. Interpretation Summary 1. Normal left [...] Procedure Note Reed Pickett MD - 12/30/2024 [id number]^YOGI^[place]^ [place] [address] Name: JULIET COX : 1965 Study Date: 12/30/2024 11:29 AM Age: 59 yrs Gender: Female Patient Location: [facility] Reason For Study: Abn EKG Ordering Physician: Laura Brian MD Referring Physician: LAYLA RETANA Performed By: MADISON^^^^ BSA: 2.0 m2 Height: 66 in Weight: 197 lb HR: 76 Procedure Echocardiogram with two-dimensional, color and spectral Doppler. Definity([facility] #[id number]) given intravenously. Interpretation Summary 1. Normal left [...] Epi Pickett MD on 12/30/2024 12:39 PM Laura Brian MD CV ECHO ORDERABLES Edited Res ult - Final * Urine Creatinine for Drug Screen Panel (12/30/2024 10:35 AM CDT) [facility] Creatinine Urine for Drug Screen 138 mg/dL 12/30/2024 12:33 PM CDT [facility] Comment:The reference range has not been established for creatinine in random urines. The results should be integrated into the clinical context for interpretation. Urine URINE SPECIMEN OBTAINED VIA INDWELLING URINARY CATHETER / Unknown Non-blood Collection / Unknown 12/30/2024 10:35 AM CDT 12/30/2024 11:05 AM CDT Laura Brian MD LAB - URINE ORDERABLES Final Result [facility] [address] [place] [address], [facility] * (ABNORMAL) Urine Drug Screen Panel (12/30/2024 10:35 AM CDT) [facility] Amphetamines Urine Screen Negative Screen Negative 12/30/2024 11:05 AM [facility] Comment:Cutoff for a negativ e amphetamine is less than 500 ng/mL. Barbituates Urine Screen Negative Screen Negative 12/30/2024 11:05 AM T [facility] Comment:Cutoff for a negativ e barbiturate is less than 200 ng/mL. Benzodiazepine Urine Screen Negative Screen Negative 12/30/2024 11:05 AM [facility] Comment:Cutoff for a negativ e benzodiazepine is less than 100 ng/mL. Cannabinoids Urine Screen Positive(A) Screen Negative 12/30/2024 11:05 AM [facility] Comment: Cutoff for a positive cannabinoid is 50 ng/mL or greater. This is an unconfirmed screening result to be used for medical purposes only. Cocaine Urine Screen Negative Screen Negative 12/30/2024 11:05 AM [facility] Comment:Cutoff for a negativ e cocaine is less than 300 ng/mL. Fentanyl Qual Urine Screen Negative Screen Negative 12/30/2024 11:05 AM [facility] Comment:Cutoff for negative fentanyl is less than 5 ng/mL. Opiates Urine Screen Negative Screen Negative 12/30/2024 11:05 AM [facility] Comment:Cutoff for a negativ e opiate is less than 300 ng/mL. PCP Urine Screen Negative Screen Negative 12/30/2024 11:05 AM [facility] Comment:Cutoff for a negativ e PCP is less than 25 ng/mL. Urine URINE SPECIMEN OBTAINED VIA INDWELLING URINARY CATHETER / Unknown Non-blood Collection / Unknown 12/30/2024 10:35 AM CDT 12/30/2024 10:41 AM CDT us Laura Brian MD LAB - URINE ORDERABLES Final Result [facility] [address] [id number] * (ABNORMAL) Troponin T, High Sensitivity (12/30/2024 10:35 AM CDT) Troponin T, High Sensitivity 110(HH) <=14 ng/L 12/30/2024 11:00 AM CDT [facility] Comment: Either a High Sensitivity Troponin [...] 10:35 AM CDT 12/30/2024 10:41 AM CDT Laura Brian MD LAB - BLOOD ORDERABLES Final Result Performing Organization Address [facility] Co de Phone Number [facility] [address] [place] [address], [facility] * Lactic acid whole blood (12/30/2024 9:59 AM CDT) [facility] Lactic Acid 1.3 0.7 - 2.0 mmol/L 12/30/2024 10:04 AM CDT [facility] Blood CATHETER / Unknown VAD(CVC, PICC ) / Unknown 12/30/2024 9:59 AM CDT 12/30/2024 10:02 AM CDT Ashly Chen MD LAB - BLOOD ORDERABLES Fi nal Result Performing Organization Address City/[facility]/ZIP Co de Phone Number [facility] [address] [place] [address], [facility] * (ABNORMAL) Glucose by meter (12/30/2024 9:47 AM CDT) GLUCOSE BY METER POCT 150(H) 70 - 99 mg/dL 12/30/2024 9:56 AM CDT [facility] POCT RESULTS Blood, Capillary BLOOD SPECIMEN / Unknown 12/30/2024 9:47 AM CDT 12/30/2024 9:56 AM CDT Heri Baugh MD LAB - BEAKER POCT Final Result Performing Organization Address [facility] Co de Phone Number [facility] POCT RESULTS [address] [place] [address] * (ABNORMAL) CBC with platelets (12/30/2024 8:33 AM CDT) WBC Count 15.3(H) 4.0 - 11.0 10e3/uL 12/30/2024 8:53 AM CDT [facility] RBC Count 3.46(L) 3.80 - 5.20 10e6/uL 12/30/2024 8:53 AM CDT [facility] Hemoglobin 10.9(L) 11.7 - 15.7 g/dL 12/30/2024 8:53 AM CDT [facility] Hematocrit 32.9(L) 35.0 - 47.0 % 12/30/2024 8:53 AM CDT [facility] MCV 95 78 - 100 fL 12/30/2024 8:53 AM CDT [facility] MCH 31.5 26.5 - 33.0 pg 12/30/2024 8:53 AM CDT [facility] MCHC 33.1 31.5 - 36.5 g/dL 12/30/2024 8:53 AM CDT [facility] RDW 14.5 10.0 - 15.0 % 12/30/2024 8:53 AM CDT [facility] Platelet Count 228 150 - 450 10e3/uL 12/30/2024 8:53 AM CDT [facility] Blood BLOOD SPECIMEN / Unknown Venipuncture / Unknown 12/30/2024 8:33 AM CDT 12/30/2024 8:39 AM CDT Ashly Chen MD LAB - BLOOD ORDERABLES Fi nal Result [facility] [address] [place] [address], [facility] * Influenza A/B, RSV and SARS-CoV2 PCR (COVID-19) Nasopharyngeal (12/30/2024 6:35 AM CDT) Pathologist [facility] Influenza A PCR Negative Negative 12/30/2024 7:27 AM CDT [facility] Influenza B PCR Negative Negative 12/30/2024 7:27 AM CDT [facility] RSV PCR Negative Negative 12/30/2024 7:27 AM CDT [facility] SARS CoV2 PCR Negative Negative 12/30/2024 7:27 AM CDT [facility] Comment:NEGATIVE: SARS-CoV-2 (COVID-19) RNA not detected, presumed negative. Swab NASOPHARYNGEAL STRUCTURE / Unknown Non-blood Collection / Unknown 12/30/2024 6:35 AM CDT 12/30/2024 6:40 AM CDT Narrative [facility] - 12/30/2024 7:27 AM CDT Testing was performed using the Xpert Xpress CoV2/Flu/RSV Assay on the [employer] GeneXpert Instrument. This test should be ordered [...] management. This test was validated by the [facility]. These laboratories are certified under the Clinical Laboratory Improvement Amendments of 1988 (CLIA-88) as qualified to perfom high complexity laboratory testing. Ashly Chen MD LAB - MICRO GENERAL ORDER ESTEPHANIA Final Result Performing Organization Address [facility] Co de Phone Number [facility] [address] * (ABNORMAL) Glucose by meter (12/30/2024 6:16 AM CDT) [facility] GLUCOSE BY METER POCT 210(H) 70 - 99 mg/dL 12/30/2024 6:33 AM CDT [facility] POCT RESULTS Blood, venous BLOOD SPECIMEN / Unknown 12/30/2024 6:16 AM CDT 12/30/2024 6:33 AM CDT Ashly Chen MD LAB - BEAKER POCT Final R esult Performing Organization Address [facility] de Phone Number [facility] POCT RESULTS [address] [place] [address] * TSH with free T4 reflex (12/30/2024 6:15 AM CDT) [facility] TSH 2.44 0.30 - 4.20 uIU/mL 12/30/2024 12:26 PM CDT [facility] Blood VENOUS LINE / Unknown Venipuncture / Unknown 12/30/2024 6:15 AM CDT 12/30/2024 6:21 AM CDT Heri Baugh MD LAB - BLOOD ORDERABLES F inal Result Performing Organization Address [facility] Co de Phone Number [facility] [address] * (ABNORMAL) Troponin T, High Sensitivity (12/30/2024 6:15 AM CDT) [facility] Troponin T, High Sensitivity 143(HH) <=14 ng/L 12/30/2024 6:48 AM CDT [facility] Comment: Either a High Sensitivity Troponin [...] ORDERABLES Fi nal Result Performing Organization Address [facility] Co de Phone Number [facility] [address] * (ABNORMAL) INR (12/30/2024 6:15 AM CDT) INR 1.22(H) 0.85 - 1.15 12/30/2024 7:14 AM CDT [facility] PT 15.6(H) 11.8 - 14.8 Seconds 12/30/2024 7:14 AM CDT [facility] Blood VENOUS LINE / Unknown Venipuncture / Unknown 12/30/2024 6:15 AM CDT 12/30/2024 6:21 AM CDT Ashly Chen MD LAB - BLOOD ORDERABLES Fi nal Result Performing Organization Address City/[facility] Co de Phone Number [facility] [address] * (ABNORMAL) Lactic acid whole blood (12/30/2024 6:15 AM CDT) Lactic Acid 2.2(H) 0.7 - 2.0 mmol/L 12/30/2024 6:23 AM CDT [facility] Blood, venous VENOUS LINE / Unknown Venipuncture / Unknown 12/30/2024 6:15 AM CDT 12/30/2024 6:21 AM CDT Ashly Chen MD LAB - BLOOD ORDERABLES Fi nal Result Performing Organization Address City/[facility]/ZIP Co de Phone Number [facility] [address] * Ionized Calcium (12/30/2024 6:15 AM CDT) Calcium Ionized Whole Blood 4.5 4.4 - 5.2 mg/dL 12/30/2024 6:23 AM CDT [facility] Blood, venous VENOUS LINE / Unknown Venipuncture / Unknown 12/30/2024 6:15 AM CDT 12/30/2024 6:21 AM CDT Ashly Chen MD LAB - BLOOD ORDERABLES Fi nal Result Performing Organization Address City/[facility]/ZIP Co de Phone Number [facility] [address] * Phosphorus (12/30/2024 6:15 AM CDT) Phosphorus 3.9 2.5 - 4.5 mg/dL 12/30/2024 6:47 AM CDT [facility] Blood VENOUS LINE / Unknown Venipuncture / Unknown 12/30/2024 6:15 AM CDT 12/30/2024 6:21 AM CDT Ashly Chen MD LAB - BLOOD ORDERABLES Fi nal Result [facility] [address] * (ABNORMAL) Magnesium (12/30/2024 6:15 AM CDT) Magnesium 1.6(L) 1.7 - 2.3 mg/dL 12/30/2024 6:47 AM [facility] Blood VENOUS LINE / Unknown Venipuncture / Unknown 12/30/2024 6:15 AM CDT 12/30/2024 6:21 AM CDT Ashly Chen MD LAB - BLOOD ORDERABLES nal Result [facility] [address] [place] [address], [facility] * (ABNORMAL) Comprehensive metabolic panel (12/30/2024 6:15 AM CDT) Pathologist [facility] Sodium 140 135 - 145 mmol/L 12/30/2024 6:47 AM [facility] Potassium 4.6 3.4 - 5.3 mmol/L 12/30/2024 6:47 AM [facility] Carbon Dioxide (CO2) 26 22 - 29 mmol/L 12/30/2024 6:47 AM [facility] Anion Gap 11 7 - 15 mmol/L 12/30/2024 6:47 AM [facility] Urea Nitrogen 23.2(H) 8.0 - 23.0 mg/dL 12/30/2024 6:47 AM [facility] Creatinine 0.80 0.51 - 0.95 mg/dL 12/30/2024 6:47 AM [facility] GFR Estimate 84 >60 mL/min/1.7 3m2 12/30/2024 6:47 AM [facility] Comment:eGFR calculated usin 2020 CKD-EPI equation. Calcium 8.8 8.8 - 10.4 mg/dL 12/30/2024 6:47 AM [facility] Chloride 103 98 - 107 mmol/L 12/30/2024 6:47 AM [facility] Glucose 215(H) 70 - 99 mg/dL 12/30/2024 6:47 AM [facility] Alkaline Phosphatase 83 40 - 150 U/L 12/30/2024 6:47 AM [facility] AST 361(H) 0 - 45 U/L 12/30/2024 6:47 AM CDT N LABORATORY ALT 322(H) 0 - 50 U/L [...] 6:15 AM CDT 12/30/2024 6:21 AM CDT us Ashly Chen MD LAB - BLOOD ORDERABLES Fi nal Result [facility] [address] * (ABNORMAL) Blood gas venous (12/30/2024 6:15 AM CDT) pH Venous 7.37 7.32 - 7.43 12/30/2024 6:26 AM T [facility] pCO2 Venous 50 40 - 50 mm Hg 12/30/2024 6:26 AM T N LABORATORY pO2 Venous 32 25 - 47 mm Hg 12/30/2024 6:26 AM T [facility] Bicarbonate Venous 29(H) 21 - 28 mmol/L 12/30/2024 6:26 AM T N LABORATORY Base Excess/Deficit Venous 2.5 -3.0 - 3.0 mmol/L 12/30/2024 6:26 AM CDT N LABORATORY FIO2 37 OLMAN 12/30/2024 6:26 AM T N LABORATORY Comment:4 L per NC Oxyhemoglobin Venous 56(L) 70 - 75 % 12/30/2024 6:26 AM T N LABORATORY O2 Sat, Venous 57.8(L) 70.0 - 75.0 % 12/30/2024 6:26 AM T [facility] Blood, venous VENOUS LINE / Unknown Venipuncture / Unknown 12/30/2024 6:15 AM CDT 12/30/2024 6:21 AM CDT [facility] - 12/30/2024 6:26 AM CDT In healthy individuals, oxyhemoglobin (O2Hb) and oxygen saturation (SO2) are approximately equal. In the presence of dyshemoglobins, oxyhemoglobin can be considerably lower than oxygen saturation. Ashly Chen MD LAB - BLOOD ORDERABLES nal Result [facility] [address] [place] [address], [facility] * (ABNORMAL) CBC with platelets (12/30/2024 6:15 [...] - 33.0 pg 12/30/2024 6:36 AM CDT N LABORATORY MCHC 33.1 31.5 - 36.5 g/dL 12/30/2024 6:36 AM CDT N LABORATORY RDW 14.3 10.0 - 15.0 % 12/30/2024 6:36 AM CDT N LABORATORY Platelet Count 245 150 - 450 10e3/uL 12/30/2024 6:36 AM CDT N LABORATORY Blood VENOUS LINE / Unknown Venipuncture / Unknown 12/30/2024 6:15 AM CDT 12/30/2024 6:21 AM CDT us Ashly Chen MD LAB - BLOOD ORDERABLES Fi nal Result [facility] [address] [place] [address], [facility] * ECG 12-Lead with MUSE ??? [facility] (12/30/2024 6:00 AM CDT) Systolic Blood Pressure mmHg RADIOLOGY RESULTS Diastolic Blood Pressure mmHg RADIOLOGY RESULTS Ventricular Rate 76 BPM RAD IOLOGY RESULTS Atrial Rate 76 BPM RADIOLOG Y RESULTS MS Interval 224 ms RADIOLOG Y RESULTS QRS Duration 102 ms RADIOLO GY RESULTS QT 422 ms RADIOLOGY RESULTS QTc 474 ms RADIOLOGY RESULTS P [place] 58 degrees RADIOLOGY RESULTS R AXIS -45 degrees RADIOLOGY RESULTS T [place] 25 degrees RADIOLOGY RESULTS Interpretation ECG Sinus rhythm with 1st degree A-V block with Premature supraventricular complexes Possible Left atrial enlargement Left axis deviation Cannot rule out Anterior infarct , age undetermined Abnormal ECG When compared with ECG of 29-Dec-2024 23:40, Significant changes have occurred Confirmed by DUDLEY PARKER, EPI LOC:[id number] ([id number]) on 12/30/2024 12:43:23 PM RADIOLOGY RESULTS 12/30/2024 6:00 AM CDT 12/30/2024 12:43 PM CDT Ashly Chen MD ECG ORDERABLES Edited Re sult - [...] IV for 2 hours prior to cardiac labor utilization superintendent procedure, then decrease to 75 mL/hr to [...] MAR Action Action Date Dose Rate Site fentaNYL (PF) (SUBLIMAZE) injection ONCE PRN, Administer over 3-5 Minutes, Starting on Wed01/01/25 at 1042, Cardiac Intra-procedure $Given 01/01/2025 10:57 AM CDT 25 mcg $Given 01/01/2025 10:42 AM CDT 25 mcg heparin (porcine) injection ONCE PRN, Starting on Wed01/01/25 at 1052, Cardiac Intra-procedure $Given 01/01/2025 10:56 AM CDT 2,000 Units $Given 01/01/2025 10:52 AM CDT 7,000 Units iodixanol (VISIPAQUE 320) injection ONCE PRN, Starting on Wed01/01/25 at 1119, Cardiac Intra-procedure $Given 01/01/2025 11:19 AM CDT 85 mLs lidocaine 1 % ONCE PRN, Starting on Wed01/01/25 at 1050, Cardiac Intra-procedure $Given 01/01/2025 10:50 AM CDT 5 mLs Right Wrist midazolam (VERSED) injection Administer over 2 Minutes, ONCE PRN, Starting on 01/01/25 at 1042, Cardiac Intra-procedure $Given 01/01/2025 10:58 AM CDT 0.5 mg $Given 01/01/2025 10:42 AM CDT 0.5 mg nitroGLYcerin in D5W injection ONCE PRN, Starting on Wed01/01/25 at 1052, Cardiac Intra-procedure $Given 01/01/2025 10:52 AM CDT 200 mcg documented in this encounter Active and Recently [...] RN)2026 ($Given - Provider: Дмитрий Noel RN) 0822 ($Given - Provider: Angelica Robert, VERENICE)2043 ($Given - Provider: Mark Junior RN) 0900 (Due)2100 (Due) aspirin (ASA) chewable tablet 243 mg (COMPLETED)(Linked Group 1) 243 mg, Oral, ONCE, On 01/01/25 at [...] NOT CRUSH. 1148 ($Given - Provider: Mague Grimaldo RN) 0822 ($Given - Provider: Angelica Robert, VERENICE) 0900 (Due) atorvastatin (LIPITOR) tablet 10 mg 10 mg, Oral, DAILY, First dose on 12/30/24 at 1000 0840 ($Given - Provider: Mague Grimaldo, VERENICE) 0830 ($Given - Provider: Angelica Robert, RN) 0900 (Due) gabapentin (NEURONTIN) capsule 800 mg 800 mg, Oral, 2 TIMES DAILY, First dose on 12/30/24 at 1000 0840 ($Given - Provider: Mague Grimaldo, RN)2026 ($Given - Provider: Дмитрий Noel, RN) 0822 ($Given - Provider: Angelica Robert, RN)2042 ($Given - Provider: Mark Junior, VERENICE) 0900 (Due)2100 (Due) heparin - BOLUS DOSE from infusion (COMPLETED) 2,800 Units (rounded from 2,784 Units = 30 Units/kg 92.8 kg), Intravenous, ONCE, On Wed12/31/24 at 1200, For 1 dose, IV PUMP [...] order. 1925 ($Given - Provider: Alida Nieto, VERENICE) heparin - BOLUS DOSE from infusion (COMPLETED) [...] medication order. 0321 ($Given - Provider: Lucrecia Whelan RN) insulin aspart (NovoLOG) injection (RAPID ACTING) (CANCELED) [...] set. 0823 ($New Bag - Provider: Angelica Robert RN) magnesium sulfate 4 g in 50 [...] set. 0545 ($New Bag - Provider: Latasha Castaneda, RN) metoprolol succinate ER (TOPROL XL) 24 [...] enteral route. 0347 ($Given - Provider: Latasha Castaneda, VERENICE) metoprolol tartrate (LOPRESSOR) tablet 25 mg 25 mg, Oral, EVERY 8 HOURS, First dose (after last modification) on Wed12/31/24 at 1700, Tablets can be crushed and given via enteral route. Hold for SBP < 100 and or HR < 60 1650 ($Given - Provider: Alida Nieto, VERENICE) 0038 ($Given - Provider: Lucrecia Whelan, VEERNICE)0822 ($Given - Provider: Angelica Robert, VERENICE)1749 ($Given - Provider: Angelica Robert, VERENICE) 0050 ($Given - Provider: Mark Junior RN)0900 (Due)1700 (Due) nortriptyline (PAMELOR) capsule 25 mg 25 mg, Oral, AT BEDTIME, First dose on Sat 25 at 2100 2026 ($Given - Provider: Дмитрий Noel, VERENICE) 204 ($Given - Provider: Mark Junior, VERENICE) 2099 (Due) rivaroxaban ANTICOAGULANT (XARELTO) tablet 20 mg [...] - Provider: Mark Junior RN) 0400 (Due)1200 (Due)1999 (Due) sodium phosphate 9 mmol in sodium [...] Patient not available - Comment: went to labor utilization superintendent)1330 (Handoff - Provider: Angelica Robert RN - [...] Lucrecia Whelan RN)0321 (Rate/Dose Change - Provider: Lucreica Whelan RN)0515 (Rate/Dose Verify - Provider: Lucrecia Whelan RN)0800 (Rate/Dose Verify - Provider: Angelica Robert RN)0944 (Paused - Provider: Angelica Robert RN - Comment: txtpg Dr Denis about critical PTT of 179, ordered to hold until her cardiac procedure.) sodium chloride 0.9 % infusion at 150 mL/hr, Intravenous, CONTINUOUS, 150 mL/hr IV for 2 hours prior to cardiac labor utilization superintendent procedure, then decrease to 75 mL/hr to [...] (TKO) to prevent fluid overload, Starting on 01/01/25 at 1200, Until Discontinued 1242 (Not Given - Provider: Angelica Robert RN - Reason: Other - Comment: duplicate) PRN Medication Order 12/31/2024 01/01/2025 01/02/2025 acetaminophen (TYLENOL) tablet 650 mg (CANCELED) 650 mg, Oral, EVERY 6 HOURS PRN, other, headaches, fever, pain, Starting on 12/31/24 at 1103, Maximum acetaminophen dose from all [...] Cardiac Intra-procedure 1042 ($Given - Provider: Dinora Cardona, RN)1057 ($Given - Provider: Dinora Cardona, RN) glucagon injection 1 mg(Linked Group 2) [...] Dinora Cardona RN)1056 ($Given - Provider: Dinora Cardona RN) HOLD: Metformin and metformin containing medications if [...] for confusion/somnolence. 0841 ($Given - Provider: Mague Grimaldo, VERENICE) HYDROmorphone (DILAUDID) tablet 2 mg(Linked Group 4) [...] 320) injection (CANCELED) ONCE PRN, Starting on 01/01/25 at 1119, Cardiac Intra-procedure 1119 ($Given - Provider: Shady Wallace MD) lidocaine (LMX4) cream Topical, EVERY 1 HOUR PRN, other, with VAD insertion PRN, Starting on 01/01/25 at 1152, Apply at least 30 minutes [...] PRN, pain, with VAD insertion, Starting on 01/01/25 at 1152, Apply at least 30 minutes [...] mild pain with VAD insertion, Starting on 01/01/25 at 1152, MAX dose 1 mL subcutaneous [...] muscle spasms, Starting on 12/30/24 at 0532 0401 ($Given - Provider: Latasha [...] over 2 Minutes, ONCE PRN, Starting on Wed01/01/25 at 1042, Cardiac Intra-procedure 1042 ($Given - Provider: Dinora Cardona, VERENICE)1058 ($Given - Provider: Dinora Cardona, VERENICE) naloxone (NARCAN) injection 0.2 mg(Linked Group 5) [...] dormant line, Starting on Wed01/01/25 at 1152 triamcinolone (KENALOG) 0.1 % cream Topical, 2 TIMES DAILY PRN, irritation, Starting on Wed12/30/24 at 0828, Apply to affected area Linked [...] documented as of this encounter Care Teams Line Analyst Relationship Specialty [place] [address] [place] [address] PCP - General Family Medicine 02/18/22 documented as of this encounter
--- OUTSIDE RECORDS SUMMARY | 2025-01-02 01:52 | XMS_ITS | Clinical Summary ---
Author Organization [facility] Address [address] [place] [address] Care Team Providers Care Fishing Line Winding Machine Operator Name Role Phone Subha Miguel MD Primary Care Provider [phone] Source Comments You are receiving this document as you are listed as the primary care provider,follow-up provider, or the patient has been referred to you for consultation.This is in compliance with the Medicare and[facility] EHR Incentive Program,which states Providers who transition their patient to another setting of careor provider of care or refers their patient to another provider of care shouldprovide summary care record for each transition of care or referral. [employer] Allergies No known active allergies Medications * This document contains information received from the source organization and may not represent a complete record from that organization. CHILDRENS MULTIVITAMIN/IRON (AKA POLY--CAROLYN WITH IRON) 15 MG chewable tablet Take 1 Tab by mouth daily. 8 Active cholecalciferol (VITAMIND3) 2000 UNITS tablet Take 2,000 Units by mouth daily. 8 Active ferrous sulfate 325 (65 Fe) MG tabletIndications :Iron deficiency (HRC) Take 1 Tablet by mouth daily with breakfast. 8 Active vitamin B-12 (AKA: CYANOCOBALAMIN) 1000 MCG tabletIndications :S/P laparoscopic sleeve gastrectomy Take 1 Tablet by mouth once a week. 90 Tablet 3 0 Active atorvastatin (LIPITOR) 10 MG tabletIndications :Controlled type 2 diabetes mellitus with diabetic polyneuropathy, with long-term current use of insulin (HRC) Take 1 Tablet by mouth daily. 90 Tablet 1 Active gabapentin (NEURONTIN) 800 MG tabletIndications :Polyneuropathy associated with underlying disease (HRC) 1/2 tablet in AM, 1 tablet at Noon and 1/2 at bedtime. 180 Tablet 1 Active nortriptyline (PAMELOR) 25 MG capsuleIndication s:Polyneuropathy associated with underlying disease (HRC) Take 1 Capsule by mouth every evening. 90 Capsule 1 Active metFORMIN XR (GLUCOPHAGE XR) 500 MG 24 hour release tabletIndications :Controlled type 2 diabetes mellitus with diabetic polyneuropathy, with long-term current use of insulin (HRC) TAKE 1 TABLET BY MOUTH DAILY WITH BREAKFAST 90 Tablet 1 Active metoprolol succinate (TOPROL XL) 25 MG 24 hour release tabletIndications :Atrial fibrillation with RVR (HRC) TAKE 1 TABLET BY MOUTH ONE TIME DAILY 90 Tablet 1 Active empagliflozin (JARDIANCE) 10 MG tabletIndications :Controlled type 2 diabetes mellitus with diabetic polyneuropathy, with long-term current use of insulin (HRC) TAKE 1 TABLET BY MOUTH ONE TIME DAILY 90 Tablet 1 Active XARELTO 20 MG tabletIndications :Atrial fibrillation with RVR (HRC) Take 1 Tablet by mouth every evening with a meal. 90 Tablet 1 Active Active Problems Problem Noted Date Diagnosed Date Tobacco abuse 02/09/2020 Paroxysmal atrial fibrillation 07/21/2019 S/P laparoscopic sleeve gastrectomy 07/26/2017 Polyneuropathy associated with underlying diseas e 01/08/2016 Controlled type 2 diabetes m ellitus with diabetic polyneuropathy, with long-term current use of insulin 11/23/2014 Resolved Problems Problem Noted Date Diagnosed Date Resolved Date Obesity (BMI 30.0-34.9) 01/10/201807/05 Morbid obesity with BMI of 40.0-44.9, adult 07/16/2017 01/10/2018 Essential hypertension 07/09/201707/21 Atrial fibrillation with RVR 07/09/2017 07/21/2019 Immunizations Immunization Administration Dates Next Due HepB Adult (Engerix-B, 20+ y rs, 3 dose series) 07/21/2019,01/20/2019,01/10/2018 PPSV23 (Pneumovax) 04/17/2016 TDAP (BOOSTRIX) 01/08/2016 Family History Medical History Relation Name Comments Coronary Artery Disease Father x2, 60's Diabetes Father Relation Name Status Comments Father Social History Tobacco Use Types Packs/Day Years Used Date Smoking Tobacco: Every Day Cigarettes 0.3 32 Started: 07/09/1985; Last attempted to quit: 07/09/2017 Smokeless Tobacco: Never Tobacco Cessation:Ready to Q uit: Yes Alcohol Use Standard Drinks/Week Comments No 0 (1 standard drink = 0.6 oz pur e alcohol) none since surgery PHQ-2 Answer Date Recorded PHQ-2 Score 0 07/21/2019 Comments No Sex and Gender Information Value Date Recorded Sex Assigned at Not on file Legal Sex Female 4:24 AM CDT Gender Identity Not on file Sexual Orientation Not on file Last Filed Vital Signs Vital Sign Reading Time Taken Comments Blood Pressure 109/86 02/09/2020 1:15 PM CDT Pulse 81 02/09/2020 1:15 PM CDT Temperature 36.8 C (98.2 F) 07/28/2017 5:49 AM RIGGER APPRENTICE Respiratory Rate 16 07/28/2017 5:49 AM RIGGER APPRENTICE Oxygen Saturation 96% 07/28/2017 5:49 AM RIGGER APPRENTICE Inhaled Oxygen Concentration - - Weight 86.2 kg (190 lb) 02/09/2020 1:15 PM CDT Height 170.2 cm (5' 7) 02/09/2020 1:15 PM CDT Body Mass Index 29.76 02/09/2020 1:15 PM CDT Plan of Treatment Health Maintenance Due Date Last Done Comments Zoster/Shingles Vaccine (1 of 2) 2014 Pneumococcal Vaccine 50+ Yrs (2 of 2 - PCV) 04/17/2017 04/17/2016 Diabetes: Foot Exam 01/21/2020 01/20/2019 ( Completed), 01/10/2018 (Completed), 04/17/2016 (Completed) Diabetes: Eye Exam 04/26/2020 04/26/2019 (C ompleted), 11/30/2018 (Completed), 01/10/2018 (Completed), Additional history exists Adult Preventive Visit 07/21/2020 07/21/2019 Diabetes: Urine Microalbumin 01/25/2021, 07/14/2019, 06/24/2018, Additional history exists Diabetes: Creatinine 02/08/2021 02/09/2020, 01/26/2020, 01/13/2019, Additional history exists Mammogram 03/15/2021 03/15/2020, 02/02, 02/10/2017, Additional history exists Diabetes: HGBA1C 12/12/2021 06/13/2021, 05/2021, 01/26/2020, Additional history exists COVID-19 Vaccine ( season) 2024 Cervical Cancer Screening 07/21/20242019, 07/21/2019, 01/08/2016, Additional history exists Diabetes: Lipid Panel 01/25/2025 01/26/2020 , 06/24/2018, 05/07/2017, Additional history exists Influenza Vaccine (Season Ended) 2025 DTaP/Tdap/Td Vaccine (2 - Tdap) 01/07/2026 01/08/2016 Colonoscopy 07/07/2026 07/07/2016 RSV Vaccine (1 - 1-dose 75+ series) 2039 Hep C Screening (Preventive Services) Completed 10/30/2016 HIV Screening (Preventive Services) Completed 05/07/2017 HepB Vaccine Completed 07/21/2019, 01/02, 01/10/2018 HepA Vaccine Aged Out No longer eligi ble based on patient's age to complete this topic Hib Vaccine Aged Out No longer eligi ble based on patient's age to complete this topic IPV (Polio) Vaccine Aged Out No longe r eligible based on patient's age to complete this topic MCV4 Vaccine Aged Out No longer eligi ble based on patient's age to complete this topic Meningococcal B Vaccine Aged Out No l onger eligible based on patient's age to complete this topic Procedures Procedure Name Priority Date/Time Associated Diagnosis Comments MM MAMMOGRAM SCREENING BILAT W CAD Routine 03/15/2020 1:10 PM CDT Well adult exam BASIC METABOLIC PANEL Routine 02/09/2020 1:53 PM CDT Hyperkalemia ALBUMIN/CREAT RATIO Routine 01/26/2020 12:05 PM CDT Controlled type 2 diabetes mellitus with diabetic polyneuropathy, with long-term current use of insulin (HRC) LIPID PANEL & DIRECT LDL (IF NEEDED) Routine 01/26/2020 12:05 PM CDT Controlled type 2 diabetes mellitus with diabetic polyneuropathy, with long-term current use of insulin (HRC) HGB A1C Routine 01/26/2020 12:05 PM CDT Controlled type 2 diabetes mellitus with diabetic polyneuropathy, with long-term current use of insulin (HRC) CYTOLOGY (PAP) Routine 07/21/2019 1:36 PM RIGGER APPRENTICE Well adult exam HIV-1 P24 AND HIV-1/HIV-2 ANTIBODIES Routine 05/07/2017 11:53 AM CDT Screening for HIV (human immunodeficiency virus) HEPATITIS C ANTIBODY, WITH REFLEX (ANTI-HCV) Routine 10/30/2016 11:17 AM CDT Need for hepatitis C screening test ENDOSCOPY, COLON, SCREENING/DIAGNOST IC Routine 07/07/2016 4:08 PM RIGGER APPRENTICE Well adult exam from Last 3 Months or Most Recently Relevant to Health Maintenance Results * MM Mammogram Screening Bilat W CAD (03/15/2020 1:10 PM CDT) Anatomical Region Laterality Modality Breast Bilateral Mammography Impressions 03/15/2020 2:16 PM CDT : ACR BI-RADS Category 1: Negative RECOMMENDATION: Follow Up Imaging in 12 months - Bilateral The results and recommendations of this examination will be communicated to the patient. Narrative 03/15/2020 2:16 PM CDT MM MAMMOGRAM SCREENING BILAT W CAD performed on 03/15/20 Compared to: 02/14/2018 MM Mammogram Screening Bilat W CAD, 02/10/2017 MM Mammogram Screening Bilat W CAD, and 01/31/2016 MM Mammogram Screening Bilat W CAD FINDINGS: Bilateral screening mammogram was performed with the assistance of Computer-Aided Detection. The breasts have scattered areas of fibroglandular density. There is no radiographic evidence of malignancy. us Subha Miguel MD RAD HELIO Final Result * (ABNORMAL) Basic Metabolic Panel (02/09/2020 1:53 PM CDT) Sodium 144 136 - 145 mmol/L 02/09/2020 7:39 PM CDT [facility] Potassium 4.4 3.5 - 5.1 mmol/L 02/09/2020 7:39 PM CDT [facility] Chloride 105 98 - 109 mmol/L 02/09/2020 7:39 PM CDT [facility] CO2 27 20 - 29 mmol/L 02/09/2020 7:39 PM CDT [facility] Anion Gap 12 7 - 16 mmol/L 02/09/2020 7:39 PM CDT [facility] Calcium 9.6 8.4 - 10.4 mg/dL 02/09/2020 7:39 PM CDT [facility] BUN 16 7 - 26 mg/dL 02/09/2020 7:39 PM CDT [facility] Creatinine 0.77 0.55 - 1.02 mg/dL 02/09/2020 7:39 PM CDT [facility] GFR, Estimated >60 >60 mL/min/1.7 3m2 02/09/2020 7:39 PM CDT [facility] Glucose 127(H) 70 - 100 mg/dL 02/09/2020 7:39 PM CDT [facility] Comment:The given reference range is for the fasting state. Non-fasting reference range for glucose is 70 - 180 mg/dL. Hours Fasting 17 02/09/2020 7:39 PM CDT [facility] Blood Venipuncture / Unknown 02/09/2020 1:53 PM CDT 02/09/2020 1:53 PM CDT us Subha Miguel MD LAB_1 Final Result [facility] [address] [place] [address], [facility] [address] [place] [address], [place] [phone] * Lipid Panel and Direct LDL(If Needed) (01/26/2020 12:05 PM CDT) Cholesterol 166 0 - 199 mg/dL 01/26/2020 5:49 PM [facility] Triglyceride 53 <=149 mg/dL 01/26/2020 5:49 PM [facility] HDL Cholesterol 70 >=40 mg/dL 0 5:49 PM [facility] LDL, Calculated 85 <130 mg/dL 0 5:49 PM [facility] Non HDL Chol, Calculated 96 mg/dL 01/26/2020 5:49 PM [facility] Cholesterol/HDL Ratio 2.4 01/26/2020 5:49 PM [facility] Hours Fasting 12 01/26/2020 5:49 PM [facility] Blood Venipuncture / Unknown 01/26/2020 12:05 PM CDT 01/26/2020 12:11 PM CDT Subha Miguel MD LAB_1 Final Result Performing Organization Address [facility]/ZIP Co de Phone Number [facility] [address] [place] [address], [facility] [phone] * Microalbumin/Creatinine Ratio (01/26/2020 12:05 PM CDT) Albumin, Urine, Random 6.7 mg/L 01/26/2020 4:53 PM [facility] Creatinine, Urine, Random 86 >20 mg/dL 01/26/2020 4:53 PM [facility] Albumin/Creati nine Ratio, Urine, Random 8 <30 mg/g 01/26/2020 4:53 PM [facility] Urine,random 01/26/2020 12:0 5 PM CDT 01/26/2020 12:10 PM CDT Subha Miguel MD LAB_1 Final Result Performing Organization Address [facility]/ZIP Co de Phone Number [facility] [address] [place] [address], [facility] [phone] * (ABNORMAL) Hgb A1C (01/26/2020 12:05 PM CDT) Hemoglobin A1C 6.4(H) <=5.6 % 01/27/2020 11:04 AM CDT [facility] Blood Venipuncture / Unknown 01/26/2020 12:05 PM CDT 01/26/2020 12:11 PM CDT Narrative [facility] - 01/27/2020 11:04 AM CDT For patients not previously diagnosed with diabetes: 5.7-6.4%: Increased risk for diabetes 6.5% and greater: Diagnostic for diabetes For patients diagnosed with diabetes: <8.0%: Goal of therapy for ages 18-75 Clinicians may recommend a higher or lower goal for specific individuals. us Subha Miguel MD LAB_1 Final Result Performing Organization Address City/State/[facility] Co de Phone Number [facility] [address] [phone] * PAP Test (07/21/2019 1:36 PM RIGGER APPRENTICE) Case Report Pap Case: [id number] Authorizing Provider: Subha Miguel MD Collected: 07/21/2019 01:36 PM Ordering Location: [facility] Received: 07/21/2019 02:36 PM First Screen: Lia Ambrocio CT (ASCP) Rescreen: Glendy Quezada CT (ASCP) Specimen: Pap Test, Routine, Cervix/Endocervix 07/27/2019 2:16 PM RIGGER APPRENTICE [facility] Pap Specimen Adequacy Satisfactory for evaluation, endocervical/clay sformation zone component present. 07/27/2019 2:16 PM RIGGER APPRENTICE [facility] Pap Interpretation Negative for intraepithelial lesion or malignancy (NILM). 07/27/2019 2:16 PM RIGGER APPRENTICE [facility] at 1416 RIGGER APPRENTICE Gross Description The specimen is received in SurePath fixative and properly labeled. 1 Pap-stained SurePath slide is prepared. 07/27/2019 2:16 PM RIGGER APPRENTICE [facility] Pap Disclaimer The Pap test is a screening test designed to aid in the detection of cervical cancer and its precursor lesions. It is not a diagnostic procedure and should not be used as the sole means of detecting cervical cancer. Both false-positive and false-negative reports may occur. 07/27/2019 2:16 PM RIGGER APPRENTICE [facility] Embedded Images 0 2:16 PM RIGGER APPRENTICE [facility] Other Specimen Type ENTIRE ENDOCERVIX / Unknown 07/21/2019 1:36 PM RIGGER APPRENTICE 07/21/2019 2:36 PM RIGGER APPRENTICE Comment:LMP: Patient's last menstrual period was 04/18/2018 (approximate). Subha Miguel MD LAB PATHOLOGY Final Result Performing Organization Address [facility] Co de Phone Number [address] [place] [address] * HIV-1 p24 AND HIV-1/HIV-2 ANTIBODIES (05/07/2017 11:53 AM CDT) HIV-1 p24 Ag and HIV-1/HIV-2 Ab Nonreactive Nonreactive PN SOFT 05/07/2017 11:5 3 AM CDT 05/07/2017 4:04 PM CDT Narrative PN SOFT - 05/07/2017 5:17 PM CDT Performed at [facility], [address] [place] [address] CLIA number [id number] Subha Miguel MD LAB_1 Final Result Performing Organization Address [facility] Co de Phone Number PN SOFT [address] [place] [phone] * Hepatitis C Virus Nneka with Reflex (10/30/2016 11:17 AM CDT) Hepatitis C Antibody Nonreactive Nonreactive PN SOFT 10/30/2016 11:1 7 AM CDT 10/30/2016 4:10 PM CDT Narrative PN SOFT - 10/30/2016 5:29 PM CDT Performed at [facility], [address] [place] [address] CLIA number [id number] .OK by Norah Tanner 11:11 10/30/2016 dicch us Subha Miguel MD LAB_1 Final Result PN SOFT [address] [place] [address] * Endoscopy, colon, diagnostic (07/07/2016 4:08 PM RIGGER APPRENTICE) Anatomical Region Laterality Modality Other 07/07/2016 4:08 PM RIGGER APPRENTICE Narrative 07/07/2016 4:08 PM RIGGER APPRENTICE Patient Name: Juliet Krause Procedure Date: 07/07/2016 4:08 PM Date of : 1965 Admit Type: Outpatient Age: 51 Note Status: Finalized Attending MD: Sheng Roberts MD Procedure: Colonoscopy Indications: Screening for colorectal malignant neoplasm Providers: Sheng Roberts MD, Leland Palacios RN Referring MD: Subha Miguel MD Medicines: Fentanyl 100 micrograms IV, Midazolam 2 mg IV Complications: No immediate complications. Procedure: After I obtained informed consent, the scope was passed under direct vision. Throughout the procedure, the patient's blood pressure, pulse, and oxygen saturations were monitored continuously. The Colonoscope was introduced through the anus and advanced to the terminal ileum, with identification of the appendiceal orifice and IC valve. The colonoscopy was performed without difficulty. The patient tolerated the procedure well. The quality of the bowel preparation was good. Findings: The terminal ileum appeared normal. The colon (entire examined portion) appeared normal. Internal hemorrhoids were found. The hemorrhoids were mild. The exam was otherwise without abnormality. Impression: - The examined portion of the ileum was normal. - The entire examined colon is normal. - Internal hemorrhoids. - The examination was otherwise normal. - No specimens collected. Recommendation: - Repeat colonoscopy in 10 years for screening purposes. Procedure Code(s): --- Professional --- G0121, Colorectal cancer screening; colonoscopy on individual not meeting criteria for high risk Diagnosis Code(s): --- Professional --- Z12.11, Encounter for screening for malignant neoplasm of colon K64.8, Other hemorrhoids CPT copyright 2014 [employer]. All rights reserved. The codes documented in this report are preliminary and upon jewelry setter review may be revised to meet current compliance requirements. Sheng Roberts MD 07/07/2016 4:37:37 PM This document has been electronically signed. Number of Addenda: 0 Note Initiated On: 07/07/2016 4:08 PM Endoscopy Report Procedure Note Sheng Roberts MD - 07/07/2016 Patient Name: Juliet Krause Procedure Date: 07/07/2016 4:08 PM Date of : 1965 Admit Type: Outpatient Age: 51 Note Status: Finalized Attending MD: Sheng Roberts MD Procedure: Colonoscopy Indications: Screening for colorectal malignant neoplasm Providers: Sheng Roberts MD, Leland Palacios RN Referring MD: Subha Miguel MD Medicines: Fentanyl 100 micrograms IV, Midazolam 2 mg IV Complications: No immediate complications. Procedure: After I obtained informed consent, the scope was passed under direct vision. Throughout the procedure, the patient's blood pressure, pulse, and oxygen saturations were monitored continuously. The Colonoscope was introduced through the anus and advanced to the terminal ileum, with identification of the appendiceal orifice and IC valve. The colonoscopy was performed without difficulty. The patient tolerated the procedure well. The quality of the bowel preparation was good. Findings: The terminal ileum appeared normal. The colon (entire examined portion) appeared normal. Internal hemorrhoids were found. The hemorrhoids were mild. The exam was otherwise without abnormality. Impression: - The examined portion of the ileum was normal. - The entire examined colon is normal. - Internal hemorrhoids. - The examination was otherwise normal. - No specimens collected. Recommendation: - Repeat colonoscopy in 10 years for screening purposes. Procedure Code(s): --- Professional --- G0121, Colorectal cancer screening; colonoscopy on individual not meeting criteria for high risk Diagnosis Code(s): --- Professional --- Z12.11, Encounter for screening for malignant neoplasm of colon K64.8, Other hemorrhoids CPT copyright 2014 [employer]. All rights reserved. The codes documented in this report are preliminary and upon jewelry setter review may be revised to meet current compliance requirements. Sheng Roberts MD 07/07/2016 4:37:37 PM This document has been electronically signed. Number of Addenda: 0 Note Initiated On: 07/07/2016 4:08 PM Endoscopy Report Subha Miguel MD ET GI PROCEDURE ORDERABLES Fin al Result from Last 3 Months or Most Recently Relevant to Health Maintenance Insurance [facility] [id number] [place] [address] Advance Directives * Full Code (Latest Code Status on File) Date Activated Date Inactivated Comments 07/26/2017 3:53 PM 07/28/2017 3:33 PM Care Teams Fishing Line Winding Machine Operator Relationship Specialty Start Date End Date Subha Miguel MD [address] [place] [address] PCP - General 08/03/14
--- OUTSIDE RECORDS SUMMARY | 2025-01-02 01:52 | XMS_ITS | Encounter Summary ---
Author Organization [place] Address [facility] [place] [address] Care Team Providers Care Open Shank Coverer Name Role Phone Bianca Mejia MD Primary Care Provider [phone] Encounter Details Date Type Department Care Team (Latest Contact Info) Description 12/29/2024 Travel Social History Tobacco Use Types Packs/Day Years Used Date Smoking Tobacco: Every Day Cigarettes Smokeless Tobacco: Never Alcohol Use Standard Drinks/Week Comments Yes 0 (1 standard drink = 0.6 oz pur e alcohol) Socially Adolescent Education Answer Date Record ed Getting School Help Needed Not on file 03/27 Interpersonal Safety Answer Date Record ed Do [...] on file documented as of this encounter Plan of Treatment Not on file documented as of this encounter Visit Diagnoses Not on filedocumented in this encounter Care Teams Open Shank Coverer Relationship Specialty [place] [address] [place] [address] PCP - General Family Medicine 02/18/22 documented as of this encounter
--- OUTSIDE RECORDS SUMMARY | 2025-01-02 01:52 | XMS_ITS | Encounter Summary ---
Author Organization [place] Address [address] [facility] [place] [address] Care Team Providers Care Plant Engineering Manager Name Role Phone Bianca Mejia MD Primary Care Provider [phone] Encounter Details Date Type Department Care Team (Late st Contact Info) Description 02/04/2022 [facility] [address] [place] [address] Siva Wilson MD [facility] [address] [place] [address] Pre-operative laboratory examination (Primary Dx) Social History Tobacco Use Types Packs/Day Years Used Date Smoking Tobacco: Every Day Cigarettes Smokeless Tobacco: Never Alcohol Use Standard Drinks/Week Comments Yes 0 (1 standard drink = 0.6 oz pur e alcohol) Socially Comments No Sex and Gender Information Value Date Recorded Sex Assigned at Not on file Legal Sex Female 2:48 PM CDT Gender Identity Not on file Sexual Orientation Not on file COVID-19 Exposure Response Date Recorded In the last 10 days, have yo u been in contact with someone who was confirmed or suspected to have Coronavirus/COVID-19? No / Unsure 02/04/2022 4:05 PM CDT documented as of this encounter Plan of Treatment Not on file documented as of this encounter Visit Diagnoses Diagnosis Pre-operative laboratory examination- Primary Pre-procedural laboratory examination documented in this encounter Additional Health Concerns Infection Onset Date Last Indicated Resolved Time Rule Out COVID-19 12/30/2024 12/30/2024 12/30/2024 7:27 AM CDT documented as of this encounter Care Teams Plant Engineering Manager Relationship Specialty Start Date End Date Antoniot, [place] [address] [place] [address] PCP - General Family Medicine 02/18/22 documented as of this encounter
--- OUTSIDE RECORDS SUMMARY | 2025-01-02 01:52 | XMS_ITS | Clinical Summary ---
Author Organization [facility] [facility] Address [address] [place] [id number] Care Team Providers Care Rent Control Office Manager Name Role Phone Bianca Mejia MD Primary Care Provider [phone] Allergies No known active allergies Medications cyanocobalamin (VITAMIN B12) 1,000 mcg tablet Take 1,000 mcg by mouth. 0 Active multivitamin (MVI) tablet Take 1 Tablet by mouth once daily. 1 Tablet 3 2 Active cholecalciferol, Vitamin D3, 2,000 unit tablet Take 1 Tablet (2,000 units) by mouth once daily. 0 2 Active calcium carbonate-vitamin D3, 500 mg-400 units, (OSCAL 500 + D) tablet Take 1 Tablet by mouth three times daily with meals. 0 2 Active ascorbic acid, vitamin C, (Vitamin C) 500 mg tablet Take 1 Tablet (500 mg) by mouth two times daily. 0 2 Active ferrous sulfate, 65 mg elemental, tablet Take 1 Tablet (325 mg) by mouth once daily with a meal. 30 Tablet 11 2 Active atorvastatin (LIPITOR) 10 mg tabletIndications: Mixed hyperlipidemia Take 1 Tablet (10 mg) by mouth once daily with evening meal. 30 Tablet 11 5 Active gabapentin (NEURONTIN) 800 mg tabletIndications: Type 2 diabetes mellitus with polyneuropathy (HC) Take 1 Tablet (800 mg) by mouth two times daily. 180 Tablet 2 5 Active metFORMIN (GLUCOPHAGE XR) 500 mg Extended-Release tabletIndications: Type 2 diabetes mellitus with polyneuropathy (HC) Take 2 Tablets (1,000 mg) by mouth two times daily with meals. 120 Tablet 5 5 Active metoprolol succinate (TOPROL XL) 50 mg sustained-release tabletIndications: Atrial fibrillation, unspecified type (HC) Take 1 Tablet (50 mg) by mouth once daily. 90 Tablet 2 5 Active nortriptyline (PAMELOR) 25 mg capsuleIndications :Type 2 diabetes mellitus with polyneuropathy (HC) Take 1 Capsule (25 mg) by mouth at bedtime. 90 Capsule 2 5 Active rivaroxaban (XARELTO) 20 mg tabletIndications: Atrial fibrillation, unspecified type (HC) Take 1 Tablet (20 mg) by mouth once daily with evening meal. 30 Tablet 5 5 Active triamcinolone 0.1 % creamIndications:R stephanie Apply topically to affected area(s) two times daily. For 2 weeks then twice daily prn 30 g 1 5 Active methylPREDNISolone (Medrol (Donato)) 4 mg tabletIndications: Right shoulder pain, unspecified chronicity Take by mouth as instructed per packaging. 21 Tablet 5 Active levothyroxine 50 mcg tabletIndications: Hypothyroidism (acquired) Take 1 Tablet (50 mcg) by mouth before breakfast. 90 Tablet 1 5 Active Active Problems Problem Noted Date Diagnosed Date Foot injury, left, initial encounter 03/31/2023 Atrial fibrillation, unspecified type 12/12/2021 Type 2 diabetes mellitus with polyneuropathy 04/2022 Polyneuropathy associated with underlying diseas e 06/13/2021 Encounters Date Type Department Care Team Description 11/08/2024 2:45 PM CDT Ancillary Procedure [facility] [id number] [place] [phone] 11/08/2024 1:55 PM CDT Office Visit [facility] [address] [place] [phone] Hett, Bianca Espinosa MD Shoulder Pain/problem (--Right (intermittent)/--Wor sening) 11/08/2024 Travel 11/05/2024 Travel from Last 3 Months Immunizations Immunization Administration Dates Next Due COVID-19 vaccine ([employer] 30mcg/0.3mL) 12YO+ BIVALENT PF, MDV 06/12/2022 COVID-19 vaccine ([employer] 30mcg/0.3mL) PF, MDV 06/13/2021 Hepatitis B (Adult) 07/21/2019,01/20/2019,2017 Pneumococcal Conj 20-valent (Prevnar 20) 023 Pneumococcal Poly,23-Valent (Pneumovax) 04/17/20 16 Tdap 01/08/2016 Family History Medical History Relation Name Comments Atrial fibrillation Father Coronary artery disease Father Anxiety disorder Mother Other Mother in her sle ep 84 y/o Cancer-breast No Family History Relation Name Status Comments Father Mother Social History Tobacco Use Types Packs/Day Years Used Date Smoking Tobacco: Every Day Cigarettes Last attempted to quit: 02/16/2022 Smokeless Tobacco: Never Tobacco Cessation:Ready to Q uit: Not Asked; Counseling Given: Not Answered Comments:Has cut down to 2017. Prior 1ppd for 20 years. Alcohol Use Standard Drinks/Week Comments Yes 2 (1 standard drink = 0.6 oz pur e alcohol) 2 drinks/week PHQ-2 Answer Date Recorded PHQ-2 TOTAL SCORE 0 07/28/2024 Social Connections Answer Date Recorded Do you often feel lonely or isolated from those around you? 0 07/28/2024 Financial Resource Strain Answer Date R ecorded Difficulty of Paying Living Expenses 3 07/28/2024 Difficulty of Paying Living Expenses Not on file 07/28/2024 Food Insecurity Answer Date Recorded Do you worry your food will run out before you are able to buy more? 1 07/28/2024 Transportation Needs Answer Date Record ed Does lack of transportation keep you from medica l appointments? 1 07/28/2024 Does lack of transportation keep you from work, meetings or getting things that you need? 1 07/28/2024 Housing Stability Answer Date Recorded What is your housing situation today? 1 07/28/2024 Utilities Answer Date Recorded Do you have trouble paying f or utilities (for example, heat, electricity, water, phone)? 1 07/28/2024 Comments No Sex and Gender Information Value Date Recorded Sex Assigned at Not on file Legal Sex Female 3:59 PM CDT Gender Identity Not on file Sexual Orientation Not on file Obstetrics History Last Filed Vital Signs Vital Sign Reading Time Taken Comments Blood Pressure 132/74 11/08/2024 1:54 PM CDT Pulse 112 11/08/2024 1:54 PM CDT Temperature 38.5 C (101.3 F) 05/07/2023 2:45 PM CDT Respiratory Rate 14 05/07/2023 2:45 PM CDT Oxygen Saturation 97% 11/08/2024 1:54 PM CDT Inhaled Oxygen Concentration - - Weight 91.9 kg (202 lb 9.6 oz) 11/08/2024 1:54 P M CDT Height 167.3 cm (5' 5.87) 07/28/2024 3:43 PM CS T Body Mass Index 32.83 07/28/2024 3:43 PM [employer] Plan of Treatment Upcoming Encounters Date Type Department Care Team (Late st Contact Info) Description 01/26/2025 1:45 PM CDT Office Visit [facility] [address] [place] [phone] Hett, [place] [address] [place], [place] [phone] Health Maintenance Due Date Last Done Comments HIV for age 15-65 1979 Hepatitis C screening for ag e 18-79 1982 Zoster (shingles) series for age 50+ (1 of 2) 2014 COVID-19 vaccine series ( season) 2024 06/12/2022, 06/13/2021, 03/26/2021 RSV vaccine for adults or (1 - Risk 60-74 years 1-dose series) 2024 Pap test for age 21-65 07/21/2024 0 (Verified in Care Everywhere or Patient Record) Influenza Vaccine (Season Ended) 2025 BMI (ht and wt on same day) for age 18+ 07/28/2025 07/28/2024, 12/11/2022, 04/10/2022, Additional history exists Depression screening for age 12+ 07/28/2025 07/28/2024, 06/11/2023, 03/18/2022 Mammogram for age 45-75 08/10/2025 08/10/19 25, 08/06/2023, 07/22/2022, Additional history exists Tetanus booster 01/07/2026 01/08/2016 Colonoscopy through age 75 07/07/202607/07 (Verified in Care Everywhere or Patient Record) Lipids for age 45-75 07/28/2029 07/28/2024, 12/11/2022, 12/12/2021, Additional history exists Tdap Completed 01/08/2016 Hepatitis B series for 19+ Completed 07/21, 01/20/2019, 01/10/2018 Pneumococcal series for age 50+ Completed , 04/17/2016 Procedures Procedure Name Priority Date/Time Associated Diagnosis Comments XR SHOULDER 3 VIEWS RIGHT Routine 11/08/2024 2:45 PM CDT Acute pain of right shoulder TSH Routine 11/08/2024 2:35 PM CDT Type 2 diabetes mellitus with polyneuropathy (HC) XR MAMMO BILAT SCREENING Routine 08/10/2024 6:04 PM [employer] Visit for screening mammogram LIPID PANEL W REFLEX MEASURED LDL Routine 07/28/2024 12:00 AM [employer] Type 2 diabetes mellitus with polyneuropathy (HC) from Last 3 Months or Most Recently Relevant to Health Maintenance Results * XR SHOULDER 3 VIEWS RIGHT (11/08/2024 2:45 PM CDT) Anatomical Region Laterality Modality SHOULDERS, SHOULDER R Computed R adiography 11/08/2024 2:45 PM CDT Impressions 11/09/2024 11:33 AM CDT The right glenohumeral and acromioclavicular joints are negative for fracture or dislocation. There is mild degenerative change at the glenohumeral joint. The right clavicle is negative. Narrative 11/09/2024 11:33 AM CDT For Patients: As a result of the Cures Act, medical imaging exams and procedure reports are released immediately into your electronic medical record. You may view this report before your referring provider. If you have questions, please contact your health care provider. EXAM: XR SHOULDER 3 VIEWS RIGHT LOCATION: [facility] DATE: 11/08/2024 INDICATION: Acute Pain Of Right Shoulder COMPARISON: None. Procedure Note Joaquin Zimmerman MD - 11/09/2024 For Patients: As a result of the Cures Act, medical imagingexams and procedure reports are released immediately into your electronicmedical record. You may view this report before your referring provider.If you have questions, please contact your health care provider. EXAM: XR SHOULDER 3 VIEWS RIGHT LOCATION: [facility] DATE: 11/08/2024 INDICATION: Acute Pain Of Right Shoulder COMPARISON: None. IMPRESSION: The right glenohumeral and acromioclavicular joints are negative forfracture or dislocation. There is mild degenerative change at theglenohumeral joint. The right clavicle is negative. us Bianca Mejia MD GENERAL IMAGING Final Result * (ABNORMAL) TSH (11/08/2024 2:35 PM CDT) TSH 6.88(H) 0.40 - 4.50 mIU/L [facility] Blood BLOOD SPECIMEN / Unknown 11/08/2024 2:35 PM CDT 11/08/2024 2:35 PM CDT us Bianca Mejia MD CHEMISTRY Final Result [employer] [facility] [address] [place] [address], [facility] [address] [place] [address] * XR MAMMO BILAT SCREENING (08/10/2024 6:04 PM [employer]) Anatomical Region Laterality Modality BREASTS, Breast Left, Breast Right Bilateral Mammography Impressions 08/11/2024 2:16 PM [employer] There is no radiographic evidence for malignancy. Recommend annual mammograms. MAMMOGRAM ASSESSMENT: ACR 1 Negative PATIENTS: You will also receive a letter with your examination results in an easy to read format. If you have questions about your results, please contact your referring provider. Narrative 08/11/2024 2:16 PM [employer] For Patients: As a result of the Century Cures Act, medical imaging exams and procedure reports are released immediately into your electronic medical record. You may view this report before your referring provider. If you have questions, please contact your health care provider. XR MAMMO BILAT SCREENING [[id number]] CLINICAL HISTORY: This is an asymptomatic 59 y.o. patient. INDICATION FOR EXAM: Mammogram Screening. TECHNIQUE: CC & MLO views were obtained. This study was evaluated with the assistance of Computer-Aided Detection. COMPARISON FILM: Yes 08/06/23 [facility] 07/22/22 [employer] FINDINGS: There are scattered areas of fibroglandular density. There are no dominant masses, suspicious micro calcifications or areas of architectural distortion. us Bianca Mejia MD MAMMO Final Result * LIPID PANEL W REFLEX MEASURED LDL (07/28/2024 12:00 AM [employer]) CHOLESTEROL, TOTAL 149 <200 mg/dL [facility] HDL CHOLESTEROL 66 > OR = 50 mg/dL [facility] TRIGLYCERIDES 71 <150 mg/dL [facility] LDL-CHOLESTEROL 68 mg/dL (calc) [facility] Comment: Reference range: <100 Desirable range <100 mg/dL for primary prevention; <70 mg/dL for patients with CHD or diabetic patients with > or = 2 CHD risk factors. LDL-C is now calculated using the Kallie calculation, which is a validated novel method providing better accuracy than the Friedewald equation in the estimation of LDL-C. Marky WASHINGTON et al. ORI. 2013;310(19): 8666-0882 (http://education.[employer]/faq/IBZ649) CHOL/HDLC RATIO 2.3 <5.0 (calc) [facility] NON HDL CHOLESTEROL 83 <130 mg/dL (calc) [facility] Comment: For patients with diabetes plus 1 major ASCVD risk factor, treating to a non-HDL-C goal of <100 mg/dL (LDL-C of <70 mg/dL) is considered a therapeutic option. Blood BLOOD SPECIMEN / Unknown 07/28/2024 07/28/2024 4:43 PM [employer] Narrative [facility] - 07/29/2024 2:59 AM [employer] MULTIPLE TESTING PRIORITIES; ROUTINE TESTING TO FOLLOW. Bianca Mejia MD CHEMISTRY Final Result [employer] [facility] [address] [place] [address], [facility] [address] [place] [address] from Last 3 Months or Most Recently Relevant to Health Maintenance Insurance [facility] Care Teams Rent Control Office Manager Relationship Specialty [place] [address] [place] [address] PCP - General Family Practice 12/13/20
--- OUTSIDE RECORDS SUMMARY | 2025-01-02 01:53 | XMS_ITS | Clinical Summary ---
Author Organization [place] Address [address] [facility] [place] [address] Care Team Providers Care [employer] Technician Name Role Phone Bianca Mejia MD Primary Care Provider [phone] Allergies No known active allergies Medications metFORMIN (GLUCOPHAGE XR) 500 MG 24 hr tablet Take 1,000 mg by mouth 2 times daily (with meals). Suspended atorvastatin (LIPITOR) 10 MG tablet Take 10 mg by mouth daily Suspended empagliflozin (JARDIANCE) 10 MG TABS tablet Take 10 mg by mouth daily 025 Discontinued (Med Rec(No AVS / No eCancel)) gabapentin (NEURONTIN) 800 MG tablet Take 800 mg by mouth 2 times daily. Suspended gabapentin (NEURONTIN) 400 MG capsule Take 400 mg by mouth At Bedtime 025 Discontinued (Med Rec(No AVS / No eCancel)) nortriptyline (PAMELOR) 25 MG capsule Take 25 mg by mouth At Bedtime Suspended metoprolol succinate ER (TOPROL XL) 25 MG 24 hr tablet Take 25 mg by mouth daily 025 Discontinued (Med Rec(No AVS / No eCancel)) digoxin (LANOXIN) 125 MCG tablet Take 4 tablets today then 2 tablets twice daily tomorrow then 1 pill daily thereafter. 02/21/20 22 025 Discontinued (Med Rec(No AVS / No eCancel)) calcium carbonate-vitamin D (OS-SAMMIE WITH D) 500-200 MG-UNIT tabletIndications :S/P lumbar fusion Take 1 tablet by mouth 3 times daily (before meals) 270 tablet 02/27/20 22 Suspended methocarbamol (ROBAXIN) 750 MG tabletIndications :S/P lumbar fusion Take 1 tablet (750 mg) by mouth every 6 hours as needed for muscle spasms 30 tablet 02/26/20 22 025 Discontinued (Med Rec(No AVS / No eCancel)) Vitamin D3 (CHOLECALCIFEROL) 25 mcg (1000 units) tabletIndications :S/P lumbar fusion Take 1 tablet (25 mcg) by mouth 2 times daily 180 tablet 02/26/20 22 Suspended senna-docusate (SENOKOT-S/MARTA LACE) 8.6-50 MG tabletIndications :S/P lumbar fusion Take 1-2 tablets by mouth 2 times daily Take while on oral narcotics to prevent or treat constipation. 30 tablet 02/26/20 22 025 Discontinued (Med Rec(No AVS / No eCancel)) acetaminophen (TYLENOL) 325 MG tabletIndications :S/P lumbar fusion Take 2 tablets (650 mg) by mouth every 4 hours as needed for other (mild pain) 100 tablet 02/26/20 22 Suspended oxyCODONE (ROXICODONE) 5 MG tabletIndications :S/P lumbar fusion Take 1-2 tablets (5-10 mg) by mouth every 4 hours as needed for moderate to severe pain 28 tablet 02/26/20 22 025 Discontinued (Med Rec(No AVS / No eCancel)) rivaroxaban ANTICOAGULANT (XARELTO) 20 MG TABS tabletIndications :Atrial fibrillation, unspecified type (H) Take 1 tablet (20 mg) by mouth daily (with dinner) 02/28/20 22 Suspended metoprolol succinate ER (TOPROL XL) 50 MG 24 hr tablet Take 50 mg by mouth daily. Suspended levothyroxine (SYNTHROID/LEVOTH ROID) 50 MCG tablet Take 50 mcg by mouth every morning (before breakfast). Suspended triamcinolone (KENALOG) 0.1 % external cream Apply topically 2 times daily as needed. 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 01/08/2016 Polyneuropathy due to type 2 diabetes mellitus 0 11/23/2014 Encounters Date Type Department Care Team Description 01/01/2025 10:30 AM CDT - 01/01/2025 12:30 PM CDT Surgery [facility] [address] [place] [address] Shady Wallace MD Coronary Angiogram 12/30/2024 5:29 AM CDT - Present Hospital Encounter [facility] [address] [place] [address] Ashly Chen MD Anderson, MD BAKARI Castro, MD Adeel Gutierres, Elias Gross MD Cardiac arrest (H) (Primary Dx); NSTEMI (non-ST elevated myocardial infarction) (H) 12/29/2024 10:52 PM CDT - 12/30/2024 4:53 AM CDT Emergency [facility] Emergency Dept [address] [place] [address] Leland Retana MD Cardiac arrest (H); Atrial fibrillation with RVR (H); Hyperkalemia; Lactic acidosis Discharge Disposition: Another Health Care Institution with Planned Hospital IP Readmission 12/29/2024 Travel from Last 3 Months Immunizations Immunization Administration Dates Next Due Hepatitis B, Adult (Energix- B/Recombivax HB) 07/21/2019,01/20/2019,01/10/2018 Pneumococcal 20 valent Conju gate (Prevnar 20) 06/11/2023 Pneumococcal 23 valent 04/17/2016 TDAP (Adacel,Boostrix) 01/08/2016 Social History Tobacco Use Types Packs/Day Years Used Date Smoking Tobacco: Every Day Cigarettes Smokeless Tobacco: Never Tobacco Cessation:Ready to Q uit: Yes; Counseling Given: Yes Alcohol Use Standard Drinks/Week Comments Yes 0 [...] in an abandoned building, in an overnight care home, or couch-surfing.) Yes 12/31/2024 Are you worried [...] Mass Index 32.03 12/31/2024 4:00 AM CDT Plan of Treatment Health Maintenance Due Date Last Done Comments A1C 1965 ADVANCE CARE PLANNING 1965 ANNUAL REVIEW OF HM ORDERS 1964 CT COLONOGRAPHY 1965 DIABETIC FOOT EXAM 1965 EYE EXAM 1965 FIT 1965 FLEX SIG 1965 LIPID 1965 MICROALBUMIN 1964 sDNA (Cologuard) 1965 COLONOSCOPY 1974 COLORECTAL CANCER SCREENING 1974 ZOSTER VACCINE (1 of 2) 2014 YEARLY PREVENTIVE VISIT 07/21/2020 07/21/2019 PAP 07/21/2022 07/21/2019 COVID-19 VACCINE (4 - 2023-2 5 season) 2024 06/12/2022, 06/13/2021, 03/26/2021 RSV VACCINE (1 - Risk 60-74 years 1-dose series) 2024 PHQ-2 (once per calendar year) 2024 INFLUENZA VACCINE (#1) 2025 LUNG CANCER SCREENING 12/30/2025 12/30/2024 TSH W/FREE T4 REFLEX 12/30/2025 12/30/2024 BMP 12/31/2025 12/31/2024, 12/30/2024, 12/30/2024 DTAP/TDAP/TD VACCINE (2 - Td or Tdap) 01/07/2026 01/08/2016 MAMMO SCREENING 08/10/2026 08/10/2024, 03/15/2020 HEPATITIS C SCREENING Completed 10/30/2016 HIV SCREENING Completed 05/07/2017 PNEUMOCOCCAL VACCINE 50+ YEARS Completed 06/11/2023, 04/17/2016 HPV VACCINE Aged Out No longer eligi ble based on patient's age to complete this topic MENINGITIS VACCINE Aged Out No longer eligible based on patient's age to complete this topic Medical Devices Implanted Type Area Shoe Sprayer Device Identifier Shelf Expiration Date Model / Serial / Lot Graft Bone Magnifuse [id number] - [id number] Implanted:Qty: 1 on 02/24/2022 by Siva Wilson MD at [facility] Bone/Tissue /Biologic N/A: Spine Lumbar [employer] 12/17/2023 [id number] / [id number] / Graft Bone Fibers Dbf 6ml Inj [id number] Preloaded - [id number] Implanted:Qty: 1 on 02/24/2022 by Siva Wilson MD at [facility] Bone/Tissue /Biologic N/A: Spine Lumbar [employer] 01/17/2024 [id number] / [id number] / Imp Naga Medt Solera Cvd 5.5x90mm Ti [id number] - [id number] Implanted:Qty: 2 on 02/24/2022 by Siva Wilson MD at [facility] Metallic Hardware/An chor N/A: Spine Lumbar [employer] [id number] / / [id number] Imp Scr Medt 5.5/6.0mm Solera 5.5x45mm Ma [id number] - [id number] Implanted:Qty: 2 on 02/24/2022 by Siva Wilson MD at [facility] Metallic Hardware/An chor N/A: Spine Lumbar [employer] [id number] / / 8005 AUG 2022 Imp Scr Medt 5.5/6.0mm Solera 6.5x45mm Ma [id number] - [id number] Implanted:Qty: 4 on 02/24/2022 by Siva Wilson MD at [facility] Metallic Hardware/An chor N/A: Spine Lumbar [employer] [id number] / / 8005 AUG 2022 Imp Scr Medt 5.5/6.0mm Solera 6.5x40mm Ma [id number] - [id number] Implanted:Qty: 2 on 02/24/2022 by Siva Wilson MD at [facility] Metallic Hardware/An chor N/A: Spine Lumbar [employer] [id number] / / 8005 AUG 2022 Imp Scr Set Medt Solera Break Off 5.5mm Ti [id number] - [id number] Implanted:Qty: 8 on 02/24/2022 by Siva Wilson MD at [facility] Metallic Hardware/An chor N/A: Spine Lumbar [employer] [id number] / / [id number] Interbody Cage, Pl, Short, H=7mm X L=23.3mm (A=20mm) Implanted:Qty: 1 on 02/24/2022 by Siva Wilson MD at [facility] Metallic Hardware/An chor N/A: Spine Lumbar [employer] 12/09/2029 [id number] / / [id number] Interbody Cage, Pl, Short, H=7mm X L=23.3mm (A=20mm) Implanted:Qty: 1 on 02/24/2022 by Siva Wilson MD at [facility] Metallic Hardware/An chor N/A: Spine Lumbar [employer] 12/17/2029 [id number] / / [id number] Interbody Cage, Pl, Short, H=7mm X L=23.3mm (A=20mm) Implanted:Qty: 1 on 02/24/2022 by Siva Wilson MD at [facility] Metallic Hardware/An chor N/A: Spine Lumbar [employer] 12/04/2029 [id number] / / [id number] Procedures * The patient is currently admitted. [...] (H) NSTEMI (non-ST elevated myocardial infarction) (H) ABO/RH TYPE AND SCREEN STAT 9:15 AM CDT TYPE AND SCREEN, ADULT STAT 9:15 AM CDT PARTIAL THROMBOPLASTIN TIME Timed 01/01/2025 9:15 AM CDT GLUCOSE BY METER Routine 01/01/2025 8:02 AM CDT MAGNESIUM Add-On 01/01/2025 4:24 AM CDT HEPATIC FUNCTION PANEL Routine 4:24 AM CDT PHOSPHORUS Routine 01/01/2025 4:24 AM CDT POTASSIUM Routine 01/01/2025 4:24 AM CDT EXTRA GREEN TOP (LITHIUM HEPARIN) TUBE Routine 01/01/2025 1:56 AM CDT EXTRA TUBE Routine 01/01/2025 1:56 AM CDT PARTIAL THROMBOPLASTIN TIME Timed 01/01/2025 1:36 AM CDT GLUCOSE BY METER Routine 12/31/2024 8:24 PM CDT PARTIAL THROMBOPLASTIN TIME Timed 12/31/2024 5:59 PM CDT GLUCOSE BY METER Routine 12/31/2024 4:43 PM CDT GLUCOSE BY METER Routine 12/31/2024 11:5 4 AM CDT MAGNESIUM Timed 12/31/2024 10:39 AM CDT PARTIAL THROMBOPLASTIN TIME Timed 12/31/2024 10:39 AM CDT GLUCOSE BY METER Routine 12/31/2024 8:19 AM CDT GLUCOSE BY METER Routine 12/31/2024 3:58 AM CDT PHOSPHORUS Add-On 12/31/2024 3:56 AM CDT COMPREHENSIVE METABOLIC PANEL Routine 12/31/2024 3:56 AM CDT MAGNESIUM Routine 12/31/2024 3:56 AM CDT CBC WITH PLATELETS Routine 12/31/2024 3: 56 AM CDT PARTIAL THROMBOPLASTIN TIME Timed 12/31/2024 3:56 AM CDT GLUCOSE BY METER Routine 12/31/2024 [...] CONTRAST Routine 12/30/2024 12:04 PM CDT URINE DRUG SCREEN Routine 12/30/2024 10: 35 AM CDT URINE CREATININE FOR DRUG SCREEN PANEL Routine 12/30/2024 10:35 AM CDT URINE DRUG SCREEN PANEL Routine 12/31/19 10:35 AM CDT TROPONIN T, HIGH SENSITIVITY Routine 12/30/2024 10:35 AM CDT LACTIC ACID WHOLE BLOOD Timed 12/31/19 9:59 AM CDT GLUCOSE BY METER Routine 12/30/2024 9:47 AM CDT CBC WITH PLATELETS STAT 12/30/2024 8: 33 AM CDT INFLUENZA A/B, RSV AND SARS-COV2 PCR Routine 12/30/2024 6:35 AM CDT GLUCOSE BY METER Routine 12/30/2024 6:16 AM CDT TSH WITH FREE T4 REFLEX Add-On 12/31/19 6:15 AM CDT TROPONIN T, HIGH SENSITIVITY STAT 12/30/2024 6:15 AM CDT INR STAT 12/30/2024 6:15 AM CDT LACTIC ACID WHOLE BLOOD STAT 06/28/20 25 6:15 AM CDT IONIZED CALCIUM STAT 12/30/2024 6:15 AM CDT PHOSPHORUS STAT 12/30/2024 6:15 AM CDT MAGNESIUM STAT 12/30/2024 6:15 AM CDT COMPREHENSIVE METABOLIC PANEL STAT 12/30/2024 6:15 AM CDT BLOOD GAS VENOUS STAT 12/30/2024 6:15 AM CDT CBC WITH PLATELETS STAT 12/30/2024 6: 15 AM CDT ECG 12-LEAD WITH MUSE [facility] STAT 12/30/2024 6:00 AM CDT GLUCOSE BY METER STAT 12/30/2024 4:12 AM CDT GLUCOSE BY METER STAT 12/30/2024 2:20 AM CDT TROPONIN T, HIGH SENSITIVITY STAT 12/30/2024 2:17 AM CDT POTASSIUM STAT 12/30/2024 2:[address] CHEST PULMONARY EMBOLISM W CONTRAST STAT 12/30/2024 1:58 AM CDT LACTIC ACID WHOLE BLOOD STAT 12/31/19 1:16 AM CDT POTASSIUM STAT 12/30/2024 1:16 AM CDT IONIZED CALCIUM STAT 12/30/2024 1:16 AM CDT ECHO LIMITED STAT 12/30/2024 12:28 AM CDT TROPONIN T, HIGH SENSITIVITY STAT 12/30/2024 12:19 AM CDT COMPREHENSIVE METABOLIC PANEL STAT 12/30/2024 12:19 AM CDT EKG 12-LEAD, TRACING ONLY STAT 12/29/2024 11:40 PM CDT CBC WITH PLATELETS & DIFFERENTIAL STAT 12/29/2024 11:04 PM CDT EXTRA GREEN TOP (LITHIUM HEPARIN) ON ICE STAT 12/29/2024 11:04 PM CDT EXTRA HEPARINIZED SYRINGE STAT 12/29/2024 11:04 PM CDT EXTRA RED TOP TUBE STAT 12/29/2024 11 :04 PM CDT EXTRA BLUE TOP TUBE STAT 12/29/2024 1 1:04 PM CDT CBC WITH PLATELETS AND DIFFERENTIAL STAT 12/29/2024 11:04 PM CDT EXTRA TUBE STAT 12/29/2024 11:04 PM CDT ISTAT BASIC CHEM ICA HEMATOCRIT POCT STAT 12/29/2024 11:01 PM CDT ISTAT GASES LACTATE VENOUS POCT STAT 12/29/2024 11:01 PM CDT GLUCOSE BY METER STAT 12/29/2024 10:5 7 PM CDT EKG 12-LEAD, TRACING ONLY STAT 12/29/2024 10:53 PM CDT from Last 3 Months Results * (ABNORMAL) Glucose by meter (01/01/2025 8:42 PM CDT) Only the most recent of18 resultswithin the time period is included. GLUCOSE BY METER POCT 134(H) 70 - 99 mg/dL 01/01/2025 8:48 PM CDT [facility] POCT RESULTS Blood, Capillary BLOOD SPECIMEN / Unknown 01/01/2025 8:42 PM CDT 01/01/2025 8:48 PM CDT us Elias [facility] - [facility] POCT Final Result [facility] POCT RESULTS [address] [place] [address] * CV CORONARY ANGIOGRAM, CV INSTANTANEOUS WAVE-FREE [...] - Patient tolerated procedure well The attending safety intern was present and supervised all critical aspects the procedure. us Kimberley Douglass [facility] CV CARDIAC CATH ORDER [place] Final Result * Adult Type and Screen (01/01/2025 9:15 AM CDT) ABO/RH(D) O POS 01/01/2025 7:25 AM CDT [facility] Antibody Screen Negative Negative 01/01/2025 7:25 AM CDT [facility] SPECIMEN EXPIRATION DATE 01/04/2025 11:59:00 PM CDT 01/01/2025 7:25 AM CDT [facility] Blood BLOOD SPECIMEN / Unknown Venipuncture / Unknown 01/01/2025 9:15 AM CDT 01/01/2025 9:20 AM CDT Laura Brian MD LAB - BLOOD BANK TEST ORDER F inal Result Performing Organization Address [facility] de Phone Number [facility] [address] * (ABNORMAL) Partial thromboplastin time (01/01/2025 9:15 AM CDT) Only the most recent of7 resultswithin the time period is included. aPTT 179(HH) 22 - 38 Seconds 01/01/2025 9:41 AM CDT [facility] Blood BLOOD SPECIMEN / Unknown Venipuncture / Unknown 01/01/2025 9:15 AM CDT 01/01/2025 9:20 AM CDT Bhavik VILLEGAS MD LAB - BLOOD ORDERABLES Final Res ult Performing Organization Address City/[facility] Co de Phone Number [facility] [address] [place] [address], [facility] * Potassium (01/01/2025 4:24 AM CDT) Only the most recent of3 resultswithin the time period is included. Potassium 4.3 3.4 - 5.3 mmol/L 01/01/2025 5:04 AM CDT [facility] Blood STRUCTURE OF LEFT UPPER LIMB / Unknown Venipuncture / Unknown 01/01/2025 4:24 AM CDT 01/01/2025 4:42 AM CDT Heri Baugh MD LAB - BLOOD ORDERABLES F inal Result Performing Organization Address [facility] de Phone Number [facility] [address] * Phosphorus (01/01/2025 4:24 AM CDT) Only the most recent of3 resultswithin the time period is included. Phosphorus 2.6 2.5 - 4.5 mg/dL 01/01/2025 5:04 AM CDT [facility] Blood STRUCTURE OF LEFT UPPER LIMB / Unknown Venipuncture / Unknown 01/01/2025 4:24 AM CDT 01/01/2025 4:42 AM CDT Heri Baugh MD LAB - BLOOD ORDERABLES F inal Result Performing Organization Address [facility] de Phone Number [facility] [address] * Magnesium (01/01/2025 4:24 AM CDT) Only the most recent of4 resultswithin the time period is included. Magnesium 1.8 1.7 - 2.3 mg/dL 01/01/2025 5:53 AM CDT [facility] Blood STRUCTURE OF LEFT UPPER LIMB / Unknown Venipuncture / Unknown 01/01/2025 4:24 AM CDT 01/01/2025 4:42 AM CDT Bhavik VILLEGAS MD LAB - BLOOD ORDERABLES Final Res ult Performing Organization Address [facility] de Phone Number [facility] [address] * (ABNORMAL) Hepatic panel (01/01/2025 4:24 AM [...] ORDERABLES Final Res ult Performing Organization Address City/[facility]/ZIP Co de Phone Number [facility] [address] [place] [address], [facility] * Extra Green Top ([place] Heparin) Tube (01/01/2025 1:56 AM CDT) Pathologist [facility] Hold Specimen [facility] 01/01/2025 3:03 AM CDT [facility] Blood STRUCTURE OF LEFT UPPER LIMB / Unknown Venipuncture / Unknown 01/01/2025 1:56 AM CDT 01/01/2025 1:56 AM CDT Bhavik VILLEGAS MD LAB - BLOOD ORDERABLES Final Res ult Performing Organization Address City/[facility]/ZIP Co de Phone Number [facility] [address] [place] [address], [facility] * (ABNORMAL) Comprehensive metabolic panel (12/31/2024 3:56 AM CDT) Only the most recent of3 resultswithin the time period is included. Sodium 139 135 - 145 mmol/L 12/31/2024 4:25 AM CDT N [facility] Potassium 4.0 3.4 - 5.3 mmol/L 12/31/2024 4:25 AM CDT [facility] Carbon Dioxide (CO2) 26 22 - 29 mmol/L 12/31/2024 4:25 AM CDT [facility] Anion Gap 12 7 - 15 mmol/L 12/31/2024 4:25 AM CDT [facility] Urea Nitrogen 17.4 8.0 - 23.0 mg/dL 12/31/2024 4:25 AM CDT [facility] Creatinine 0.65 0.51 - 0.95 mg/dL 12/31/2024 4:25 AM CDT [facility] GFR Estimate >90 >60 mL/min/1.7 3m2 12/31/2024 4:25 AM CDT [facility] Comment:eGFR calculated us2020 CKD-EPI equation. Calcium [...] LAB - BLOOD ORDERABLES F inal Result [facility] [address] [place] [address], [facility] * (ABNORMAL) CBC with platelets (12/31/2024 3:56 AM CDT) Only the most recent of3 resultswithin the time period is included. [facility] WBC Count 12.5(H) 4.0 - 11.0 10e3/uL 12/31/2024 4:11 AM CDT [facility] RBC Count 3.47(L) 3.80 - 5.20 10e6/uL 12/31/2024 4:11 AM CDT [facility] Hemoglobin 10.7(L) 11.7 - 15.7 g/dL 12/31/2024 4:11 AM CDT [facility] Hematocrit 32.9(L) 35.0 - 47.0 % 12/31/2024 4:11 AM CDT [facility] MCV 95 78 - 100 fL 12/31/2024 4:11 AM CDT [facility] MCH 30.8 26.5 - 33.0 pg 12/31/2024 4:11 AM CDT [facility] MCHC 32.5 31.5 - 36.5 g/dL 12/31/2024 4:11 AM CDT [facility] RDW 14.5 10.0 - 15.0 % 12/31/2024 4:11 AM CDT [facility] Platelet Count 199 150 - 450 10e3/uL 12/31/2024 4:11 AM CDT [facility] Blood VENOUS LINE / Unknown Venipuncture / Unknown 12/31/2024 3:56 AM CDT 12/31/2024 4:02 AM CDT us Ashly Chen MD LAB - BLOOD ORDERABLES Fi nal Result [facility] [address] [place] [address], [facility] * Lactic acid whole blood (12/30/2024 9:48 PM CDT) Only the most recent of6 resultswithin the time period is included. Lactic Acid 1.4 0.7 - 2.0 mmol/L 12/30/2024 9:58 PM CDT [facility] Blood VENOUS LINE / Unknown Venipuncture / Unknown 12/30/2024 9:48 PM CDT 12/30/2024 9:52 PM CDT us Ashly Chen MD LAB - BLOOD ORDERABLES Fi nal Result [facility] [address] [place] [address], [facility] * MR Brain w/o Contrast (12/30/2024 9:05 PM CDT) Anatomical Region Laterality Modality Head, SUBRAD MR NEURO, UMP MR NEURO, RAD MR Magnetic Resonance 12/30/2024 9:05 PM CDT Impressions 12/30/2024 9:17 PM CDT IMPRESSION: 1. No acute intracranial abnormality. Narrative 12/30/2024 9:17 PM CDT EXAM: MR BRAIN W/O CONTRAST LOCATION: [facility] DATE: 12/30/2024 INDICATION: poor recall after cardiac [...] 12/30/2024 EXAM: MR BRAIN W/O CONTRAST LOCATION: [facility] DATE: 12/30/2024 INDICATION: poor recall after cardiac [...] No acute intracranial abnormality. Mitchel Hollins MD IM MRI ORDERABLES Final Resul t * CT Head w/o Contrast (12/30/2024 12:18 PM CDT) Anatomical Region Laterality Modality Head, SUBRAD CT NEURO, SUBRA D CT NEURO, UMP CT NEURO, RAD CT Computed Tomography 12/30/2024 12:1 8 PM CDT Impressions 12/30/2024 4:46 PM CDT IMPRESSION: No acute intracranial process. Narrative 12/30/2024 4:46 PM CDT EXAM: CT HEAD W/O CONTRAST LOCATION: [facility] DATE: 12/30/2024 INDICATION: post cardiac arrest, syncope, [...] 12/30/2024 EXAM: CT HEAD W/O CONTRAST LOCATION: [facility] DATE: 12/30/2024 INDICATION: post cardiac arrest, syncope, [...] No acute intracranial process. Laura Brian MD IMG CT ORDERABLES Final Resul t * (ABNORMAL) Troponin T, High Sensitivity (12/30/2024 12:06 PM CDT) Only the most recent of5 resultswithin the time period is included. Troponin T, High Sensitivity 105(HH) <=14 ng/L [...] 12:06 PM CDT 12/30/2024 12:11 PM CDT us Laura Brian MD LAB - BLOOD ORDERABLES Final Result [facility] [address] [place] [address], [facility] * ECHO COMPLETE WITH CONTRAST (12/30/2024 12:04 PM CDT) Anatomical Region Laterality Modality Ultrasound 12/30/2024 11:2 9 AM CDT Narrative 12/30/2024 12:39 PM CDT [id number]^YOGI^[place]UR[place]^ [place] [address] Name: JULIET COX : 1965 Study Date: 12/30/2024 11:29 AM Age: 59 yrs Gender: Female Patient Location: [facility] Reason For Study: Abn EKG Ordering Physician: Laura Brian MD Referring Physician: LELAND RETANA Performed By: AD^^^^ BSA: 2.0 m2 Height: 66 in Weight: 197 lb HR: 76 Procedure Echocardiogram with two-dimensional, color and spectral Doppler. Definity ([facility] #[id number]) given intravenously. Interpretation Summary 1. Normal left [...] Procedure Note Reed Pickett MD - 12/30/2024 [id number]^YOGI^[place]URA^ [place] [address] Name: JULIET COX : 1965 Study Date: 12/30/2024 11:29 AM Age: 59 yrs Gender: Female Patient Location: [facility] Reason For Study: Abn EKG Ordering Physician: Laura Brian MD Referring Physician: LELAND RETANA Performed By: AD^^^^ BSA: 2.0 m2 Height: 66 in Weight: 197 lb HR: 76 Procedure Echocardiogram with two-dimensional, color and spectral Doppler. Definity([facility] #[id number]) given intravenously. Interpretation Summary 1. Normal left [...] Screen 138 mg/dL 12/30/2024 12:33 PM CDT [facility] Comment:The reference range has not been established for creatinine in random urines. The results should be integrated into the clinical context for interpretation. Urine URINE SPECIMEN OBTAINED VIA [employer]WELLING URINARY CATHETER / Unknown Non-blood Collection / Unknown 12/30/2024 10:35 AM CDT 12/30/2024 11:05 AM CDT Laura Brian MD LAB - URINE ORDERABLES Final Result [facility] [address] [id number], [facility] * (ABNORMAL) Urine Drug Screen Panel (12/30/2024 10:35 AM CDT) Amphetamines Urine Screen Negative Screen Negative 12/30/2024 11:05 AM CDT [facility] Comment:Cutoff for a negativ e amphetamine is less than 500 ng/mL. Barbituates Urine Screen Negative Screen Negative 12/30/2024 11:05 AM CDT [facility] Comment:Cutoff for a negativ e barbiturate is less than 200 ng/mL. Benzodiazepine Urine Screen Negative Screen Negative 12/30/2024 11:05 AM CDT [facility] Comment:Cutoff for a negativ e benzodiazepine is less than 100 ng/mL. Cannabinoids Urine Screen Positive(A) Screen Negative 12/30/2024 11:05 AM [facility] Comment: Cutoff for a positive cannabinoid is 50 ng/mL or greater. This is an unconfirmed screening result to be used for medical purposes only. Cocaine Urine Screen Negative Screen Negative 12/30/2024 11:05 AM [facility] Comment:Cutoff for a negativ e cocaine is less than 300 ng/mL. Fentanyl Qual Urine Screen Negative Screen Negative 12/30/2024 11:05 AM T [facility] Comment:Cutoff for negative fentanyl is less than 5 ng/mL. Opiates Urine Screen Negative Screen Negative 12/30/2024 11:05 AM [facility] Comment:Cutoff for a negativ e opiate is less than 300 ng/mL. PCP Urine Screen Negative Screen Negative 12/30/2024 11:05 AM T [facility] Comment:Cutoff for a negativ e PCP is less than 25 ng/mL. Urine URINE SPECIMEN OBTAINED VIA [employer]WE[facility]INARY CATHETER / Unknown Non-blood Collection / Unknown 12/30/2024 10:35 AM CDT 12/30/2024 10:41 AM CDT Laura Brian MD LAB - URINE ORDERABLES Final Result [facility] [address] [place] [address], [facility] * Influenza A/B, RSV and SARS-CoV2 PCR (COVID-19) Nasopharyngeal (12/30/2024 6:35 AM CDT) [facility] Influenza A PCR Negative Negative 12/30/2024 7:27 AM CDT [facility] Influenza B PCR Negative Negative 12/30/2024 7:27 AM CDT [facility] RSV PCR Negative Negative 12/30/2024 7:27 AM CDT [facility] SARS CoV2 PCR Negative Negative 12/30/2024 7:27 AM CDT [facility] Comment:NEGATIVE: SARS-CoV-2 (COVID-19) RNA not detected, presumed negative. Swab NASOPHARYNGEAL STRUCTURE / Unknown Non-blood Collection / Unknown 12/30/2024 6:35 AM CDT 12/30/2024 6:40 AM CDT Narrative [facility] - 12/30/2024 7:27 AM CDT Testing was performed using the Xpert Xpress CoV2/Flu/RSV Assay on the [employer] [place] GeneXpert Instrument. This test should be ordered [...] management. This test was validated by the [facility] [employer]. These laboratories are certified under the Clinical Laboratory Improvement Amendments of 1988 (CLIA-88) as qualified to perfom high complexity laboratory testing. Ashly Chen MD LAB - MICRO GENERAL ORDER ESTEPHANIA Final Result Performing Organization Address City/[facility] Co de Phone Number [facility] [address] * TSH with free T4 reflex (12/30/2024 6:15 AM CDT) TSH 2.44 0.30 - 4.20 uIU/mL 12/30/2024 12:26 PM CDT [facility] Blood VENOUS LINE / Unknown Venipuncture / Unknown 12/30/2024 6:15 AM CDT 12/30/2024 6:21 AM CDT Heri Baugh MD LAB - BLOOD ORDERABLES F inal Result Performing Organization Address [facility] Co de Phone Number [facility] [address] [place] [address], [facility] * (ABNORMAL) INR (12/30/2024 6:15 AM CDT) INR 1.22(H) 0.85 - 1.15 12/30/2024 7:14 AM CDT [facility] PT 15.6(H) 11.8 - 14.8 Seconds 12/30/2024 7:14 AM CDT [facility] Blood VENOUS LINE / Unknown Venipuncture / Unknown 12/30/2024 6:15 AM CDT 12/30/2024 6:21 AM CDT Ashly Chen MD LAB - BLOOD ORDERABLES Fi nal Result Performing Organization Address City/[facility] Co de Phone Number [facility] [address] * Ionized Calcium (12/30/2024 6:15 AM CDT) Only the most recent of2 resultswithin the time period is included. Pathologist [facility] Calcium Ionized Whole Blood 4.5 4.4 - 5.2 mg/dL 12/30/2024 6:23 AM CDT [facility] Blood, venous VENOUS LINE / Unknown Venipuncture / Unknown 12/30/2024 6:15 AM CDT 12/30/2024 6:21 AM CDT Ashly Chen MD LAB - BLOOD ORDERABLES Fi nal Result Performing Organization Address City/[facility] Co de Phone Number [facility] [address] * (ABNORMAL) Blood gas venous (12/30/2024 6:15 AM CDT) Pathologist [facility] pH Venous 7.37 7.32 - 7.43 12/30/2024 6:26 AM CDT [facility] pCO2 Venous 50 40 - 50 mm Hg 12/30/2024 6:26 AM CDT [facility] pO2 Venous 32 25 - 47 mm Hg 12/30/2024 6:26 AM CDT [facility] Bicarbonate Venous 29(H) 21 - 28 mmol/L 12/30/2024 6:26 AM CDT [facility] Base Excess/Deficit Venous 2.5 -3.0 - 3.0 mmol/L 12/30/2024 6:26 AM CDT N [facility] FIO2 37 OLMAN 12/30/2024 6:26 AM CDT [facility] Comment:4 L per NC Oxyhemoglobin Venous 56(L) 70 - 75 % 12/30/2024 6:26 AM CDT [facility] O2 Sat, Venous 57.8(L) 70.0 - 75.0 % 12/30/2024 6:26 AM CDT [facility] Blood, venous VENOUS LINE / Unknown Venipuncture / Unknown 12/30/2024 6:15 AM CDT 12/30/2024 6:21 AM CDT Narrative [facility] - 12/30/2024 6:26 AM CDT In healthy individuals, oxyhemoglobin (O2Hb) and oxygen saturation (SO2) are approximately equal. In the presence of dyshemoglobins, oxyhemoglobin can be considerably lower than oxygen saturation. Ashly Chen MD LAB - BLOOD ORDERABLES Fi nal Result [facility] [address] [place] [id number], [facility] * ECG 12-Lead with MUSE ??? SHIRA,LOCO,WW (12/30/2024 6:00 AM CDT) Systolic Blood Pressure mmHg RADIOLOGY RESULTS Diastolic Blood Pressure mmHg RADIOLOGY RESULTS Ventricular Rate 76 BPM RAD IOLOGY RESULTS Atrial Rate 76 BPM RADIOLOG Y RESULTS RI Interval 224 ms RADIOLOG Y RESULTS QRS Duration 102 ms RADIOLO GY RESULTS QT 422 ms RADIOLOGY RESULTS QTc 474 ms RADIOLOGY RESULTS P [place] 58 degrees RADIOLOGY RESULTS R AXIS -45 degrees RADIOLOGY RESULTS T [place] 25 degrees RADIOLOGY RESULTS Interpretation ECG Sinus rhythm with 1st degree A-V block with Premature supraventricular complexes Possible Left atrial enlargement Left axis deviation Cannot rule out Anterior infarct , age undetermined Abnormal ECG When compared with ECG of 29-Dec-2024 23:40, Significant changes have occurred Confirmed by DUDLEY PARKER, EPI LOC:WW ([id number]) on 12/30/2024 12:43:23 PM RADIOLOGY RESULTS 12/30/2024 6:00 AM CDT 12/30/2024 12:43 PM CDT Ashly Chen MD ECG ORDERABLES Edited Re sult - Final RADIOLOGY RESULTS * CT Chest Pulmonary Embolism w Contrast [...] CT CHEST PULMONARY EMBOLISM W CONTRAST LOCATION: [facility] DATE: 12/30/2024 INDICATION: Cardiac arrest. COMPARISON: None. [...] CT CHEST PULMONARY EMBOLISM W CONTRAST LOCATION: [facility] DATE: 12/30/2024 INDICATION: Cardiac arrest. COMPARISON: None. [...] cancer risk factor, no follow-up is necessary. us Leland Retana MD IMG CT ORDERABLES Final R esult * ECHO LIMITED (12/30/2024 12:28 AM CDT) LVEF 60-65% CARDIOLOGY RESULTS Anatomical Region Laterality Modality Echocardiography 12/30/2024 12:1 5 AM CDT Narrative 12/30/2024 12:39 AM CDT [id number]^[email or web address]^LELAND^CYNTHIA [facility] [address] [place] [id number] Name: JULIET COX : 1965 Study Date: 12/30/2024 12:15 AM Age: 59 yrs Gender: Female Patient Location: [facility] Reason For Study: Cardiac Arrest Ordering Physician: LELAND RETANA Performed By: Kendra Manzano BSA: 2.0 [...] Procedure Note Ced Moeller MD - 12/30/2024 [id number]^[email or web address]^LELAND^RAY [facility] [address] [place] [id number] Name: JULIET COX Renee : 1965 Study Date: 12/30/2024 12:15 AM Age: 59 yrs Gender: Female Patient Location: [facility] Reason For Study: Cardiac Arrest Ordering Physician: LELAND RETANA Performed By: Kendra Manzano BSA: 2.0 [...] MD on 12/30/2024 12:39 AM us Leland Retana MD CV ECHO ORDERABLES Edited Result - Final * EKG 12 lead (12/29/2024 11:40 PM CDT) Only the most recent of2 resultswithin the time period is included. Systolic Blood Pressure mmHg RADIOLOGY RESULTS Diastolic Blood Pressure mmHg RADIOLOGY RESULTS Ventricular Rate 113 BPM RAD IOLOGY RESULTS Atrial Rate 226 BPM RADIOLOG Y RESULTS RI Interval ms RADIOLOG Y RESULTS QRS Duration 94 ms RADIOLO GY RESULTS QT 390 ms RADIOLOGY RESULTS QTc 534 ms RADIOLOGY RESULTS P [place] degrees RADIOLOGY RESULTS R AXIS 57 degrees RADIOLOGY RESULTS T [place] 83 degrees RADIOLOGY RESULTS Interpretation ECG Atrial flutter with 2:1 A-V conduction Nonspecific ST abnormality Prolonged QT Abnormal ECG When compared with ECG of 29-Dec-2024 22:53, (unconfirmed) QRS axis Shifted right ST less depressed in Lateral leads Unconfirmed report - interpretation of this ECG is computer generated - see medical record for final interpretation Confirmed by - EMERGENCY ROOM, PHYSICIAN ([id number]), film editor Dennis Billingsley ([id number]) on 01/01/2025 7:47:35 AM RADIOLOGY RESULTS 12/29/2024 11:4 0 PM CDT 01/01/2025 7:47 AM CDT us Leland Retana MD ECG ORDERABLES Edited Re sult - Final RADIOLOGY RESULTS * Extra Green Top ([place] Heparin) ON ICE (12/29/2024 11:04 PM CDT) Hold Specimen [facility] 12/30/2024 1:31 AM CDT [facility] Blood BLOOD SPECIMEN / Unknown Venipuncture / Unknown 12/29/2024 11:04 PM CDT 12/30/2024 12:21 AM CDT us Leland Retana MD LAB - BLOOD ORDERABLES Fi nal Result [facility] [address] Lab (1st floor, no room number) [address] [place] [address] * Extra Heparinized Syringe (12/29/2024 11:04 PM CDT) Hold Specimen [facility] 12/30/2024 1:31 AM CDT [facility] Blood, venous BLOOD SPECIMEN / Unknown Venipuncture / Unknown 12/29/2024 11:04 PM CDT 12/30/2024 12:21 AM CDT us Leland Retana MD LAB - BLOOD ORDERABLES Fi nal Result [facility] [address] Lab (1st floor, no room number) [place] [id number] [place] [address] * Extra Red Top Tube (12/29/2024 11:04 PM CDT) Hold Specimen [facility] 12/30/2024 1:31 AM CDT [facility] Blood BLOOD SPECIMEN / Unknown Venipuncture / Unknown 12/29/2024 11:04 PM CDT 12/30/2024 12:21 AM CDT us Leland Retana MD LAB - BLOOD ORDERABLES Fi nal Result [facility] [address] Lab (1st floor, no room number) [place] [address] * Extra Blue Top Tube (12/29/2024 11:04 PM CDT) Hold Specimen [facility] 12/30/2024 12:31 AM CDT [facility] Blood BLOOD SPECIMEN / Unknown Venipuncture / Unknown 12/29/2024 11:04 PM CDT 12/29/2024 11:23 PM CDT us Leland Retana MD LAB - BLOOD ORDERABLES Fi nal Result [facility] [address] Lab (1st floor, no room number) [place] [id number] * (ABNORMAL) CBC with platelets and differential [...] CDT 12/29/2024 11:23 PM CDT us Leland Retana MD LAB - BLOOD ORDERABLES Fi nal Result [facility] [address] Lab (1st floor, no room number) [place] [address], [facility] * (ABNORMAL) iStat Basic Chem ICA Hematocrit, [...] the context of the updated reference intervals. us Leland Retana MD LAB - BEAKER POCT Final R esult [facility] POC [facility] [address] [facility] Lab (1st floor, no room number) [place] [address] * (ABNORMAL) iStat Gases (lactate) venous, POCT [...] 11:01 PM CDT 12/29/2024 11:07 PM CDT us Leland Retana MD LAB - [facility] POCT Final R esult [facility] POC [facility] [address] Lab (1st floor, no room number) [place] [address] from Last 3 Months Insurance [place] Advance Directives For more information, please contact: [phone] * Full Code (Latest Code Status on File) Date Activated Date Inactivated Comments 01/01/2025 11:41 AM All basic and advanced life-sustaining interventions are performed as appropriate Question Answer Comments Code status determined by: Discussion with patie nt/ legal decision maker * Full Code Date Activated Date Inactivated Comments 01/01/2025 11:41 AM 01/01/2025 11:41 AM All basic and advanced life-sustaining interventions are performed as appropriate Question Answer Comments Code status determined by: Discussion with patie nt/ legal decision maker * Full Code Date Activated Date Inactivated Comments 12/30/2024 5:39 AM 01/01/2025 11:41 AM All basic a nd advanced life-sustaining interventions are performed as appropriate Question Answer Comments Code status determined by: Discussion with patie nt/ legal decision maker * Full Code Date Activated Date Inactivated Comments 02/24/2022 5:13 PM 02/26/2022 4:57 PM All basic an d advanced life-sustaining interventions are performed as appropriate Question Answer Comments Code status determined by: Other (please documen t) Care Teams Voip Network Technician Relationship Specialty [place] [address] [place] [address] PCP - General Family Medicine 02/18/22
== END 2024-12-29 22:13 | disposition home or self-care (01) ==
LOC: AMB 01-01 13:59
PROVIDERS: Visit Provider Student in an Organized Health Care Education/Training Program
DX: I46.9 Cardiac arrest, cause unspecified (principal)
CPT/HCPCS: A0425; A0433